=== PATIENT | female | born 1930 | race Caucasian/White ===

== ENCOUNTER 2016-09-13 10:47 | Observation (INO) | payer MEDICARE, OTHER ==
[~2016-09-13] VITALS: Ht 152.4 cm; Wt 60.0 kg
[~2016-09-13 10:47] MED LIST: AMIT75 PO; CALCTAB70 PO; DIOV160T60 PO; DUONI NEB; FURO20 PO; HYDR-3533 PO; LIPI20TA PO; LORA0.5T PO; METF850T PO; OMEP20TA PO; POTA595T2 PO; PRED20 PO; PROP10TA6 PO; VITA100017 PO; VITA100020 PO; ZITH250T PO
[2016-09-13 10:51] VITALS: BP 143/89; PULSE 87; RESP 17; TEMP 97.7; O2SAT 94
[2016-09-13] MEDS ORDERED: SODIUM CHLORIDE 0.9% FLUSH 5 ML FLUSH IVF PRN (11:30)
[2016-09-13 11:44] VITALS: BP_SYST 134; BP_SYST 140; BP_DIAS 92; BP_DIAS 93; RESP 18; O2SAT 96
[2016-09-13] MEDS ORDERED: PROP10TA6 PO (11:55)
[2016-09-13] MEDS ORDERED: CALC600T30 PO (11:55)
[2016-09-13] MEDS ORDERED: VITA10007 PO (11:55)
[2016-09-13] MEDS ORDERED: METF850T PO (11:55)
[2016-09-13] MEDS ORDERED: LOVA10TA PO (11:55)
[2016-09-13] MEDS ORDERED: IPRASOL NEB (11:55)
[2016-09-13] MEDS ORDERED: POTA595T PO (11:55)
[2016-09-13] MEDS ORDERED: ALBU6.7H INH (11:55)
[2016-09-13] MEDS ORDERED: AMIT75TA2 PO (11:55)
[2016-09-13] MEDS ORDERED: VITA10002 PO (11:55)
[2016-09-13] MEDS ORDERED: RESP: ALBUTEROL 2.5 MG/IPRATROPIUM 0.5 MG NEB (SCH) NEB ONE (12:15)
[2016-09-13 12:16] LABS: AUTOMATED NEUTROPHIL # 3.8 TH/MM3 (1.8-7.7); BASOPHIL # 0.1 TH/MM3 (0-0.2); BASOPHIL % 1.2 % (0.0-2.0); EOSINOPHIL # 0.2 TH/MM3 (0-0.4); HEMATOCRIT 35.6 % (35.0-46.0); HEMO FLAGS DIFF FINAL; LYMPH % 15.6 % (9.0-44.0); LYMPHOCYTE # 0.9 TH/MM3 (1.0-4.8); MEAN CELL VOLUME 88.5 FL (80.0-100.0); MEAN CORPUSCULAR HGB CONC 32.8 % (32.0-36.0); MONO % 11.2 % (0.0-8.0); PLATELET COUNT 157 TH/MM3 (150-450); RED BLOOD COUNT 4.02 MIL/MM3 (4.00-5.30); RED CELL DISTRIBUTION WIDTH 14.7 % (11.6-17.2); WHITE BLOOD COUNT 5.6 TH/MM3 (4.0-11.0)
[2016-09-13 12:27] LABS: INTERNATIONAL NORMALIZED RATIO 0.9 RATIO
[2016-09-13 12:28] LABS: APTT (PATIENT) 25.2 SEC (24.3-30.1)
--- NOTE | 2016-09-13 12:38 | RADRPT ---
EXAM DATE/TIME: 09/13/2016 12:07 [place] COMPARISON: CHEST SINGLE AP, February 17, 2016, 11:16. INDICATIONS : Chest pain, short of breath for several days, sent by doctor MEDICAL HISTORY : None. SURGICAL HISTORY : None. ENCOUNTER: Initial ACUITY: 1 week PAIN SCORE: 5/10 LOCATION: Bilateral chest FINDINGS: Minimal air space disease is seen in the right upper lobe. Left lung is clear. Heart and pulmonary vascularity are normal. Spinal stimulator is noted. CONCLUSION: Stable chest, negative for an acute process. Scooby Bermudez MD FACR on September 13, 2016 at 12:29 Board Certified Radiologist. This report was verified electronically.
[2016-09-13 12:40] LABS: ALKALINE PHOSPHATASE 73 U/L (45-117); ALT (GPT) 18 U/L (10-53); ANION GAP 2 MEQ/L (5-15); AST (GOT) 29 U/L (15-37); BICARBONATE 33.6 MEQ/L (21.0-32.0); BLOOD UREA NITROGEN 15 MG/DL (7-18); CHLORIDE 103 MEQ/L (98-107); CREATINE KINASE 136 U/L (26-192); GLOMERULAR FILTRATION RATE 52 ML/MIN (>89); MAGNESIUM 2.1 MG/DL (1.5-2.5); POTASSIUM 4.8 MEQ/L (3.5-5.1); SODIUM (NA) 139 MEQ/L (136-145); TOTAL BILIRUBIN ADULT 0.4 MG/DL (0.2-1.0)
[2016-09-13 12:54] LABS: CKMB 3.4 NG/ML (0.5-3.6)
[2016-09-13] MEDS ORDERED: hydrALAZINE HCL 20 MG/ML VIAL IV PUSH ONE (13:15)
--- NOTE | 2016-09-13 13:20 | PD ---
HPI Chief Complaint: Cardiac Complaint Time Seen by Provider: 11:28 Travel History International Travel<30 days: No Contact w/Intl Traveler<30days: No Traveled to known affect area: No History of Present Illness HPI Patient 86-year-old female presents from Cesar Velazquez's office for evaluation of abnormal EKG and shortness of breath. According to the patient she was seen in his office today and apparently had tachycardic and bradycardic runs to the highest of 100 and the lowest of 50. She also was apparently diaphoretic. Patient is also been complaining of some mild shortness of breath for the past few weeks which is just greater than her normal shortness of breath from COPD. Patient also has a history of mild CHF on her chart. 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 She is followed by Dr. Junie Bess. Patient is coming by her daughter who is concerned for possible cardiac cause. Patient denies any pain, severely denying any chest pain abdominal pain nausea vomiting diarrhea PFSH Past Medical History Arthritis: Yes Asthma: No Autoimmune Disease: No Blood Disorders: No Anxiety: No Depression: No Heart Rhythm Problems: No Cancer: Yes ( MYELODYSPLASIA) Cardiovascular Problems: Yes High Cholesterol: Yes Chemotherapy: No Chest Pain: No Congestive Heart Failure: No COPD: Yes Cerebrovascular Accident: No Coronary Artery Disease: No Diabetes: Yes Patient Takes Glucophage: Yes Diminished Hearing: Yes Endocrine: Yes GERD: No Glaucoma: No Genitourinary: No Hiatal Hernia: No Hypertension: Yes Immune Disorder: No Kidney Stones: No Musculoskeletal: No Neurologic: No Psychiatric: No Reproductive: No Respiratory: Yes (COPD) Migraines: No Myocardial Infarction: No Radiation Therapy: No Renal Failure: No Seizures: No Sickle Cell Disease: No Sleep Apnea: No Thyroid Disease: No Ulcer: No Menopausal: Yes Past Surgical History Abdominal Surgery: No AICD: No Appendectomy: Yes Arteriovenous Shunt: No Cardiac Surgery: No Ear Surgery: No Endocrine Surgery: No Eye Surgery: No Genitourinary Surgery: No Gynecologic Surgery: Yes (hysterectomy) Hysterectomy: Yes Insulin Pump: No Joint Replacement: No Oral Surgery: No Pacemaker: No Thoracic Surgery: No Tonsillectomy: Yes Tympanostomy Tube: Yes Other Surgery: Yes (BACK,HYST,APPEND,) Social History Alcohol Use: Yes (on occasion) Tobacco Use: No (quit 1993) Substance Use: No Allergies-Medications (Allergen,Severity, Reaction): Coded Allergies: Lovenox (Verified Allergy, Mild, Flushing,pruritus, 12/29/15) Reported Meds & Prescriptions Reported Meds & Active Scripts Active Reported Propranolol (Propranolol HCl) 10 Mg Tab 10 Mg PO DAILY Potassium Gluconate 595 Mg Tab 595 Mg PO DAILY Lovastatin 10 Mg Tab 10 Mg PO MOWEFR Take 1 tablet (10mg) on Friday,Friday and Friday Vitamin B-12 (Cyanocobalamin) 1,000 Mcg Tab 1,000 Mcg PO DAILY Metformin (Metformin HCl) 850 Mg Tab 850 Mg PO DAILY With a meal Calcium 600/Vitamin D (Calcium Carbonate-Vitamin D) 600-200 Mg-Unit Tab 2 Tab PO DAILY Vitamin C (Ascorbic Acid) 1,000 Mg Tab 1,000 Mg PO DAILY Amitriptyline (Amitriptyline HCl) 75 Mg Tab 75 Mg PO HS Proventil Hfa 6.7 GM Inh (Albuterol Sulfate) 90 Mcg/Act Aer 1-2 Puff INH Q4-6H PRN Duoneb (Ipratropium-Albuterol Neb) 0.5-2.5 Mg/3 Ml Neb 1 Ampule NEB BID Review of Systems Except as stated in HPI: all other systems reviewed are Neg Physical Exam Narrative GENERAL: Well-developed well-nourished in no apparent distress. SKIN: Warm and dry and pale. HEAD: Atraumatic. Normocephalic. EYES: Pupils equal and round. No scleral icterus. No injection or drainage. ENT: No nasal bleeding or discharge. Mucous membranes pink and moist. NECK: Trachea midline. No JVD. CARDIOVASCULAR: Regular rate and rhythm. No murmur appreciated. RESPIRATORY: No accessory muscle use. Clear to auscultation. Breath sounds equal bilaterally. GASTROINTESTINAL: Abdomen soft, non-tender, nondistended. Hepatic and splenic margins not palpable. MUSCULOSKELETAL: No obvious deformities. No clubbing. No cyanosis. No edema. NEUROLOGICAL: Awake and alert. No obvious cranial nerve deficits. Motor grossly within normal limits. Normal speech. PSYCHIATRIC: Appropriate mood and affect; insight and judgment normal. Data Data Last Documented VS Vital Signs Date Time Temp Pulse Resp B/P Pulse Ox O2 Delivery O2 Flow Rate FiO2 09/13/16 11:44 134/92 140/93 09/13/16 11:44 96 Room Air 09/13/16 11:44 18 09/13/16 11:38 83 09/13/16 10:51 97.7 Orders Electrocardiogram (09/13/16 ) Electrocardiogram (09/13/16 11:29) Ckmb (Isoenzyme) Profile (09/13/16 11:29) Complete Blood Count With Diff (09/13/16 11:29) Comprehensive Metabolic Panel (09/13/16 11:29) Magnesium (Mg) (09/13/16 11:29) Prothrombin Time / Inr (Pt) (09/13/16 11:29) Act Partial Throm Time (Ptt) (09/13/16 11:29) Troponin I (09/13/16 11:29) Chest, Single Ap (09/13/16 11:29) Ecg Monitoring (09/13/16 11:29) Bilateral Bp Monitoring (09/13/16 11:29) Iv Access Insert/Monitor (09/13/16 11:29) Oximetry (09/13/16 11:29) Oxygen Administration (09/13/16 11:29) Sodium Chloride 0.9% Flush (Ns Flush) (09/13/16 11:30) Albuterol-Ipratropium Neb (Duoneb Neb) (09/13/16 12:15) CKMB (09/13/16 11:55) CKMB% (09/13/16 11:55) Hydralazine Inj (Apresoline Inj) (09/13/16 13:15) Admit Order (Ed Use Only) (09/13/16 ) Labs Laboratory Tests Test 09/13/16 11:55 White Blood Count 5.6 TH/MM3 Red Blood Count 4.02 MIL/MM3 Hemoglobin 11.7 GM/DL Hematocrit 35.6 % Mean Corpuscular Volume 88.5 FL Mean Corpuscular Hemoglobin 29.0 PG Mean Corpuscular Hemoglobin 32.8 % Concent Red Cell Distribution Width 14.7 % Platelet Count 157 TH/MM3 Mean Platelet Volume 8.3 FL Neutrophils (%) (Auto) 69.0 % Lymphocytes (%) (Auto) 15.6 % Monocytes (%) (Auto) 11.2 % Eosinophils (%) (Auto) 3.0 % Basophils (%) (Auto) 1.2 % Neutrophils # (Auto) 3.8 TH/MM3 Lymphocytes # (Auto) 0.9 TH/MM3 Monocytes # (Auto) 0.6 TH/MM3 Eosinophils # (Auto) 0.2 TH/MM3 Basophils # (Auto) 0.1 TH/MM3 CBC Comment DIFF FINAL Differential Comment Prothrombin Time 10.0 SEC Prothromb Time International 0.9 RATIO Ratio Activated Partial 25.2 SEC Thromboplast Time Sodium Level 139 MEQ/L Potassium Level 4.8 MEQ/L Chloride Level 103 MEQ/L Carbon Dioxide Level 33.6 MEQ/L Anion Gap 2 MEQ/L Blood Urea Nitrogen 15 MG/DL Creatinine 1.00 MG/DL Estimat Glomerular Filtration 52 ML/MIN Rate Random Glucose 94 MG/DL Calcium Level 9.1 MG/DL Magnesium Level 2.1 MG/DL Total Bilirubin 0.4 MG/DL Aspartate Amino Transf 29 U/L (AST/SGOT) Alanine Aminotransferase 18 U/L (ALT/SGPT) Alkaline Phosphatase 73 U/L Total Creatine Kinase 136 U/L Creatine Kinase MB 3.4 NG/ML Troponin I LESS THAN 0.02 NG/ML Total Protein 7.0 GM/DL Albumin 3.6 GM/DL [facility] Medical Decision Making Medical Screen Exam Complete: Yes Emergency Medical Condition: Yes Interpretation(s) EKG shows sinus first degree heart block, normal axis and normal R-wave progression. MN interval is at 213. The normal R-wave progression, no concerning ST T changes. This abnormal EKG. Differential Diagnosis ACS, AMI, pneumonia, COPD exacerbation, tachycardia dysrhythmia, sick sinus syndrome, anemia Narrative Course 86-year-old female presents emergency department for complaints of shortness of breath and possible tachybradycardia syndrome. Sent by Cesar Velazquez. Patient initial workup including chest x-ray CBC CMP and troponin all reassuring except for sinus first degree heart block. Patient feeling better after DuoNeb still with some mild shortness of breath. Patient's daughters at the bedside. We discussed observation status and they're amenable. The patient was discussed with Dr. Pham who will admit. The cardiac telemetry shows no arrhythmia (other than first-degree heart block) while in the emergency department. Diagnosis Primary Impression: Shortness of breath Admitting Information Admitting Physician Requests: Observation Condition: Stable Sahil Kwong MD Sep 13, 2016 13:20
[2016-09-13] MEDS ORDERED: NALOXONE HCL 0.4 MG/ML AMP IV PRN (13:45)
[2016-09-13] MEDS ORDERED: ONDANSETRON HCL 4 MG/2 ML VIAL IVP PRN (13:45)
[2016-09-13] MEDS ORDERED: SODIUM CHLORIDE 0.9% FLUSH 5 ML FLUSH FLUSH PRN (13:45)
[2016-09-13] MEDS ORDERED: METOCLOPRAMIDE HCL 10 MG/2 ML VIAL IV PUSH PRN (13:45)
[2016-09-13] MEDS: RESP: ALBUTEROL 2.5 MG/IPRATROPIUM 0.5 MG NEB (SCH) NEB ×2 (15:22→21:24)
[2016-09-13 15:34] VITALS: BP 154/71; PULSE 91; RESP 17; O2SAT 96
[2016-09-13 16:00] VITALS: PULSE 63
[2016-09-13 16:27] VITALS: BP 143/67; PULSE 102; RESP 18; TEMP 98.8
--- NOTE | 2016-09-13 16:34 | HHI.HP ---
[facility] C[facility] MD (Paul) Admission Diagnosis SOB, possible tachy dysrythmia. Diagnoses: Chief Complaint: SOB (Ban Barbosa) Travel History International Travel<30 Days: No Contact w/Intl Traveler <30 Da: No Traveled to Known Affected Are: No (Ban Barbosa) History of Present Illness This is an 86-year-old female patient with past medical history which includes chronic anemia thrombocytopenia, chronic myelodysplastic syndrome, COPD, history of pneumonia, AV malformation, diabetes mellitus type 2, hyperlipidemia. Pt. presented to ED with tachycardia and SOB. Pt. went to PCP for regular check up and was noted with elevated BP, more SOB, and abnormal EKG. Per daughter, who is providing most details. Pt. was tachycardic and BP was elevated. Pt. c/o chronic SOB however she has noted increased BALDWIN, no CP, but occasional palpitations. No leg swelling. Questionable history of CHF in the past. Did see Dr. Anand 2 years ago, no prior hx of CAD. 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 Pt. states that she was told she may need oxygen. She was admitted last year with COPD exacerbation and she passed walked test and oxygen was not required. Her sats are 93% on RA. Pt. evaluated in the ED, laboratory essentially unremarkable except for elevated CO2. CXR with no acute findings. EKG with SR and 1st degree AVB. Pt. is resting comfortable, states she is somewhat active, still goes shopping for groceries and lives alone at a senior residence building. Pt. admitted for further evaluation and treatment. (Ban Barbosa) Review of Systems ROS Limitations: Poor Historian Respiratory: COMPLAINS OF: Wheezing, Shortness of breath Cardiovascular: COMPLAINS OF: Palpitations, Dyspnea on Exertion (Ban Barbosa) Past Family Social History Past Medical History chronic anemia thrombocytopenia, chronic myelodysplastic syndrome, COPD, history of pneumonia, AV malformation, diabetes mellitus type 2, hyperlipidemia , cataracts Past Surgical History Appendectomy, bilateral cataract surgery, hysterectomy, tonsillectomy, back surgery 3 Reported Medications Reported Meds & Active Scripts Active Reported Propranolol (Propranolol HCl) 10 Mg Tab 10 Mg PO DAILY Potassium Gluconate 595 Mg Tab 595 Mg PO DAILY Lovastatin 10 Mg Tab 10 Mg PO Take 1 tablet (10mg) on Friday,Friday and Friday Vitamin B-12 (Cyanocobalamin) 1,000 Mcg Tab 1,000 Mcg PO DAILY Metformin (Metformin HCl) 850 Mg Tab 850 Mg PO DAILY With a meal Calcium 600/Vitamin D (Calcium Carbonate-Vitamin D) 600-200 Mg-Unit Tab 2 Tab PO DAILY Vitamin C (Ascorbic Acid) 1,000 Mg Tab 1,000 Mg PO DAILY Amitriptyline (Amitriptyline HCl) 75 Mg Tab 75 Mg PO HS Proventil Hfa 6.7 GM Inh (Albuterol Sulfate) 90 Mcg/Act Aer 1-2 Puff INH Q4-6H PRN Duoneb (Ipratropium-Albuterol Neb) 0.5-2.5 Mg/3 Ml Neb 1 Ampule NEB BID (Ban Barbosa) Allergies: Coded Allergies: Lovenox (Verified Allergy, Mild, Flushing,pruritus, 12/29/15) Active Ordered Medications Inpatient Medications Albuterol/ Ipratropium (Duoneb Neb) 1 ampule QID NEB NEB Last administered on 09/13/16 15:22; Start 09/13/16 at 16:00 Amitriptyline HCl (Elavil) 75 mg HS PO ; Start 09/13/16 at 21:00 Aspirin (Ecotrin Ec) 81 mg DAILY PO ; Start 09/14/16 at 09:00 Calcium/Vitamin D (Oscal-D 250-125) 500 mg BID PO ; Start 09/14/16 at 09:00 Hydralazine HCl (Apresoline Inj) 10 mg ONCE ONCE IV PUSH Last administered on 09/13/16 13:15; Start 09/13/16 at 13:15; Stop 09/13/16 at 13:16; Status DC IV Flush (NS Flush) 2 ml BID FLUSH ; Start 09/13/16 at 21:00 Metoclopramide HCl (Reglan Inj) 5 mg Q6H PRN IV PUSH NAUSEA OR VOMITING; Start 09/13/16 at 13:45 Naloxone HCl (Narcan Inj) 0.4 mg UNSCH PRN IV SEE LABEL COMMENTS; Start at 13:45 Ondansetron HCl (Zofran Inj) 4 mg Q6H PRN IVP NAUSEA OR VOMITING; Start at 13:45 Pravastatin Sodium (Pravachol) 10 mg MoWeFr PO ; Start 09/16/16 at 09:00 Family History Patient reports her mother at 97 secondary to old age possible [place] Father in his 40s secondary to [place] Social History Patient lives at home alone, resides in a senior residence Occasional EtOH Quit smoking 21 years ago prior to that smoked one pack per day since age 15 Denies illicit drug use uses walker for ambulation has daughter who lives close by, very supportive (Ban Barbosa) Physical Exam Vital Signs Vital Signs Date Time Temp Pulse Resp B/P Pulse Ox O2 Delivery O2 Flow Rate FiO2 09/13/16 15:34 91 17 154/71 96 Room Air 09/13/16 11:44 134/92 140/93 09/13/16 11:44 96 Room Air 09/13/16 11:44 18 96 Room Air 09/13/16 11:38 83 18 95 09/13/16 10:51 97.7 87 17 143/89 94 Physical Exam GENERAL: This is a well-nourished, well-developed patient, in no apparent distress. SKIN: No rashes, ecchymoses or lesions. Cool and dry. HEAD: Atraumatic. Normocephalic. No temporal or scalp tenderness. EYES: Pupils equal round and reactive. Extraocular motions intact. No scleral icterus. No injection or drainage. ENT: Nose without bleeding, purulent drainage or septal hematoma. Throat without erythema, tonsillar hypertrophy or exudate. Uvula midline. Airway patent. NECK: Trachea midline. No JVD or lymphadenopathy. Supple, nontender, no meningeal signs. CARDIOVASCULAR: Regular rate and rhythm with soft murmurs. No gallops, or rubs. RESPIRATORY: Diminished, faint expiratory wheezing. GASTROINTESTINAL: Abdomen soft, non-tender, nondistended. No hepato-splenomegaly , or palpable masses. No guarding. MUSCULOSKELETAL: Extremities without clubbing, cyanosis, or edema. No joint tenderness, effusion, or edema noted. No calf tenderness. Negative Homans sign bilaterally. NEUROLOGICAL: Awake and alert. Cranial nerves II through XII intact. Motor and sensory grossly within normal limits. Five out of 5 muscle strength in all muscle groups. Normal speech. Laboratory Laboratory Tests Test 09/13/16 11:55 White Blood Count 5.6 Red Blood Count 4.02 Hemoglobin 11.7 Hematocrit 35.6 Mean Corpuscular Volume 88.5 Mean Corpuscular Hemoglobin 29.0 Mean Corpuscular Hemoglobin 32.8 Concent Red Cell Distribution Width 14.7 Platelet Count 157 Mean Platelet Volume 8.3 Neutrophils (%) (Auto) 69.0 Lymphocytes (%) (Auto) 15.6 Monocytes (%) (Auto) 11.2 Eosinophils (%) (Auto) 3.0 Basophils (%) (Auto) 1.2 Neutrophils # (Auto) 3.8 Lymphocytes # (Auto) 0.9 Monocytes # (Auto) 0.6 Eosinophils # (Auto) 0.2 Basophils # (Auto) 0.1 CBC Comment DIFF FINAL Differential Comment Prothrombin Time 10.0 Prothromb Time International 0.9 Ratio Activated Partial 25.2 Thromboplast Time Sodium Level 139 Potassium Level 4.8 Chloride Level 103 Carbon Dioxide Level 33.6 Anion Gap 2 Blood Urea Nitrogen 15 Creatinine 1.00 Estimat Glomerular Filtration 52 Rate Random Glucose 94 Calcium Level 9.1 Magnesium Level 2.1 Total Bilirubin 0.4 Aspartate Amino Transf 29 (AST/SGOT) Alanine Aminotransferase 18 (ALT/SGPT) Alkaline Phosphatase 73 Total Creatine Kinase 136 Creatine Kinase MB 3.4 Troponin I LESS THAN 0.02 Total Protein 7.0 Albumin 3.6 (Ban Barbosa) Result Diagram: 09/13/16 1155 09/13/16 1155 Imaging Last Impressions Chest X-Ray 09/13/16 1129 Signed Impressions: Service Date/Time: Tuesday, September 13, 2016 12:07 - CONCLUSION: Stable chest, negative for an acute process. Scooby Bermudez MD FACR (Ban Barbosa) Assessment and Plan Problem List: (1) Shortness of breath (2) COPD (chronic obstructive pulmonary disease) (3) HTN (hypertension) (4) DM (diabetes mellitus) (5) Myelodysplastic disease (6) Hyperlipemia Assessment and Plan Admit to Dr. Pham 86 year old female presented to ED with C/O SOB, tachycardia. Hx COPD, poss. CHF in the past. SOB, COPD with mild exacerbation, R/O ACS. -Oxygen PRN to keep sats >92 -will check D dimer, may need CTA to R/O PE -Duonebs QID -Serial trop -Cardiology consult -Check 2D echo Hx CML, CBC stable -monitor for now -F/U Dr. Bess as OP DM II -Accuchecks AC/HS with ISS HTN -Continue home meds Home medications reviewed, initiated as indicated SCDs for DVT prophylaxis Plan of care discussed with attending, RN, and pt and family. Further management of the patient will be dependent on the hospital course. This patient was seen by myself and Dr. Pham, this H/P is written on his behalf. (Ban Barbosa) Assessment and Plan Patient seen and examined on the day of admission [id number] time spent with patient Meds and labs reviewed. Chart was reviewed Discussed with RN Discussed with ROMA about plan of care Discussed with patien and family member at bedside (Kennedy Pham MD) Problem Qualifiers (1) COPD (chronic obstructive pulmonary disease): Qualified Code: J44.9 - Chronic obstructive pulmonary disease, unspecified COPD type (2) HTN (hypertension): Qualified Code: I10 - Essential hypertension (3) DM (diabetes mellitus): Qualified Code: E11.8 - Type 2 diabetes mellitus with complication, without long-term current use of insulin (4) Hyperlipemia: Qualified Code: E78.5 - Hyperlipidemia, unspecified hyperlipidemia type Ban Barbosa Sep 13, 2016 16:34 Kennedy Pham MD Sep 14, 2016 15:11
--- NOTE | 2016-09-13 16:58 | EKG ---
Date Performed: 09/13/2016 Time Performed: 11:10:28 PTAGE: 86 years EKG: Sinus rhythm WITH FIRST DEGREE AV BLOCK ABNORMAL ECG PREVIOUS TRACING : 12/29/2015 20.55 Compared to previous tracing, rate has slowed, otherwise la rgely unchanged. DOCTOR: Asa Sidhu Interpretating Date/Time 09/13/2016 16:54:53
[2016-09-13] MEDS ORDERED: DEXTROSE 50% IN WATER 50 ML VIAL(D50) IV PUSH PRN (18:45)
[2016-09-13] MEDS ORDERED: GLUCAGON 1 MG/ML VIAL OTHER PRN (18:45)
[2016-09-13 19:09] LABS: CREATINE KINASE 93 U/L (26-192)
[2016-09-13 20:33] VITALS: BP 132/64; PULSE 103; RESP 20; TEMP 98.4; O2SAT 95
[2016-09-13] MEDS: INSULIN ASPART SUPPLEMENTAL SCALE SQ SCH (21:00)
[2016-09-13] MEDS: SODIUM CHLORIDE 0.9% FLUSH 5 ML FLUSH FLUSH SCH (21:45)
[2016-09-13] MEDS: AMITRIPTYLINE HCL 75 MG TAB PO SCH (21:45)
[2016-09-14] VITALS (10 sets, daily range): BP systolic 132–151; BP diastolic 60–68; PULSE 80–99; RESP 18–20; TEMP 97.4–98.4; O2SAT 94–96
[2016-09-14 02:05] LABS: CREATINE KINASE 76 U/L (26-192)
[2016-09-14 05:05] LABS: AUTOMATED NEUTROPHIL # 4.4 TH/MM3 (1.8-7.7); BASOPHIL # 0.1 TH/MM3 (0-0.2); BASOPHIL % 1.2 % (0.0-2.0); EOSINOPHIL # 0.2 TH/MM3 (0-0.4); HEMATOCRIT 33.4 % (35.0-46.0); HEMO FLAGS DIFF FINAL; LYMPH % 16.1 % (9.0-44.0); LYMPHOCYTE # 1.1 TH/MM3 (1.0-4.8); MEAN CELL VOLUME 88.3 FL (80.0-100.0); MEAN CORPUSCULAR HEMOGLOBIN 28.5 PG (27.0-34.0); MEAN CORPUSCULAR HGB CONC 32.3 % (32.0-36.0); MONO % 12.7 % (0.0-8.0); PLATELET COUNT 146 TH/MM3 (150-450); RED BLOOD COUNT 3.78 MIL/MM3 (4.00-5.30); RED CELL DISTRIBUTION WIDTH 14.6 % (11.6-17.2); WHITE BLOOD COUNT 6.6 TH/MM3 (4.0-11.0)
[2016-09-14 05:27] LABS: BICARBONATE 31.9 MEQ/L (21.0-32.0); POTASSIUM 4.1 MEQ/L (3.5-5.1)
[2016-09-14] MEDS: INSULIN ASPART SUPPLEMENTAL SCALE SQ SCH ×4 (06:09→20:16)
--- NOTE | 2016-09-14 08:40 | HHI.PR ---
Subjective Remarks sob walking to bathroom tachy, HR 100s, SR on tele no cp no sputum remains on RA, sats 94% afebrile Objective Objective Results - Vital Signs Date Time Temp Pulse Resp B/P Pulse Ox O2 Delivery O2 Flow Rate FiO2 09/14/16 04:54 98.4 98 19 135/65 94 09/14/16 00:26 97 09/14/16 00:25 98.0 98 18 132/60 94 09/14/16 00:11 99 09/13/16 20:33 98.4 103 20 132/64 95 09/13/16 16:27 98.8 102 18 143/67 09/13/16 16:00 63 09/13/16 15:34 91 17 154/71 96 Room Air 09/13/16 11:44 134/92 140/93 09/13/16 11:44 96 Room Air 09/13/16 11:44 18 96 Room Air 09/13/16 11:38 83 18 95 09/13/16 10:51 97.7 87 17 143/89 94 Result Diagram: 09/14/16 0435 09/14/16 0435 Imaging Last Impressions Chest X-Ray 09/13/16 1129 Signed Impressions: Service Date/Time: Tuesday, September 13, 2016 12:07 - CONCLUSION: Stable chest, negative for an acute process. Scooby Bermudez MD FACR Other Results Laboratory Tests Test 09/13/16 09/13/16 09/14/16 09/14/16 11:55 17:58 00:42 04:35 White Blood Count 5.6 6.6 Red Blood Count 4.02 3.78 Hemoglobin 11.7 10.8 Hematocrit 35.6 33.4 Mean Corpuscular Volume 88.5 88.3 Mean Corpuscular Hemoglobin 29.0 28.5 Mean Corpuscular Hemoglobin 32.8 32.3 Concent Red Cell Distribution Width 14.7 14.6 Platelet Count 157 146 Mean Platelet Volume 8.3 8.1 Neutrophils (%) (Auto) 69.0 67.0 Lymphocytes (%) (Auto) 15.6 16.1 Monocytes (%) (Auto) 11.2 12.7 Eosinophils (%) (Auto) 3.0 3.0 Basophils (%) (Auto) 1.2 1.2 Neutrophils # (Auto) 3.8 4.4 Lymphocytes # (Auto) 0.9 1.1 Monocytes # (Auto) 0.6 0.8 Eosinophils # (Auto) 0.2 0.2 Basophils # (Auto) 0.1 0.1 CBC Comment DIFF FINAL DIFF FINAL Differential Comment Prothrombin Time 10.0 Prothromb Time International 0.9 Ratio Activated Partial 25.2 Thromboplast Time Sodium Level 139 141 Potassium Level 4.8 4.1 Chloride Level 103 104 Carbon Dioxide Level 33.6 31.9 Anion Gap 2 5 Blood Urea Nitrogen 15 17 Creatinine 1.00 0.94 Estimat Glomerular Filtration 52 56 Rate Random Glucose 94 102 Calcium Level 9.1 8.8 Magnesium Level 2.1 Total Bilirubin 0.4 Aspartate Amino Transf 29 (AST/SGOT) Alanine Aminotransferase 18 (ALT/SGPT) Alkaline Phosphatase 73 Total Creatine Kinase 136 93 76 Creatine Kinase MB 3.4 Troponin I LESS THAN 0.02 LESS THAN 0.02 LESS THAN 0.02 Total Protein 7.0 Albumin 3.6 D-Dimer Quantitative (PE/DVT) 0.93 ROS General: No: Fatigue, Weakness HEENT: No: Sore Throat, Dysphagia Cardiac: No: Chest Pain, Edema, Palpitations Pulmonary: SOB GI: No: Abdominal Pain, BM, Diarrhea, N/V /SENIOR FINANCIAL ANALYST: No: Dysuria, Urgency Neuro/MS: No: Lightheaded, Confusion Psych: No: Anxiety, Depression Skin: No: Itching, Rash Physical Exam Physical Exam GENERAL: This is a well-nourished, well-developed patient, in no apparent distress. SKIN: No rashes, ecchymoses or lesions. Cool and dry. HEAD: Atraumatic. Normocephalic. No temporal or scalp tenderness. EYES: Pupils equal round and reactive. Extraocular motions intact. No scleral icterus. No injection or drainage. ENT: Nose without bleeding, purulent drainage or septal hematoma. Throat without erythema, tonsillar hypertrophy or exudate. Uvula midline. Airway patent. NECK: Trachea midline. No JVD or lymphadenopathy. Supple, nontender, no meningeal signs. CARDIOVASCULAR: Regular rate and rhythm with soft murmurs. No gallops, or rubs. RESPIRATORY: Diminished GASTROINTESTINAL: Abdomen soft, non-tender, nondistended. No hepato-splenomegaly , or palpable masses. No guarding. MUSCULOSKELETAL: Extremities without clubbing, cyanosis, or edema. No joint tenderness, effusion, or edema noted. No calf tenderness. Negative Homans sign bilaterally. NEUROLOGICAL: Awake and alert. Cranial nerves II through XII intact. Motor and sensory grossly within normal limits. Five out of 5 muscle strength in all muscle groups. Normal speech. Urinary Catheter: No Vascular Central Line Catheter: No A/P Diagnosis: (1) Shortness of breath (2) COPD (chronic obstructive pulmonary disease) (3) HTN (hypertension) (4) DM (diabetes mellitus) (5) Myelodysplastic disease (6) Hyperlipemia Assessment and Plan 86 year old female presented to ED with C/O SOB, tachycardia. Hx COPD, poss. CHF in the past. SOB, COPD with mild exacerbation, R/O ACS. -Oxygen PRN to keep sats >92 -D dimer elevated, CTA to r/o PE ordered -Morgan QID -Serial trop x 3 negative -Cardiology consult, pending -Check 2D echo pending Hx CML, CBC stable -monitor for now -F/U Dr. Bess as OP DM II -Accuchecks AC/HS with ISS HTN -Continue home meds add Heparin for DVT prophylaxis/continue SCDs will f/u on CTA results D/W RN D/W Dr. Pham D/W pt. This patient was seen by myself and Dr. Pham, this note is written on his behalf. Problem Qualifiers (1) COPD (chronic obstructive pulmonary disease): Qualified Code: J44.9 - Chronic obstructive pulmonary disease, unspecified COPD type (2) HTN (hypertension): Qualified Code: I10 - Essential hypertension (3) DM (diabetes mellitus): Qualified Code: E11.8 - Type 2 diabetes mellitus with complication, without long-term current use of insulin (4) Hyperlipemia: Qualified Code: E78.5 - Hyperlipidemia, unspecified hyperlipidemia type Ban Barbosa Sep 14, 2016 08:40
[2016-09-14] MEDS: RESP: ALBUTEROL 2.5 MG/IPRATROPIUM 0.5 MG NEB (SCH) NEB ×4 (09:34→20:32)
[2016-09-14] MEDS: PROPRANOLOL HCL 10 MG TAB PO SCH (09:51)
[2016-09-14] MEDS: SODIUM CHLORIDE 0.9% FLUSH 5 ML FLUSH FLUSH SCH ×2 (09:51→21:00)
[2016-09-14] MEDS: ASPIRIN EC 81 MG TABEC PO SCH (09:51)
[2016-09-14] MEDS: CALCIUM/VITAMIN D 250 MG/125 U TAB PO SCH ×2 (09:51→21:00)
[2016-09-14] MEDS: HEPARIN SODIUM - SQ 10,000 UNITS/ML VIAL SQ SCH ×2 (10:00→21:00)
[2016-09-14] MEDS ORDERED: IOHEXOL 350 MG/ML 10 ML VIAL (for RAD DIAG) IV ONE (11:04)
--- NOTE | 2016-09-14 11:15 | RADRPT ---
EXAM DATE/TIME: 09/14/2016 10:32 [facility] COMPARISON: CT PULMONARY ANGIOGRAM, July 30, 2014, 12:49. INDICATIONS : Shortness of breath; Evaluate for embolism. IV CONTRAST: 60 cc Omnipaque 350 (iohexol) IV RADIATION DOSE: 23.04 CTDIvol (mGy) MEDICAL HISTORY : Hypertension. Carcinoma, not otherwise specified. SURGICAL HISTORY : None. ENCOUNTER: Initial ACUITY: 1 day PAIN SCALE: 3/10 LOCATION: Bilateral chest TECHNIQUE: Volumetric scanning of the chest was performed using a pulmonary embolism protocol MIP images were re constructed. Using automated exposure control and adjustment of the mA and/or kV according to patien t size, radiation dose was kept as low as reasonably achievable to obtain optimal diagnostic quality images. FINDINGS: There is no pulmonary embolus. 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 There is a 16 mm irregular mass posteromedially of the right lower lobe that was just a few millimeters previously. The 6 mm nodule more superiorly in the right lower lobe is stable. There is a 4 mm nodule in the right upper lobe artie t is also unchanged. The chronic infiltrates/scarring of the right lung apex and upper lobe are stabl e. 4 mm pleural-based nodule of the left lower lobe unchanged. No acute pneumonia. No pneumothorax. There are tiny bilateral pleural effusions. No lymphadenopathy. Heart size stable, within normal limits. There is a small pericardial effusi on that appears similar to prior studies. Coronary artery calcification again noted. There is a m oderate hiatal hernia. CONCLUSION: 1. No pulmonary embolus. 2. 16 mm irregular mass posteromedially of the right lower lobe changing and if concern for a small/e rebecca bronchogenic carcinoma. Percutaneous biopsy would be difficult. Outpatient PET/CT suggested. No lymphadenopathy or other evidence of metastatic disease. 3. Chronic fibroemphysematous changes and otherwise stable scattered nodules and parenchymal consolid ation. 4. Trace pericardial and bilateral pleural effusions. 5. Coronary artery calcification. 6. Moderate hiatal hernia. Raghu Rueda MD on September 14, 2016 at 11:07 Board Certified Radiologist. This report was verified electronically.
--- NOTE | 2016-09-14 14:21 | MB ---
cc: VIOLETTE OAKES M.D. DATE OF CONSULTATION: 09/14/2016 REASON FOR CONSULTATION COPD and exacerbation. HISTORY OF PRESENT ILLNESS Mrs. Prince is an 86-year-old female who comes to the emergency room complaining of increasing shortness of breath. The patient has been seen by Dr. Cesar Velazquez who is her primary physician. She was noted to have periodic tachycardia and bradycardia. The patient has no cough and expectoration, no fever, no chills, no hemoptysis. 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 Bess. PAST MEDICAL HISTORY 1. COPD. 2. Myelodysplastic disorder as mentioned above. 3. Degenerative joint disease. 4. Hyperlipidemia. 5. Hypertension. 6. Glucose intolerance. MEDICATIONS AT HOME 1. Propranolol. 2. Lovastatin. 3. Metformin. 4. Calcium. 5. Amitriptyline. 6. Proventil inhaler. 7. DuoNeb. ALLERGIES LOVENOX. FAMILY HISTORY Noncontributory. SOCIAL HISTORY Remote smoking history, none at present, stopped in 1993. Drinks alcohol socially. Does not use drugs. REVIEW OF SYSTEMS A 12-point review of systems as per HPI and past history otherwise negative. PHYSICAL EXAMINATION VITAL SIGNS: Temperature 97.7, pulse 80, respirations 18, blood pressure 130/90. HEENT: Unremarkable. Eyes without icterus. CHEST: Increased PA diameter noted. Hyperresonant to percussion. A Few scattered rhonchi at bases on auscultation. CARDIAC: PMI not appreciated. S1, S2 audible. No murmur, no rub. ABDOMEN: Lax, audible bowel sounds. EXTREMITIES: No clubbing, cyanosis or edema. LABORATORY DATA White count 5.6, hemoglobin 11.7, platelets 157,000, sodium 139, potassium 4.8, BUN 15, creatinine 1.0. IMPRESSION 1. COPD and exacerbation. 2. Diabetes mellitus. 3. Hypertension. 4. Myelodysplastic disorder. 5. CT scan, no PE, right lower lobe lung nodule. PLAN 1. The patient will be maintained on oxygen therapy as needed and bronchodilator therapy given. 2. Antibiotic therapy on empiric basis. 3. The patient does have a nodule in the right lower lung which will be followed as an out patient I do thank you for asking me to partake in MrsChristopher rahman. Violette Oakes MD WWW/JOAQUINA /1:23 PM /2:06 PM
--- NOTE | 2016-09-14 16:39 | MB ---
cc: KIMI BARBOSA HANSCY M.D. DATE OF CONSULTATION 09/14/16 REASON FOR CONSULTATION Shortness of breath on activity, chest pain. HISTORY OF PRESENT ILLNESS Mrs. Prince is an 86-year-old female with history of COPD, high blood pressure, hyperlipidemia, diabetes, myelodysplastic disorder. She has a history of thrombocytopenia but currently platelet is around 150, 146. For the past couple of weeks, she was having shortness of breath and chest discomfort on activity. She decided to come to the emergency room. CT scan was negative. COPD exacerbation also suspected, antibiotics initiated. I was consulted for evaluation and management. The chart was reviewed. The patient was evaluated. ALLERGIES LOVENOX SOCIAL HISTORY Negative for drinking. Stopped smoking over 20 years ago. FAMILY HISTORY Noncontributory to her current medical condition. MEDICATIONS Currently, 1. Albuterol inhaler 2. Elavil 75 mg at bedtime. 3. Aspirin 81 mg a day 4. Ceftin 250 mg q.12 h. 5. Heparin subcu. 6. Reglan. 7. Pravachol. 8. Propranolol 9. Metformin at home. REVIEW OF SYSTEMS Currently she refers some chest pain in the left side on and off but no fever. PHYSICAL EXAMINATION GENERAL: Alert, fully oriented. VITAL SIGNS: Blood pressure is 137/63, pulse 80, respiratory rate 18. LUNGS: Ventilated. CARDIOVASCULAR: S1-S2, no gallop. No murmur. ABDOMEN: Soft. No mass, no bruit. EXTREMITIES: No edema. CARDIOLOGY STUDIES Electrocardiogram - sinus rhythm. There is apparently some inferior Q-waves. Diffuse ST changes. LABORATORY DATA Hemoglobin is 10.8, platelet is 146, white blood cell 6.6, potassium 4.1, creatinine 0.94, troponin less than 0.02. INR was 0.9. ASSESSMENT AND RECOMMENDATIONS Mrs. Prince has shortness of breath. CT scan negative. Troponin currently negative. No acute ST and T-wave changes, but she referred chest pain and discomfort on minimal activity. She has history of high blood pressure, diabetes mellitus and hyperlipidemia. My recommendation at this point is a nuclear stress test to rule out possible ischemia. Based on the result, further decision will be taken. Case discussed with Ms. Barbosa, the PA who is managing the patient. I will follow her during hospitalization. MD MAREK Bradford /3:39 PM /4:33 PM
[2016-09-14] MEDS: AMITRIPTYLINE HCL 75 MG TAB PO SCH (21:00)
[2016-09-14] MEDS: CEFUROXIME AXETIL SUSP 250 MG/5 ML 50 ML BTL PO SCH (21:00)
[2016-09-15] VITALS (9 sets, daily range): BP systolic 107–158; BP diastolic 59–79; PULSE 90–105; RESP 18–22; TEMP 97.4–98.7; O2SAT 91–100
[2016-09-15] MEDS: INSULIN ASPART SUPPLEMENTAL SCALE SQ SCH ×4 (06:32→21:00)
[2016-09-15] MEDS: RESP: ALBUTEROL 2.5 MG/IPRATROPIUM 0.5 MG NEB (SCH) NEB ×4 (07:41→19:56)
--- NOTE | 2016-09-15 08:08 | HHI.PR ---
Subjective Remarks Slept fairly well, awakens easily No chest pain Shortness of breath Alert asking questions Appetite fair (Isaura Lopez) Objective Objective Results - Vital Signs Date Time Temp Pulse Resp B/P Pulse Ox O2 Delivery O2 Flow Rate FiO2 09/15/16 07:43 92 21 09/15/16 03:47 97.4 90 20 107/59 98 09/15/16 00:13 98.0 94 20 108/59 100 09/14/16 20:30 96 Nasal Cannula 3.00 09/14/16 19:26 97.4 97 20 151/68 95 09/14/16 15:55 94 18 147/68 95 09/14/16 14:00 86 09/14/16 09:38 94 Nasal Cannula 2.00 09/14/16 09:33 97.8 80 20 137/63 95 (Isaura Lopez) Result Diagram: 09/14/16 0435 09/14/16 0435 ROS General: Weakness (generalized), Other (10 point ROS reviewed. Generalized weakness and shortness of breath other systems unremarkable or negative) Cardiac: Edema (trace pedal) Pulmonary: Cough, SOB (more so with exertion) (Isaura Lopez) Physical Exam Physical Exam GENERAL: This is a thin, well-developed patient, in no apparent distress. SKIN: No rashes, ecchymoses or lesions. Cool and dry. HEAD: Atraumatic. Normocephalic. No temporal or scalp tenderness. EYES: Pupils 2 mm ,equal round and reactive. Extraocular motions intact. No scleral icterus. ENT: Nose without bleeding, purulent drainage or septal hematoma. Throat without erythema, or exudate. Uvula midline. Airway patent. NECK: Trachea midline. No JVD or lymphadenopathy. Supple, nontender, CARDIOVASCULAR: Regular rate and rhythm with soft murmur, grade 2/6 left sternal border. No gallops, or rubs. RESPIRATORY: Diminished, low air volumes, decreased breath sounds right greater than left GASTROINTESTINAL: Abdomen soft, non-tender, nondistended. Active bowel sounds all 4 quadrants MUSCULOSKELETAL: Trace edema. No joint tenderness. NEUROLOGICAL: Awake and alert. Cranial nerves II through XII intact. Motor and sensory grossly within normal limits. Normal speech. Urinary Catheter: No Vascular Central Line Catheter: No Qualified Code: I10 - Essential hypertension (3) DM (diabetes mellitus): Qualified Code: E11.8 - Type 2 diabetes mellitus with complication, without long-term current use of insulin (4) Hyperlipemia: Qualified Code: E78.5 - Hyperlipidemia, unspecified hyperlipidemia type Objective Remarks I'm doing okay I guess. Feels a little short of breath at times (Isaura Lopez) A/P Assessment and Plan (1) Shortness of breath (2) COPD (chronic obstructive pulmonary disease) (3) HTN (hypertension) (4) DM (diabetes mellitus) (5) Myelodysplastic disease (6) Hyperlipemia 7. Anemia, stable Assessment and Plan SOB, COPD with mild exacerbation, -Oxygen PRN to keep sats >92 -D dimer elevated, -Duonebs QID -Serial trop x 3 negative -Cardiology consult, recommend stress test, rule out any ischemia DM II -Accuchecks AC/HS with at bedtime snack, monitor HTN -Continue home meds, stable Monitor all vital signs, afebrile, stable heart rate and respiratory rate at rest Heparin for DVT prophylaxis/continue SCDs Monitor any changes in hemoglobin, anemia probably secondary to chronic disease Stress tests today /cardiac. Exam normal. Discussed with patient plans for discharge, this pm. Patient states she has no one to pickling grader today, but daughter is available for am discharge. According to patient, there are no other options for safe discharge today. Discussed F/U with her PCP within next 1-2 weeks,. D/W Dr. Pham, patient seen on his behalf D/W pt. Discharge Planning Initiated Discussed With: Other (Dr. Pham , pt, seen on his behalf,) (Isaura Lopez) Assessment and Plan Pt seen and examined as above face to face time spent with pt labs and rad data reviewed. ct neg for PE plan of care leonela williamson [facility] input leonela pt awaiting stress test (Kennedy Pham MD) Isaura Lopez Sep 15, 2016 08:08 Kennedy Pham MD Sep 15, 2016 09:00
[2016-09-15] MEDS: PROPRANOLOL HCL 10 MG TAB PO SCH (09:00)
[2016-09-15] MEDS: CEFUROXIME AXETIL SUSP 250 MG/5 ML 50 ML BTL PO SCH (09:00)
[2016-09-15] MEDS ORDERED: REGADENOSON INJ 0.4 MG/5 ML SYR ONE (09:43)
--- NOTE | 2016-09-15 11:10 | RADRPT ---
EXAM DATE/TIME: 09/15/2016 09:18 [facility] COMPARISON: No previous studies available for comparison. INDICATIONS : Mid chest pressure with shortness of breath for two weeks. Angina. DOSE: 25.5 mCi Tc99m Myoview at stress. 8.5 mCi Tc99m Myoview at rest. 0.4 mg Lexiscan STRESS SYMPTOMS: Stomach cramps. EJECTION FRACTION: > 70% MEDICAL HISTORY : Hypertension. Diabetes mellitus type 2. Chronic obstructive pulmonary disease. SURGICAL HISTORY : Total knee replacement, left. Hysterectomy. Appendectomy. ENCOUNTER: Initial ACUITY: 2 weeks PAIN SCALE: 4/10 LOCATION: Midsternal chest TECHNIQUE: The patient underwent pharmacologic stress with infusion of prescribed dose. Continuous ECG tracing was monitored during stress. Gated SPECT imaging was performed after stress and conventional SPECT i maging was performed at rest. The examination was performed on a SPECT/CT scanner, both attenuation and non-corrected datasets were reviewed. FINDINGS: DISTRIBUTION: The maximum perfused segment at stress is in the septal wall. PERFUSION STUDY: The pattern of perfusion at stress is within normal limits. GATED STUDY: There is intact wall motion and thickening without hypokinetic or dyskinetic segments. CONCLUSION: 1. No reversible perfusion defect to suggest stress-induced myocardial ischemia identified. RISK CATEGORY: Low (<1% Annual Mortality Rate) Charlie Bermudez MD on September 15, 2016 at 11:08 Board Certified Radiologist. This report was verified electronically.
[2016-09-15] MEDS: CALCIUM/VITAMIN D 250 MG/125 U TAB PO SCH ×2 (11:26→21:52)
[2016-09-15] MEDS: ASPIRIN EC 81 MG TABEC PO SCH (11:26)
[2016-09-15] MEDS: HEPARIN SODIUM - SQ 10,000 UNITS/ML VIAL SQ SCH ×2 (11:27→21:53)
[2016-09-15] MEDS: SODIUM CHLORIDE 0.9% FLUSH 5 ML FLUSH FLUSH SCH ×2 (11:27→21:53)
--- NOTE | 2016-09-15 13:24 | HHI.PR ---
Subjective Remarks ALERT LESS SOB Objective Vital Signs Date Time Temp Pulse Resp B/P Pulse Ox O2 Delivery O2 Flow Rate FiO2 09/15/16 11:12 98.0 102 22 125/62 94 09/15/16 08:08 98.0 91 22 135/76 09/15/16 07:43 92 21 09/15/16 03:47 97.4 90 20 107/59 98 09/15/16 00:13 98.0 94 20 108/59 100 09/14/16 20:30 96 Nasal Cannula 3.00 09/14/16 19:26 97.4 97 20 151/68 95 09/14/16 15:55 94 18 147/68 95 09/14/16 14:00 86 Result Diagram: 09/14/16 0435 09/14/16 0435 Objective Remarks GENERAL: SKIN: Warm and dry. HEAD: Atraumatic. Normocephalic. EYES: Pupils equal and round. No scleral icterus. No injection or drainage. ENT: No nasal bleeding or discharge. Mucous membranes pink and moist. NECK: Trachea midline. No JVD. CARDIOVASCULAR: Regular rate and rhythm. RESPIRATORY: No accessory muscle use. Clear to auscultation. Breath sounds equal bilaterally. GASTROINTESTINAL: Abdomen soft, non-tender, nondistended. Hepatic and splenic margins not palpable. MUSCULOSKELETAL: Extremities without clubbing, cyanosis, or edema. No obvious deformities. NEUROLOGICAL: Awake and alert. No obvious cranial nerve deficits. Motor grossly within normal limits. Five out of 5 muscle strength in the arms and legs. Normal speech. PSYCHIATRIC: Appropriate mood and affect; insight and judgment normal. Assessment and Plan Assessment and Plan RESPIRATORY FAILURE COPD EX PLAN O2 BRONCHODILATOR THERAPY INCREASE ACTIVITY Violette Oakes MD Sep 15, 2016 13:24
--- NOTE | 2016-09-15 14:13 | EKG ---
Date Performed: 09/14/2016 Time Performed: 00:28:22 PTAGE: 86 years EKG: Sinus rhythm Since previous tracing, no significant change noted NORMAL ECG PREVIOUS TRACING : 09/13/2016 20.31 DOCTOR: Ruben Morales Interpretating Date/Time 09/15/2016 15:36:28
--- NOTE | 2016-09-15 14:13 | EKG ---
Date Performed: 09/13/2016 Time Performed: 20:31:43 PTAGE: 86 years EKG: SINUS TACHYCARDIA Since previous tracing, OH interval is slightly shorter, otherwise no sig nificant change ABNORMAL RHYTHM ECG PREVIOUS TRACING : 09/13/2016 11.10 DOCTOR: Ruben Morales Interpretating Date/Time 09/15/2016 15:36:17
--- NOTE | 2016-09-15 15:55 | HHI.PR ---
Subjective Remarks Feeling ok Objective Vital Signs Date Time Temp Pulse Resp B/P Pulse Ox O2 Delivery O2 Flow Rate FiO2 09/15/16 11:12 98.0 102 22 125/62 94 09/15/16 08:08 98.0 91 22 135/76 09/15/16 07:43 92 21 09/15/16 03:47 97.4 90 20 107/59 98 09/15/16 00:13 98.0 94 20 108/59 100 09/14/16 20:30 96 Nasal Cannula 3.00 09/14/16 19:26 97.4 97 20 151/68 95 09/14/16 15:55 94 18 147/68 95 Result Diagram: 09/14/16 0435 09/14/16 0435 Imaging Alert, fully oriented Lungs: ventilated Heart: S1, S2 regular, no gallop Abdomen: soft, no mass Ext: no edema Last Impressions Myocardial Perfusion Scan Nuc Med 09/15/16 0000 Signed Impressions: Service Date/Time: Thursday, September 15, 2016 09:18 - CONCLUSION: 1. No reversible perfusion defect to suggest stress-induced myocardial ischemia identified. RISK CATEGORY: Low (<1%% Annual Mortality Rate) Charlie Bermudez MD CT Angiography 09/14/16 0000 Signed Impressions: Service Date/Time: Wednesday, September 14, 2016 10:32 - CONCLUSION: 1. No pulmonary embolus. 2. 16 mm irregular mass posteromedially of the right lower lobe changing and if concern for a small/early bronchogenic carcinoma. Percutaneous biopsy would be difficult. Outpatient PET/CT suggested. No lymphadenopathy or other evidence of metastatic disease. 3. Chronic fibroemphysematous changes and otherwise stable scattered nodules and parenchymal consolidation. 4. Trace pericardial and bilateral pleural effusions. 5. Coronary artery calcification. 6. Moderate hiatal hernia. Raghu Rueda MD Chest X-Ray 09/13/16 1129 Signed Impressions: Service Date/Time: Tuesday, September 13, 2016 12:07 - CONCLUSION: Stable chest, negative for an acute process. Scooby Bermudez MD FACR Current Medications Medications (Trade) Dose Ordered Sig/Lyle Route Start Time Stop Time Status Last Admin (NS Flush) 2 ml UNSCH PRN FLUSH 09/13/16 13:45 (NS Flush) 2 ml BID FLUSH 09/13/16 21:00 09/15/16 11:27 (Zofran Inj) 4 mg Q6H PRN IVP 09/13/16 13:45 (Reglan Inj) 5 mg Q6H PRN IV PUSH 09/13/16 13:45 (Narcan Inj) 0.4 mg UNSCH PRN IV 09/13/16 13:45 (Elavil) 75 mg HS PO 09/13/16 21:00 09/14/16 21:00 (Pravachol) 10 mg MoWeFr PO 09/16/16 09:00 (Oscal-D 250-125) 500 mg BID PO 09/14/16 09:00 09/15/16 11:26 (Ecotrin Ec) 81 mg DAILY PO 09/14/16 09:00 09/15/16 11:26 (D50w (Vial) Inj) 25 ml UNSCH PRN IV PUSH 09/13/16 18:45 (Glucagon Inj) 1 mg UNSCH PRN OTHER 09/13/16 18:45 (Inderal) 10 mg DAILY PO 09/14/16 09:00 09/14/16 09:51 (Heparin Inj) 5,000 units Q12HR SQ 09/14/16 10:00 09/15/16 11:27 (Ceftin 250 Mg/5 ml Liq) 250 mg Q12HR PO 09/14/16 21:00 09/14/16 21:00 Assessment and Plan Problem List: (1) HTN (hypertension) Status: Chronic Plan: No chest pain reported SOB improves Nuclear stress study negative for ischemia. EF 70% Ok to . Follow up as OP. (2) Shortness of breath Status: Acute Plan: Significantly improve Problem Qualifiers (1) HTN (hypertension): Qualified Code: I10 - Essential hypertension Lg Ramirez MD Sep 15, 2016 15:55
[2016-09-15] MEDS: AMITRIPTYLINE HCL 75 MG TAB PO SCH (21:52)
[2016-09-15] MEDS ORDERED: CEFUROXIME AXETIL 250 MG TAB PO SCH (23:00)
[2016-09-16 01:00] VITALS: BP 94/60; PULSE 97; RESP 18; TEMP 97.4; O2SAT 90
[2016-09-16 06:02] VITALS: BP 108/63; PULSE 94; RESP 18; TEMP 97; O2SAT 90
[2016-09-16] MEDS: INSULIN ASPART SUPPLEMENTAL SCALE SQ SCH (06:35)
[2016-09-16 07:55] VITALS: O2SAT 92
[2016-09-16] MEDS: RESP: ALBUTEROL 2.5 MG/IPRATROPIUM 0.5 MG NEB (SCH) NEB ×2 (07:55→12:00)
[2016-09-16 08:10] VITALS: PULSE 68
--- NOTE | 2016-09-16 08:56 | HHI.PR ---
Subjective Remarks Slept fairly well, awakens easily No chest pain No Shortness of breath Alert Appetite good Objective Objective Results - Vital Signs Date Time Temp Pulse Resp B/P Pulse Ox O2 Delivery O2 Flow Rate FiO2 09/16/16 07:55 92 21 09/16/16 06:02 97.0 94 18 108/63 90 09/16/16 01:00 97.4 97 18 94/60 90 09/15/16 23:17 100 09/15/16 21:33 97.7 105 18 132/79 91 09/15/16 19:56 95 09/15/16 16:05 98.7 101 20 158/74 09/15/16 11:12 98.0 102 22 125/62 94 Result Diagram: 09/14/16 0435 09/14/16 0435 ROS General: Weakness (generalized), Other (10 point ROS done positives noted some generalized weakness otherwise systems are negative) Physical Exam Physical Exam PHYSICAL EXAMINATION GENERAL: This is a well-developed, well-nourished female who appears to be in no acute distress. She is alert and awake, answers questions appropriately. HEAD: Normocephalic without any lesion or mass noted. Facial features appear symmetric. OROPHARYNGEAL: Oropharynx without erythema or edema. NECK: Supple. No nuchal rigidity or lymphadenopathy. Trachea midline without deviation. CARDIAC: Regular rhythm, regular rate, S1 and S2 are heard. Murmur none; no gallops or rubs. LUNGS: Clear to auscultation bilaterally. No wheeze, rhonchi or rale. No use of accessory muscles on inspiration or expiration. ABDOMEN: Soft, nontender, no organomegaly or masses. Bowel sounds are heard in all four quadrants. No rebound. No guarding. EXTREMITIES: Noedema. Pulses equal bilateral. No cyanosis. NEUROLOGICAL: Patient mood and affect appropriate. No focal deficit SKIN:Warm and moist Objective Remarks I'm feeling okay this morning A/P Assessment and Plan (1) Shortness of breath (2) COPD (chronic obstructive pulmonary disease) (3) HTN (hypertension) (4) DM (diabetes mellitus) (5) Myelodysplastic disease (6) Hyperlipemia 7. Anemia, stable Assessment and Plan SOB, COPD with mild exacerbation, -Oxygen PRN to keep sats >92 -D dimer elevated, -Duonebs QID -Serial trop x 3 negative -Cardiology consult, recommend stress test, stress test negative DM II -Accuchecks AC/HS with at bedtime snack, monitor, stable HTN -Continue home meds, stable Monitor all vital signs, afebrile, stable heart rate and respiratory rate at rest Heparin for DVT prophylaxis/continue SCDs Monitor any changes in hemoglobin, anemia probably secondary to chronic disease , no acute issues Stress tests today /cardiac. Exam normal. Discussed with patient plans for discharge, Discussed F/U with her PCP within next 1-2 weeks,. D/W Dr. Pham, patient seen on his behalf D/W pt. Discharge Planning Initiated Discussed With: Other (Dr. Pham , pt, seen on his behalf,) Isaura Lopez Sep 16, 2016 08:56
[2016-09-16] MEDS ORDERED: PRAVASTATIN SOD 10 MG TAB PO SCH (09:00)
[2016-09-16 09:18] VITALS: BP 131/72; PULSE 101; RESP 18; TEMP 97.9; O2SAT 93
[2016-09-16] MEDS: SODIUM CHLORIDE 0.9% FLUSH 5 ML FLUSH FLUSH SCH (09:55)
[2016-09-16] MEDS: HEPARIN SODIUM - SQ 10,000 UNITS/ML VIAL SQ SCH (09:56)
[2016-09-16] MEDS: ASPIRIN EC 81 MG TABEC PO SCH (09:56)
[2016-09-16] MEDS: CALCIUM/VITAMIN D 250 MG/125 U TAB PO SCH (09:56)
[2016-09-16] MEDS: PROPRANOLOL HCL 10 MG TAB PO SCH (09:56)
[2016-09-16] MEDS ORDERED: CEFT250T8 PO (11:52)
[2016-09-16 12:49] VITALS: BP 116/68; PULSE 88; RESP 18; TEMP 97.2
--- NOTE | 2016-09-16 13:43 | EC ---
Study Study Date:09/15/2016 STUDY CONCLUSIONS SUMMARY - Left ventricle: The cavity size was normal. Wall thickness was normal. Systolic function was normal. The estimated ejection fraction was in the range of 60% to 65%. Wall motion was normal; there were no regional wall motion abnormalities. Doppler parameters are consistent with abnormal left ventricular relaxation (grade 1 diastolic dysfunction). - Mitral valve: Mild to moderate regurgitation. - Atrial septum: No defect or patent foramen ovale was identified. - Pulmonary arteries: PA peak pressure: 52mm Hg (S). If LV function is below 40, please consider prescribing an ACEI or ARB or document rationale for non-use. PROCEDURE DATA STUDY STATUS: Elective. Procedure: Transthoracic echocardiography. Image quality was good. Scanning was performed from the parasternal, apical, and subcostal acoustic windows. Study completion: The patient tolerated the procedure well. Transthoracic echocardiography. M-mode, complete 2D, complete spectral Doppler, and color Doppler. Patient status: Inpatient. CARDIAC ANATOMY LEFT VENTRICLE: The cavity size was normal. Wall thickness was normal. Systolic function was normal. The estimated ejection fraction was in the range of 60% to 65%. Wall motion was normal; there were no regional wall motion abnormalities. Doppler parameters are consistent with abnormal left ventricular relaxation (grade 1 diastolic dysfunction). AORTIC VALVE: Trileaflet; mildly thickened, mildly calcified leaflets. Doppler: Transvalvular velocity was minimally increased. There was no stenosis. No regurgitation. Mean gradient: 21mm Hg (S). Peak gradient: 44mm Hg (S). AORTA: Aortic root: The aortic root was normal in size. MITRAL VALVE: Structurally normal valve. Doppler: Transvalvular velocity was within the normal range. There was no evidence for stenosis. Mild to moderate regurgitation. Peak gradient: 3mm Hg (D). LEFT ATRIUM: The atrium was normal in size. ATRIAL SEPTUM: No defect or patent foramen ovale was identified. RIGHT VENTRICLE: The cavity size was normal. Wall thickness was normal. Systolic pressure was within the normal range. PULMONIC VALVE: Doppler: Transvalvular velocity was within the normal range. There was no evidence for stenosis. No regurgitation. TRICUSPID VALVE: Structurally normal valve. Doppler: Transvalvular velocity was within the normal range. Trace to mild regurgitation. PULMONARY ARTERY: The main pulmonary artery was normal-sized. Systolic pressure was within the normal range. RIGHT ATRIUM: The atrium was normal in size. PERICARDIUM: There was no pericardial effusion. SYSTEMIC VEINS: Inferior vena cava: The vessel was normal in size. BASIC MEASUREMENTS ADULT Normal Left ventricle LV internal dimension, ED, chordal level, *34.4 mm 43-52 PLAX LV posterior wall thickness, ED 9.45 mm IVS/LVPW ratio, ED 1.09 <1.3 Ventricular septum Septal thickness, ED 10.3 mm Left atrium Anterior-posterior dimension 29 mm Right ventricle RV internal dimension, ED, PLAX 19.2 mm 19-38 DOPPLER MEASUREMENTS ADULT Normal Main pulmonary artery Pressure, S *52 mm Hg =30 Aortic valve Peak velocity, S 333 cm/s Mean velocity, S 208 cm/s VTI, S 45.2 cm Mean gradient, S 21 mm Hg Peak gradient, S 44 mm Hg Mitral valve Peak E-wave velocity 91 cm/s Peak A-wave velocity 132 cm/s Peak gradient, D 3 mm Hg Peak E/A ratio 0.7 Tricuspid valve Regurgitant peak velocity 324 cm/s Peak RV-RA gradient, S 42 mm Hg Maximal regurgitant velocity 324 cm/s Systemic veins Estimated CVP 10 mm Hg Right ventricle RV pressure, S *52 mm Hg <30 LEGEND: Mean values are shown as u=mean value. Asterisk (*) white values outside specified normal range. Prepared and signed by Lg Ramirez [id number]
--- NOTE | 2016-09-16 17:03 | HHI.DS ---
Discharge Summary Admission Date Sep 13, 2016 at 13:23 Discharge Date: Sep 16, 2016 Admitting Diagnosis SOB, possible tachy dysrythmia. (1) Shortness of breath Diagnosis: Principal (2) COPD (chronic obstructive pulmonary disease) (3) HTN (hypertension) Diagnosis: Principal (4) DM (diabetes mellitus) Diagnosis: Secondary (5) Myelodysplastic disease (6) Hyperlipemia Diagnosis: Secondary Procedures stress tests, cardiac Brief History This was an 86-year-old female patient with past medical history which includes chronic anemia thrombocytopenia, chronic myelodysplastic syndrome, COPD, history of pneumonia, AV malformation, diabetes mellitus type 2, hyperlipidemia. Pt. presented to ED with tachycardia and SOB. Pt. went to PCP for regular check up and was noted with elevated BP, more SOB, and abnormal EKG. Per daughter, who was providing most details. Pt. was tachycardic and BP was elevated. Pt. c/o chronic SOB however she had noted increased BALDWIN, no CP, but occasional palpitations. No leg swelling. Questionable history of CHF in the past. Did see Dr. Anand 2 years ago, no prior hx of CAD. 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 Pt. states that she was told she may need oxygen. She was admitted last year with COPD exacerbation and she passed walked test and oxygen was not required. Her sats are 93% on RA. CBC/BMP: 09/14/16 0435 09/14/16 0435 Significant Findings Laboratory Tests Test 09/13/16 09/14/16 09/14/16 17:58 00:42 04:35 D-Dimer Quantitative (PE/DVT) 0.93 MG/L FEU (0.00-0.50) Troponin I LESS THAN 0.02 LESS THAN 0.02 NG/ML NG/ML (0.02-0.05) (0.02-0.05) Red Blood Count 3.78 MIL/MM3 (4.00-5.30) Hemoglobin 10.8 GM/DL (11.6-15.3) Hematocrit 33.4 % (35.0-46.0) Platelet Count 146 TH/MM3 (150-450) Monocytes (%) (Auto) 12.7 % (0.0-8.0) Estimat Glomerular Filtration 56 ML/MIN (>89) Rate Imaging Last Impressions Myocardial Perfusion Scan Nuc Med 09/15/16 0000 Signed Impressions: Service Date/Time: Thursday, September 15, 2016 09:18 - CONCLUSION: 1. No reversible perfusion defect to suggest stress-induced myocardial ischemia identified. RISK CATEGORY: Low (<1%% Annual Mortality Rate) Charlie Bermudez MD CT Angiography 09/14/16 0000 Signed Impressions: Service Date/Time: Wednesday, September 14, 2016 10:32 - CONCLUSION: 1. No pulmonary embolus. 2. 16 mm irregular mass posteromedially of the right lower lobe changing and if concern for a small/early bronchogenic carcinoma. Percutaneous biopsy would be difficult. Outpatient PET/CT suggested. No lymphadenopathy or other evidence of metastatic disease. 3. Chronic fibroemphysematous changes and otherwise stable scattered nodules and parenchymal consolidation. 4. Trace pericardial and bilateral pleural effusions. 5. Coronary artery calcification. 6. Moderate hiatal hernia. Raghu Rueda MD Chest X-Ray 09/13/16 1129 Signed Impressions: Service Date/Time: Tuesday, September 13, 2016 12:07 - CONCLUSION: Stable chest, negative for an acute process. Scooby Bermudez MD FACR PE at Discharge Physical Exam PHYSICAL EXAMINATION GENERAL: This was a well-developed, well-nourished female who appeared to be in no acute distress. She was alert and awake, answers questions appropriately. HEAD: Normocephalic without any lesion or mass noted. Facial features appear symmetric. OROPHARYNGEAL: Oropharynx without erythema or edema. NECK: Supple. No nuchal rigidity or lymphadenopathy. Trachea midline without deviation. CARDIAC: Regular rhythm, regular rate, S1 and S2 are heard. Murmur none; no gallops or rubs. LUNGS: Clear to auscultation bilaterally. No wheeze, rhonchi or rale. No use of accessory muscles on inspiration or expiration. ABDOMEN: Soft, nontender, no organomegaly or masses. Bowel sounds are heard in all four quadrants. No rebound. No guarding. EXTREMITIES: Noedema. Pulses equal bilateral. No cyanosis. NEUROLOGICAL: Patient mood and affect appropriate. No focal deficit SKIN:Warm and moist Objective Remarks I'm feeling okay this morning Hospital Course Pt. evaluated in the ED, laboratory essentially unremarkable except for elevated CO2. CXR with no acute findings. EKG with SR and 1st degree AVB. Pt. is resting comfortable, states she is somewhat active, still goes shopping for groceries and lives alone at a senior residence building. Pt. admitted for further evaluation and treatment. Patient was treated with these diagnosis. and were her plan of care. (1) Shortness of breath (2) COPD (chronic obstructive pulmonary disease) (3) HTN (hypertension) (4) DM (diabetes mellitus) (5) Myelodysplastic disease (6) Hyperlipemia 7. Anemia, stable SOB, COPD with mild exacerbation noted on admission. -Oxygen was ordered PRN to keep sats >92, O2 at 2L per n/c was used throughout admission. -D dimer elevated, but no PE seen . -Duonebs used QID -Serial trop x 3 negative , Mi was ruled out -Cardiology consult, recommend stress test. stress test was negative, showing no ischemia. Will see prn. DM II was monitored -Accuchecks AC/HS with at bedtime snack, monitor, stable HTN -Continue home meds, stable Monitor all vital signs, afebrile, stable heart rate and respiratory rate at rest. No acute issues. Heparin for DVT prophylaxis/continue SCDs Monitor any changes in hemoglobin, anemia probably secondary to chronic disease , no acute issues Stress tests today /cardiac. Exam normal. Discussed with patient plans for discharge. Discussed F/U with her PCP within next 1-2 weeks,. Patient was unable to be picked up per family. Daughters were out of town. Discharge planned for this am. Pt Condition on Discharge: Good Discharge Disposition: Discharge Home Discharge Instructions DIET: Follow Instructions for: Diabetic Diet Activities you can perform: Weight Bearing as Biju Follow up Referrals: Cardiology - 3 Weeks Internal Medicine PCP Follow-up PCP Follow-up - 1 Week Pulmonology - 2 Weeks New Medications: Cefuroxime (Ceftin) 250 Mg Tab 250 MG PO Q12H bronchitis #10 TAB Continued Medications: Albuterol 6.7 GM Inh (Proventil Hfa 6.7 GM Inh) 90 Mcg/Act Aer 1-2 PUFF INH Q4-6H PRN SHORTNESS OF BREATH #1 Ref 0 INHALER Amitriptyline (Amitriptyline) 75 Mg Tab 75 MG PO HS Control Depression #30 Ref 0 TAB Ascorbic Acid (Vitamin C) 1,000 Mg Tab 1000 MG PO DAILY Nutritional Supplement Ref 0 TAB Calcium Carbonate-Vitamin D (Calcium 600/Vitamin D) 600-200 Mg-Unit Tab 2 TAB PO DAILY TAB Cyanocobalamin (Vitamin B-12) 1,000 Mcg Tab 1000 MCG PO DAILY Nutritional Supplement #1 Ref 0 BOTTLE Ipratropium-Albuterol Neb (Duoneb) 0.5-2.5 Mg/3 Ml Neb 1 AMPULE NEB BID Breathing Treatment #30 Ref 0 NEBULE Lovastatin (Lovastatin) 10 Mg Tab 10 MG PO MOWEFR Take 1 tablet (10mg) on Friday,Friday and Friday Cholesterol Management #30 Ref 0 TAB Metformin (Metformin) 850 Mg Tab 850 MG PO DAILY With a meal Blood Sugar Management Ref 0 TAB Potassium Gluconate (Potassium Gluconate) 595 Mg Tab 595 MG PO DAILY Propranolol (Propranolol) 10 Mg Tab 10 MG PO DAILY #60 Ref 0 TAB Isaura Lopez Sep 16, 2016 17:03 Amitriptyline (Amitriptyline) 75 Mg Tab 75 MG PO HS Control Depression #30 Ref 0 TAB Ascorbic Acid (Vitamin C) 1,000 Mg Tab 1000 MG PO DAILY Nutritional Supplement Ref 0 TAB Calcium Carbonate-Vitamin D (Calcium 600/Vitamin D) 600-200 Mg-Unit Tab 2 TAB PO DAILY TAB Cyanocobalamin (Vitamin B-12) 1,000 Mcg Tab 1000 MCG PO DAILY Nutritional Supplement #1 Ref 0 BOTTLE Ipratropium-Albuterol Neb (Duoneb) 0.5-2.5 Mg/3 Ml Neb 1 AMPULE NEB BID Breathing Treatment #30 Ref 0 NEBULE Lovastatin (Lovastatin) 10 Mg Tab 10 MG PO MOWEFR Take 1 tablet (10mg) on Friday,Friday and Friday Cholesterol Management #30 Ref 0 TAB Metformin (Metformin) 850 Mg Tab 850 MG PO DAILY With a meal Blood Sugar Management Ref 0 TAB Potassium Gluconate (Potassium Gluconate) 595 Mg Tab 595 MG PO DAILY Propranolol (Propranolol) 10 Mg Tab 10 MG PO DAILY #60 Ref 0 TAB Isaura Lopez Sep 16, 2016 17:03 PCP Follow-up PCP Follow-up - 1 Week Pulmonology - 2 Weeks New Medications: Cefuroxime (Ceftin) 250 Mg Tab 250 MG PO Q12H bronchitis #10 TAB Continued Medications: Albuterol 6.7 GM Inh (Proventil Hfa 6.7 GM Inh) 90 Mcg/Act Aer 1-2 PUFF INH Q4-6H PRN SHORTNESS OF BREATH #1 Ref 0 INHALER Amitriptyline (Amitriptyline) 75 Mg Tab 75 MG PO HS Control Depression #30 Ref 0 TAB Ascorbic Acid (Vitamin C) 1,000 Mg Tab 1000 MG PO DAILY Nutritional Supplement Ref 0 TAB Calcium Carbonate-Vitamin D (Calcium 600/Vitamin D) 600-200 Mg-Unit Tab 2 TAB PO DAILY TAB Cyanocobalamin (Vitamin B-12) 1,000 Mcg Tab 1000 MCG PO DAILY Nutritional Supplement #1 Ref 0 BOTTLE Ipratropium-Albuterol Neb (Duoneb) 0.5-2.5 Mg/3 Ml Neb 1 AMPULE NEB BID Breathing Treatment #30 Ref 0 NEBULE Lovastatin (Lovastatin) 10 Mg Tab 10 MG PO MOWEFR Take 1 tablet (10mg) on Friday,Friday and Friday Cholesterol Management #30 Ref 0 TAB Metformin (Metformin) 850 Mg Tab 850 MG PO DAILY With a meal Blood Sugar Management Ref 0 TAB Potassium Gluconate (Potassium Gluconate) 595 Mg Tab 595 MG PO DAILY Propranolol (Propranolol) 10 Mg Tab 10 MG PO DAILY #60 Ref 0 TAB Isaura Lopez Sep 16, 2016 17:03
== END 2016-09-16 13:39 | disposition home or self-care (01) ==
LOC: NEPE 10:47 → NEDA 13:23 → NEPGCP 16:13
PROVIDERS: ADMIT Specialist; ATTEND Specialist
DX: J44.1 Chronic obstructive pulmonary disease with (acute) exacerbation (principal); J96.90 Respiratory failure, unspecified, unspecified whether with hypoxia or hypercapnia; I10 Essential (primary) hypertension; D63.8 Anemia in other chronic diseases classified elsewhere; D46.9 Myelodysplastic syndrome, unspecified; E11.8 Type 2 diabetes mellitus with unspecified complications; E78.5 Hyperlipidemia, unspecified; R94.31 Abnormal electrocardiogram [ECG] [EKG]; I44.0 Atrioventricular block, first degree; E78.00 Pure hypercholesterolemia, unspecified; H91.90 Unspecified hearing loss, unspecified ear; Z87.01 Personal history of pneumonia (recurrent); Z87.891 Personal history of nicotine dependence; Z96.659 Presence of unspecified artificial knee joint; Z79.84 Long term (current) use of oral hypoglycemic drugs
CPT/HCPCS: 71010; 71275; 78452; 80048; 80053; 82550; 82552; 82948; 83735; 84484; 85025; 85379; 85610; 85730; 93005; 93017; 93306; 94640; 94664; 96374; 99285; A9502; G0378; J0360; J1644; J1815; J2785; Q9967

== ENCOUNTER 2017-06-18 20:30 | Emergency (ER) | payer MEDICARE, OTHER ==
[~2017-06-18] VITALS: Ht 160 cm; Wt 58.0 kg
[~2017-06-18 20:30] MED LIST changes: +ALBU6.7H INH; -AMIT75 PO; +AMIT75TA2 PO; +CALC600T30 PO; -CALCTAB70 PO; +CEFT250T8 PO; -DIOV160T60 PO; -DUONI NEB; -FURO20 PO; -HYDR-3533 PO; +IPRASOL NEB; -LIPI20TA PO; -LORA0.5T PO; +LOVA10TA PO; -OMEP20TA PO; +POTA595T PO; -POTA595T2 PO; -PRED20 PO; -VITA100017 PO; +VITA10002 PO; -VITA100020 PO; +VITA10007 PO; -ZITH250T PO
[2017-06-18 20:45] VITALS: BP 169/87; PULSE 93; RESP 18
--- NOTE | 2017-06-18 20:58 | PD ---
HPI Chief Complaint: General Weakness Time Seen by Provider: 20:51 Travel History International Travel<30 days: No Contact w/Intl Traveler<30days: No Traveled to known affect area: No History of Present Illness HPI 87-year-old female with PMH of myelodysplasia, HTN, COPD, CHF, DM presents to the ED for evaluation of 2 day history of "feeling not myself." She endorses shortness of breath and wheezing and states that she's been using oxygen at home throughout the course of the day. She endorses an episode of palpitations.She states she normally uses the oxygen for about 10 minutes a day. She gave herself a albuterol treatment around 4 PM with no improvement symptoms. She endorses intermittent edema in the ankles, no worse today. Patient denies headache, dizziness, fever, chills, cough, CP, abdominal pain, nausea, vomiting, dysuria, back pain. She states that she's been able to eat and drink normally. She is followed by Dr. Velazquez, PCP, Dr. Hammond, pulmonology and Dr. Bess, oncology. PFSH Past Medical History Arthritis: Yes Asthma: No Autoimmune Disease: No Blood Disorders: Yes (MYELODYSPLASIA) Anxiety: No Depression: No Heart Rhythm Problems: No Cancer: Yes Cardiovascular Problems: Yes High Cholesterol: No Chemotherapy: No Chest Pain: No Congestive Heart Failure: Yes COPD: Yes Cerebrovascular Accident: No Coronary Artery Disease: No Diabetes: Yes Diminished Hearing: Yes Endocrine: Yes GERD: No Glaucoma: No Genitourinary: No Hiatal Hernia: No Hypertension: Yes Immune Disorder: No Kidney Stones: No Musculoskeletal: Yes (ARTHRITIS) Neurologic: No Psychiatric: No Reproductive: No Respiratory: Yes Migraines: No Myocardial Infarction: No Radiation Therapy: No Renal Failure: No Seizures: No Sickle Cell Disease: No Sleep Apnea: No Thyroid Disease: No Ulcer: No Menopausal: Yes Past Surgical History Abdominal Surgery: No AICD: No Appendectomy: Yes Arteriovenous Shunt: No Cardiac Surgery: No Ear Surgery: No Endocrine Surgery: No Eye Surgery: No Genitourinary Surgery: No Gynecologic Surgery: Yes (hysterectomy) Hysterectomy: Yes Insulin Pump: No Joint Replacement: Yes (Hip and knee replacement) Oral Surgery: No Pacemaker: No Thoracic Surgery: No Tonsillectomy: Yes Tympanostomy Tube: Yes Other Surgery: Yes (BACK,HYST,APPEND,) Social History Alcohol Use: Yes (on occasion) Tobacco Use: No (quit 1993) Substance Use: No Allergies-Medications (Allergen,Severity, Reaction): Coded Allergies: enoxaparin (Unverified Allergy, Mild, Flushing,pruritus, 03/11/17) Reported Meds & Prescriptions Reported Meds & Active Scripts Active Azithromycin 250 Mg Tab 250 Mg PO DIRECTED Take 2 tabs (500 mg) on day 1 then 1 tab daily x 4 days. Prednisone 20 Mg Tab 40 Mg PO DAILY Take 40 mg (2 tablets) daily for 5 days Reported Propranolol (Propranolol HCl) 10 Mg Tab 10 Mg PO DAILY Potassium Gluconate 595 Mg Tab 595 Mg PO DAILY Vitamin B-12 (Cyanocobalamin) 1,000 Mcg Tab 1,000 Mcg PO DAILY Calcium 600/Vitamin D (Calcium Carbonate-Vitamin D) 600-200 Mg-Unit Tab 2 Tab PO DAILY Amitriptyline (Amitriptyline HCl) 75 Mg Tab 75 Mg PO HS Proventil Hfa 6.7 GM Inh (Albuterol Sulfate) 90 Mcg/Act Aer 1-2 Puff INH Q4-6H PRN Duoneb (Ipratropium-Albuterol Neb) 0.5-2.5 Mg/3 Ml Neb 1 Ampule NEB BID Review of Systems Except as stated in HPI: all other systems reviewed are Neg Physical Exam Narrative GENERAL: Well-nourished, well-developed white female in no acute distress. On 2 L by nasal cannula. SKIN: Focused skin assessment warm/dry. HEAD: Normocephalic. EYES: No scleral icterus. No injection or drainage. NECK: Supple, trachea midline. No JVD or lymphadenopathy. CARDIOVASCULAR: Regular rate and rhythm without murmurs, gallops, or rubs. RESPIRATORY: Breath sounds equal bilaterally. End expiratory wheezing bilaterally. No accessory muscle use. GASTROINTESTINAL: Abdomen soft, non-tender, nondistended. Active bowel sounds. MUSCULOSKELETAL: No cyanosis. Trace edema in the ankles bilaterally. BACK: Nontender without obvious deformity. No CVA tenderness. Data Data Last Documented VS Orders Orders Complete Blood Count With Diff (06/18/17 20:51) Comprehensive Metabolic Panel (06/18/17 20:51) B-Type Natriuretic Peptide (06/18/17 20:51) Act Partial Throm Time (Ptt) (06/18/17 20:51) Prothrombin Time / Inr (Pt) (06/18/17 20:51) Magnesium (Mg) (06/18/17 20:51) Ckmb (Isoenzyme) Profile (06/18/17 20:51) Troponin I (06/18/17 20:51) Urinalysis - C+S If Indicated (06/18/17 20:51) Iv Access Insert/Monitor (06/18/17 20:51) Electrocardiogram (06/18/17 20:51) Ecg Monitoring (06/18/17 20:51) Oximetry (06/18/17 20:51) Oxygen Administration (06/18/17 20:51) Chest, Single Ap (06/18/17 20:51) Sodium Chloride 0.9% Flush (Ns Flush) (06/18/17 21:00) Methylprednisolone So Succ Inj (Solumedr (06/18/17 21:00) Albuterol-Ipratropium Neb (Duoneb Neb) (06/18/17 21:00) Cath For Specimen (06/18/17 20:51) Albuterol-Ipratropium Neb (Duoneb Neb) (06/18/17 22:00) Orthostatic Vital Signs (06/18/17 23:02) Sodium Chlorid 0.9% 500 Ml Inj (Ns 500 M (06/18/17 23:15) Ed Discharge Order (06/18/17 23:15) Labs Laboratory Tests Test 06/18/17 21:00 06/18/17 22:05 White Blood Count 8.9 TH/MM3 Red Blood Count 4.01 MIL/MM3 Hemoglobin 11.8 GM/DL Hematocrit 36.4 % Mean Corpuscular Volume 90.6 FL Mean Corpuscular Hemoglobin 29.4 PG Mean Corpuscular Hemoglobin Concent 32.4 % Red Cell Distribution Width 14.4 % Platelet Count 129 TH/MM3 Mean Platelet Volume 8.1 FL Neutrophils (%) (Auto) 73.1 % Lymphocytes (%) (Auto) 11.5 % Monocytes (%) (Auto) 11.7 % Eosinophils (%) (Auto) 3.0 % Basophils (%) (Auto) 0.7 % Neutrophils # (Auto) 6.5 TH/MM3 Lymphocytes # (Auto) 1.0 TH/MM3 Monocytes # (Auto) 1.0 TH/MM3 Eosinophils # (Auto) 0.3 TH/MM3 Basophils # (Auto) 0.1 TH/MM3 CBC Comment DIFF FINAL Differential Comment Prothrombin Time 9.9 SEC Prothromb Time International Ratio 0.9 RATIO Activated Partial Thromboplast Time 25.4 SEC Blood Urea Nitrogen 24 MG/DL Creatinine 0.85 MG/DL Random Glucose 109 MG/DL Total Protein 6.9 GM/DL Albumin 3.4 GM/DL Calcium Level 9.0 MG/DL Magnesium Level 1.9 MG/DL Alkaline Phosphatase 77 U/L Aspartate Amino Transf (AST/SGOT) 22 U/L Alanine Aminotransferase (ALT/SGPT) 23 U/L Total Bilirubin 0.2 MG/DL Sodium Level 140 MEQ/L Potassium Level 4.1 MEQ/L Chloride Level 103 MEQ/L Carbon Dioxide Level 31.8 MEQ/L Anion Gap 5 MEQ/L Estimat Glomerular Filtration Rate 63 ML/MIN Total Creatine Kinase 96 U/L Troponin I LESS THAN 0.02 NG/ML B-Type Natriuretic Peptide 62 PG/ML Urine Color YELLOW Urine Turbidity HAZY Urine pH 6.0 Urine Specific [place] 1.023 Urine Protein TRACE mg/dL Urine Glucose (UA) NEG mg/dL Urine Ketones NEG mg/dL Urine Occult Blood NEG Urine Nitrite NEG Urine Bilirubin NEG Urine Urobilinogen LESS THAN 2.0 MG/DL Urine Leukocyte Esterase NEG Urine RBC 35 /hpf Urine WBC 3 /hpf Urine Squamous Epithelial Cells <1 /hpf Urine Mucus FEW /lpf Microscopic Urinalysis Comment CULT NOT INDICATED MDM Medical Decision Making Medical Screen Exam Complete: Yes Emergency Medical Condition: Yes Differential Diagnosis COPD exacerbation versus CHF exacerbation versus pneumonia versus UTI versus anemia versus orthostatic hypotension versus other Narrative Course 87-year-old female with PMH of myelodysplasia, HTN, COPD, CHF, DM presents to the ED for evaluation of 2 day history of "feeling not myself." She endorses shortness of breath and wheezing and states that she's been using oxygen at home throughout the course of the day. She endorses an episode of palpitations and an episode of dizziness when rising to standing today. She is followed by Dr. Velazquez, PCP, Dr. Hammond, pulmonology and Dr. Bess, oncology. Vitals reviewed. On physical exam the patient is nontoxic appearing. There is end expiratory wheezing in bilateral lung hurtado and trace edema in the bilateral ankles. Patient was administered IV Solu-Medrol and DuoNeb nebs 3. EKG rate 108, sinus rhythm. KS interval 181, QRS 82, QTc 382. Normal axis. No acute ST changes. Similar to previous EKG. Reviewed by Dr. Castro. CXR: lungs are clear per radiology read. Cardiac enzymes negative 1 CBC: 20 DC 8.9. Hemoglobin 1.8. Coags: INR 0.9. CMP: BUN 24, creatinine 0.85. BNP 62. UA: No culture indicated. Orthostatic vitals are positive. Patient was administered 500 mL of normal saline IV. This is CHF exacerbation. Patient's prescribed 40 mg prednisone daily 5 days, Z-Remy. 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 The patient indicated understanding of instructions and is agreeable to the care plan. She is stable and discharged home. Diagnosis Primary Impression: COPD exacerbation Additional Impression: Orthostatic hypotension Referrals: Violette Oakes MD Patient Instructions: COPD (Chronic Obstructive Pulmonary Disease) (ED), General Instructions, Nutrition Guidelines for People with COPD (ED) Additional Instructions: Rest, hydrate. Return to normal, gentle activities as tolerated. Take antibiotics and steroids as prescribed. Follow up with Dr. Oakes. Return to the ED for any urgent or emergent medical condition. Med/Other Pt SpecificInfo: Prescription(s) given Scripts Azithromycin (Azithromycin) 250 Mg Tab 250 MG PO DIRECTED for Infection, #6 TAB 0 Refills Take 2 tabs (500 mg) on day 1 then 1 tab daily x 4 days. Prov: Rebecca Castro MD 06/18/17 Prednisone (Prednisone) 20 Mg Tab 40 MG PO DAILY, #10 TAB 0 Refills Take 40 mg (2 tablets) daily for 5 days Prov: Rebecca Castro MD 06/18/17 Disposition: 01 DISCHARGE HOME Condition: Stable Alicia Diane Jun 18, 2017 20:58
[2017-06-18] MEDS ORDERED: SODIUM CHLORIDE 0.9% FLUSH 10 ML FLUSH IVF PRN (21:00)
[2017-06-18] MEDS ORDERED: methylPREDNISolone SOD SUCC 125 MG/2 ML VIAL IV PUSH ONE (21:00)
[2017-06-18] MEDS: RESP: ALBUTEROL 2.5 MG/IPRATROPIUM 0.5 MG NEB (SCH) INH ×2 (21:09→22:26)
[2017-06-18 21:29] LABS: AUTOMATED NEUTROPHIL # 6.5 TH/MM3 (1.8-7.7); BASOPHIL # 0.1 TH/MM3 (0-0.2); BASOPHIL % 0.7 % (0.0-2.0); EOSINOPHIL # 0.3 TH/MM3 (0-0.4); HEMATOCRIT 36.4 % (35.0-46.0); HEMO FLAGS DIFF FINAL; LYMPH % 11.5 % (9.0-44.0); MEAN CELL VOLUME 90.6 FL (80.0-100.0); MEAN CORPUSCULAR HEMOGLOBIN 29.4 PG (27.0-34.0); MEAN CORPUSCULAR HGB CONC 32.4 % (32.0-36.0); MONO % 11.7 % (0.0-8.0); NEUT % 73.1 % (16.0-70.0); PLATELET COUNT 129 TH/MM3 (150-450); RED BLOOD COUNT 4.01 MIL/MM3 (4.00-5.30); RED CELL DISTRIBUTION WIDTH 14.4 % (11.6-17.2); WHITE BLOOD COUNT 8.9 TH/MM3 (4.0-11.0)
--- NOTE | 2017-06-18 21:33 | RADRPT ---
EXAM DATE/TIME: 06/18/2017 21:06 [facility] COMPARISON: CHEST SINGLE AP, September 13, 2016, 12:07. INDICATIONS : Shortness of breath. MEDICAL HISTORY : Chronic obstructive pulmonary disease. Hypertension SURGICAL HISTORY : None. ENCOUNTER: Initial ACUITY: 1 day PAIN SCORE: 0/10 LOCATION: Bilateral chest FINDINGS: A single view of the chest demonstrates the lungs to be symmetrically aerated without evidence of mas s, infiltrate or effusion. The cardiomediastinal contours are unremarkable. Osseous structures are intact. Spinal stimulator stable position. CONCLUSION: The lungs are clear. Maulik Alonzo MD on June 18, 2017 at 21:31 Board Certified Radiologist. This report was verified electronically.
[2017-06-18 21:40] LABS: APTT (PATIENT) 25.4 SEC (24.3-30.1); INTERNATIONAL NORMALIZED RATIO 0.9 RATIO; PROTHROMBIN TIME - PATIENT 9.9 SEC (9.8-11.6)
[2017-06-18 21:43] LABS: ALT (GPT) 23 U/L (10-53)
[2017-06-18 21:51] LABS: ALKALINE PHOSPHATASE 77 U/L (45-117); ANION GAP 5 MEQ/L (5-15); AST (GOT) 22 U/L (15-37); BICARBONATE 31.8 MEQ/L (21.0-32.0); BLOOD UREA NITROGEN 24 MG/DL (7-18); CHLORIDE 103 MEQ/L (98-107); CREATINE KINASE 96 U/L (26-192); GLOMERULAR FILTRATION RATE 63 ML/MIN (>89); MAGNESIUM 1.9 MG/DL (1.5-2.5); POTASSIUM 4.1 MEQ/L (3.5-5.1); SODIUM (NA) 140 MEQ/L (136-145); TOTAL BILIRUBIN ADULT 0.2 MG/DL (0.2-1.0)
[2017-06-18 22:29] LABS: BLOOD, URINE NEG (NEG); COMMENT (UR) CULT NOT INDICATED; CULTURE IF INDICATED CULT NOT INDICATED; GLUCOSE,URINE NEG (NEG); KETONE, URINE NEG (NEG); MUCUS URINE FEW /lpf (OCC); NITRITE,URINE NEG (NEG); SQUAMOUS EPITHELIAL CELL URINE <1 /hpf (0-5); URINE COLOR YELLOW (YELLW/STRAW)
[2017-06-18 22:50] VITALS: BP_SYST 113; BP_SYST 161; BP_SYST 176; BP_DIAS 77; BP_DIAS 80; BP_DIAS 89; RESP 18; RESP 24
[2017-06-18] MEDS ORDERED: AZIT250T3 PO (23:15)
[2017-06-18] MEDS ORDERED: SODIUM CHLORID 0.9% 500 ML INJ 500 ML IV ONE (23:15)
[2017-06-18] MEDS ORDERED: PRED20 PO (23:15)
--- NOTE | 2017-06-19 10:31 | EKG ---
Date Performed: 06/18/2017 Time Performed: 21:17:47 PTAGE: 87 years EKG: SINUS TACHYCARDIA ABNORMAL RHYTHM ECG PREVIOUS TRACING : 09/14/2016 00.28 DOCTOR: Tomas Vergara Interpretating Date/Time 06/19/2017 10:29:36
== END 2017-06-19 00:09 | disposition home or self-care (01) ==
LOC: NEPC 20:30
DX: J44.1 Chronic obstructive pulmonary disease with (acute) exacerbation (principal); I95.1 Orthostatic hypotension; I11.0 Hypertensive heart disease with heart failure; I50.9 Heart failure, unspecified; Z87.891 Personal history of nicotine dependence
CPT/HCPCS: 71010; 80053; 81001; 82550; 83735; 83880; 84484; 85025; 85610; 85730; 93005; 94640; 94664; 96374; 99285; J2930

== ENCOUNTER 2017-09-03 19:45 | Inpatient (IN) | payer MEDICARE, OTHER ==
[~2017-09-03] VITALS: Ht 157.5 cm; Wt 55.0 kg
[~2017-09-03 19:45] MED LIST changes: +AZIT250T3 PO; -CEFT250T8 PO; -LOVA10TA PO; -METF850T PO; +PRED20 PO; -VITA10007 PO
[2017-09-03 19:48] VITALS: BP 172/89; PULSE 100; RESP 20; TEMP 98.6; O2SAT 99
[2017-09-03] MEDS ORDERED: SODIUM CHLORIDE 0.9% FLUSH 10 ML FLUSH IVF PRN (20:15)
--- NOTE | 2017-09-03 20:21 | PD ---
HPI Chief Complaint: Cardiac Complaint Time Seen by Provider: 19:57 Travel History International Travel<30 days: No Contact w/Intl Traveler<30days: No Traveled to known affect area: No History of Present Illness HPI 87 YO F with PMH of CHF, COPD, DM, O2 dependent presents to the ED via EMS for evaluation of ~2 hour history of central chest pain. Onset at rest. Constant, no alleviating or exacerbating factors reported. Patient denies palpitations, diaphoresis, nausea, vomiting. She endorses increased edema in the lower extremities over the last few days. She states that she takes a "water pill as needed." She denies fevers, chills, increased cough, sinus congestion, rhinorrhea, abdominal pain, nausea, vomiting, dysuria, changes in bowel habits, back pain. She is followed by Dr. Velazquez, PCP and Dr. Hadley, pulmonology. PFSH Past Medical History Arthritis: Yes Asthma: No Autoimmune Disease: No Blood Disorders: Yes (MYELODYSPLASIA) Anxiety: No Depression: No Heart Rhythm Problems: No Cancer: Yes Cardiovascular Problems: Yes High Cholesterol: No Chemotherapy: No Chest Pain: No Congestive Heart Failure: Yes COPD: Yes Cerebrovascular Accident: No Coronary Artery Disease: No Diabetes: Yes Patient Takes Glucophage: Yes (09-03-2017) Diminished Hearing: Yes Endocrine: Yes GERD: No Glaucoma: No Genitourinary: No Hiatal Hernia: No Hypertension: Yes Immune Disorder: No Kidney Stones: No Musculoskeletal: Yes (ARTHRITIS) Neurologic: No Psychiatric: No Reproductive: No Respiratory: Yes (COPD) Migraines: No Myocardial Infarction: No Radiation Therapy: No Renal Failure: No Seizures: No Sickle Cell Disease: No Sleep Apnea: No Thyroid Disease: No Ulcer: No Menopausal: Yes Past Surgical History Abdominal Surgery: No AICD: No Appendectomy: Yes Arteriovenous Shunt: No Cardiac Surgery: No Ear Surgery: No Endocrine Surgery: No Eye Surgery: No Genitourinary Surgery: No Hysterectomy: Yes Insulin Pump: No Joint Replacement: Yes (Hip and knee replacement) Oral Surgery: No Pacemaker: No Thoracic Surgery: No Tonsillectomy: Yes Tympanostomy Tube: Yes Other Surgery: Yes (BACK,HYST,APPEND,) Social History Alcohol Use: Yes (on occasion) Tobacco Use: No (quit 1993) Substance Use: No Allergies-Medications (Allergen,Severity, Reaction): Coded Allergies: enoxaparin (Unverified Allergy, Mild, Flushing,pruritus, 09/03/17) Reported Meds & Prescriptions Reported Meds & Active Scripts Active Prednisone 20 Mg Tab 40 Mg PO DAILY Take 40 mg (2 tablets) daily for 5 days Reported Lorazepam 0.5 Mg Tab 0.5 Mg PO BID PRN Vitamin C ER (Ascorbic Acid) 500 Mg Shannan 1,000 Mg PO DAILY Hydrocodone-Acetaminophen 5-325 mg Tab 1 Tab PO Q4H PRN Lipitor (Atorvastatin Calcium) 20 Mg Tab 20 Mg PO HS Valsartan 160 Mg Tab 160 Mg PO DAILY Metformin (Metformin HCl) 850 Mg Tab 850 Mg PO DAILY With a meal Omeprazole 20 Mg Tab 20 Mg PO DAILY Lovastatin 10 Mg Tab 10 Mg PO DAILY Propranolol (Propranolol HCl) 10 Mg Tab 10 Mg PO DAILY Potassium Gluconate 595 Mg Tab 595 Mg PO DAILY Vitamin B-12 (Cyanocobalamin) 1,000 Mcg Tab 1,000 Mcg PO DAILY Calcium 600/Vitamin D (Calcium Carbonate-Vitamin D) 600-200 Mg-Unit Tab 2 Tab PO DAILY Amitriptyline (Amitriptyline HCl) 75 Mg Tab 75 Mg PO HS Proventil Hfa 6.7 GM Inh (Albuterol Sulfate) 90 Mcg/Act Aer 1-2 Puff INH Q4-6H PRN Duoneb (Ipratropium-Albuterol Neb) 0.5-2.5 Mg/3 Ml Neb 1 Ampule NEB BID Review of Systems Except as stated in HPI: all other systems reviewed are Neg Physical Exam Narrative GENERAL: Well-nourished, well-developed pleasant white female on 3 L by nasal cannula in no acute distress. SKIN: Focused skin assessment warm/dry. HEAD: Normocephalic. EYES: No scleral icterus. No injection or drainage. NECK: Supple, trachea midline. No JVD or lymphadenopathy. CARDIOVASCULAR: Regular rate and rhythm without murmurs, gallops, or rubs. RESPIRATORY: Breath sounds clear, diminished bilaterally. No accessory muscle use. GASTROINTESTINAL: Abdomen soft, non-tender, nondistended. MUSCULOSKELETAL: No cyanosis. 1+ edema to the mid shins bilaterally, right greater than left. Homans sign negative bilaterally. BACK: Nontender without obvious deformity. No CVA tenderness. Data Data Last Documented VS Vital Signs Date Time Temp Pulse Resp B/P (MAP) Pulse Ox O2 Delivery O2 Flow Rate FiO2 09/03/17 22:50 96 Nasal Cannula 3.00 09/03/17 19:58 102 20 09/03/17 19:48 98.6 172/89 (116) Orders Orders Complete Blood Count With Diff (09/03/17 20:08) Comprehensive Metabolic Panel (09/03/17 20:08) B-Type Natriuretic Peptide (09/03/17 20:08) Act Partial Throm Time (Ptt) (09/03/17 20:08) Prothrombin Time / Inr (Pt) (09/03/17 20:08) Magnesium (Mg) (09/03/17 20:08) Ckmb (Isoenzyme) Profile (09/03/17 20:08) Troponin I (09/03/17 20:08) Urinalysis - C+S If Indicated (09/03/17 20:08) Iv Access Insert/Monitor (09/03/17 20:08) Electrocardiogram (09/03/17 20:08) Ecg Monitoring (09/03/17 20:08) Oximetry (09/03/17 20:08) Oxygen Administration (09/03/17 20:08) Chest, Single Ap (09/03/17 20:08) Sodium Chloride 0.9% Flush (Ns Flush) (09/03/17 20:15) Cath For Specimen (09/03/17 22:18) Albuterol Neb (Albuterol Neb) (09/03/17 22:45) Labs Laboratory Tests Test 09/03/17 20:21 09/03/17 22:30 White Blood Count 8.8 TH/MM3 Red Blood Count 4.16 MIL/MM3 Hemoglobin 12.2 GM/DL Hematocrit 37.1 % Mean Corpuscular Volume 89.3 FL Mean Corpuscular Hemoglobin 29.2 PG Mean Corpuscular Hemoglobin Concent 32.7 % Red Cell Distribution Width 14.6 % Platelet Count 127 TH/MM3 Mean Platelet Volume 8.6 FL Neutrophils (%) (Auto) 71.6 % Lymphocytes (%) (Auto) 12.9 % Monocytes (%) (Auto) 12.8 % Eosinophils (%) (Auto) 2.0 % Basophils (%) (Auto) 0.7 % Neutrophils # (Auto) 6.3 TH/MM3 Lymphocytes # (Auto) 1.1 TH/MM3 Monocytes # (Auto) 1.1 TH/MM3 Eosinophils # (Auto) 0.2 TH/MM3 Basophils # (Auto) 0.1 TH/MM3 CBC Comment DIFF FINAL Differential Comment Prothrombin Time 10.0 SEC Prothromb Time International Ratio 1.0 RATIO Activated Partial Thromboplast Time 25.2 SEC Blood Urea Nitrogen 16 MG/DL Creatinine 0.88 MG/DL Random Glucose 99 MG/DL Total Protein 6.7 GM/DL Albumin 3.4 GM/DL Calcium Level 8.9 MG/DL Magnesium Level 2.0 MG/DL Alkaline Phosphatase 84 U/L Aspartate Amino Transf (AST/SGOT) 18 U/L Alanine Aminotransferase (ALT/SGPT) 12 U/L Total Bilirubin 0.3 MG/DL Sodium Level 142 MEQ/L Potassium Level 4.0 MEQ/L Chloride Level 101 MEQ/L Carbon Dioxide Level 35.2 MEQ/L Anion Gap 6 MEQ/L Estimat Glomerular Filtration Rate 61 ML/MIN Total Creatine Kinase 78 U/L Troponin I LESS THAN 0.02 NG/ML Urine Color YELLOW Urine Turbidity CLEAR Urine pH 6.5 Urine Specific [place] 1.015 Urine Protein TRACE mg/dL Urine Glucose (UA) NEG mg/dL Urine Ketones 10 mg/dL Urine Occult Blood NEG Urine Nitrite NEG Urine Bilirubin NEG Urine Urobilinogen LESS THAN 2.0 MG/DL Urine Leukocyte Esterase NEG Urine RBC 8 /hpf Urine Hyaline Casts 1 /lpf Urine Mucus FEW /lpf Microscopic Urinalysis Comment CULT NOT INDICATED MDM Medical Decision Making Medical Screen Exam Complete: Yes Emergency Medical Condition: Yes Differential Diagnosis COPD exacerbation versus CHF exacerbation versus bronchitis versus pneumonia versus UTI versus metabolic derangement versus other Narrative Course 87-year-old female with PMH of DM, COPD, CHF, HTN, oxygen dependent presents to the ED via EMS for evaluation of left-sided chest pain. The patient received aspirin, albuterol nebulizer, DuoNeb, sublingual nitroglycerin and IV Solu- Medrol by EMS en route. Temperature 98.6. Pulse 100, BP 172/89 on presentation. O2 sats 97% on 3 L by nasal cannula. On exam this is a pleasant white female in no acute distress. Chest CTA B. Abdomen soft and nontender. She is not moving much air with the lung sounds are clear. She has minimal edema in the bilateral lower extremities. Duonebs 2 ordered. EKG rate 101, sinus tachycardia. TX interval 188, QRS 85, QTc 387. Normal axis. No acute ST changes. Reviewed by Dr. Delcid. CXR: No acute disease per radiology read. Troponin negative 1. BNP pending CBC no concerning abnormalities. INR: 1.0. CMP unremarkable. UA: No culture indicated. I discussed the results of the workup with the patient. She is agreeable to overnight observation. I spoke with Dr. Arriola who agrees to accept her to the medicine service. Please see medicine is her disposition. Alicia Diane Sep 03, 2017 20:21
[2017-09-03] MEDS ORDERED: LOVA10TA PO (20:31)
[2017-09-03] MEDS ORDERED: HYDR-3516 PO (20:31)
[2017-09-03] MEDS ORDERED: OMEP20TA93 PO (20:31)
[2017-09-03] MEDS ORDERED: METF850T PO (20:31)
[2017-09-03] MEDS ORDERED: LIPI20TA PO (20:31)
[2017-09-03] MEDS ORDERED: VALS1TAB65 PO (20:31)
[2017-09-03] MEDS ORDERED: VITA500T83 PO (20:31)
[2017-09-03] MEDS ORDERED: LORA0.5T PO (20:31)
[2017-09-03 20:43] LABS: AUTOMATED NEUTROPHIL # 6.3 TH/MM3 (1.8-7.7); BASOPHIL # 0.1 TH/MM3 (0-0.2); BASOPHIL % 0.7 % (0.0-2.0); EOSINOPHIL # 0.2 TH/MM3 (0-0.4); HEMATOCRIT 37.1 % (35.0-46.0); HEMOGLOBIN 12.2 GM/DL (11.6-15.3); LYMPH % 12.9 % (9.0-44.0); LYMPHOCYTE # 1.1 TH/MM3 (1.0-4.8); MEAN CELL VOLUME 89.3 FL (80.0-100.0); MEAN CORPUSCULAR HEMOGLOBIN 29.2 PG (27.0-34.0); MEAN CORPUSCULAR HGB CONC 32.7 % (32.0-36.0); MEAN PLATELET VOLUME 8.6 FL (7.0-11.0); MONO % 12.8 % (0.0-8.0); MONOCYTE # 1.1 TH/MM3 (0-0.9); NEUT % 71.6 % (16.0-70.0); PLATELET COUNT 127 TH/MM3 (150-450); RED BLOOD COUNT 4.16 MIL/MM3 (4.00-5.30); RED CELL DISTRIBUTION WIDTH 14.6 % (11.6-17.2); WHITE BLOOD COUNT 8.8 TH/MM3 (4.0-11.0)
--- NOTE | 2017-09-03 20:47 | RADRPT ---
EXAM DATE/TIME: 09/03/2017 20:33 [facility] COMPARISON: CHEST SINGLE AP, June 18, 2017, 21:06. INDICATIONS : Short of breath. MEDICAL HISTORY : Chronic obstructive pulmonary disease. SURGICAL HISTORY : None. ENCOUNTER: Initial ACUITY: 1 day PAIN SCORE: 0/10 LOCATION: Bilateral chest FINDINGS: A single view of the chest demonstrates the lungs to be symmetrically aerated without evidence of mas s, infiltrate or effusion. The cardiomediastinal contours are unremarkable. Osseous structures are intact. CONCLUSION: No acute disease. No significant change has occurred. Yves James MD on September 03, 2017 at 20:45 Board Certified Radiologist. This report was verified electronically.
[2017-09-03 21:00] LABS: ALBUMIN 3.4 GM/DL (3.4-5.0); AST (GOT) 18 U/L (15-37); BICARBONATE 35.2 MEQ/L (21.0-32.0); BLOOD UREA NITROGEN 16 MG/DL (7-18); CALCIUM 8.9 MG/DL (8.5-10.1); CHLORIDE 101 MEQ/L (98-107); CREATININE 0.88 MG/DL (0.50-1.00); GLOMERULAR FILTRATION RATE 61 ML/MIN (>89); GLUCOSE,RANDOM 99 MG/DL (74-106); SODIUM (NA) 142 MEQ/L (136-145)
[2017-09-03 21:01] LABS: ALT (GPT) 12 U/L (10-53)
[2017-09-03 21:05] LABS: ALKALINE PHOSPHATASE 84 U/L (45-117); TOTAL BILIRUBIN ADULT 0.3 MG/DL (0.2-1.0); TOTAL PROTEIN 6.7 GM/DL (6.4-8.2); TROPONIN I LESS THAN 0.02 NG/ML (0.02-0.05)
[2017-09-03 22:42] LABS: BILIRUBIN, URINE NEG (NEG); BLOOD, URINE NEG (NEG); GLUCOSE,URINE NEG (NEG); HYALINE CAST, URINE 1 /lpf (RARE); KETONE, URINE 10 mg/dL (NEG); MUCUS URINE FEW /lpf (OCC); NITRITE,URINE NEG (NEG); PH, URINE 6.5 (5.0-8.5); URINE COLOR YELLOW (YELLW/STRAW); URINE LEUKOCYTE ESTERASE NEG (NEG)
[2017-09-03] MEDS ORDERED: RESP: ALBUTEROL 2.5 MG/3 ML NEB (SCH) INH (22:45)
[2017-09-03 22:50] VITALS: O2SAT 96
[2017-09-03] MEDS ORDERED: IOHEXOL 350 MG/ML 10 ML VIAL (for RAD DIAG) IVCONTRAST ONE (23:09)
[2017-09-03 23:41] VITALS: BP 184/84; PULSE 98; RESP 20; O2SAT 97
[2017-09-04] VITALS (9 sets, daily range): BP systolic 123–173; BP diastolic 59–81; PULSE 94–106; RESP 16–20; TEMP 97.8–99; O2SAT 94–100
[2017-09-04] MEDS ORDERED: DEXTROSE 50% IN WATER 50 ML VIAL(D50) IV PUSH PRN (01:00)
[2017-09-04] MEDS ORDERED: RESP: ALBUTEROL 2.5 MG/IPRATROPIUM 0.5 MG NEB (PRN) NEB (01:00)
[2017-09-04] MEDS ORDERED: GLUCAGON 1 MG/ML VIAL OTHER PRN (01:00)
[2017-09-04] MEDS ORDERED: ACETAMINOPHEN 325 MG TAB PO PRN (01:00)
[2017-09-04] MEDS ORDERED: SODIUM CHLORIDE 0.9% FLUSH 10 ML FLUSH IV FLUSH PRN (01:00)
[2017-09-04] MEDS ORDERED: ONDANSETRON HCL 4 MG/2 ML VIAL IVP PRN (01:00)
--- NOTE | 2017-09-04 01:50 | HHI.HP ---
[facility] Cesar Velazquez MD (Paul) Admission Diagnosis COPD exacerbation, chest pain Diagnoses: Travel History International Travel<30 Days: No Contact w/Intl Traveler <30 Da: No Traveled to Known Affected Are: No History of Present Illness Female with past medical history significant for COPD on 5 L nasal cannula continuously at home, hypertension, hyperlipidemia and diabetes mellitus presents to the emergency department complaining of left-sided and substernal chest pain. The patient reported that the pain started this afternoon. She reports that it is sharp. She reports no changes in the pain with deep inspiration. She reports that her shortness of breath is at baseline. She denies any fever/chills. Denies nausea/vomiting/diarrhea. She also reports significant wheezing that prompted her to call EMS. Review of Systems Except as stated in HPI: all other systems reviewed are Neg Past Family Social History Past Medical History COPD on 5 L nasal cannula Diabetes mellitus Hyperlipidemia Hypertension Past Surgical History Right hip replacement Left knee replacement Allergies: Coded Allergies: enoxaparin (Unverified Allergy, Mild, Flushing,pruritus, 09/03/17) Physical Exam Vital Signs Vital Signs Date Time Temp Pulse Resp B/P (MAP) Pulse Ox O2 Delivery O2 Flow Rate FiO2 09/04/17 00:05 98.5 102 18 173/81 (111) 100 09/03/17 23:58 09/03/17 23:41 98 20 184/84 (117) 97 Nasal Cannula 3.00 09/03/17 22:50 96 Nasal Cannula 3.00 09/03/17 20:16 100 Nasal Cannula 3.00 09/03/17 19:58 102 20 97 Nasal Cannula 3.00 09/03/17 19:48 98.6 100 20 172/89 (116) 99 Physical Exam GENERAL: female lying in bed, sleeping SKIN: No rashes, ecchymoses or lesions. Cool and dry. HEAD: Atraumatic. Normocephalic. No temporal or scalp tenderness. EYES: Pupils equal round and reactive. Extraocular motions intact. No scleral icterus. No injection or drainage. ENT: Nose without bleeding, purulent drainage or septal hematoma. Throat without erythema, tonsillar hypertrophy or exudate. Uvula midline. Airway patent. NECK: Trachea midline. No JVD or lymphadenopathy. Supple, nontender, no meningeal signs. CARDIOVASCULAR: Regular rate and rhythm without murmurs, gallops, or rubs. RESPIRATORY: Significant wheezing bilaterally GASTROINTESTINAL: Abdomen soft, non-tender, nondistended. No hepato-splenomegaly , or palpable masses. No guarding. MUSCULOSKELETAL: Extremities without clubbing, cyanosis, or edema. No joint tenderness, effusion, or edema noted. No calf tenderness. NEUROLOGICAL: Awake and alert. Cranial nerves II through XII intact. Motor and sensory grossly within normal limits. Normal speech. Laboratory Laboratory Tests Test 09/03/17 20:21 09/03/17 22:15 09/03/17 22:30 White Blood Count 8.8 Red Blood Count 4.16 Hemoglobin 12.2 Hematocrit 37.1 Mean Corpuscular Volume 89.3 Mean Corpuscular Hemoglobin 29.2 Mean Corpuscular Hemoglobin Concent 32.7 Red Cell Distribution Width 14.6 Platelet Count 127 Mean Platelet Volume 8.6 Neutrophils (%) (Auto) 71.6 Lymphocytes (%) (Auto) 12.9 Monocytes (%) (Auto) 12.8 Eosinophils (%) (Auto) 2.0 Basophils (%) (Auto) 0.7 Neutrophils # (Auto) 6.3 Lymphocytes # (Auto) 1.1 Monocytes # (Auto) 1.1 Eosinophils # (Auto) 0.2 Basophils # (Auto) 0.1 CBC Comment DIFF FINAL Differential Comment Prothrombin Time 10.0 Prothromb Time International Ratio 1.0 Activated Partial Thromboplast Time 25.2 Blood Urea Nitrogen 16 Creatinine 0.88 Random Glucose 99 Total Protein 6.7 Albumin 3.4 Calcium Level 8.9 Magnesium Level 2.0 Alkaline Phosphatase 84 Aspartate Amino Transf (AST/SGOT) 18 Alanine Aminotransferase (ALT/SGPT) 12 Total Bilirubin 0.3 Sodium Level 142 Potassium Level 4.0 Chloride Level 101 Carbon Dioxide Level 35.2 Anion Gap 6 Estimat Glomerular Filtration Rate 61 Total Creatine Kinase 78 Troponin I LESS THAN 0.02 B-Type Natriuretic Peptide 85 Urine Color YELLOW Urine Turbidity CLEAR Urine pH 6.5 Urine Specific [place] 1.015 Urine Protein TRACE Urine Glucose (UA) NEG Urine Ketones 10 Urine Occult Blood NEG Urine Nitrite NEG Urine Bilirubin NEG Urine Urobilinogen LESS THAN 2.0 Urine Leukocyte Esterase NEG Urine RBC 8 Urine Hyaline Casts 1 Urine Mucus FEW Microscopic Urinalysis Comment CULT NOT INDICATED Result Diagram: 09/03/17202009/03/172020 Caprini VTE Risk Assessment Caprini VTE Risk Assessment: Mod/High Risk (score >= 2) Caprini Risk Assessment Model Point Value = 1 Point Value = 2 Point Value = 3 Point Value = 5 Age 41-60 Minor surgery BMI > 25 kg/m2 Swollen legs Varicose veins or History of unexplained or recurrent spontaneous Oral contraceptives or hormone replacement Sepsis (< 1 month) Serious lung disease, including pneumonia (< 1 month) Abnormal pulmonary function Acute myocardial infarction Congestive heart failure (< 1 month) History of inflammatory bowel disease Medical patient at bed rest Age 61-74 Arthroscopic surgery Major open surgery (> 45 min) Laparoscopic surgery (> 45 min) Malignancy Confined to bed (> 72 hours) Immobilizing plaster cast Central venous access Age >= 75 History of VTE Family history of VTE Factor V Leiden Prothrombin [id number] Lupus anticoagulant Anticardiolipin antibodies Elevated serum homocysteine Heparin-induced thrombocytopenia Other congenital or acquired thrombophilia Stroke (< 1 month) Elective arthroplasty Hip, pelvis, or leg fracture Acute spinal cord injury (< 1 month) Prophylaxis Regimen Total Risk Factor Score Risk Level Prophylaxis Regimen 0-1 Low Early ambulation 2 Moderate Order ONE of the following: *Sequential Compression Device (SCD) *Heparin 5000 units SQ BID 3-4 Higher Order ONE of the following medications: *Heparin 5000 units SQ TID *Enoxaparin/Lovenox 40 mg SQ daily (WT < 150 kg, CrCl > 30 mL/min) *Enoxaparin/Lovenox 30 mg SQ daily (WT < 150 kg, CrCl > 10-29 mL/min) *Enoxaparin/Lovenox 30 mg SQ BID (WT < 150 kg, CrCl > 30 mL/min) AND/OR *Sequential Compression Device (SCD) 5 or more Highest Order ONE of the following medications: *Heparin 5000 units SQ TID (Preferred with Epidurals) *Enoxaparin/Lovenox 40 mg SQ daily (WT < 150 kg, CrCl > 30 mL/min) *Enoxaparin/Lovenox 30 mg SQ daily (WT < 150 kg, CrCl > 10-29 mL/min) *Enoxaparin/Lovenox 30 mg SQ BID (WT < 150 kg, CrCl > 30 mL/min) AND *Sequential Compression Device (SCD) Assessment and Plan Assessment and Plan Assessment/plan: 1. COPD exacerbation Patient with wheezes and hypoxia Chest x-ray without acute process, personally reviewed Zuri's IV steroids 2. Chest pain Initial troponin negative EKG significant for sinus tachycardia without ST segment elevation/depressions, personally reviewed ACS rule out pending; serial troponins/EKGs 3. Diabetes mellitus Holding home metformin Sliding scale insulin Monitor blood glucose 4. Hypertension/hyperlipidemia Continue home medications FEN Heart healthy diet Electrolytes: Monitor and replete when necessary Heparin Karely Arriola MD Sep 04, 2017 01:50
[2017-09-04 04:19] LABS: TROPONIN I LESS THAN 0.02 NG/ML (0.02-0.05)
[2017-09-04] MEDS: INSULIN ASPART SUPPLEMENTAL SCALE SQ SCH ×4 (07:01→21:00)
[2017-09-04] MEDS: VALSARTAN 160 MG TAB PO SCH (08:32)
[2017-09-04] MEDS: PANTOPRAZOLE SOD 20 MG DELAYED RELEASE TAB PO SCH (08:32)
[2017-09-04] MEDS: methylPREDNISolone SOD SUCC 40 MG/1 ML VIAL IV PUSH SCH ×2 (08:33→21:27)
[2017-09-04] MEDS: SODIUM CHLORIDE 0.9% FLUSH 10 ML FLUSH IV FLUSH SCH ×2 (08:33→21:27)
--- NOTE | 2017-09-04 11:20 | HHI.PR ---
Subjective Remarks Follow up for COPD exacerbation. The patient reports feeling better today however still wheezing and short of breath. She denies any cough or sputum production. She states whenever she has COPD exacerbation or even pneumonia, she never has a cough. She denies any fevers/chills. She had some episodes of chest pain this morning, worse with deep inspiration and associated with shortness of breath. She denies any history of cardiac disease. Chest pain now resolved. She reports using 5L NC mostly during the day when she is exerting herself, but does not wear oxygen at night. She uses nebulizer three times a day. The patient has no other medical complaints at this time. Objective Vitals Vital Signs Date Time Temp Pulse Resp B/P (MAP) Pulse Ox O2 Delivery O2 Flow Rate FiO2 09/04/17 07:44 97.9 94 18 131/71 (91) 99 09/04/17 04:32 98.1 97 18 148/65 (92) 99 09/04/17 00:05 98.5 102 18 173/81 (111) 100 09/03/17 23:58 09/03/17 23:41 98 20 184/84 (117) 97 Nasal Cannula 3.00 09/03/17 22:50 96 Nasal Cannula 3.00 09/03/17 20:16 100 Nasal Cannula 3.00 09/03/17 19:58 102 20 97 Nasal Cannula 3.00 09/03/17 19:48 98.6 100 20 172/89 (116) 99 I/O 09/03/17 09/03/17 09/03/17 09/04/17 09/04/17 09/04/17 06:59 14:59 22:59 06:59 14:59 22:59 Intake Total 240 ml Balance 240 ml Intake Oral 240 ml Result Diagram: 09/03/17202009/03/172020 Imaging Last Impressions Chest X-Ray 09/03/172007 Signed Impressions: Service Date/Time: Sunday, September 03, 2017 20:33 - CONCLUSION: No acute disease. No significant change has occurred. Yves Jaems MD Objective Remarks GENERAL: Well-nourished, well-developed pleasant elderly female patient in [facility]. SKIN: Warm and dry. No rash. HEENT: Normocephalic. Atraumatic.Pupils equal and round. Mucous membranes pink and moist. NECK: Supple. Trachea midline. CARDIOVASCULAR: Regular rate and rhythm. S1, S2 noted. No murmur appreciated. RESPIRATORY: No accessory muscle use. Diffuse expiratory wheezing throughout all lung hurtado. Breath sounds equal bilaterally. GASTROINTESTINAL: Abdomen soft, non-tender, nondistended. Normoactive bowel sounds x4. MUSCULOSKELETAL: No obvious deformities. Extremities without clubbing, cyanosis , or edema. NEUROLOGICAL: Awake and alert. No obvious cranial nerve deficits. Motor grossly within normal limits. Normal speech. PSYCHIATRIC: Appropriate mood and affect; insight and judgment normal. Medications and IVs Current Medications Medications (Trade) Dose Ordered Sig/Lyle Route Start Time Stop Time Status Last Admin (Duoneb Neb) 1 ampule Q4HR NEB PRN NEB 09/04/17 01:00 (NS Flush) 2 ml UNSCH PRN IV FLUSH 09/04/17 01:00 (NS Flush) 2 ml BID IV FLUSH 09/04/17 09:00 09/04/17 08:33 (Tylenol) 650 mg Q4H PRN PO 09/04/17 01:00 (Zofran Inj) 4 mg Q6H PRN IVP 09/04/17 01:00 (D50w (Vial) Inj) 50 ml UNSCH PRN IV PUSH 09/04/17 01:00 (Glucagon Inj) 1 mg UNSCH PRN OTHER 09/04/17 01:00 (NovoLOG SUPPLEMENTAL SCALE) 1 ACHS SLIDING SCALE SQ 09/04/17 08:00 (Elavil) 75 mg HS PO 09/04/17 21:00 (Lipitor) 20 mg HS PO 09/04/17 21:00 (Diovan) 160 mg DAILY PO 09/04/17 09:00 09/04/17 08:32 (Protonix) 20 mg DAILY PO 09/04/17 09:00 09/04/17 08:32 (SoluMEDROL INJ) 40 mg Q12HR IV PUSH 09/04/17 09:00 09/04/17 08:33 A/P Assessment and Plan 87-year-old female with past medical history significant for COPD on 5 L NC during the day at home, HTN, HLD, DM, presents with wheezing, shortness of breath, and chest pains Acute COPD Exacerbation on Chronic Respiratory Failure: O2 dependent on 5L NC at home. +Wheezing on exam. CXR images reviewed, no acute findings. -no purulent sputum production or any infiltrate on CXR to suggest PNA, will hold off on antibiotics -continue steroids with IV Solumedrol 40mg bid -Continue duonebs q6h lyle and q4h prn -Start Symbicort bid -O2 as needed Atypical Chest Pain: suspect pleuritic secondary to COPD exacerbation. No hx of CAD. Hx of Nuclear Stress Test [id number], unremarkable. -ACS ruled out with negative serial cardiac enzymes, and EKG with no acute ischemic changes -Continue patient's BB, ARB, statin -Monitor on telemetry -Chest pain currently resolved -1400hrs: patient reporting recurrent chest pain, will check additional troponin/EKG, and check CT-PA to rule out PE Hypertension/Hyperlipidemia: chronic, stable -continue patient's propranolol, valsartan, statin -Monitor BP and adjust antihypertensives as needed Diabetes Mellitus: chronic -hold patient's metformin for now -Monitor accu-checks and cover with SSI DVT Prophylaxis: teds/SCDs Discharge Planning Discharge pending further clinical improvement, not yet ready for discharge. Cony Echeverria PA-C Sep 04, 2017 11:20
[2017-09-04 11:58] LABS: TROPONIN I LESS THAN 0.02 NG/ML (0.02-0.05)
[2017-09-04] MEDS ORDERED: RESP: ALBUTEROL 2.5 MG/IPRATROPIUM 0.5 MG NEB (SCH) NEB ONE (12:00)
--- NOTE | 2017-09-04 16:56 | RADRPT ---
EXAM DATE/TIME: 09/04/2017 16:33 [facility] COMPARISON: CT PULMONARY ANGIOGRAM, September 14, 2016, 10:32. INDICATIONS : COPD, exacerbation, chest pain. IV CONTRAST: 70 cc Omnipaque 350 (iohexol) IV RADIATION DOSE: 10.01 CTDIvol (mGy) MEDICAL HISTORY : Cardiovascular disease. Chronic obstructive pulmonary disease. Hypertension. SURGICAL HISTORY : Appendectomy. ENCOUNTER: Initial ACUITY: 1 day PAIN SCALE: 4/10 LOCATION: chest TECHNIQUE: Volumetric scanning of the chest was performed using a pulmonary embolism protocol MIP images were re constructed. Using automated exposure control and adjustment of the mA and/or kV according to patien t size, radiation dose was kept as low as reasonably achievable to obtain optimal diagnostic quality images. DICOM format image data is available electronically for review and comparison. Follow-up recommendations for detected pulmonary nodules are based at a minimum on nodule size and pa tient risk factors according to Fleischner Society Guidelines. FINDINGS: There is no evidence of pulmonary embolism. There is evidence of a small mass in the right lower lobe posterior medially measuring 1.5 x 1.8 x 1.1 cm. This is suspicious for bronchogenic carcinoma but w ould be very difficult to biopsy percutaneously. PET/CT scan may be helpful for further characterizat ion of this lesion if clinically indicated. There is a stable noncalcified nodule within the right lo wer lobe measuring 7 mm also. Chronic consolidation involving the right upper lobe is again noted and unchanged. Emphysematous changes are noted bilaterally. Tiny bilateral pleural effusions with adjace nt compressive atelectasis are noted. No significant mediastinal, hilar or axillary lymphadenopathy i s noted. A large hiatal hernia is noted. Tiny pericardial effusion is noted. Coronary artery calcific ations are noted. Degenerative changes are noted throughout the thoracic spine. CONCLUSION: 1. No evidence of pulmonary embolism. 2. Small mass in the right lower lobe posterior medially measuring 1.5 x 1.8 x 1.1 cm. This is suspic ious for bronchogenic carcinoma, but would be very difficult to biopsy percutaneously. PET/CT scan ma y be helpful for further characterization of this lesion if clinically indicated. 3. Stable chronic consolidation involving right upper lobe. 4. Stable 7 mm noncalcified nodule within the right lower lobe. 5. Stable tiny pericardial effusion and bilateral pleural effusions. 6. Stable emphysematous changes bilaterally. 7. Large hiatal hernia. 8. Coronary artery calcifications. Sahil Ahmadi MD on September 04, 2017 at 16:46 Board Certified Radiologist. This report was verified electronically.
[2017-09-04] MEDS: RESP: ALBUTEROL 2.5 MG/IPRATROPIUM 0.5 MG NEB (SCH) NEB ×2 (18:04→19:47)
[2017-09-04 18:48] LABS: BILIRUBIN, URINE NEG (NEG); BLOOD, URINE NEG (NEG); GLUCOSE,URINE NEG (NEG); KETONE, URINE 10 mg/dL (NEG); MUCUS URINE FEW /lpf (OCC); NITRITE,URINE NEG (NEG); URINE COLOR YELLOW (YELLW/STRAW); URINE LEUKOCYTE ESTERASE NEG (NEG)
[2017-09-04] MEDS: ATORVASTATIN 20 MG TAB PO SCH (21:27)
[2017-09-04] MEDS: AMITRIPTYLINE HCL 75 MG TAB PO SCH (21:42)
[2017-09-04] MEDS: BUDESONIDE-FORMOTEROL 160/4.5 MCG INHALER INH SCH (21:42)
[2017-09-05] VITALS (7 sets, daily range): BP systolic 92–141; BP diastolic 52–86; PULSE 95–116; RESP 16–18; TEMP 97.6–98.7; O2SAT 92–96
[2017-09-05] MEDS: RESP: ALBUTEROL 2.5 MG/IPRATROPIUM 0.5 MG NEB (SCH) NEB ×4 (02:39→20:53)
[2017-09-05 06:50] LABS: AUTOMATED NEUTROPHIL # 12.9 TH/MM3 (1.8-7.7); BASOPHIL % 0.2 % (0.0-2.0); HEMATOCRIT 37.4 % (35.0-46.0); HEMOGLOBIN 12.2 GM/DL (11.6-15.3); LYMPH % 2.6 % (9.0-44.0); LYMPHOCYTE # 0.4 TH/MM3 (1.0-4.8); MEAN CELL VOLUME 89.4 FL (80.0-100.0); MEAN CORPUSCULAR HEMOGLOBIN 29.3 PG (27.0-34.0); MEAN CORPUSCULAR HGB CONC 32.7 % (32.0-36.0); MEAN PLATELET VOLUME 8.7 FL (7.0-11.0); MONO % 3.1 % (0.0-8.0); MONOCYTE # 0.4 TH/MM3 (0-0.9); NEUT % 94.1 % (16.0-70.0); PLATELET COUNT 145 TH/MM3 (150-450); RED BLOOD COUNT 4.19 MIL/MM3 (4.00-5.30); RED CELL DISTRIBUTION WIDTH 14.1 % (11.6-17.2); WHITE BLOOD COUNT 13.7 TH/MM3 (4.0-11.0)
[2017-09-05 07:12] LABS: BICARBONATE 31.8 MEQ/L (21.0-32.0); CALCIUM 8.6 MG/DL (8.5-10.1); CREATININE 1.01 MG/DL (0.50-1.00)
[2017-09-05] MEDS: INSULIN ASPART SUPPLEMENTAL SCALE SQ SCH ×4 (08:00→21:00)
[2017-09-05] MEDS: methylPREDNISolone SOD SUCC 40 MG/1 ML VIAL IV PUSH SCH ×2 (09:12→22:09)
[2017-09-05] MEDS: VALSARTAN 160 MG TAB PO SCH (09:12)
[2017-09-05] MEDS: PANTOPRAZOLE SOD 20 MG DELAYED RELEASE TAB PO SCH (09:12)
[2017-09-05] MEDS: SODIUM CHLORIDE 0.9% FLUSH 10 ML FLUSH IV FLUSH SCH ×2 (09:13→22:09)
[2017-09-05] MEDS: BUDESONIDE-FORMOTEROL 160/4.5 MCG INHALER INH SCH ×2 (09:13→22:08)
--- NOTE | 2017-09-05 09:20 | EKG ---
Date Performed: 09/03/2017 Time Performed: 19:50:23 PTAGE: 87 years EKG: SINUS TACHYCARDIA ABNORMAL RHYTHM ECG Since PREVIOUS TRACING , no significant change noted PREVIOUS TRACING 06/18/2017 21.17 DOCTOR: Jesús Albright Interpretating Date/Time 09/05/2017 09:18:17
--- NOTE | 2017-09-05 09:20 | EKG ---
Date Performed: 09/04/2017 Time Performed: 02:28:01 PTAGE: 87 years EKG: Sinus rhythm NORMAL ECG Compared to PREVIOUS TRACING , the sinus rate has slowed slightly. PREVIOUS TRACIN09/03/2017 19.50 DOCTOR: Jesús Albright Interpretating Date/Time 09/05/2017 09:18:47
[2017-09-05] MEDS ORDERED: guaiFENesin E.R. 600 MG TAB PO ONE (11:00)
--- NOTE | 2017-09-05 11:00 | HHI.PR ---
Subjective Remarks Female with past medical history significant for COPD on 5 L nasal cannula continuously at home, hypertension, hyperlipidemia and diabetes mellitus presents to the emergency department complaining of left-sided and substernal chest pain. The patient reported that the pain started this afternoon. She reports that it is sharp. She reports no changes in the pain with deep inspiration. She reports that her shortness of breath is at baseline. She denies any fever/chills. Denies nausea/vomiting/diarrhea. She also reports significant wheezing that prompted her to call EMS. 2-8 Follow up for COPD exacerbation. The patient reports feeling better today however still wheezing and short of breath. She denies any cough or sputum production. She states whenever she has COPD exacerbation or even pneumonia, she never has a cough. She denies any fevers/chills. She had some episodes of chest pain this morning, worse with deep inspiration and associated with shortness of breath. She denies any history of cardiac disease. Chest pain now resolved. She reports using 5L NC mostly during the day when she is exerting herself, but does not wear oxygen at night. She uses nebulizer three times a day. The patient has no other medical complaints at this time. 2-9 still some shortness of breath still some wheezing history of COPD pneumonia seen as well as a bronchogenic area on the left lung Per CT of the chest and pneumonia We'll make a full admission Make sure she is on Mucinex and incentive spirometry and DuoNeb's and adjust her home medications Objective Vitals Vital Signs Date Time Temp Pulse Resp B/P (MAP) Pulse Ox O2 Delivery O2 Flow Rate FiO2 09/05/17 10:26 96 Nasal Cannula 3.00 09/05/17 08:53 98.0 95 16 141/86 (104) 96 09/05/17 03:19 97.6 97 17 92/52 (65) 96 09/04/17 22:58 98.2 102 16 130/61 (84) 99 09/04/17 20:17 18 09/04/17 19:53 106 17 123/60 (81) 94 09/04/17 19:48 94 Nasal Cannula 2.00 09/04/17 16:10 99.0 104 20 133/59 (83) 96 09/04/17 15:19 105 09/04/17 12:00 97.8 98 18 140/64 (89) 98 I/O 09/04/17 09/04/17 09/04/17 09/05/17 09/05/17 09/05/17 07:00 15:00 23:00 07:00 15:00 23:00 Intake Total 240 ml 400 ml Output Total 445 ml 250 ml Balance 240 ml -445 ml 150 ml Intake Oral 240 ml 400 ml Output Urine Total 445 ml 250 ml Result Diagram: 09/05/17 0546 09/05/17 0546 Other Results Laboratory Tests Test 09/03/17 20:21 09/03/17 22:30 09/04/17 02:26 09/04/17 10:34 White Blood Count 8.8 TH/MM3 Red Blood Count 4.16 MIL/MM3 Hemoglobin 12.2 GM/DL Hematocrit 37.1 % Mean Corpuscular Volume 89.3 FL Mean Corpuscular Hemoglobin 29.2 PG Mean Corpuscular Hemoglobin Concent 32.7 % Red Cell Distribution Width 14.6 % Platelet Count 127 TH/MM3 Mean Platelet Volume 8.6 FL Neutrophils (%) (Auto) 71.6 % Lymphocytes (%) (Auto) 12.9 % Monocytes (%) (Auto) 12.8 % Eosinophils (%) (Auto) 2.0 % Basophils (%) (Auto) 0.7 % Neutrophils # (Auto) 6.3 TH/MM3 Lymphocytes # (Auto) 1.1 TH/MM3 Monocytes # (Auto) 1.1 TH/MM3 Eosinophils # (Auto) 0.2 TH/MM3 Basophils # (Auto) 0.1 TH/MM3 CBC Comment DIFF FINAL Differential Comment Prothrombin Time 10.0 SEC Prothromb Time International Ratio 1.0 RATIO Activated Partial Thromboplast Time 25.2 SEC Blood Urea Nitrogen 16 MG/DL Creatinine 0.88 MG/DL Random Glucose 99 MG/DL Total Protein 6.7 GM/DL Albumin 3.4 GM/DL Calcium Level 8.9 MG/DL Magnesium Level 2.0 MG/DL Alkaline Phosphatase 84 U/L Aspartate Amino Transf (AST/SGOT) 18 U/L Alanine Aminotransferase (ALT/SGPT) 12 U/L Total Bilirubin 0.3 MG/DL Sodium Level 142 MEQ/L Potassium Level 4.0 MEQ/L Chloride Level 101 MEQ/L Carbon Dioxide Level 35.2 MEQ/L Anion Gap 6 MEQ/L Estimat Glomerular Filtration Rate 61 ML/MIN Total Creatine Kinase 78 U/L 90 U/L 72 U/L Troponin I LESS THAN 0.02 NG/ML LESS THAN 0.02 NG/ML LESS THAN 0.02 NG/ML B-Type Natriuretic Peptide 85 PG/ML Urine Color YELLOW Urine Turbidity CLEAR Urine pH 6.5 Urine Specific [place] 1.015 Urine Protein TRACE mg/dL Urine Glucose (UA) NEG mg/dL Urine Ketones 10 mg/dL Urine Occult Blood NEG Urine Nitrite NEG Urine Bilirubin NEG Urine Urobilinogen LESS THAN 2.0 MG/DL Urine Leukocyte Esterase NEG Urine RBC 8 /hpf Urine Hyaline Casts 1 /lpf Urine Mucus FEW /lpf Microscopic Urinalysis Comment CULT NOT INDICATED Test 09/04/17 14:15 09/04/17 18:00 09/05/17 05:46 Troponin I LESS THAN 0.02 NG/ML Urine Color YELLOW Urine Turbidity CLEAR Urine pH 6.0 Urine Specific [place] 1.031 Urine Protein TRACE mg/dL Urine Glucose (UA) NEG mg/dL Urine Ketones 10 mg/dL Urine Occult Blood NEG Urine Nitrite NEG Urine Bilirubin NEG Urine Urobilinogen LESS THAN 2.0 MG/DL Urine Leukocyte Esterase NEG Urine RBC 6 /hpf Urine WBC LESS THAN 1 /hpf Urine Mucus FEW /lpf Microscopic Urinalysis Comment CATH-CULT NOT IND White Blood Count 13.7 TH/MM3 Red Blood Count 4.19 MIL/MM3 Hemoglobin 12.2 GM/DL Hematocrit 37.4 % Mean Corpuscular Volume 89.4 FL Mean Corpuscular Hemoglobin 29.3 PG Mean Corpuscular Hemoglobin Concent 32.7 % Red Cell Distribution Width 14.1 % Platelet Count 145 TH/MM3 Mean Platelet Volume 8.7 FL Neutrophils (%) (Auto) 94.1 % Lymphocytes (%) (Auto) 2.6 % Monocytes (%) (Auto) 3.1 % Eosinophils (%) (Auto) 0.0 % Basophils (%) (Auto) 0.2 % Neutrophils # (Auto) 12.9 TH/MM3 Lymphocytes # (Auto) 0.4 TH/MM3 Monocytes # (Auto) 0.4 TH/MM3 Eosinophils # (Auto) 0.0 TH/MM3 Basophils # (Auto) 0.0 TH/MM3 CBC Comment DIFF FINAL Differential Comment Blood Urea Nitrogen 24 MG/DL Creatinine 1.01 MG/DL Random Glucose 146 MG/DL Calcium Level 8.6 MG/DL Sodium Level 140 MEQ/L Potassium Level 4.5 MEQ/L Chloride Level 102 MEQ/L Carbon Dioxide Level 31.8 MEQ/L Anion Gap 6 MEQ/L Estimat Glomerular Filtration Rate 52 ML/MIN Imaging Last Impressions CT Angiography 09/04/17 Signed Impressions: Service Date/Time: August 16:33 - CONCLUSION: 1. No evidence of pulmonary embolism. 2. Small mass in the right lower lobe posterior medially measuring 1.5 x 1.8 x 1.1 cm. This is suspicious for bronchogenic carcinoma, but would be very difficult to biopsy percutaneously. PET/CT scan may be helpful for further characterization of this lesion if clinically indicated. 3. Stable chronic consolidation involving right upper lobe. 4. Stable 7 mm noncalcified nodule within the right lower lobe. 5. Stable tiny pericardial effusion and bilateral pleural effusions. 6. Stable emphysematous changes bilaterally. 7. Large hiatal hernia. 8. Coronary artery calcifications. Sahil Ahmadi MD Chest X-Ray 09/03/172007 Signed Impressions: Service Date/Time: Sunday, September 03, 2017 20:33 - CONCLUSION: No acute disease. No significant change has occurred. Yves James MD Objective Remarks GENERAL: SKIN: Warm and dry. HEAD: Atraumatic. Normocephalic. EYES: Pupils equal and round. No scleral icterus. No injection or drainage. ENT: No nasal bleeding or discharge. Mucous membranes pink and moist. NECK: Trachea midline. No JVD. CARDIOVASCULAR: Regular rate and rhythm. RESPIRATORY: No accessory muscle use. Clear to auscultation. Breath sounds equal bilaterally. GASTROINTESTINAL: Abdomen soft, non-tender, nondistended. Hepatic and splenic margins not palpable. MUSCULOSKELETAL: Extremities without clubbing, cyanosis, or edema. No obvious deformities. NEUROLOGICAL: Awake and alert. No obvious cranial nerve deficits. Motor grossly within normal limits. Five out of 5 muscle strength in the arms and legs. Normal speech. PSYCHIATRIC: Appropriate mood and affect; insight and judgment normal. Procedures NONE Medications and IVs Current Medications Sodium Chloride (NS Flush) 2 ml UNSCH PRN IVF FLUSH AFTER USING IV ACCESS; Start 09/03/17 at 20:15; Stop 09/04/17 at 01:54; Status DC Albuterol Sulfate (Albuterol Neb) 2.5 mg Q15M INH ; Start 09/03/17 at 22:45; Stop 09/03/17 at 23:01; Status DC Albuterol/ Ipratropium (Duoneb Neb) 1 ampule Q4HR NEB PRN NEB SOB/WHEEZING Last administered on 09/04/17at 12:03; Start 09/04/17 at 01:00 Sodium Chloride (NS Flush) 2 ml UNSCH PRN IV FLUSH FLUSH AFTER USING IV ACCESS ; Start 09/04/17 at 01:00 Sodium Chloride (NS Flush) 2 ml BID IV FLUSH Last administered on 09/05/17 09: 13; Start 09/04/17 at 09:00 Acetaminophen (Tylenol) 650 mg Q4H PRN PO TEMP > 100.4 Last administered on 09/04at 19:43; Start 09/04/17 at 01:00 Ondansetron HCl (Zofran Inj) 4 mg Q6H PRN IVP NAUSEA OR VOMITING; Start at 01:00 Dextrose (D50w (Vial) Inj) 50 ml UNSCH PRN IV PUSH HYPOGLYCEMIA-SEE COMMENTS; Start 09/04/17 at 01:00 Glucagon (Glucagon Inj) 1 mg UNSCH PRN OTHER HYPOGLYCEMIA-SEE COMMENTS; Start 09/04/17 at 01:00 Insulin Aspart (NovoLOG SUPPLEMENTAL SCALE) 1 ACHS SLIDING SCALE SQ ; Start 09/04/17 at 08:00 Amitriptyline HCl (Elavil) 75 mg HS PO Last administered on 09/04/17at 21:42; Start 09/04/17 at 21:00 Atorvastatin Calcium (Lipitor) 20 mg HS PO Last administered on 09/04/17at 21:27 ; Start 09/04/17 at 21:00 Valsartan (Diovan) 160 mg DAILY PO Last administered on 09/05/17at 09:12; Start 09/04/17 at 09:00 Pantoprazole Sodium (Protonix) 20 mg DAILY PO Last administered on 09/05/17at 09: 12; Start 09/04/17 at 09:00 Methylprednisolone Sodium Succinate (SoluMEDROL INJ) 40 mg Q12HR IV PUSH Last administered on 09/05/17at 09:12; Start 09/04/17 at 09:00 Albuterol/ Ipratropium (Duoneb Neb) 1 ampule Q6HR NEB NEB Last administered on 09/05/17at 10:23; Start 09/04/17 at 16:00 Albuterol/ Ipratropium (Duoneb Neb) 1 ampule ONCE ONCE NEB Last administered on 09/04/17at 12:00; Start 09/04/17 at 12:00; Stop 09/04/17 at 12:54; Status DC Budesonide/ Formoterol Fumarate (Symbicort 160-4.5 Mcg Inh) 1 puff Q12HR INH Last administered on 09/05/17at 09:13; Start 09/04/17 at 21:00 Iohexol (Omnipaque 350 Inj) 70 ml STK-MED ONCE IVCONTRAST Last administered on 09/04/17at 16:43; Start 09/03/17 at 23:09; Stop 09/04/17 at 16:42; Status DC A/P Assessment and Plan 87-year-old female with past medical history significant for COPD on 5 L NC during the day at home, HTN, HLD, DM, presents with wheezing, shortness of breath, and chest pains Acute COPD Exacerbation on Chronic Respiratory Failure: O2 dependent on 5L NC at home. +Wheezing on exam. CXR images reviewed, no acute findings. -no purulent sputum production or any infiltrate on CXR to suggest PNA, on CAT scan pneumonia seen we'll start antibiotics -continue steroids with IV Solumedrol 40mg bid -Continue duonebs q6h bruna and q4h prn -Start Symbicort bid -O2 as needed Add Mucinex Incentive spirometry. Her [employer] doctor came in wanted a pulmonary consult due to lung mass and chronic pneumonia Atypical Chest Pain: suspect pleuritic secondary to COPD exacerbation. No hx of CAD. Hx of Nuclear Stress Test [id number], unremarkable. -ACS ruled out with negative serial cardiac enzymes, and EKG with no acute ischemic changes -Continue patient's BB, ARB, statin -Monitor on telemetry -Chest pain currently resolved Hypertension/Hyperlipidemia: chronic, stable -continue patient's propranolol, valsartan, statin -Monitor BP and adjust antihypertensives as needed Diabetes Mellitus: chronic -hold patient's metformin for now -Monitor accu-checks and cover with SSI DVT Prophylaxis: teds/SCDs Discharge Planning We'll start on antibiotics and make a full admission Scooby Nicole DO Sep 05, 2017 11:00
[2017-09-05] MEDS: cefTRIAXone INJ 1,000 MG in SODIUM CHLORIDE 0.9% INJ 100 ML IV SCH (12:31)
[2017-09-05] MEDS: AZITHROMYCIN 250 MG TAB PO SCH (12:32)
--- NOTE | 2017-09-05 14:53 | EKG ---
Date Performed: 09/04/2017 Time Performed: 14:20:59 PTAGE: 87 years EKG: SINUS TACHYCARDIA Since previous tracing, no significant change noted ABNORMAL RHYTHM ECG PREVIOUS TRACING : 09/04/2017 02.28 DOCTOR: Zaria Dowd Interpretating Date/Time 09/05/2017 14:51:44
--- NOTE | 2017-09-05 19:11 | PD.CONS ---
History of Present Illness Consult Requested By Primary Care Physician Cesar Velazquez MD (Paul) Diagnoses: History of Present Illness 87-year-old female came into the hospital and she was diagnosed with COPD exacerbation. She was found to have a right upper lung nodule/mass. Overall she is doing better with the breathing she is not back to baseline. No fevers or chills or hemoptysis. Review of systems negative except was mentioned in HPI. Past medical history, social history, allergies, medications all reviewed in details. Past Family Social History Allergies: Coded Allergies: enoxaparin (Unverified Allergy, Mild, Flushing,pruritus, 09/03/17) Physical Exam Vital Signs Vital Signs Date Time Temp Pulse Resp B/P (MAP) Pulse Ox O2 Delivery O2 Flow Rate FiO2 09/05/17 16:04 98.7 108 18 121/57 (78) 92 09/05/17 11:39 98.0 110 16 134/60 (84) 96 09/05/17 10:26 96 Nasal Cannula 3.00 09/05/17 08:53 98.0 95 16 141/86 (104) 96 09/05/17 03:19 97.6 97 17 92/52 (65) 96 09/04/17 22:58 98.2 102 16 130/61 (84) 99 09/04/17 20:17 18 09/04/17 19:53 106 17 123/60 (81) 94 09/04/17 19:48 94 Nasal Cannula 2.00 Physical Exam GENERAL: This is a well-nourished, well-developed patient, in no apparent distress. SKIN: No rashes, ecchymoses or lesions. Cool and dry. HEAD: Atraumatic. Normocephalic. No temporal or scalp tenderness. EYES: Pupils equal round and reactive. Extraocular motions intact. No scleral icterus. No injection or drainage. ENT: Nose without bleeding, purulent drainage or septal hematoma. Throat without erythema, tonsillar hypertrophy or exudate. Uvula midline. Airway patent. NECK: Trachea midline. No JVD or lymphadenopathy. Supple, nontender, no meningeal signs. CARDIOVASCULAR: Regular rate and rhythm without murmurs, gallops, or rubs. RESPIRATORY: Bilateral expiratory wheezing GASTROINTESTINAL: Abdomen soft, non-tender, nondistended. No hepato-splenomegaly , or palpable masses. No guarding. MUSCULOSKELETAL: Extremities without clubbing, cyanosis, or edema. No joint tenderness, effusion, or edema noted. No calf tenderness. Negative Homans sign bilaterally. NEUROLOGICAL: Awake and alert. Cranial nerves II through XII intact. Motor and sensory grossly within normal limits. Five out of 5 muscle strength in all muscle groups. Normal speech. Laboratory Laboratory Tests Test 09/05/17 05:46 White Blood Count 13.7 Red Blood Count 4.19 Hemoglobin 12.2 Hematocrit 37.4 Mean Corpuscular Volume 89.4 Mean Corpuscular Hemoglobin 29.3 Mean Corpuscular Hemoglobin Concent 32.7 Red Cell Distribution Width 14.1 Platelet Count 145 Mean Platelet Volume 8.7 Neutrophils (%) (Auto) 94.1 Lymphocytes (%) (Auto) 2.6 Monocytes (%) (Auto) 3.1 Eosinophils (%) (Auto) 0.0 Basophils (%) (Auto) 0.2 Neutrophils # (Auto) 12.9 Lymphocytes # (Auto) 0.4 Monocytes # (Auto) 0.4 Eosinophils # (Auto) 0.0 Basophils # (Auto) 0.0 CBC Comment DIFF FINAL Differential Comment Blood Urea Nitrogen 24 Creatinine 1.01 Random Glucose 146 Calcium Level 8.6 Sodium Level 140 Potassium Level 4.5 Chloride Level 102 Carbon Dioxide Level 31.8 Anion Gap 6 Estimat Glomerular Filtration Rate 52 Result Diagram: 09/05/17 0546 09/05/17 0546 Assessment and Plan Assessment and Plan COPD exacerbation Right upper lobe nodule/mass Possible pneumonia I had a discussion with the patient in details. At this point I would like her to be treated for a possible pneumonia and continue the course of the antibiotics. I would like to follow-up with her in about 2-3 weeks and will get a follow-up CT/PET. Depending on the results we will decide whether we need to proceed with consideration of stereotactic radiation therapy or not. Also being having a conservative approach will be also reasonable. However this would be decided and discussed in the office after we had the CT/ PET scan done. Scott Caldwell MD Sep 05, 2017 19:11
[2017-09-05] MEDS: guaiFENesin E.R. 600 MG TAB PO SCH (22:10)
[2017-09-05] MEDS: ATORVASTATIN 20 MG TAB PO SCH (22:10)
[2017-09-05] MEDS: AMITRIPTYLINE HCL 75 MG TAB PO SCH (22:10)
[2017-09-06] VITALS (12 sets, daily range): BP systolic 109–145; BP diastolic 58–77; PULSE 68–108; RESP 18–20; TEMP 97.9–99.1; O2SAT 96–99
[2017-09-06] MEDS: RESP: ALBUTEROL 2.5 MG/IPRATROPIUM 0.5 MG NEB (SCH) NEB ×3 (03:18→20:16)
[2017-09-06] MEDS: INSULIN ASPART SUPPLEMENTAL SCALE SQ SCH ×4 (08:00→21:00)
[2017-09-06 08:21] LABS: AUTOMATED NEUTROPHIL # 13.4 TH/MM3 (1.8-7.7); BASOPHIL % 0.1 % (0.0-2.0); HEMATOCRIT 34.5 % (35.0-46.0); HEMOGLOBIN 11.3 GM/DL (11.6-15.3); LYMPHOCYTE # 0.3 TH/MM3 (1.0-4.8); MEAN CELL VOLUME 88.8 FL (80.0-100.0); MEAN CORPUSCULAR HGB CONC 32.6 % (32.0-36.0); MEAN PLATELET VOLUME 8.5 FL (7.0-11.0); MONO % 2.9 % (0.0-8.0); MONOCYTE # 0.4 TH/MM3 (0-0.9); PLATELET COUNT 153 TH/MM3 (150-450); RED BLOOD COUNT 3.89 MIL/MM3 (4.00-5.30); RED CELL DISTRIBUTION WIDTH 14.1 % (11.6-17.2); WHITE BLOOD COUNT 14.1 TH/MM3 (4.0-11.0)
[2017-09-06 08:42] LABS: ALBUMIN 2.9 GM/DL (3.4-5.0); AST (GOT) 17 U/L (15-37); BICARBONATE 33.5 MEQ/L (21.0-32.0); BLOOD UREA NITROGEN 28 MG/DL (7-18); CALCIUM 8.8 MG/DL (8.5-10.1); CHLORIDE 101 MEQ/L (98-107); CREATININE 0.92 MG/DL (0.50-1.00); GLOMERULAR FILTRATION RATE 58 ML/MIN (>89); GLUCOSE,RANDOM 135 MG/DL (74-106); MAGNESIUM 2.1 MG/DL (1.5-2.5); SODIUM (NA) 140 MEQ/L (136-145)
[2017-09-06 08:53] LABS: ALKALINE PHOSPHATASE 63 U/L (45-117); ALT (GPT) 13 U/L (10-53); PHOSPHORUS 3.3 MG/DL (2.5-4.9); TOTAL BILIRUBIN ADULT 0.2 MG/DL (0.2-1.0); TOTAL PROTEIN 5.7 GM/DL (6.4-8.2)
[2017-09-06] MEDS: SODIUM CHLORIDE 0.9% FLUSH 10 ML FLUSH IV FLUSH SCH ×2 (09:00→23:14)
[2017-09-06] MEDS: BUDESONIDE-FORMOTEROL 160/4.5 MCG INHALER INH SCH ×2 (10:04→23:14)
[2017-09-06] MEDS: AZITHROMYCIN 250 MG TAB PO SCH (10:05)
[2017-09-06] MEDS: VALSARTAN 160 MG TAB PO SCH (10:05)
[2017-09-06] MEDS: methylPREDNISolone SOD SUCC 40 MG/1 ML VIAL IV PUSH SCH ×2 (10:05→23:15)
[2017-09-06] MEDS: guaiFENesin E.R. 600 MG TAB PO SCH ×2 (10:06→23:16)
[2017-09-06] MEDS: PANTOPRAZOLE SOD 20 MG DELAYED RELEASE TAB PO SCH (10:06)
[2017-09-06 11:35] LABS: HEMOGLOBIN A1C 5.8 % (4.3-6.0)
--- NOTE | 2017-09-06 12:36 | HHI.PR ---
Subjective Remarks Female with past medical history significant for COPD on 5 L nasal cannula continuously at home, hypertension, hyperlipidemia and diabetes mellitus presents to the emergency department complaining of left-sided and substernal chest pain. The patient reported that the pain started this afternoon. She reports that it is sharp. She reports no changes in the pain with deep inspiration. She reports that her shortness of breath is at baseline. She denies any fever/chills. Denies nausea/vomiting/diarrhea. She also reports significant wheezing that prompted her to call EMS. 2-8 Follow up for COPD exacerbation. The patient reports feeling better today however still wheezing and short of breath. She denies any cough or sputum production. She states whenever she has COPD exacerbation or even pneumonia, she never has a cough. She denies any fevers/chills. She had some episodes of chest pain this morning, worse with deep inspiration and associated with shortness of breath. She denies any history of cardiac disease. Chest pain now resolved. She reports using 5L NC mostly during the day when she is exerting herself, but does not wear oxygen at night. She uses nebulizer three times a day. The patient has no other medical complaints at this time. 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 Objective Vitals Vital Signs Date Time Temp Pulse Resp B/P (MAP) Pulse Ox O2 Delivery O2 Flow Rate FiO2 09/06/17 12:09 97.9 94 20 112/60 (77) 96 09/06/17 08:19 97.9 94 20 110/58 (75) 96 09/06/17 07:41 99 Nasal Cannula 3.00 09/06/17 05:02 98.1 93 18 123/60 (81) 98 09/06/17 04:31 96 09/06/17 01:42 98.0 97 18 129/60 (83) 97 09/06/17 00:00 103 09/05/17 20:56 Nasal Cannula 3.00 09/05/17 20:14 116 09/05/17 19:50 98.0 105 16 139/63 (88) 93 09/05/17 16:04 98.7 108 18 121/57 (78) 92 I/O 09/05/17 09/05/17 09/05/17 09/06/17 09/06/17 09/06/17 07:00 15:00 23:00 07:00 15:00 23:00 Intake Total 400 ml 100 ml 635 ml Output Total 250 ml Balance 150 ml 100 ml 635 ml Intake Oral 400 ml 635 ml IV Total 100 ml Output Urine Total 250 ml # Voids 2 # Bowel Movements 0 Result Diagram: 09/06/1710 09/06/17 0710 Other Results Laboratory Tests Test 09/03/17 20:21 09/03/17 22:30 09/04/17 02:26 09/04/17 10:34 White Blood Count 8.8 TH/MM3 Red Blood Count 4.16 MIL/MM3 Hemoglobin 12.2 GM/DL Hematocrit 37.1 % Mean Corpuscular Volume 89.3 FL Mean Corpuscular Hemoglobin 29.2 PG Mean Corpuscular Hemoglobin Concent 32.7 % Red Cell Distribution Width 14.6 % Platelet Count 127 TH/MM3 Mean Platelet Volume 8.6 FL Neutrophils (%) (Auto) 71.6 % Lymphocytes (%) (Auto) 12.9 % Monocytes (%) (Auto) 12.8 % Eosinophils (%) (Auto) 2.0 % Basophils (%) (Auto) 0.7 % Neutrophils # (Auto) 6.3 TH/MM3 Lymphocytes # (Auto) 1.1 TH/MM3 Monocytes # (Auto) 1.1 TH/MM3 Eosinophils # (Auto) 0.2 TH/MM3 Basophils # (Auto) 0.1 TH/MM3 CBC Comment DIFF FINAL Differential Comment Prothrombin Time 10.0 SEC Prothromb Time International Ratio 1.0 RATIO Activated Partial Thromboplast Time 25.2 SEC Blood Urea Nitrogen 16 MG/DL Creatinine 0.88 MG/DL Random Glucose 99 MG/DL Total Protein 6.7 GM/DL Albumin 3.4 GM/DL Calcium Level 8.9 MG/DL Magnesium Level 2.0 MG/DL Alkaline Phosphatase 84 U/L Aspartate Amino Transf (AST/SGOT) 18 U/L Alanine Aminotransferase (ALT/SGPT) 12 U/L Total Bilirubin 0.3 MG/DL Sodium Level 142 MEQ/L Potassium Level 4.0 MEQ/L Chloride Level 101 MEQ/L Carbon Dioxide Level 35.2 MEQ/L Anion Gap 6 MEQ/L Estimat Glomerular Filtration Rate 61 ML/MIN Total Creatine Kinase 78 U/L 90 U/L 72 U/L Troponin I LESS THAN 0.02 NG/ML LESS THAN 0.02 NG/ML LESS THAN 0.02 NG/ML B-Type Natriuretic Peptide 85 PG/ML Urine Color YELLOW Urine Turbidity CLEAR Urine pH 6.5 Urine Specific [place] 1.015 Urine Protein TRACE mg/dL Urine Glucose (UA) NEG mg/dL Urine Ketones 10 mg/dL Urine Occult Blood NEG Urine Nitrite NEG Urine Bilirubin NEG Urine Urobilinogen LESS THAN 2.0 MG/DL Urine Leukocyte Esterase NEG Urine RBC 8 /hpf Urine Hyaline Casts 1 /lpf Urine Mucus FEW /lpf Microscopic Urinalysis Comment CULT NOT INDICATED Test 09/04/17 14:15 09/04/17 18:00 09/05/17 05:46 09/06/17 07:10 Troponin I LESS THAN 0.02 NG/ML Urine Color YELLOW Urine Turbidity CLEAR Urine pH 6.0 Urine Specific [place] 1.031 Urine Protein TRACE mg/dL Urine Glucose (UA) NEG mg/dL Urine Ketones 10 mg/dL Urine Occult Blood NEG Urine Nitrite NEG Urine Bilirubin NEG Urine Urobilinogen LESS THAN 2.0 MG/DL Urine Leukocyte Esterase NEG Urine RBC 6 /hpf Urine WBC LESS THAN 1 /hpf Urine Mucus FEW /lpf Microscopic Urinalysis Comment CATH-CULT NOT IND White Blood Count 13.7 TH/MM3 14.1 TH/MM3 Red Blood Count 4.19 MIL/MM3 3.89 MIL/MM3 Hemoglobin 12.2 GM/DL 11.3 GM/DL Hematocrit 37.4 % 34.5 % Mean Corpuscular Volume 89.4 FL 88.8 FL Mean Corpuscular Hemoglobin 29.3 PG 29.0 PG Mean Corpuscular Hemoglobin Concent 32.7 % 32.6 % Red Cell Distribution Width 14.1 % 14.1 % Platelet Count 145 TH/MM3 153 TH/MM3 Mean Platelet Volume 8.7 FL 8.5 FL Neutrophils (%) (Auto) 94.1 % 95.0 % Lymphocytes (%) (Auto) 2.6 % 2.0 % Monocytes (%) (Auto) 3.1 % 2.9 % Eosinophils (%) (Auto) 0.0 % 0.0 % Basophils (%) (Auto) 0.2 % 0.1 % Neutrophils # (Auto) 12.9 TH/MM3 13.4 TH/MM3 Lymphocytes # (Auto) 0.4 TH/MM3 0.3 TH/MM3 Monocytes # (Auto) 0.4 TH/MM3 0.4 TH/MM3 Eosinophils # (Auto) 0.0 TH/MM3 0.0 TH/MM3 Basophils # (Auto) 0.0 TH/MM3 0.0 TH/MM3 CBC Comment DIFF FINAL DIFF FINAL Differential Comment Blood Urea Nitrogen 24 MG/DL 28 MG/DL Creatinine 1.01 MG/DL 0.92 MG/DL Random Glucose 146 MG/DL 135 MG/DL Calcium Level 8.6 MG/DL 8.8 MG/DL Sodium Level 140 MEQ/L 140 MEQ/L Potassium Level 4.5 MEQ/L 4.2 MEQ/L Chloride Level 102 MEQ/L 101 MEQ/L Carbon Dioxide Level 31.8 MEQ/L 33.5 MEQ/L Anion Gap 6 MEQ/L 6 MEQ/L Estimat Glomerular Filtration Rate 52 ML/MIN 58 ML/MIN Total Protein 5.7 GM/DL Albumin 2.9 GM/DL Phosphorus Level 3.3 MG/DL Magnesium Level 2.1 MG/DL Alkaline Phosphatase 63 U/L Aspartate Amino Transf (AST/SGOT) 17 U/L Alanine Aminotransferase (ALT/SGPT) 13 U/L Total Bilirubin 0.2 MG/DL Hemoglobin A1c 5.8 % Free Thyroxine 0.80 NG/DL Thyroid Stimulating Hormone 3rd Gen 0.220 uIU/ML Imaging Last Impressions CT Angiography 09/04/17 0000 Signed Impressions: Service Date/Time: August 16:33 - CONCLUSION: 1. No evidence of pulmonary embolism. 2. Small mass in the right lower lobe posterior medially measuring 1.5 x 1.8 x 1.1 cm. This is suspicious for bronchogenic carcinoma, but would be very difficult to biopsy percutaneously. PET/CT scan may be helpful for further characterization of this lesion if clinically indicated. 3. Stable chronic consolidation involving right upper lobe. 4. Stable 7 mm noncalcified nodule within the right lower lobe. 5. Stable tiny pericardial effusion and bilateral pleural effusions. 6. Stable emphysematous changes bilaterally. 7. Large hiatal hernia. 8. Coronary artery calcifications. Sahil Ahmadi MD Chest X-Ray 09/03/172007 Signed Impressions: Service Date/Time: Sunday, September 03, 2017 20:33 - CONCLUSION: No acute disease. No significant change has occurred. Yves James MD Objective Remarks GENERAL: Awake alert and oriented 3 talkative and cooperative SKIN: Warm and dry. HEAD: Atraumatic. Normocephalic. EYES: Pupils equal and round. No scleral icterus. No injection or drainage. Extraocular muscles intact ENT: No nasal bleeding or discharge. Mucous membranes pink and moist. Tongue is midline NECK: Trachea midline. No JVD. Supple CARDIOVASCULAR: Regular rate and rhythm. S1 and S2 no S3 or S4 RESPIRATORY: No accessory muscle use. Rhonchi and wheezes bilaterally with coarse breath sounds Breath sounds equal bilaterally. GASTROINTESTINAL: Abdomen soft, non-tender, nondistended. Hepatic and splenic margins not palpable. MUSCULOSKELETAL: Extremities without clubbing, cyanosis, or edema. No obvious deformities. NEUROLOGICAL: Awake and alert. No obvious cranial nerve deficits. Motor grossly within normal limits. 4 out of 5 muscle strength in the arms and legs. Normal speech. PSYCHIATRIC: Appropriate mood and affect; insight and judgment normal. Procedures NONE Medications and IVs Current Medications Sodium Chloride (NS Flush) 2 ml UNSCH PRN IVF FLUSH AFTER USING IV ACCESS; Start 09/03/17 at 20:15; Stop 09/04/17 at 01:54; Status DC Albuterol Sulfate (Albuterol Neb) 2.5 mg Q15M INH ; Start 09/03/17 at 22:45; Stop 09/03/17 at 23:01; Status DC Albuterol/ Ipratropium (Duoneb Neb) 1 ampule Q4HR NEB PRN NEB SOB/WHEEZING Last administered on 09/04/17at 12:03; Start 09/04/17 at 01:00 Sodium Chloride (NS Flush) 2 ml UNSCH PRN IV FLUSH FLUSH AFTER USING IV ACCESS ; Start 09/04/17 at 01:00 Sodium Chloride (NS Flush) 2 ml BID IV FLUSH Last administered on 09/06/17at 09: 00; Start 09/04/17 at 09:00 Acetaminophen (Tylenol) 650 mg Q4H PRN PO TEMP > 100.4 Last administered on 09/04at 19:43; Start 09/04/17 at 01:00 Ondansetron HCl (Zofran Inj) 4 mg Q6H PRN IVP NAUSEA OR VOMITING; Start at 01:00 Dextrose (D50w (Vial) Inj) 50 ml UNSCH PRN IV PUSH HYPOGLYCEMIA-SEE COMMENTS; Start 09/04/17 at 01:00 Glucagon (Glucagon Inj) 1 mg UNSCH PRN OTHER HYPOGLYCEMIA-SEE COMMENTS; Start 09/04/17 at 01:00 Insulin Aspart (NovoLOG SUPPLEMENTAL SCALE) 1 ACHS SLIDING SCALE SQ ; Start 09/04/17 at 08:00 Amitriptyline HCl (Elavil) 75 mg HS PO Last administered on 09/05/17at 22:10; Start 09/04/17 at 21:00 Atorvastatin Calcium (Lipitor) 20 mg HS PO Last administered on 09/05/17at 22:10 ; Start 09/04/17 at 21:00 Valsartan (Diovan) 160 mg DAILY PO Last administered on 09/06/17at 10:05; Start 09/04/17 at 09:00 Pantoprazole Sodium (Protonix) 20 mg DAILY PO Last administered on 09/06/17at 10 :06; Start 09/04/17 at 09:00 Methylprednisolone Sodium Succinate (SoluMEDROL INJ) 40 mg Q12HR IV PUSH Last administered on 09/06/17at 10:05; Start 09/04/17 at 09:00 Albuterol/ Ipratropium (Duoneb Neb) 1 ampule Q6HR NEB NEB Last administered on 09/06/17at 07:39; Start 09/04/17 at 16:00 Albuterol/ Ipratropium (Duoneb Neb) 1 ampule ONCE ONCE NEB Last administered on 09/04/17at 12:00; Start 09/04/17 at 12:00; Stop 09/04/17 at 12:54; Status DC Budesonide/ Formoterol Fumarate (Symbicort 160-4.5 Mcg Inh) 1 puff Q12HR INH Last administered on 09/06/17at 10:04; Start 09/04/17 at 21:00 Iohexol (Omnipaque 350 Inj) 70 ml STK-MED ONCE IVCONTRAST Last administered on 09/04/17at 16:43; Start 09/03/17 at 23:09; Stop 09/04/17 at 16:42; Status DC Guaifenesin (Mucinex Er) 600 mg BID PO Last administered on 09/06/17at 10:06; Start 09/05/17 at 21:00 Guaifenesin (Mucinex Er) 600 mg ONCE ONCE PO Last administered on 09/05/17at 12: 31; Start 09/05/17 at 11:00; Stop 09/05/17 at 11:12; Status DC Ceftriaxone Sodium 1000 mg/ Sodium Chloride 100 ml @ 200 mls/hr Q24H IV Last administered on 09/05/17at 12:31; Start 09/05/17 at 12:00 Azithromycin (Zithromax) 500 mg Q24H PO Last administered on 09/06/17at 10:05; Start 09/05/17 at 11:00 Urinary Catheter: No A/P Assessment and Plan 87-year-old female with past medical history significant for COPD on 5 L NC during the day at home, HTN, HLD, DM, presents with wheezing, shortness of breath, and chest pains Acute COPD Exacerbation on Chronic Respiratory Failure: O2 dependent on 5L NC at home. +Wheezing on exam. CXR images reviewed, no acute findings. -no purulent sputum production or any infiltrate on CXR to suggest PNA, on CAT scan pneumonia seen we'll start antibiotics -continue steroids with IV Solumedrol 40mg bid -Continue duonebs q6h bruna and q4h prn -Start Symbicort bid -O2 as needed Add Mucinex Incentive spirometry. 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 No hx of CAD. Hx of Nuclear Stress Test [id number], unremarkable. -ACS ruled out with negative serial cardiac enzymes, and EKG with no acute ischemic changes -Continue patient's BB, ARB, statin -Monitor on telemetry -Chest pain currently resolved Hypertension/Hyperlipidemia: chronic, stable -continue patient's propranolol, valsartan, statin -Monitor BP and adjust antihypertensives as needed Diabetes Mellitus: chronic -hold patient's metformin for now -Monitor accu-checks and cover with SSI DVT Prophylaxis: teds/SCDs INCREASE ACTIVITY PT AND OT Discharge Planning We'll start on antibiotics and make a full admission Increase activity Physical therapy and occupational therapy to eval and treat May need SNF versus inpatient rehabilitation at discharge Scooby Nicole DO Sep 06, 2017 12:36
[2017-09-06] MEDS: cefTRIAXone INJ 1,000 MG in SODIUM CHLORIDE 0.9% INJ 100 ML IV SCH (16:34)
[2017-09-06] MEDS: AMITRIPTYLINE HCL 75 MG TAB PO SCH (23:16)
[2017-09-06] MEDS: ATORVASTATIN 20 MG TAB PO SCH (23:16)
[2017-09-07] VITALS (8 sets, daily range): BP systolic 112–137; BP diastolic 56–63; PULSE 70–102; RESP 18–20; TEMP 97.9–98.8; O2SAT 93–100
[2017-09-07] MEDS: RESP: ALBUTEROL 2.5 MG/IPRATROPIUM 0.5 MG NEB (SCH) NEB ×4 (06:07→19:41)
[2017-09-07] MEDS: INSULIN ASPART SUPPLEMENTAL SCALE SQ SCH ×4 (08:00→21:00)
[2017-09-07] MEDS: SODIUM CHLORIDE 0.9% FLUSH 10 ML FLUSH IV FLUSH SCH ×2 (09:00→23:27)
[2017-09-07] MEDS: BUDESONIDE-FORMOTEROL 160/4.5 MCG INHALER INH SCH ×2 (10:18→23:27)
[2017-09-07] MEDS: guaiFENesin E.R. 600 MG TAB PO SCH ×2 (10:19→23:28)
[2017-09-07] MEDS: AZITHROMYCIN 250 MG TAB PO SCH (10:19)
[2017-09-07] MEDS: VALSARTAN 160 MG TAB PO SCH (10:19)
[2017-09-07] MEDS: PANTOPRAZOLE SOD 20 MG DELAYED RELEASE TAB PO SCH (10:19)
[2017-09-07] MEDS: methylPREDNISolone SOD SUCC 40 MG/1 ML VIAL IV PUSH SCH ×2 (10:20→23:28)
--- NOTE | 2017-09-07 10:30 | HHI.PR ---
Subjective Remarks Female with past medical history significant for COPD on 5 L nasal cannula continuously at home, hypertension, hyperlipidemia and diabetes mellitus presents to the emergency department complaining of left-sided and substernal chest pain. The patient reported that the pain started this afternoon. She reports that it is sharp. She reports no changes in the pain with deep inspiration. She reports that her shortness of breath is at baseline. She denies any fever/chills. Denies nausea/vomiting/diarrhea. She also reports significant wheezing that prompted her to call EMS. 2-8 Follow up for COPD exacerbation. The patient reports feeling better today however still wheezing and short of breath. She denies any cough or sputum production. She states whenever she has COPD exacerbation or even pneumonia, she never has a cough. She denies any fevers/chills. She had some episodes of chest pain this morning, worse with deep inspiration and associated with shortness of breath. She denies any history of cardiac disease. Chest pain now resolved. She reports using 5L NC mostly during the day when she is exerting herself, but does not wear oxygen at night. She uses nebulizer three times a day. The patient has no other medical complaints at this time. 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 Occupational therapy has signed off Physical therapy HAS recommended home health PT Continue current care with current antibiotics and incentive spirometry and DuoNeb some Mucinex DC IN NEXT 24 TO 48 HOURS IF FEELS UP TO GOING HOME- LIVES ALONE Objective Vitals Vital Signs Date Time Temp Pulse Resp B/P (MAP) Pulse Ox O2 Delivery O2 Flow Rate FiO2 09/07/17 08:17 98.8 100 20 115/56 (75) 96 09/07/17 04:47 98.1 92 18 118/59 (78) 95 09/06/17 23:07 98.4 100 18 109/58 (75) 96 09/06/17 20:16 98 Nasal Cannula 3.00 09/06/17 19:55 99.1 108 18 145/77 (99) 96 09/06/17 15:48 97.9 68 18 112/60 (77) 98 09/06/17 12:09 97.9 94 20 112/60 (77) 96 I/O 09/06/17 09/06/17 09/06/17 09/07/17 09/07/17 09/07/17 07:00 15:00 23:00 07:00 15:00 23:00 # Voids 2 2 # Bowel Movements 0 Result Diagram: 09/06/17 0710 09/06/17 0710 Other Results Laboratory Tests Test 09/04/17 10:34 09/04/17 14:15 09/04/17 18:00 09/05/17 05:46 Total Creatine Kinase 72 U/L Troponin I LESS THAN 0.02 NG/ML LESS THAN 0.02 NG/ML Urine Color YELLOW Urine Turbidity CLEAR Urine pH 6.0 Urine Specific [place] 1.031 Urine Protein TRACE mg/dL Urine Glucose (UA) NEG mg/dL Urine Ketones 10 mg/dL Urine Occult Blood NEG Urine Nitrite NEG Urine Bilirubin NEG Urine Urobilinogen LESS THAN 2.0 MG/DL Urine Leukocyte Esterase NEG Urine RBC 6 /hpf Urine WBC LESS THAN 1 /hpf Urine Mucus FEW /lpf Microscopic Urinalysis Comment CATH-CULT NOT IND White Blood Count 13.7 TH/MM3 Red Blood Count 4.19 MIL/MM3 Hemoglobin 12.2 GM/DL Hematocrit 37.4 % Mean Corpuscular Volume 89.4 FL Mean Corpuscular Hemoglobin 29.3 PG Mean Corpuscular Hemoglobin Concent 32.7 % Red Cell Distribution Width 14.1 % Platelet Count 145 TH/MM3 Mean Platelet Volume 8.7 FL Neutrophils (%) (Auto) 94.1 % Lymphocytes (%) (Auto) 2.6 % Monocytes (%) (Auto) 3.1 % Eosinophils (%) (Auto) 0.0 % Basophils (%) (Auto) 0.2 % Neutrophils # (Auto) 12.9 TH/MM3 Lymphocytes # (Auto) 0.4 TH/MM3 Monocytes # (Auto) 0.4 TH/MM3 Eosinophils # (Auto) 0.0 TH/MM3 Basophils # (Auto) 0.0 TH/MM3 CBC Comment DIFF FINAL Differential Comment Blood Urea Nitrogen 24 MG/DL Creatinine 1.01 MG/DL Random Glucose 146 MG/DL Calcium Level 8.6 MG/DL Sodium Level 140 MEQ/L Potassium Level 4.5 MEQ/L Chloride Level 102 MEQ/L Carbon Dioxide Level 31.8 MEQ/L Anion Gap 6 MEQ/L Estimat Glomerular Filtration Rate 52 ML/MIN Test 09/06/17 07:10 White Blood Count 14.1 TH/MM3 Red Blood Count 3.89 MIL/MM3 Hemoglobin 11.3 GM/DL Hematocrit 34.5 % Mean Corpuscular Volume 88.8 FL Mean Corpuscular Hemoglobin 29.0 PG Mean Corpuscular Hemoglobin Concent 32.6 % Red Cell Distribution Width 14.1 % Platelet Count 153 TH/MM3 Mean Platelet Volume 8.5 FL Neutrophils (%) (Auto) 95.0 % Lymphocytes (%) (Auto) 2.0 % Monocytes (%) (Auto) 2.9 % Eosinophils (%) (Auto) 0.0 % Basophils (%) (Auto) 0.1 % Neutrophils # (Auto) 13.4 TH/MM3 Lymphocytes # (Auto) 0.3 TH/MM3 Monocytes # (Auto) 0.4 TH/MM3 Eosinophils # (Auto) 0.0 TH/MM3 Basophils # (Auto) 0.0 TH/MM3 CBC Comment DIFF FINAL Differential Comment Blood Urea Nitrogen 28 MG/DL Creatinine 0.92 MG/DL Random Glucose 135 MG/DL Total Protein 5.7 GM/DL Albumin 2.9 GM/DL Calcium Level 8.8 MG/DL Phosphorus Level 3.3 MG/DL Magnesium Level 2.1 MG/DL Alkaline Phosphatase 63 U/L Aspartate Amino Transf (AST/SGOT) 17 U/L Alanine Aminotransferase (ALT/SGPT) 13 U/L Total Bilirubin 0.2 MG/DL Sodium Level 140 MEQ/L Potassium Level 4.2 MEQ/L Chloride Level 101 MEQ/L Carbon Dioxide Level 33.5 MEQ/L Anion Gap 6 MEQ/L Estimat Glomerular Filtration Rate 58 ML/MIN Hemoglobin A1c 5.8 % Free Thyroxine 0.80 NG/DL Thyroid Stimulating Hormone 3rd Gen 0.220 uIU/ML Imaging Last Impressions CT Angiography 09/04/17 0000 Signed Impressions: Service Date/Time: August 16:33 - CONCLUSION: 1. No evidence of pulmonary embolism. 2. Small mass in the right lower lobe posterior medially measuring 1.5 x 1.8 x 1.1 cm. This is suspicious for bronchogenic carcinoma, but would be very difficult to biopsy percutaneously. PET/CT scan may be helpful for further characterization of this lesion if clinically indicated. 3. Stable chronic consolidation involving right upper lobe. 4. Stable 7 mm noncalcified nodule within the right lower lobe. 5. Stable tiny pericardial effusion and bilateral pleural effusions. 6. Stable emphysematous changes bilaterally. 7. Large hiatal hernia. 8. Coronary artery calcifications. Sahil Ahmadi MD Chest X-Ray 09/03/172007 Signed Impressions: Service Date/Time: Sunday, September 03, 2017 20:33 - CONCLUSION: No acute disease. No significant change has occurred. Yves James MD Objective Remarks GENERAL: Awake alert and oriented 3 talkative and cooperative SKIN: Warm and dry. HEAD: Atraumatic. Normocephalic. EYES: Pupils equal and round. No scleral icterus. No injection or drainage. Extraocular muscles intact ENT: No nasal bleeding or discharge. Mucous membranes pink and moist. Tongue is midline NECK: Trachea midline. No JVD. Supple CARDIOVASCULAR: Regular rate and rhythm. S1 and S2 no S3 or S4 RESPIRATORY: No accessory muscle use. Rhonchi and wheezes bilaterally with coarse breath sounds Breath sounds equal bilaterally. GASTROINTESTINAL: Abdomen soft, non-tender, nondistended. Hepatic and splenic margins not palpable. MUSCULOSKELETAL: Extremities without clubbing, cyanosis, or edema. No obvious deformities. NEUROLOGICAL: Awake and alert. No obvious cranial nerve deficits. Motor grossly within normal limits. 4 out of 5 muscle strength in the arms and legs. Normal speech. PSYCHIATRIC: Appropriate mood and affect; insight and judgment normal. Procedures NONE Medications and IVs Current Medications Sodium Chloride (NS Flush) 2 ml UNSCH PRN IVF FLUSH AFTER USING IV ACCESS; Start 09/03/17 at 20:15; Stop 09/04/17 at 01:54; Status DC Albuterol Sulfate (Albuterol Neb) 2.5 mg Q15M INH ; Start 09/03/17 at 22:45; Stop 09/03/17 at 23:01; Status DC Albuterol/ Ipratropium (Duoneb Neb) 1 ampule Q4HR NEB PRN NEB SOB/WHEEZING Last administered on 09/04/17at 12:03; Start 09/04/17 at 01:00 Sodium Chloride (NS Flush) 2 ml UNSCH PRN IV FLUSH FLUSH AFTER USING IV ACCESS ; Start 09/04/17 at 01:00 Sodium Chloride (NS Flush) 2 ml BID IV FLUSH Last administered on 09/06/17at 23: 14; Start 09/04/17 at 09:00 Acetaminophen (Tylenol) 650 mg Q4H PRN PO TEMP > 100.4 Last administered on 09/04at 19:43; Start 09/04/17 at 01:00 Ondansetron HCl (Zofran Inj) 4 mg Q6H PRN IVP NAUSEA OR VOMITING; Start at 01:00 Dextrose (D50w (Vial) Inj) 50 ml UNSCH PRN IV PUSH HYPOGLYCEMIA-SEE COMMENTS; Start 09/04/17 at 01:00 Glucagon (Glucagon Inj) 1 mg UNSCH PRN OTHER HYPOGLYCEMIA-SEE COMMENTS; Start 09/04/17 at 01:00 Insulin Aspart (NovoLOG SUPPLEMENTAL SCALE) 1 ACHS SLIDING SCALE SQ ; Start 09/04/17 at 08:00 Amitriptyline HCl (Elavil) 75 mg HS PO Last administered on 09/06/17at 23:16; Start 09/04/17 at 21:00 Atorvastatin Calcium (Lipitor) 20 mg HS PO Last administered on 09/06/17at 23:16 ; Start 09/04/17 at 21:00 Valsartan (Diovan) 160 mg DAILY PO Last administered on 09/06/17at 10:05; Start 09/04/17 at 09:00 Pantoprazole Sodium (Protonix) 20 mg DAILY PO Last administered on 09/06/17at 10 :06; Start 09/04/17 at 09:00 Methylprednisolone Sodium Succinate (SoluMEDROL INJ) 40 mg Q12HR IV PUSH Last administered on 09/06/17at 23:15; Start 09/04/17 at 09:00 Albuterol/ Ipratropium (Duoneb Neb) 1 ampule Q6HR NEB NEB Last administered on 09/07/17at 10:14; Start 09/04/17 at 16:00 Albuterol/ Ipratropium (Duoneb Neb) 1 ampule ONCE ONCE NEB Last administered on 09/04/17at 12:00; Start 09/04/17 at 12:00; Stop 09/04/17 at 12:54; Status DC Budesonide/ Formoterol Fumarate (Symbicort 160-4.5 Mcg Inh) 1 puff Q12HR INH Last administered on 09/06/17at 23:14; Start 09/04/17 at 21:00 Iohexol (Omnipaque 350 Inj) 70 ml STK-MED ONCE IVCONTRAST Last administered on 09/04/17at 16:43; Start 09/03/17 at 23:09; Stop 09/04/17 at 16:42; Status DC Guaifenesin (Mucinex Er) 600 mg BID PO Last administered on 09/06/17at 23:16; Start 09/05/17 at 21:00 Guaifenesin (Mucinex Er) 600 mg ONCE ONCE PO Last administered on 09/05/17at 12: 31; Start 09/05/17 at 11:00; Stop 09/05/17 at 11:12; Status DC Ceftriaxone Sodium 1000 mg/ Sodium Chloride 100 ml @ 200 mls/hr Q24H IV Last administered on 09/06/17at 16:34; Start 09/05/17 at 12:00 Azithromycin (Zithromax) 500 mg Q24H PO Last administered on 09/06/17at 10:05; Start 09/05/17 at 11:00 A/P Assessment and Plan 87-year-old female with past medical history significant for COPD on 5 L NC during the day at home, HTN, HLD, DM, presents with wheezing, shortness of breath, and chest pains Acute COPD Exacerbation on Chronic Respiratory Failure: O2 dependent on 5L NC at home. +Wheezing on exam. CXR images reviewed, no acute findings. -no purulent sputum production or any infiltrate on CXR to suggest PNA, on CAT scan pneumonia seen we'll start antibiotics -continue steroids with IV Solumedrol 40mg bid -Continue duonebs q6h bruna and q4h prn -Start Symbicort bid -O2 as needed Add Mucinex Incentive spirometry. 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 No hx of CAD. Hx of Nuclear Stress Test , unremarkable. -ACS ruled out with negative serial cardiac enzymes, and EKG with no acute ischemic changes -Continue patient's BB, ARB, statin -Monitor on telemetry -Chest pain currently resolved Would send home on nitroglycerin tablets Hypertension/Hyperlipidemia: chronic, stable -continue patient's propranolol, valsartan, statin -Monitor BP and adjust antihypertensives as needed Diabetes Mellitus: chronic -hold patient's metformin for now -Monitor accu-checks and cover with SSI Blood sugars elevated due to the steroids DVT Prophylaxis: teds/SCDs INCREASE ACTIVITY PT AND OT Discharge Planning Pending improvement discharge to home with home health care Scooby Nicole DO Sep 07, 2017 10:30
--- NOTE | 2017-09-07 10:31 | HHI.FF ---
Face to Face Verification Diagnosis: (1) COPD (chronic obstructive pulmonary disease) (2) COPD bronchitis (3) Shortness of breath (4) HTN (hypertension) (5) DM (diabetes mellitus) (6) Hyperlipemia (7) Impaired activities of daily living (8) Impaired gait (9) Cough Physical Therapy Order: Evaluate and Treat, Improve ambulation, Strength and gait training Home Health Nursing Order: Medical education Signs/symptoms of disease process Oxygen administration education Nursing assessment with vital signs Home Health Aide Order: To Assist In: Bathing and personal care, chimney builder and meal prep I have seen patient Vanessa Prince on 09/07/17. My clinical findings support the need for the requested home health care services because: Ltd mobility - disease progression Patient has SOB Deconditioned w/ increased weakness I certify that my clinical findings support that this patient is homebound because: Hx COPD- exertion dyspnea/weakness Unsteady gait/balance Scooby Nicole DO Sep 07, 2017 10:31
[2017-09-07] MEDS: cefTRIAXone INJ 1,000 MG in SODIUM CHLORIDE 0.9% INJ 100 ML IV SCH (15:59)
[2017-09-07] MEDS: AMITRIPTYLINE HCL 75 MG TAB PO SCH (23:29)
[2017-09-07] MEDS: ATORVASTATIN 20 MG TAB PO SCH (23:29)
[2017-09-08] VITALS (11 sets, daily range): BP systolic 107–140; BP diastolic 53–74; PULSE 87–109; RESP 17–20; TEMP 98.3–99.1; O2SAT 94–100
[2017-09-08] MEDS: RESP: ALBUTEROL 2.5 MG/IPRATROPIUM 0.5 MG NEB (SCH) NEB ×2 (04:00→11:04)
[2017-09-08] MEDS: INSULIN ASPART SUPPLEMENTAL SCALE SQ SCH ×4 (08:00→21:00)
[2017-09-08 08:30] LABS: AUTOMATED NEUTROPHIL # 10.3 TH/MM3 (1.8-7.7); BASOPHIL % 0.1 % (0.0-2.0); HEMOGLOBIN 11.8 GM/DL (11.6-15.3); LYMPH % 2.4 % (9.0-44.0); LYMPHOCYTE # 0.3 TH/MM3 (1.0-4.8); MEAN CELL VOLUME 89.6 FL (80.0-100.0); MEAN CORPUSCULAR HEMOGLOBIN 29.4 PG (27.0-34.0); MEAN CORPUSCULAR HGB CONC 32.8 % (32.0-36.0); MEAN PLATELET VOLUME 8.8 FL (7.0-11.0); MONO % 4.8 % (0.0-8.0); MONOCYTE # 0.5 TH/MM3 (0-0.9); NEUT % 92.7 % (16.0-70.0); PLATELET COUNT 186 TH/MM3 (150-450); RED BLOOD COUNT 4.01 MIL/MM3 (4.00-5.30); RED CELL DISTRIBUTION WIDTH 14.3 % (11.6-17.2); WHITE BLOOD COUNT 11.1 TH/MM3 (4.0-11.0)
[2017-09-08 08:49] LABS: ALBUMIN 2.9 GM/DL (3.4-5.0); AST (GOT) 19 U/L (15-37); BICARBONATE 35.5 MEQ/L (21.0-32.0); BLOOD UREA NITROGEN 30 MG/DL (7-18); CALCIUM 8.7 MG/DL (8.5-10.1); CHLORIDE 99 MEQ/L (98-107); CREATININE 0.87 MG/DL (0.50-1.00); GLOMERULAR FILTRATION RATE 61 ML/MIN (>89); GLUCOSE,RANDOM 121 MG/DL (74-106); MAGNESIUM 2.2 MG/DL (1.5-2.5); SODIUM (NA) 139 MEQ/L (136-145)
[2017-09-08 08:53] LABS: ALKALINE PHOSPHATASE 63 U/L (45-117); ALT (GPT) 22 U/L (10-53); PHOSPHORUS 3.7 MG/DL (2.5-4.9); TOTAL BILIRUBIN ADULT 0.2 MG/DL (0.2-1.0); TOTAL PROTEIN 5.9 GM/DL (6.4-8.2)
[2017-09-08] MEDS: BUDESONIDE-FORMOTEROL 160/4.5 MCG INHALER INH SCH ×2 (09:26→22:09)
[2017-09-08] MEDS: SODIUM CHLORIDE 0.9% FLUSH 10 ML FLUSH IV FLUSH SCH ×2 (09:27→22:14)
[2017-09-08] MEDS: PANTOPRAZOLE SOD 20 MG DELAYED RELEASE TAB PO SCH (09:27)
[2017-09-08] MEDS: VALSARTAN 160 MG TAB PO SCH (09:27)
[2017-09-08] MEDS: guaiFENesin E.R. 600 MG TAB PO SCH ×2 (09:27→22:11)
[2017-09-08] MEDS: methylPREDNISolone SOD SUCC 40 MG/1 ML VIAL IV PUSH SCH ×2 (09:27→22:13)
--- NOTE | 2017-09-08 10:37 | HHI.PR ---
Subjective Remarks She feels like shortness of breath is improving. Continues with left-sided sharp chest pain. Denies any nausea or vomiting. Objective Vital Signs Date Time Temp Pulse Resp B/P (MAP) Pulse Ox O2 Delivery O2 Flow Rate FiO2 09/08/17 08:00 98.3 89 19 107/53 (71) 99 09/08/17 04:18 98.3 91 18 118/74 (89) 98 09/08/17 00:16 98.4 96 18 140/70 (93) 100 09/07/17 20:09 98.0 102 18 137/63 (87) 95 09/07/17 19:43 93 Nasal Cannula 3.00 09/07/17 16:22 98.2 80 20 126/60 (82) 95 09/07/17 12:03 97.9 70 20 112/60 (77) 100 09/07/17 11:29 96 Nasal Cannula 3.00 I/O 09/07/17 09/07/17 09/07/17 09/08/17 09/08/17 09/08/17 07:00 15:00 23:00 07:00 15:00 23:00 Intake Total 600 ml Balance 600 ml Intake Oral 600 ml # Voids 2 4 Result Diagram: 09/08/17 0550 09/08/17 0550 Objective Remarks GENERAL: Patient sitting up in bed. Appears comfortable. SKIN: Warm and dry. HEAD: Normocephalic. EYES: No scleral icterus. No injection or drainage. NECK: Supple, trachea midline. No JVD. CARDIOVASCULAR: Regular rate and rhythm without murmurs, gallops, or rubs. RESPIRATORY: Breath sounds equal bilaterally. No accessory muscle use. GASTROINTESTINAL: Abdomen soft, non-tender, nondistended. MUSCULOSKELETAL: No cyanosis, or edema. BACK: Nontender without obvious deformity. No CVA tenderness. A/P Assessment and Plan 87-year-old female with past medical history significant for COPD on 5 L NC during the day at home, HTN, HLD, DM, presents with wheezing, shortness of breath, and chest pains //Acute COPD Exacerbation on Chronic Respiratory Failure: O2 dependent on 5L NC at home. +Wheezing on exam. CXR images reviewed, no acute findings. -no purulent sputum production or any infiltrate on CXR to suggest PNA, on CAT scan pneumonia seen we'll start antibiotics -continue steroids with IV Solumedrol 40mg bid -Continue duonebs q6h bruna and q4h prn -Start Symbicort bid -O2 as needed Add Mucinex Incentive spirometry. 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 //Atypical Chest Pain: suspect pleuritic secondary to COPD exacerbation. No hx of CAD. Hx of Nuclear Stress Test , unremarkable. -ACS ruled out with negative serial cardiac enzymes, and EKG with no acute ischemic changes -Continue patient's BB, ARB, statin -Monitor on telemetry -Chest pain currently resolved = Negative nuclear stress every 2016. EKG with no change from baseline. Continue beta karen, ARB, statin. //Hypertension/Hyperlipidemia: chronic, stable -continue patient's propranolol, valsartan, statin -Monitor BP and adjust antihypertensives as needed = Blood pressure acceptable. //Diabetes Mellitus: chronic -hold patient's metformin for now -Monitor accu-checks and cover with SSI Blood sugars elevated due to the steroids //DVT Prophylaxis: teds/SCDs Discharge Planning Likely discharge home with home health tomorrow Al Nava MD Sep 08, 2017 10:37
[2017-09-08] MEDS: AZITHROMYCIN 250 MG TAB PO SCH (11:28)
[2017-09-08] MEDS: cefTRIAXone INJ 1,000 MG in SODIUM CHLORIDE 0.9% INJ 100 ML IV SCH (11:28)
[2017-09-08] MEDS: AMITRIPTYLINE HCL 75 MG TAB PO SCH (22:10)
[2017-09-08] MEDS: ATORVASTATIN 20 MG TAB PO SCH (22:11)
[2017-09-09] VITALS: PULSE 89
[2017-09-09 03:47] VITALS: BP 93/52; PULSE 90; RESP 24; TEMP 98.4; O2SAT 96
[2017-09-09 07:54] VITALS: BP 117/57; PULSE 91; RESP 20; TEMP 98.5; O2SAT 95
[2017-09-09] MEDS: INSULIN ASPART SUPPLEMENTAL SCALE SQ SCH (08:00)
[2017-09-09] MEDS ORDERED: AZIT250T3 PO (08:51)
[2017-09-09] MEDS ORDERED: PRED10 PO (08:51)
[2017-09-09] MEDS ORDERED: IPRASOL NEB (08:51)
[2017-09-09] MEDS ORDERED: Budeson-Formot 160-4.5 Mcg Inh INH (08:51)
[2017-09-09 09:15] VITALS: PULSE 88
[2017-09-09] MEDS: guaiFENesin E.R. 600 MG TAB PO SCH (09:21)
[2017-09-09] MEDS: methylPREDNISolone SOD SUCC 40 MG/1 ML VIAL IV PUSH SCH (09:21)
[2017-09-09] MEDS: SODIUM CHLORIDE 0.9% FLUSH 10 ML FLUSH IV FLUSH SCH (09:21)
[2017-09-09] MEDS: PANTOPRAZOLE SOD 20 MG DELAYED RELEASE TAB PO SCH (09:21)
[2017-09-09] MEDS: VALSARTAN 160 MG TAB PO SCH (09:21)
[2017-09-09] MEDS: BUDESONIDE-FORMOTEROL 160/4.5 MCG INHALER INH SCH (09:21)
--- NOTE | 2017-09-09 09:44 | HHI.PR ---
Subjective Remarks She says she is feeling well. Would like to go home. Denies any chest pain. Reports shortness of breath is back to baseline. Objective Vital Signs Date Time Temp Pulse Resp B/P (MAP) Pulse Ox O2 Delivery O2 Flow Rate FiO2 09/09/17 07:54 98.5 91 20 117/57 (77) 95 09/09/17 03:47 98.4 90 24 93/52 (66) 96 09/09/17 00:00 89 09/08/17 23:32 98.7 94 17 135/57 (83) 95 09/08/17 20:53 99.1 100 20 129/61 (83) 94 09/08/17 20:08 103 09/08/17 16:00 98.5 104 18 124/61 (82) 96 09/08/17 15:19 109 09/08/17 12:00 98.4 93 18 139/63 (88) 95 09/08/17 11:07 98 Nasal Cannula 3.00 I/O 09/08/17 09/08/17 09/08/17 09/09/17 09/09/17 09/09/17 06:59 14:59 22:59 06:59 14:59 22:59 Intake Total 600 ml Balance 600 ml Intake Oral 600 ml # Voids 3 # Bowel Movements 1 Result Diagram: 09/08/17 0550 09/08/17 0550 Objective Remarks GENERAL: Patient sitting up in bed. Appears comfortable. no change from yesterday apart from patient is smiling. SKIN: Warm and dry. HEAD: Normocephalic. EYES: No scleral icterus. No injection or drainage. NECK: Supple, trachea midline. No JVD. CARDIOVASCULAR: Regular rate and rhythm without murmurs, gallops, or rubs. RESPIRATORY: Breath sounds equal bilaterally. No accessory muscle use. GASTROINTESTINAL: Abdomen soft, non-tender, nondistended. MUSCULOSKELETAL: No cyanosis, or edema. BACK: Nontender without obvious deformity. No CVA tenderness. A/P Assessment and Plan 87-year-old female with past medical history significant for COPD on 5 L NC during the day at home, HTN, HLD, DM, presents with wheezing, shortness of breath, and chest pains //Acute COPD Exacerbation on Chronic Respiratory Failure: O2 dependent on 5L NC at home. +Wheezing on exam. CXR images reviewed, no acute findings. -no purulent sputum production or any infiltrate on CXR to suggest PNA, on CAT scan pneumonia seen we'll start antibiotics -continue steroids with IV Solumedrol 40mg bid -Continue duonebs q6h bruna and q4h prn -Start Symbicort bid -O2 as needed Add Mucinex Incentive spirometry. 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 = Discharge home with steroid taper, azithromycin to complete treatment course. Add Symbicort twice daily. //Atypical Chest Pain: suspect pleuritic secondary to COPD exacerbation. No hx of CAD. Hx of Nuclear Stress Test , unremarkable. -ACS ruled out with negative serial cardiac enzymes, and EKG with no acute ischemic changes -Continue patient's BB, ARB, statin -Monitor on telemetry -Chest pain currently resolved = Negative nuclear stress every 2016. EKG with no change from baseline. Continue beta karen, ARB, statin. //Hypertension/Hyperlipidemia: chronic, stable -continue patient's propranolol, valsartan, statin -Monitor BP and adjust antihypertensives as needed = Blood pressure acceptable. //Diabetes Mellitus: chronic -hold patient's metformin for now -Monitor accu-checks and cover with SSI Blood sugars elevated due to the steroids = Blood sugar is much improved. Nondiabetic range. //DVT Prophylaxis: teds/SCDs Discharge Planning discharge home with home health. Al Nava MD Sep 09, 2017 09:44
[2017-09-09] MEDS ORDERED: OXYGENDME NAS.CANULA (09:45)
--- NOTE | 2017-09-09 09:50 | HHI.DS ---
Discharge Summary Admission Date Sep 07, 2017 at 08:27 Discharge Date: Sep 09, 2017 Admitting Diagnosis COPD exacerbation, chest pain (1) Lung mass ICD Code: R91.8 - Other nonspecific abnormal finding of lung field (2) COPD (chronic obstructive pulmonary disease) ICD Code: J44.9 - COPD (chronic obstructive pulmonary disease) Status: Chronic Procedures NONE Brief History - From Admission Female with past medical history significant for COPD on 5 L nasal cannula continuously at home, hypertension, hyperlipidemia and diabetes mellitus presents to the emergency department complaining of left-sided and substernal chest pain. The patient reported that the pain started this afternoon. She reports that it is sharp. She reports no changes in the pain with deep inspiration. She reports that her shortness of breath is at baseline. She denies any fever/chills. Denies nausea/vomiting/diarrhea. She also reports significant wheezing that prompted her to call EMS. CBC/BMP: 09/08/17 0550 09/08/17 0550 Significant Findings Laboratory Tests Test 09/08/17 05:50 White Blood Count 11.1 TH/MM3 (4.0-11.0) Neutrophils (%) (Auto) 92.7 % (16.0-70.0) Lymphocytes (%) (Auto) 2.4 % (9.0-44.0) Neutrophils # (Auto) 10.3 TH/MM3 (1.8-7.7) Lymphocytes # (Auto) 0.3 TH/MM3 (1.0-4.8) Blood Urea Nitrogen 30 MG/DL (7-18) Random Glucose 121 MG/DL (74-106) Total Protein 5.9 GM/DL (6.4-8.2) Albumin 2.9 GM/DL (3.4-5.0) Carbon Dioxide Level 35.5 MEQ/L (21.0-32.0) Estimat Glomerular Filtration Rate 61 ML/MIN (>89) Imaging Last Impressions CT Angiography 09/04/17 0000 Signed Impressions: Service Date/Time: August 16:33 - CONCLUSION: 1. No evidence of pulmonary embolism. 2. Small mass in the right lower lobe posterior medially measuring 1.5 x 1.8 x 1.1 cm. This is suspicious for bronchogenic carcinoma, but would be very difficult to biopsy percutaneously. PET/CT scan may be helpful for further characterization of this lesion if clinically indicated. 3. Stable chronic consolidation involving right upper lobe. 4. Stable 7 mm noncalcified nodule within the right lower lobe. 5. Stable tiny pericardial effusion and bilateral pleural effusions. 6. Stable emphysematous changes bilaterally. 7. Large hiatal hernia. 8. Coronary artery calcifications. Sahil Ahmadi MD Chest X-Ray 09/03/172007 Signed Impressions: Service Date/Time: Sunday, September 03, 2017 20:33 - CONCLUSION: No acute disease. No significant change has occurred. Yves James MD PE at Discharge GENERAL: Awake alert and oriented 3 talkative and cooperative SKIN: Warm and dry. HEAD: Atraumatic. Normocephalic. EYES: Pupils equal and round. No scleral icterus. No injection or drainage. Extraocular muscles intact ENT: No nasal bleeding or discharge. Mucous membranes pink and moist. Tongue is midline NECK: Trachea midline. No JVD. Supple CARDIOVASCULAR: Regular rate and rhythm. S1 and S2 no S3 or S4 RESPIRATORY: No accessory muscle use. Rhonchi and wheezes bilaterally with coarse breath sounds Breath sounds equal bilaterally. GASTROINTESTINAL: Abdomen soft, non-tender, nondistended. Hepatic and splenic margins not palpable. MUSCULOSKELETAL: Extremities without clubbing, cyanosis, or edema. No obvious deformities. NEUROLOGICAL: Awake and alert. No obvious cranial nerve deficits. Motor grossly within normal limits. 4 out of 5 muscle strength in the arms and legs. Normal speech. PSYCHIATRIC: Appropriate mood and affect; insight and judgment normal. Hospital Course Chest x-ray on admission with no acute changes from baseline. CT angiography without evidence of pulmonary embolism, however showed small mass in right lower lobe as above, which is suspicious for bronchogenic carcinoma. Pulmonology was consulted, recommends follow-up as outpatient. Patient was treated with duo nebs, Symbicort, IV steroids with improvement in shortness of breath. Steroids were tapered down, and she will be sent home on prednisone taper, azithromycin to complete treatment course, as well as Symbicort. Follow- up with pulmonology as outpatient. Patient did complain of pleuritic type chest pain which resolved with treatment during admission. She does have history of negative nuclear stress in August 2016. Pleuritic chest pain resolved. EKG without change from baseline. Negative troponin 3. For problem based summary from most recent progress note, please see below. 87-year-old female with past medical history significant for COPD on 5 L NC during the day at home, HTN, HLD, DM, presents with wheezing, shortness of breath, and chest pains //Acute COPD Exacerbation on Chronic Respiratory Failure: O2 dependent on 5L NC at home. +Wheezing on exam. CXR images reviewed, no acute findings. -no purulent sputum production or any infiltrate on CXR to suggest PNA, on CAT scan pneumonia seen we'll start antibiotics -continue steroids with IV Solumedrol 40mg bid -Continue duonebs q6h bruna and q4h prn -Start Symbicort bid -O2 as needed Add Mucinex Incentive spirometry. 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 = Discharge home with steroid taper, azithromycin to complete treatment course. Add Symbicort twice daily. //Atypical Chest Pain: suspect pleuritic secondary to COPD exacerbation. No hx of CAD. Hx of Nuclear Stress Test [id number], unremarkable. -ACS ruled out with negative serial cardiac enzymes, and EKG with no acute ischemic changes -Continue patient's BB, ARB, statin -Monitor on telemetry -Chest pain currently resolved = Negative nuclear stress every 2016. EKG with no change from baseline. Continue beta karen, ARB, statin. //Hypertension/Hyperlipidemia: chronic, stable -continue patient's propranolol, valsartan, statin -Monitor BP and adjust antihypertensives as needed = Blood pressure acceptable. //Diabetes Mellitus: chronic -hold patient's metformin for now -Monitor accu-checks and cover with SSI Blood sugars elevated due to the steroids = Blood sugar is much improved. Nondiabetic range. //DVT Prophylaxis: teds/SCDs Discharge Planning discharge home with home health. Pt Condition on Discharge: Good Discharge Disposition: Disch w/ Home Health Serv Discharge Time: > 30 minutes Discharge Instructions DIET: Follow Instructions for: Heart Healthy Diet Activities you can perform: Regular-No Restrictions Follow up Referrals: PCP Follow-up - 1 Week with Cesar Velazquez Jr., MD ([facility]) Pulmonology - 1 Week with Scott Caldwell MD New Medications: Oxygen (O2) (Oxygen (O2)) Device LITER MUMTAZ.CANULA CONTINUOUS for Prevent Hypoxemia, #3 Oxygen Concentrator Portable Gaseous 2 L/min via Nasal Canula Continuous For 99 months Prednisone (Prednisone) 10 Mg Tab 10 MG PO DAILY for COPD for 10 Days, #21 TAB 0 Refills Take 40mg daily for 3 days; 20mg daily for 3 days; 10mg daily for 3 days, then stop. Azithromycin (Azithromycin) 250 Mg Tab 250 MG PO Q24H for Infection, #3 TAB [Budeson-Formot 160-4.5 Mcg Inh] () 60 PUFF AERO 1 PUFF INH Q12HR for 30 Days Changed Medications: Ipratropium-Albuterol Neb (Duoneb) 0.5-2.5 Mg/3 Ml Neb 1 AMPULE NEB TID for Breathing Treatment for 30 Days, #30 NEBULE 0 Refills ( Changed from: BID) Continued Medications: Albuterol 6.7 GM Inh (Proventil Hfa 6.7 GM Inh) 90 Mcg/Act Aer 1-2 PUFF INH Q4-6H PRN for SHORTNESS OF BREATH, #1 INHALER 0 Refills Amitriptyline (Amitriptyline) 75 Mg Tab 75 MG PO HS for Control Depression, #30 TAB 0 Refills Ascorbic Acid ER (Vitamin C ER) 500 Mg Shannan 1000 MG PO DAILY for Nutritional Supplement, TAB 0 Refills Atorvastatin (Lipitor) 20 Mg Tab 20 MG PO HS for Cholesterol Management, #30 TAB 0 Refills Calcium Carbonate-Vitamin D (Calcium 600/Vitamin D) 600-200 Mg-Unit Tab 2 TAB PO DAILY, TAB Cyanocobalamin (Vitamin B-12) 1,000 Mcg Tab 1000 MCG PO DAILY for Nutritional Supplement, #1 BOTTLE 0 Refills Hydrocodone-Acetaminophen (Hydrocodone-Acetaminophen) 5-325 mg Tab 1 TAB PO Q4H PRN for PAIN, TAB 0 Refills Lorazepam (Lorazepam) 0.5 Mg Tab 0.5 MG PO BID PRN for ANXIETY, TAB 0 Refills Metformin (Metformin) 850 Mg Tab 850 MG PO DAILY for Blood Sugar Management, TAB 0 Refills With a meal Omeprazole (Omeprazole) 20 Mg Tab 20 MG PO DAILY, #30 TAB 0 Refills Potassium Gluconate (Potassium Gluconate) 595 Mg Tab 595 MG PO DAILY Propranolol (Propranolol) 10 Mg Tab 10 MG PO DAILY, #60 TAB 0 Refills Valsartan (Valsartan) 160 Mg Tab 160 MG PO DAILY, #30 TAB 0 Refills Al Nava MD Sep 09, 2017 09:50
[2017-09-09] MEDS: AZITHROMYCIN 250 MG TAB PO SCH (11:43)
[2017-09-09] MEDS ORDERED: predniSONE 20 MG TAB PO ONE (12:00)
== END 2017-09-09 13:26 | disposition home health service (06) | DRG 190 ==
LOC: NEPE 19:45 → NEDA 23:08 → NEDH 09-04 03:50 → NEPGCP 09-04 13:32 → OBSVTOIN 09-07 08:27
PROVIDERS: ADMIT Internal Medicine; ATTEND Internal Medicine
DX: J44.1 Chronic obstructive pulmonary disease with (acute) exacerbation (principal); J18.9 Pneumonia, unspecified organism; J96.11 Chronic respiratory failure with hypoxia; I11.0 Hypertensive heart disease with heart failure; I50.9 Heart failure, unspecified; E11.65 Type 2 diabetes mellitus with hyperglycemia; Z99.81 Dependence on supplemental oxygen; Z96.641 Presence of right artificial hip joint; Z96.652 Presence of left artificial knee joint; J44.0 Chronic obstructive pulmonary disease with (acute) lower respiratory infection; H91.90 Unspecified hearing loss, unspecified ear; E78.5 Hyperlipidemia, unspecified; T38.0X5A Adverse effect of glucocorticoids and synthetic analogues, initial encounter; M19.90 Unspecified osteoarthritis, unspecified site; R25.1 Tremor, unspecified; R91.1 Solitary pulmonary nodule; Z79.84 Long term (current) use of oral hypoglycemic drugs
CPT/HCPCS: 71045; 71275; 80048; 80053; 81001; 82550; 82948; 83036; 83735; 83880; 84100; 84439; 84443; 84484; 85025; 85610; 85730; 93005; 94150; 94640; 94664; 96365; 96375; 96376; G0378; G8987-GO; G8987-GP; G8988-GO; G8988-GP; G8989-GO; J0696; J1815; J2920; J7512; P9612; Q9967

== ENCOUNTER 2017-11-03 10:39 | Inpatient (IN) | payer MEDICARE, OTHER ==
[2017-11-03] VITALS (9 sets, daily range): BP systolic 109–196; BP diastolic 53–98; PULSE 78–105; RESP 16–20; TEMP 97.9–99.1; O2SAT 87–100
[~2017-11-03] VITALS: Ht 167.6 cm; Wt 64.1 kg
[~2017-11-03 10:39] MED LIST changes: +Budeson-Formot 160-4.5 Mcg Inh INH; +HYDR-3516 PO; +LIPI20TA PO; +LORA0.5T PO; +METF850T PO; +OMEP20TA93 PO; +OXYGENDME NAS.CANULA; +PRED10 PO; -PRED20 PO; +VALS1TAB65 PO; +VITA500T83 PO
--- NOTE | 2017-11-03 10:59 | PD ---
HPI Chief Complaint: Syncope/Near-Syncope Time Seen by Provider: 10:52 Travel History International Travel<30 days: No Contact w/Intl Traveler<30days: No Traveled to known affect area: No History of Present Illness HPI 87-year-old female was brought in by EMS for altered mental status. EMS was called this morning by somebody in the house requesting for help. Patient states that she was sitting on the toilet and then passed out completely. Patient does not remember anything until she was awake in the ambulance. EMS reported patient was sitting on the toilet pale, cool, diaphoretic and hypotensive. Blood pressure was in the 50s and 60s. Patient was given normal saline solution [address] to the ED. Upon arrival systolic blood pressure in the low 100s. BGL was 165. Patient was given Zofran 4 mg IV [address] the way to the ED also. Patient is awake alert and oriented upon arrival. Patient denies any headache. Patient denies any chest pain or shortness of breath. Patient states that she has mild abdominal cramping earlier. Patient denies any focal weakness or numbness of the extremity. Patient has history of myelodysplasia, hypertension, diabetes, CHF, arthritis, COPD. Patient status post hysterectomy, appendectomy and back surgery and knee surgery in the past. PFSH Past Medical History Arthritis: Yes Asthma: No Autoimmune Disease: No Blood Disorders: Yes (MYELODYSPLASIA) Anxiety: No Depression: No Heart Rhythm Problems: No Cancer: Yes Cardiovascular Problems: Yes High Cholesterol: No Chemotherapy: No Chest Pain: Yes Congestive Heart Failure: Yes COPD: Yes Cerebrovascular Accident: No Coronary Artery Disease: No Diabetes: Yes Patient Takes Glucophage: No Diminished Hearing: Yes Endocrine: Yes GERD: No Glaucoma: No Genitourinary: No Hiatal Hernia: No Hypertension: Yes Immune Disorder: No Kidney Stones: No Musculoskeletal: Yes (ARTHRITIS) Neurologic: No Psychiatric: No Reproductive: No Respiratory: Yes (COPD) Migraines: No Myocardial Infarction: No Radiation Therapy: No Renal Failure: No Seizures: No Sickle Cell Disease: No Sleep Apnea: No Thyroid Disease: No Ulcer: No Menopausal: Yes Past Surgical History Abdominal Surgery: No AICD: No Appendectomy: Yes Arteriovenous Shunt: No Cardiac Surgery: No Ear Surgery: No Endocrine Surgery: No Eye Surgery: No Genitourinary Surgery: No Hysterectomy: Yes Insulin Pump: No Joint Replacement: Yes (Hip and knee replacement) Oral Surgery: No Pacemaker: No Thoracic Surgery: No Tonsillectomy: Yes Tympanostomy Tube: Yes Other Surgery: Yes (BACK,HYST,APPEND,) Social History Alcohol Use: Yes (on occasion) Tobacco Use: No (quit 1993) Substance Use: No Allergies-Medications (Allergen,Severity, Reaction): Coded Allergies: enoxaparin (Unverified Allergy, Mild, Flushing,pruritus, 11/03/17) Reported Meds & Prescriptions Reported Meds & Active Scripts Active Oxygen (O2) Device Liter MUMTAZ.CANULA CONTINUOUS Oxygen Concentrator Portable Gaseous 2 L/min via Nasal Canula Continuous For 99 months [Budeson-Formot 160-4.5 Mcg Inh] 60 PUFF Aero 1 Puff INH Q12HR 30 Days Duoneb (Ipratropium-Albuterol Neb) 0.5-2.5 Mg/3 Ml Neb 1 Ampule NEB TID 30 Days Reported Lipitor (Atorvastatin Calcium) 20 Mg Tab 20 Mg PO MONWEDFRI Advair Diskus Inh (Fluticasone-Salmeterol Inh) 100-50 Mcg/Blist Aer Unknown Dose INH BID Rinse mouth after use. Pantoprazole (Pantoprazole Sodium) 40 Mg Tab 40 Mg PO DAILY Lorazepam 0.5 Mg Tab 0.5 Mg PO BID PRN Vitamin C ER (Ascorbic Acid) 500 Mg Shannan 1,000 Mg PO DAILY Valsartan 160 Mg Tab 160 Mg PO DAILY Propranolol (Propranolol HCl) 10 Mg Tab 10 Mg PO DAILY Potassium Gluconate 595 Mg Tab 595 Mg PO DAILY Vitamin B-12 (Cyanocobalamin) 1,000 Mcg Tab 1,000 Mcg PO DAILY Calcium 600/Vitamin D (Calcium Carbonate-Vitamin D) 600-200 Mg-Unit Tab 2 Tab PO DAILY Amitriptyline (Amitriptyline HCl) 75 Mg Tab 75 Mg PO HS Proventil Hfa 6.7 GM Inh (Albuterol Sulfate) 90 Mcg/Act Aer 1-2 Puff INH Q4-6H PRN Review of Systems General / Constitutional: No: Fever Eyes: No: Visual changes HENT: No: Headaches Cardiovascular: No: Chest Pain or Discomfort Respiratory: No: Shortness of Breath Gastrointestinal: No: Abdominal Pain Genitourinary: No: Dysuria Musculoskeletal: No: Pain Skin: No Rash Neurologic: Positive: Syncope, No: Weakness Psychiatric: No: Depression Endocrine: No: Polydipsia Hematologic/Lymphatic: No: Easy Bruising Physical Exam Narrative GENERAL: Well-nourished, well-developed patient. SKIN: Focused skin assessment warm/dry. HEAD: Normocephalic. EYES: No scleral icterus. No injection or drainage. NECK: Supple, trachea midline. No JVD or lymphadenopathy. CARDIOVASCULAR: Regular rate and rhythm without murmurs, gallops, or rubs. RESPIRATORY: Breath sounds equal bilaterally. No accessory muscle use. GASTROINTESTINAL: Abdomen soft, non-tender, nondistended. MUSCULOSKELETAL: No cyanosis, or edema. BACK: Nontender without obvious deformity. No CVA tenderness. Neurologic exam: Patient is awake alert oriented 3. Patient moves all extremity well. No obvious focal neurologic deficit. Data Data Last Documented VS Vital Signs Date Time Temp Pulse Resp B/P (MAP) Pulse Ox O2 Delivery O2 Flow Rate FiO2 11/03/17 14:00 87 16 186/82 (116) 100 Nasal Cannula 2.00 11/03/17 10:43 97.9 Orders Orders Electrocardiogram (11/03/17 11:09) Complete Blood Count With Diff (11/03/17 11:09) Comprehensive Metabolic Panel (11/03/17 11:09) Creatine Kinase (Cpk) (11/03/17 11:09) Troponin I (11/03/17 11:09) Prothrombin Time / Inr (Pt) (11/03/17 11:09) Act Partial Throm Time (Ptt) (11/03/17 11:09) Thyroid Stimulating Hormone (11/03/17 11:09) Chest, Single Ap (11/03/17 11:09) Ct Brain W/O Iv Contrast(Rout) (11/03/17 11:09) Ct Abd/Pel W/O Iv Contrast (11/03/17 11:09) Iv Access Insert/Monitor (11/03/17 11:09) Ecg Monitoring (11/03/17 11:09) Oximetry (11/03/17 11:09) Sodium Chlor 0.9% 1000 Ml Inj (Ns 1000 M (11/03/17 11:15) Type And Screen (11/03/17 13:09) Sodium Chloride 0.9... W/Pantoprazole In (11/03/17 13:09) Pantoprazole Inj (Protonix Inj) (11/03/17 13:30) Piperacil-Tazo 3.375 Gm Premix (Zosyn 3. (11/03/17 13:30) Consult Gastroenterology (11/03/17 ) Admit Order (Ed Use Only) (11/03/17 14:17) Labs Laboratory Tests Test 11/03/17 11:16 White Blood Count 4.5 TH/MM3 Red Blood Count 3.95 MIL/MM3 Hemoglobin 11.4 GM/DL Hematocrit 35.6 % Mean Corpuscular Volume 90.0 FL Mean Corpuscular Hemoglobin 28.9 PG Mean Corpuscular Hemoglobin Concent 32.1 % Red Cell Distribution Width 15.7 % Platelet Count 130 TH/MM3 Mean Platelet Volume 8.7 FL Neutrophils (%) (Auto) 76.6 % Lymphocytes (%) (Auto) 11.5 % Monocytes (%) (Auto) 9.2 % Eosinophils (%) (Auto) 1.6 % Basophils (%) (Auto) 1.1 % Neutrophils # (Auto) 3.5 TH/MM3 Lymphocytes # (Auto) 0.5 TH/MM3 Monocytes # (Auto) 0.4 TH/MM3 Eosinophils # (Auto) 0.1 TH/MM3 Basophils # (Auto) 0.0 TH/MM3 CBC Comment DIFF FINAL Differential Comment Prothrombin Time 10.7 SEC Prothromb Time International Ratio 1.1 RATIO Activated Partial Thromboplast Time 21.9 SEC Blood Urea Nitrogen 16 MG/DL Creatinine 1.07 MG/DL Random Glucose 132 MG/DL Total Protein 5.7 GM/DL Albumin 2.7 GM/DL Calcium Level 8.0 MG/DL Alkaline Phosphatase 107 U/L Aspartate Amino Transf (AST/SGOT) 36 U/L Alanine Aminotransferase (ALT/SGPT) 16 U/L Total Bilirubin 0.4 MG/DL Sodium Level 142 MEQ/L Potassium Level 4.9 MEQ/L Chloride Level 107 MEQ/L Carbon Dioxide Level 28.5 MEQ/L Anion Gap 7 MEQ/L Estimat Glomerular Filtration Rate 48 ML/MIN Total Creatine Kinase 94 U/L Troponin I LESS THAN 0.02 NG/ML Thyroid Stimulating Hormone 3rd Gen 5.230 uIU/ML MDM Medical Decision Making Medical Screen Exam Complete: Yes Emergency Medical Condition: Yes Interpretation(s) Last Impressions Chest X-Ray 11/03/17 1109 Signed Impressions: Service Date/Time: Friday, November 03, 2017 11:50 - CONCLUSION: Negative for acute process. Scooby Bermudez MD FACR 12:[address] scan of brain negative acute pathology. CBC within normal limits. Platelets 130. Creatinine 1.07. GFR 48. Cardiac enzymes are normal. TSH 5.23. Differential Diagnosis Differential diagnosis including vasovagal reaction, TIA, CVA, FL, abdominal aortic aneurysm, dehydration, electrolyte imbalance, GI bleed, sepsis. Narrative Course 87-year-old female with syncope. EMS was called. Patient was found to be hypotensive. Patient was given IV fluid on the way to the ED. blood pressure in the low 100s. Normal saline solution 1 25 cc an hour. Protonix 80 mg IV. Protonic drip started. Type and screen. Zosyn 3.375 g IV given. Diagnosis Primary Impression: GI bleed Qualified Codes: K92.2 - Gastrointestinal hemorrhage, unspecified Additional Impression: Syncope Qualified Codes: R55 - Syncope and collapse Admitting Information Admitting Physician Requests: Admit Adán Moses MD Nov 03, 2017 10:59
[2017-11-03] MEDS ORDERED: SODIUM CHLOR 0.9% 1000 ML INJ 1,000 ML IV SCH (11:15)
[2017-11-03 11:34] LABS: AUTOMATED NEUTROPHIL # 3.5 TH/MM3 (1.8-7.7); BASOPHIL % 1.1 % (0.0-2.0); EOSINOPHIL # 0.1 TH/MM3 (0-0.4); EOSINOPHIL % 1.6 % (0.0-4.0); HEMATOCRIT 35.6 % (35.0-46.0); HEMOGLOBIN 11.4 GM/DL (11.6-15.3); LYMPH % 11.5 % (9.0-44.0); LYMPHOCYTE # 0.5 TH/MM3 (1.0-4.8); MEAN CORPUSCULAR HEMOGLOBIN 28.9 PG (27.0-34.0); MEAN CORPUSCULAR HGB CONC 32.1 % (32.0-36.0); MEAN PLATELET VOLUME 8.7 FL (7.0-11.0); MONO % 9.2 % (0.0-8.0); MONOCYTE # 0.4 TH/MM3 (0-0.9); NEUT % 76.6 % (16.0-70.0); PLATELET COUNT 130 TH/MM3 (150-450); RED BLOOD COUNT 3.95 MIL/MM3 (4.00-5.30); RED CELL DISTRIBUTION WIDTH 15.7 % (11.6-17.2); WHITE BLOOD COUNT 4.5 TH/MM3 (4.0-11.0)
[2017-11-03 11:43] LABS: INTERNATIONAL NORMALIZED RATIO 1.1 RATIO; PROTHROMBIN TIME - PATIENT 10.7 SEC (9.8-11.6)
[2017-11-03 12:05] LABS: ALBUMIN 2.7 GM/DL (3.4-5.0); ALKALINE PHOSPHATASE 107 U/L (45-117); ALT (GPT) 16 U/L (10-53); AST (GOT) 36 U/L (15-37); BICARBONATE 28.5 MEQ/L (21.0-32.0); BLOOD UREA NITROGEN 16 MG/DL (7-18); CHLORIDE 107 MEQ/L (98-107); CREATININE 1.07 MG/DL (0.50-1.00); GLOMERULAR FILTRATION RATE 48 ML/MIN (>89); GLUCOSE,RANDOM 132 MG/DL (74-106); SODIUM (NA) 142 MEQ/L (136-145); TOTAL BILIRUBIN ADULT 0.4 MG/DL (0.2-1.0); TOTAL PROTEIN 5.7 GM/DL (6.4-8.2); TROPONIN I LESS THAN 0.02 NG/ML (0.02-0.05)
--- NOTE | 2017-11-03 12:05 | RADRPT ---
EXAM DATE/TIME: 11/03/2017 11:50 [facility] COMPARISON: CHEST SINGLE AP, September 03, 2017, 20:33. INDICATIONS : Syncope. Short of breath. MEDICAL HISTORY : Cardiovascular disease. Chronic obstructive pulmonary disease. Hypertension. SURGICAL HISTORY : Appendectomy. ENCOUNTER: Initial ACUITY: 1 day PAIN SCORE: 0/10 LOCATION: Bilateral chest FINDINGS: A single view of the chest demonstrates the lungs to be symmetrically aerated without evidence of mas s, infiltrate or effusion. Spinal similar evident. The cardiomediastinal contours are unremarkable. Degenerative changes both shoulders. CONCLUSION: Negative for acute process. Scooby Bermudez MD FACR on November 03, 2017 at 12:02 Board Certified Radiologist. This report was verified electronically.
--- NOTE | 2017-11-03 12:13 | RADRPT ---
EXAM DATE/TIME: 11/03/2017 12:00 [facility] COMPARISON: CT BRAIN W/O CONTRAST, June 06, 2013, 18:48. INDICATIONS : Altered mental status. RADIATION DOSE: 33.97 CTDIvol (mGy) MEDICAL HISTORY : Hypertension. Chronic obstructive pulmonary disease. diabetes SURGICAL HISTORY : Hysterectomy. ENCOUNTER: Initial ACUITY: 1 day PAIN SCALE: 0/10 LOCATION: Bilateral head TECHNIQUE: Multiple contiguous axial images were obtained of the head. Using automated exposure control and adj ustment of the mA and/or kV according to patient size, radiation dose was kept as low as reasonably a chievable to obtain optimal diagnostic quality images. DICOM format image data is available electro nically for review and comparison. FINDINGS: CEREBRUM: The ventricles are normal for age. No evidence of midline shift, mass lesion, hemorrhage or acute in farction. No extra-axial fluid collections are seen. POSTERIOR FOSSA: The cerebellum and brainstem are intact. The 4th ventricle is midline. The cerebellopontine angle i s unremarkable. EXTRACRANIAL: The visualized portion of the orbits is intact. SKULL: The calvaria is intact. No evidence of skull fracture. CONCLUSION: 1. No evidence of acute intracranial pathology. No masses are identified. Sudhakar Cerda MD on November 03, 2017 at 12:10 Board Certified Radiologist. This report was verified electronically.
--- NOTE | 2017-11-03 12:38 | RADRPT ---
EXAM DATE/TIME: 11/03/2017 12:05 [facility] COMPARISON: CT PULMONARY ANGIOGRAM, February 17, 2016, 13:46. CT PULMONARY ANGIOGRAM, September 14, 2016, 10:32. CT PULMONARY ANGIOGRAM, September 04, 2017, 16:33. INDICATIONS : Diffuse abdomen pain today. ORAL CONTRAST: No oral contrast ingested. RADIATION DOSE: 5.51 CTDIvol (mGy) MEDICAL HISTORY : Hypertension. Chronic obstructive pulmonary disease. diabetes SURGICAL HISTORY : Hysterectomy. ENCOUNTER: Initial ACUITY: 1 day PAIN SCALE: 2/10 LOCATION: Bilateral abdomen TECHNIQUE: Volumetric scanning of the abdomen and pelvis was performed. Using automated exposure control and ad justment of the mA and/or kV according to patient size, radiation dose was kept as low as reasonably achievable to obtain optimal diagnostic quality images. DICOM format image data is available electro nically for review and comparison. FINDINGS: LOWER LUNGS: There is a 1.1 cm lung nodule seen at the posterior medial right lower lobe. This is nonspecific. It was present on a prior study from 09/14/2016. LIVER: Homogeneous density without lesion. There is no dilation of the biliary tree. No calcified gallston es. SPLEEN: Normal size without lesion. PANCREAS: Within normal limits. KIDNEYS: Normal in size and shape. There is no mass, stone, or hydronephrosis. ADRENAL GLANDS: Within normal limits. VASCULAR: There is no aortic aneurysm. Arterial calcifications are present. BOWEL/MESENTERY: There is a moderate hiatal hernia. There is a moderate amount stool seen throughout the colon. Coloni c diverticula are seen particularly in the left-sided colon. There is some minimal induration in the fat surrounding the distal descending colon and proximal sigmoid colon which could be from mild diver ticulitis. ABDOMINAL WALL: Within normal limits. RETROPERITONEUM: There is no lymphadenopathy. BLADDER: No wall thickening or mass. REPRODUCTIVE: The patient is status post hysterectomy. INGUINAL: There is no lymphadenopathy or hernia. MUSCULOSKELETAL: There is degenerative in lower thoracic and lumbar spine. There is postoperative change in lumbar spi ne. Spinal stimulators are seen. There is a left hip prosthesis. CONCLUSION: 1. Colonic diverticula with minimal induration in the region of the junction between the descending c olon and sigmoid colon. Mild diverticulitis could be considered. There is a moderate amount of stool seen throughout the colon. 2. Persistent 1.1 cm pulmonary nodule in the posterior medial right lower lobe. 3. Degenerative and postoperative change in the spine. 4. Moderate hiatal hernia. Raghu Sommers MD on November 03, 2017 at 12:28 Board Certified Radiologist. This report was verified electronically.
[2017-11-03] MEDS ORDERED: PANT40TA3 PO (13:18)
[2017-11-03] MEDS ORDERED: ADVA100A INH (13:19)
[2017-11-03] MEDS ORDERED: LIPI20TA PO (13:20)
[2017-11-03] MEDS ORDERED: PIPERACIL-TAZO 3.375 GM PREMIX 50 ML IV ONE (13:30)
[2017-11-03] MEDS ORDERED: PANTOPRAZOLE SODIUM 40 MG VIAL IV PUSH ONE (13:30)
[2017-11-03] MEDS: PANTOPRAZOLE INJ 80 MG in SODIUM CHLORIDE 0.9% INJ 100 ML IV SCH ×2 (14:07→23:38)
--- NOTE | 2017-11-03 14:27 | PD.CONS ---
HPI History of Present Illness This is a 87 year old female who presented to the ER for AMS after being found on her toilet. SHe was hypotensive, diaphoretic per report. She has no recollection of events; said her aide was at the house and pt went to use toilet and then woke up in an ambulance. GI consulted for GIB. Per RN she has had several episodes of BM with blood mixed in. She is c/o "terrible stomach cramps" and admits abd pain that is mild and intermittent but cannot further qualify. Denies seeing red blood in stool, blakc tarry stools, change in bowel habits, significant diarrhea, n/v, hx prior GIB. Not on blood thinners. Had colonoscopy few years ago and can recall no details and says she will refuse another colonoscopy. Never had EGD. (Adrianna Odlel) PFSH Past Medical History COPD DM Past Surgical History hysterectomy appendectomy (Adrianna Odell) Coded Allergies: enoxaparin (Unverified Allergy, Mild, Flushing,pruritus, 11/03/17) Family History DM Social History occasional etoh no tobacco products denies illicit drug use (Adrianna Odell) Review of Systems Constitutional: DENIES: Weight loss Endocrine: DENIES: Polydipsia Eyes: DENIES: Blurred vision Ears, nose, mouth, throat: DENIES: Hearing loss Respiratory: DENIES: Cough Cardiovascular: DENIES: Chest pain Gastrointestinal: COMPLAINS OF: Abdominal pain, DENIES: Black stools, Bloody stools, Constipation, Diarrhea, Nausea, Vomiting Genitourinary: DENIES: Hematuria Musculoskeletal: DENIES: Joint Swelling Integumentary: DENIES: Abnormal pigmentation Hematologic/lymphatic: DENIES: Bruising Immunologic/allergic: DENIES: Eczema Neurologic: DENIES: Abnormal gait Psychiatric: COMPLAINS OF: Confusion (Adrianna Odell) GI Exam Vitals I&O Vital Signs Date Time Temp Pulse Resp B/P (MAP) Pulse Ox O2 Delivery O2 Flow Rate FiO2 11/03/17 14:00 87 16 186/82 (116) 100 Nasal Cannula 2.00 11/03/17 13:00 83 16 130/76 (94) 95 Nasal Cannula 2.00 11/03/17 12:00 81 18 118/56 (76) 98 Nasal Cannula 2.00 11/03/17 10:43 97.9 82 16 109/53 (71) 87 Imaging Last Impressions Head CT 11/03/17 1109 Signed Impressions: Service Date/Time: Friday, November 03, 2017 12:00 - CONCLUSION: 1. No evidence of acute intracranial pathology. No masses are identified. Sudhakar Cerda MD Chest X-Ray 11/03/17 110 Signed Impressions: Service Date/Time: Friday, November 03, 2017 11:50 - CONCLUSION: Negative for acute process. Scooby Bermudez MD FACR Abdomen/Pelvis CT 11/03/17 1109 Signed Impressions: Service Date/Time: Friday, November 03, 2017 12:05 - CONCLUSION: 1. Colonic diverticula with minimal induration in the region of the junction between the descending colon and sigmoid colon. Mild diverticulitis could be considered. There is a moderate amount of stool seen throughout the colon. 2. Persistent 1.1 cm pulmonary nodule in the posterior medial right lower lobe. 3. Degenerative and postoperative change in the spine. 4. Moderate hiatal hernia. Raghu Sommers MD Laboratory Test 11/03/17 11:16 White Blood Count 4.5 TH/MM3 Red Blood Count 3.95 MIL/MM3 Hemoglobin 11.4 GM/DL Hematocrit 35.6 % Mean Corpuscular Volume 90.0 FL Mean Corpuscular Hemoglobin 28.9 PG Mean Corpuscular Hemoglobin Concent 32.1 % Red Cell Distribution Width 15.7 % Platelet Count 130 TH/MM3 Mean Platelet Volume 8.7 FL Neutrophils (%) (Auto) 76.6 % Lymphocytes (%) (Auto) 11.5 % Monocytes (%) (Auto) 9.2 % Eosinophils (%) (Auto) 1.6 % Basophils (%) (Auto) 1.1 % Neutrophils # (Auto) 3.5 TH/MM3 Lymphocytes # (Auto) 0.5 TH/MM3 Monocytes # (Auto) 0.4 TH/MM3 Eosinophils # (Auto) 0.1 TH/MM3 Basophils # (Auto) 0.0 TH/MM3 CBC Comment DIFF FINAL Differential Comment Prothrombin Time 10.7 SEC Prothromb Time International Ratio 1.1 RATIO Activated Partial Thromboplast Time 21.9 SEC Blood Urea Nitrogen 16 MG/DL Creatinine 1.07 MG/DL Random Glucose 132 MG/DL Total Protein 5.7 GM/DL Albumin 2.7 GM/DL Calcium Level 8.0 MG/DL Alkaline Phosphatase 107 U/L Aspartate Amino Transf (AST/SGOT) 36 U/L Alanine Aminotransferase (ALT/SGPT) 16 U/L Total Bilirubin 0.4 MG/DL Sodium Level 142 MEQ/L Potassium Level 4.9 MEQ/L Chloride Level 107 MEQ/L Carbon Dioxide Level 28.5 MEQ/L Anion Gap 7 MEQ/L Estimat Glomerular Filtration Rate 48 ML/MIN Total Creatine Kinase 94 U/L Troponin I LESS THAN 0.02 NG/ML Thyroid Stimulating Hormone 3rd Gen 5.230 uIU/ML Physical Examination HEENT: PERRL; normocephalic; bruising face; no jaundice. CHEST: diminished CARDIAC: RRR ABDOMEN: Soft, nondistended, nontender; no hepatosplenomegaly; bowel sounds are present in all four quadrants. EXTREMITIES: No clubbing, cyanosis, or edema. SKIN: Normal; no rash; no jaundice. 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 CT showing poss mild diverticulitis, stool throughout colon. GI consulted for GIB but patient recalls nothing. per RN she had several episodes bloody stool. no prior hx GIB. had colonoscopy "few years ago" and is refusing one now. She will refuse to drink prep. if diverticulitis is cause, colonoscopy not indicated at this time. WBC WNL. - anemia - mild, normocytic, 2/2 above PLAN - hold on procedures - pt will refuse to drink prep - monitor HH - transfuse if needed - supportive care pt seen by myself and Dr Main and this note is on his behalf (Adrianna Odell) Plan Patient was seen and examined, her daughter and son-in-law was at bedside, agree with above-noted, patient is adamant about not having any procedure done, she want to be treated symptomatically, we will monitor H&H, will give her packed RBC as needed, (Catracho Main MD) Adrianna Odell Nov 03, 2017 14:27 Catracho Main MD Nov 03, 2017 19:01
--- NOTE | 2017-11-03 14:44 | HHI.HP ---
[facility] Admission Diagnosis GI bleed. Syncope. Diagnoses: (1) GI bleed (2) Syncope Chief Complaint: Passed out Has episode of bloody stools Travel History International Travel<30 Days: No Contact w/Intl Traveler <30 Da: No Traveled to Known Affected Are: No History of Present Illness 87-year-old female with history of diabetes type 2, COPD was brought to the emergency department for evaluation of altered mental status change and syncope. Apparently, patient has gone to the toilet however passed out. She states she has no recollection of the events. She was brought to the emergency department she was hypotensive, diaphoretic. Although patient denies any episode of GI bleed however in the ED she was noted to have several BM with blood mixed in them. H&H was initially stable. Patient denies any current chest pain however reports some slight shortness of breath. She had colonoscopy about a year ago, however states now she would want to due to the prep Review of Systems Except as stated in HPI: all other systems reviewed are Neg Past Family Social History Past Medical History COPD DM Hyperlipidemia Hypertension Past Surgical History hysterectomy appendectomy Right hip replacement Left knee replacement Reported Medications Lipitor (Atorvastatin Calcium) 20 Mg Tab 20 Mg PO MONWEDFRI Advair Diskus Inh (Fluticasone-Salmeterol Inh) 100-50 Mcg/Blist Aer Unknown Dose INH BID Rinse mouth after use. Pantoprazole (Pantoprazole Sodium) 40 Mg Tab 40 Mg PO DAILY Lorazepam 0.5 Mg Tab 0.5 Mg PO BID PRN Vitamin C ER (Ascorbic Acid) 500 Mg Shannan 1,000 Mg PO DAILY Valsartan 160 Mg Tab 160 Mg PO DAILY Propranolol (Propranolol HCl) 10 Mg Tab 10 Mg PO DAILY Potassium Gluconate 595 Mg Tab 595 Mg PO DAILY Vitamin B-12 (Cyanocobalamin) 1,000 Mcg Tab 1,000 Mcg PO DAILY Calcium 600/Vitamin D (Calcium Carbonate-Vitamin D) 600-200 Mg-Unit Tab 2 Tab PO DAILY Amitriptyline (Amitriptyline HCl) 75 Mg Tab 75 Mg PO HS Proventil Hfa 6.7 GM Inh (Albuterol Sulfate) 90 Mcg/Act Aer 1-2 Puff INH Q4-6H PRN Allergies: Coded Allergies: enoxaparin (Unverified Allergy, Mild, Flushing,pruritus, 11/03/17) Family History Family history positive for DM Social History occasional etoh no tobacco products denies illicit drug use Physical Exam Vital Signs Vital Signs Date Time Temp Pulse Resp B/P (MAP) Pulse Ox O2 Delivery O2 Flow Rate FiO2 11/03/17 14:00 87 16 186/82 (116) 100 Nasal Cannula 2.00 11/03/17 13:00 83 16 130/76 (94) 95 Nasal Cannula 2.00 11/03/17 12:00 81 18 118/56 (76) 98 Nasal Cannula 2.00 11/03/17 10:43 97.9 82 16 109/53 (71) 87 Physical Exam GENERAL: This is a well-nourished, well-developed patient, in no apparent distress. SKIN: No rashes, ecchymoses or lesions. Cool and dry. HEAD: Atraumatic. Normocephalic. No temporal or scalp tenderness. EYES: Pupils equal round and reactive. Extraocular motions intact. No scleral icterus. No injection or drainage. ENT: Nose without bleeding, purulent drainage or septal hematoma. Throat without erythema, tonsillar hypertrophy or exudate. Uvula midline. Airway patent. NECK: Trachea midline. No JVD or lymphadenopathy. Supple, nontender, no meningeal signs. CARDIOVASCULAR: Regular rate and rhythm without murmurs, gallops, or rubs. RESPIRATORY: Clear to auscultation. Breath sounds equal bilaterally. No wheezes , rales, or rhonchi. GASTROINTESTINAL: Abdomen soft, non-tender, nondistended. No hepato-splenomegaly , or palpable masses. No guarding. MUSCULOSKELETAL: Extremities without clubbing, cyanosis, or edema. No joint tenderness, effusion, or edema noted. No calf tenderness. Negative Homans sign bilaterally. NEUROLOGICAL: Awake and alert. Cranial nerves II through XII intact. Motor and sensory grossly within normal limits. Five out of 5 muscle strength in all muscle groups. Normal speech. Laboratory Laboratory Tests Test 11/03/17 11:16 White Blood Count 4.5 Red Blood Count 3.95 Hemoglobin 11.4 Hematocrit 35.6 Mean Corpuscular Volume 90.0 Mean Corpuscular Hemoglobin 28.9 Mean Corpuscular Hemoglobin Concent 32.1 Red Cell Distribution Width 15.7 Platelet Count 130 Mean Platelet Volume 8.7 Neutrophils (%) (Auto) 76.6 Lymphocytes (%) (Auto) 11.5 Monocytes (%) (Auto) 9.2 Eosinophils (%) (Auto) 1.6 Basophils (%) (Auto) 1.1 Neutrophils # (Auto) 3.5 Lymphocytes # (Auto) 0.5 Monocytes # (Auto) 0.4 Eosinophils # (Auto) 0.1 Basophils # (Auto) 0.0 CBC Comment DIFF FINAL Differential Comment Prothrombin Time 10.7 Prothromb Time International Ratio 1.1 Activated Partial Thromboplast Time 21.9 Blood Urea Nitrogen 16 Creatinine 1.07 Random Glucose 132 Total Protein 5.7 Albumin 2.7 Calcium Level 8.0 Alkaline Phosphatase 107 Aspartate Amino Transf (AST/SGOT) 36 Alanine Aminotransferase (ALT/SGPT) 16 Total Bilirubin 0.4 Sodium Level 142 Potassium Level 4.9 Chloride Level 107 Carbon Dioxide Level 28.5 Anion Gap 7 Estimat Glomerular Filtration Rate 48 Total Creatine Kinase 94 Troponin I LESS THAN 0.02 Thyroid Stimulating Hormone 3rd Gen 5.230 Result Diagram: 11/03/17 1116 11/03/17 1116 Imaging Last Impressions Head CT 11/03/17 1109 Signed Impressions: Service Date/Time: Friday, November 03, 2017 12:00 - CONCLUSION: 1. No evidence of acute intracranial pathology. No masses are identified. Sudhakar Cerda MD Chest X-Ray 11/03/17 1109 Signed Impressions: Service Date/Time: Friday, November 03, 2017 11:50 - CONCLUSION: Negative for acute process. Scooby Bermudez MD FACR Abdomen/Pelvis CT 11/03/17 1109 Signed Impressions: Service Date/Time: Friday, November 03, 2017 12:05 - CONCLUSION: 1. Colonic diverticula with minimal induration in the region of the junction between the descending colon and sigmoid colon. Mild diverticulitis could be considered. There is a moderate amount of stool seen throughout the colon. 2. Persistent 1.1 cm pulmonary nodule in the posterior medial right lower lobe. 3. Degenerative and postoperative change in the spine. 4. Moderate hiatal hernia. Raghu Sommers MD Septic Shock Reassessment Septic shock perfusion: reassessment completed Caprini VTE Risk Assessment Caprini VTE Risk Assessment: Mod/High Risk (score >= 2) VTE Pharm Contraindication: Active bleeding Caprini Risk Assessment Model Point Value = 1 Point Value = 2 Point Value = 3 Point Value = 5 Age 41-60 Minor surgery BMI > 25 kg/m2 Swollen legs Varicose veins or History of unexplained or recurrent spontaneous Oral contraceptives or hormone replacement Sepsis (< 1 month) Serious lung disease, including pneumonia (< 1 month) Abnormal pulmonary function Acute myocardial infarction Congestive heart failure (< 1 month) History of inflammatory bowel disease Medical patient at bed rest Age 61-74 Arthroscopic surgery Major open surgery (> 45 min) Laparoscopic surgery (> 45 min) Malignancy Confined to bed (> 72 hours) Immobilizing plaster cast Central venous access Age >= 75 History of VTE Family history of VTE Factor V Leiden Prothrombin [id number] Lupus anticoagulant Anticardiolipin antibodies Elevated serum homocysteine Heparin-induced thrombocytopenia Other congenital or acquired thrombophilia Stroke (< 1 month) Elective arthroplasty Hip, pelvis, or leg fracture Acute spinal cord injury (< 1 month) Prophylaxis Regimen Total Risk Factor Score Risk Level Prophylaxis Regimen 0-1 Low Early ambulation 2 Moderate Order ONE of the following: *Sequential Compression Device (SCD) *Heparin 5000 units SQ BID 3-4 Higher Order ONE of the following medications: *Heparin 5000 units SQ TID *Enoxaparin/Lovenox 40 mg SQ daily (WT < 150 kg, CrCl > 30 mL/min) *Enoxaparin/Lovenox 30 mg SQ daily (WT < 150 kg, CrCl > 10-29 mL/min) *Enoxaparin/Lovenox 30 mg SQ BID (WT < 150 kg, CrCl > 30 mL/min) AND/OR *Sequential Compression Device (SCD) 5 or more Highest Order ONE of the following medications: *Heparin 5000 units SQ TID (Preferred with Epidurals) *Enoxaparin/Lovenox 40 mg SQ daily (WT < 150 kg, CrCl > 30 mL/min) *Enoxaparin/Lovenox 30 mg SQ daily (WT < 150 kg, CrCl > 10-29 mL/min) *Enoxaparin/Lovenox 30 mg SQ BID (WT < 150 kg, CrCl > 30 mL/min) AND *Sequential Compression Device (SCD) Assessment and Plan Problem List: (1) GI bleed ICD Code: K92.2 - Gastrointestinal hemorrhage, unspecified Status: Acute Assessment and Plan 87-year-old female with GI bleed Gastroenterology has been consulted plan for possible colonoscopy +/- EGD Serial H&H and transfuse accordingly Currently on PPI drip Syncope Likely secondary to GI bleed Head CT noted and reviewed by me without any intracranial abnormality However will check 2D echo History of diabetes type 2 Hold oral hypoglycemic agents Sliding scale insulin History of COPD No exacerbation Resume outpatient medications Hyperlipidemia Resume statin DVT prophylaxis: Chemical antiplatelet is contraindicated secondary to GI bleed- bilateral SCDs GI prophylaxis: PPI Code Status Full code Discussed Condition With Patient, ED physician Physician Certification 2 Midnight Certification Type: Admission for Inpatient Services Order for Inpatient Services The services are ordered in accordance with Medicare regulations or non- Medicare payer requirements, as applicable. In the case of services not specified as inpatient-only, they are appropriately provided as inpatient services in accordance with the 2-midnight benchmark. Estimated LOS (days): 2 days is the estimated time the patient will need to remain in the hospital, assuming treatment plan goals are met and no additional complications. Post-Hospital Plan: Not yet determined Problem Qualifiers (1) GI bleed: Qualified Codes: K92.2 - Gastrointestinal hemorrhage, unspecified (2) Syncope: Qualified Codes: R55 - Syncope and collapse Aditya Shelton MD Nov 03, 2017 14:44
[2017-11-03] MEDS ORDERED: SODIUM CHLORIDE 0.9% FLUSH 10 ML FLUSH IV FLUSH PRN (15:00)
[2017-11-03] MEDS ORDERED: GLUCAGON 1 MG/ML VIAL OTHER PRN (15:00)
[2017-11-03] MEDS ORDERED: DEXTROSE 50% IN WATER 50 ML VIAL(D50) IV PUSH PRN (15:00)
[2017-11-03] MEDS ORDERED: ACETAMINOPHEN 325 MG TAB PO PRN (15:00)
--- NOTE | 2017-11-03 15:00 | EKG ---
Date Performed: 11/03/2017 Time Performed: 10:46:04 PTAGE: 87 years EKG: Sinus rhythm NORMAL ECG Compared to prior electrocardiogram, rate has decreased PREVIOUS TRACING : 09/04/2017 14.20 DOCTOR: Wiil Anand Interpretating Date/Time 11/03/2017 15:00:00
[2017-11-03] MEDS: SODIUM CHLOR 0.9% 1000 ML INJ 1,000 ML IV SCH (15:06)
[2017-11-03] MEDS: INSULIN ASPART SUPPLEMENTAL SCALE SQ SCH ×2 (16:50→20:48)
[2017-11-03] MEDS: AMITRIPTYLINE HCL 75 MG TAB PO SCH (20:46)
[2017-11-03] MEDS: SODIUM CHLORIDE 0.9% FLUSH 10 ML FLUSH IV FLUSH SCH (20:47)
[2017-11-03] MEDS: ONDANSETRON HCL 4 MG/2 ML VIAL IV PUSH PRN (20:47)
[2017-11-03] MEDS: ATORVASTATIN 20 MG TAB PO SCH (20:47)
[2017-11-03 23:41] LABS: HEMATOCRIT 39.9 % (35.0-46.0); HEMOGLOBIN 12.7 GM/DL (11.6-15.3)
[2017-11-04] VITALS (7 sets, daily range): BP systolic 112–138; BP diastolic 54–60; PULSE 85–115; RESP 16–20; TEMP 96.9–98.9; O2SAT 94–100
[2017-11-04 02:39] LABS: HEMATOCRIT 36.5 % (35.0-46.0); HEMOGLOBIN 11.5 GM/DL (11.6-15.3)
[2017-11-04] MEDS: SODIUM CHLOR 0.9% 1000 ML INJ 1,000 ML IV SCH ×2 (06:33→17:03)
[2017-11-04] MEDS: INSULIN ASPART SUPPLEMENTAL SCALE SQ SCH ×4 (07:40→20:20)
[2017-11-04] MEDS: PROPRANOLOL HCL 10 MG TAB PO SCH (08:59)
[2017-11-04] MEDS: PANTOPRAZOLE INJ 80 MG in SODIUM CHLORIDE 0.9% INJ 100 ML IV SCH ×2 (09:00→20:14)
[2017-11-04] MEDS: SODIUM CHLORIDE 0.9% FLUSH 10 ML FLUSH IV FLUSH SCH ×2 (09:00→20:12)
--- NOTE | 2017-11-04 10:03 | HHI.GIFU ---
Subjective Remarks Pt resting in bed. Denies bleeding but per RN she did have a bloody BM overnight. She is still refusing colonoscopy. (Adrianna Odell) Objective Vitals I&O Vital Signs Date Time Temp Pulse Resp B/P (MAP) Pulse Ox O2 Delivery O2 Flow Rate FiO2 11/04/17 08:00 98.6 115 16 138/60 (86) 96 11/04/17 04:55 98.2 103 16 116/58 (77) 100 11/04/17 00:52 98.9 101 17 118/58 (78) 98 11/03/17 21:41 98.5 98 17 151/67 (95) 100 11/03/17 21:16 98 Nasal Cannula 2.00 11/03/17 19:19 99.1 105 18 140/81 (100) 100 Nasal Cannula 2.00 11/03/17 19:19 18 100 Nasal Cannula 2.00 11/03/17 18:00 96 20 154/72 (99) 99 Nasal Cannula 2.00 11/03/17 16:00 78 20 170/64 (99) 94 Room Air 11/03/17 14:00 87 16 186/82 (116) 100 Nasal Cannula 2.00 11/03/17 13:00 83 16 130/76 (94) 95 Nasal Cannula 2.00 11/03/17 12:00 81 18 118/56 (76) 98 Nasal Cannula 2.00 11/03/17 10:43 97.9 82 16 109/53 (71) 87 I/O 11/03/17 11/03/17 11/03/17 11/04/17 11/04/17 11/04/17 07:00 15:00 23:00 07:00 15:00 23:00 Intake Total 1050 ml 109 ml Balance 1050 ml 109 ml Intake IV Total 1050 ml 109 ml # Voids 3 3 # Bowel Movements 3 2 1 Laboratory Laboratory Tests Test 11/03/17 11:16 11/03/17 23:03 11/04/17 02:23 White Blood Count 4.5 Red Blood Count 3.95 Hemoglobin 11.4 12.7 11.5 Hematocrit 35.6 39.9 36.5 Mean Corpuscular Volume 90.0 Mean Corpuscular Hemoglobin 28.9 Mean Corpuscular Hemoglobin Concent 32.1 Red Cell Distribution Width 15.7 Platelet Count 130 Mean Platelet Volume 8.7 Neutrophils (%) (Auto) 76.6 Lymphocytes (%) (Auto) 11.5 Monocytes (%) (Auto) 9.2 Eosinophils (%) (Auto) 1.6 Basophils (%) (Auto) 1.1 Neutrophils # (Auto) 3.5 Lymphocytes # (Auto) 0.5 Monocytes # (Auto) 0.4 Eosinophils # (Auto) 0.1 Basophils # (Auto) 0.0 CBC Comment DIFF FINAL Differential Comment Prothrombin Time 10.7 Prothromb Time International Ratio 1.1 Activated Partial Thromboplast Time 21.9 Blood Urea Nitrogen 16 Creatinine 1.07 Random Glucose 132 Total Protein 5.7 Albumin 2.7 Calcium Level 8.0 Alkaline Phosphatase 107 Aspartate Amino Transf (AST/SGOT) 36 Alanine Aminotransferase (ALT/SGPT) 16 Total Bilirubin 0.4 Sodium Level 142 Potassium Level 4.9 Chloride Level 107 Carbon Dioxide Level 28.5 Anion Gap 7 Estimat Glomerular Filtration Rate 48 Total Creatine Kinase 94 Troponin I LESS THAN 0.02 Thyroid Stimulating Hormone 3rd Gen 5.230 Imaging Last Impressions Head CT 11/03/171108 Signed Impressions: Service Date/Time: Friday, November 03, 2017 12:00 - CONCLUSION: 1. No evidence of acute intracranial pathology. No masses are identified. Sudhakar Cerda MD Chest X-Ray 11/03/171108 Signed Impressions: Service Date/Time: Friday, November 03, 2017 11:50 - CONCLUSION: Negative for acute process. Scooby Bermudez MD FACR Abdomen/Pelvis CT 11/03/171108 Signed Impressions: Service Date/Time: Friday, November 03, 2017 12:05 - CONCLUSION: 1. Colonic diverticula with minimal induration in the region of the junction between the descending colon and sigmoid colon. Mild diverticulitis could be considered. There is a moderate amount of stool seen throughout the colon. 2. Persistent 1.1 cm pulmonary nodule in the posterior medial right lower lobe. 3. Degenerative and postoperative change in the spine. 4. Moderate hiatal hernia. Raghu Sommers MD Physical Exam HEENT: PERRL; normocephalic; atraumatic; no jaundice. CHEST: CTA CARDIAC: RRR ABDOMEN: Soft, nondistended, nontender; no hepatosplenomegaly; bowel sounds are present in all four quadrants. EXTREMITIES: No clubbing, cyanosis, or edema. SKIN: Normal; no rash; no jaundice. CONTACT AND SERVICE CLERKS SUPERVISOR: No focal deficits; alert and oriented times three. (Adrianna Odell) Assessment and Plan Plan ASSESSMENT - abd pain, hematochezia - LGIB. CT showing poss mild diverticulitis, stool throughout colon. GI consulted for GIB but patient recalls nothing. per RN she had several episodes bloody stool. no prior hx GIB. had colonoscopy "few years ago" and is refusing one now. She will refuse to drink prep. if diverticulitis is cause, colonoscopy not indicated at this time. WBC WNL. - anemia - mild, normocytic, 2/2 above 11/04 HH relatively stable, per RN she had a bloody BM over night. refusing colonoscopy,wants to eat. PLAN - pt will refuse to drink prep for a colonoscopy - consider outpt colonoscopy with prepopik if pt would be willing - full liquid diet, may advance as tolerated - monitor HH - transfuse if needed - supportive care - GI will sign off. please reconsult if needed pt seen by myself and Dr Main and this note is on his behalf (Adrianna Odell) Plan Patient was seen and examined, agree with above-noted, patient change her mind I would like to have an upper endoscopy only without the colonoscopy, we will plan on doing upper endoscopy tomorrow, consent was signed (Catracho Main MD) Adrianna Odell Nov 04, 2017 10:03 Catracho Main MD Nov 04, 2017 19:45
[2017-11-04 11:14] LABS: HEMATOCRIT 35.3 % (35.0-46.0); HEMOGLOBIN 11.2 GM/DL (11.6-15.3)
--- NOTE | 2017-11-04 16:45 | HHI.PR ---
Subjective Remarks Follow up GI bleeding/syncope 11/04/17-patient seen and examined; she has refused colonoscopy. H/H stable and no more GI bleed. patient had previous syncopal episodes Objective Vitals Vital Signs Date Time Temp Pulse Resp B/P (MAP) Pulse Ox O2 Delivery O2 Flow Rate FiO2 11/04/17 15:48 98.8 93 20 128/59 (82) 96 11/04/17 11:27 98.3 85 18 112/54 (73) 99 11/04/17 08:00 98.6 115 16 138/60 (86) 96 11/04/17 04:55 98.2 103 16 116/58 (77) 100 11/04/17 00:52 98.9 101 17 118/58 (78) 98 11/03/17 21:41 98.5 98 17 151/67 (95) 100 11/03/17 21:16 98 Nasal Cannula 2.00 11/03/17 19:19 99.1 105 18 140/81 (100) 100 Nasal Cannula 2.00 11/03/17 19:19 18 100 Nasal Cannula 2.00 11/03/17 18:00 96 20 154/72 (99) 99 Nasal Cannula 2.00 I/O 11/03/17 11/03/17 11/03/17 11/04/17 11/04/17 11/04/17 07:00 15:00 23:00 07:00 15:00 23:00 Intake Total 1050 ml 109 ml Balance 1050 ml 109 ml Intake IV Total 1050 ml 109 ml # Voids 3 3 # Bowel Movements 3 2 1 Result Diagram: 11/04/17 1055 11/03/17 1116 Imaging Last Impressions Head CT 11/03/17 110 Signed Impressions: Service Date/Time: Friday, November 03, 2017 12:00 - CONCLUSION: 1. No evidence of acute intracranial pathology. No masses are identified. Sudhakar Cerda MD Chest X-Ray 11/03/171108 Signed Impressions: Service Date/Time: Friday, November 03, 2017 11:50 - CONCLUSION: Negative for acute process. Scooby Bermudez MD FACR Abdomen/Pelvis CT 11/03/17 110 Signed Impressions: Service Date/Time: Friday, November 03, 2017 12:05 - CONCLUSION: 1. Colonic diverticula with minimal induration in the region of the junction between the descending colon and sigmoid colon. Mild diverticulitis could be considered. There is a moderate amount of stool seen throughout the colon. 2. Persistent 1.1 cm pulmonary nodule in the posterior medial right lower lobe. 3. Degenerative and postoperative change in the spine. 4. Moderate hiatal hernia. Raghu Sommers MD Objective Remarks GENERAL: NAD SKIN: Warm and dry. HEAD: Normocephalic. EYES: No scleral icterus. No injection or drainage. NECK: Supple, trachea midline. No JVD or lymphadenopathy. CARDIOVASCULAR: Regular rate and rhythm without murmurs, gallops, or rubs. RESPIRATORY: Breath sounds equal bilaterally. No accessory muscle use. GASTROINTESTINAL: Abdomen soft, non-tender, nondistended. MUSCULOSKELETAL: No cyanosis, or edema. BACK: Nontender without obvious deformity. No CVA tenderness. A/P Problem List: (1) GI bleed ICD Code: K92.2 - Gastrointestinal hemorrhage, unspecified Status: Acute (2) Syncope ICD Code: R55 - Syncope and collapse Status: Acute Assessment and Plan 87-year-old female with GI bleed Gastroenterology has been consulted however patient refused colonoscopy Serial H&H stable d/c PPI drip and start PO PPI CT abdomen/pelvis noted Syncope Likely secondary to GI bleed Head CT noted without any intracranial abnormality However will check 2D echo History of diabetes type 2 Hold oral hypoglycemic agents Sliding scale insulin History of COPD No exacerbation Continue outpatient medications Hyperlipidemia Continue statin History of Myelodysplasia Consult hematology DVT prophylaxis: Chemical antiplatelet is contraindicated secondary to GI bleed- bilateral SCDs GI prophylaxis: PPI Problem Qualifiers (1) GI bleed: Qualified Codes: K92.2 - Gastrointestinal hemorrhage, unspecified (2) Syncope: Qualified Codes: R55 - Syncope and collapse Aditya Shelton MD Nov 04, 2017 16:45
--- NOTE | 2017-11-04 20:07 | MB ---
cc: Junie Bess MD,Aditya VO DATE: 11/04/2017 REFERRING PHYSICIAN: Aditya Shelton MD CHIEF COMPLAINT: Dr. Shelton requested consultation from Ms. 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 HISTORY OF PRESENT ILLNESS: Ms. Prince is a well-known 87-year-old woman with a long history of anemia secondary to iron deficiency and ITP causing thrombocytopenia. Last visit to oncology clinic was 08/27/2017. She had only mild decrease in her platelet count, a normal hemoglobin and replete iron stores. Ms. Prince reports a different story leading up to admission. Caregiver, EVAC and ER physician document that she had a syncopal episode while sitting on her toilet. This was witnessed by her caregiver, who bathes her. She tells the story of her falling out of bed and her daughter calling her, and subsequently, calling EVAC that brought her into the hospital. She denies any fevers, chills or night sweats. She has no abdominal pain despite CT scan findings showing diverticula with minimal induration. There is mild diverticulitis that could be considered. There is a persistent 1.1 cm pulmonary nodule, posterior medial right lower lobe. There are degenerative changes of the spine and moderate hiatal hernia. She has a long history of recurrent iron deficiency. She has deferred a GI evaluation as she did not want to take the prep. She was refusing the colonoscopy here. On admission, her hemoglobin is 11.4, platelet count 130. Remained relatively stable. She, however, is confirmed to have bright red blood or melenic stools consistent with acute GI bleed as possible etiology of her syncope. She was hypotensive by report. Her blood pressure is better now. She remains mildly tachycardic. She has no overt complaint, and the rest of her review of systems is negative. PAST MEDICAL HISTORY: History of AVM, hiatal hernia, chronic anemia/iron deficiency, COPD, diabetes type 2, hypercholesterolemia, hypertension, non-Hodgkin's lymphoma/B cell neoplasm, thrombocytopenia, questionable ITP. PAST SURGICAL HISTORY: Appendectomy, cataract surgery, hysterectomy for uterine fibroids, tonsillectomy, colonoscopy. ALLERGIES: NO KNOWN DRUG ALLERGIES. FAMILY HISTORY: Both parents are . No significant family history of cancer. SOCIAL HISTORY: She is , lives alone. She quit smoking 22 years ago. She has over a [id number] smoking history. She drinks socially. She denies any illicit drug use. CURRENT MEDICATIONS: Include Inderal, Elavil, Lipitor, Zofran p.r.n., sodium chloride, DuoNebs p.r.n., pantoprazole. PHYSICAL EXAMINATION: VITAL SIGNS: Temperature 98.4, heart rate 106, respiratory rate 20, blood pressure 121/57, saturation 95%. GENERAL: Ms. Prince is a well-developed, well-nourished, elderly woman with generalized pallor. She has a fair complexion. HEENT: Her pupils are round, reactive to light and accommodation. Conjunctivae are pink. Oropharynx is clear. NECK: Supple. LUNGS: Clear and diminished throughout. CARDIOVASCULAR: Reveals a normal rate. Mild tachycardia. ABDOMEN: Benign, nontender. EXTREMITIES: Lower extremity with no edema. There is abrasion on her left knee. There is a skin tear on the right elbow. There is marked senile purpura. LABORATORY DATA: Hemoglobin 11.4, platelet count 130. Chemistry: BUN is 16, creatinine 1.07, glucose 132, albumin 2.7. TSH 5.2. ASSESSMENT AND PLAN: Ms. 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 She is suspected to have a low-grade idiopathic thrombocytopenic purpura that responds to steroid that she takes for her chronic obstructive pulmonary disease. At her last visit, her platelet count was above 100,000. She requires no specific therapy for the small clone of B-cell lymphoma in the bone marrow or the thrombocytopenia. We discussed the anemia and the upper endoscopy and colonoscopy. She is refusing adamantly the colonoscopy as she does not want the prep. She was agreeable to the upper endoscopy evaluation. The case was discussed with Dr. Main of gastroenterology. He agreed to evaluate the upper as the patient refuses the colonoscopy, which would be helpful in ruling out underlying malignancy in her colon. In the meantime, her H and H is followed. We will transfuse for symptoms or hemoglobin less than 8. No specific therapy is required for the thrombocytopenia. Her questions were answered to her satisfaction. DuoNebs are in place for respiratory treatment as needed. MD JANN Gilmore/OLAMIDE , 07:35 PM , 08:05 PM
[2017-11-04] MEDS: AMITRIPTYLINE HCL 75 MG TAB PO SCH (20:14)
[2017-11-04] MEDS: ATORVASTATIN 20 MG TAB PO SCH (20:20)
[2017-11-04] MEDS ORDERED: MAGNESIUM CITRATE SOLN 300 ML BTL PO ONE ×3 (21:00→22:30)
[2017-11-04 23:06] LABS: HEMATOCRIT 34.5 % (35.0-46.0)
[2017-11-05] VITALS: BP 125/58; PULSE 98; RESP 19; TEMP 97.1; O2SAT 95
[2017-11-05] MEDS: SODIUM CHLOR 0.9% 1000 ML INJ 1,000 ML IV SCH ×2 (02:45→17:52)
[2017-11-05 04:00] VITALS: BP 120/59; PULSE 101; RESP 19; TEMP 97.1; O2SAT 97
[2017-11-05] MEDS ORDERED: MAGNESIUM CITRATE SOLN 300 ML BTL PO ONE (05:00)
[2017-11-05] MEDS: PANTOPRAZOLE INJ 80 MG in SODIUM CHLORIDE 0.9% INJ 100 ML IV SCH ×2 (05:09→17:51)
[2017-11-05] MEDS: ONDANSETRON HCL 4 MG/2 ML VIAL IV PUSH PRN (05:16)
[2017-11-05 08:00] VITALS: BP 108/52; PULSE 112; RESP 16; TEMP 97.4; O2SAT 95
[2017-11-05] MEDS: INSULIN ASPART SUPPLEMENTAL SCALE SQ SCH ×4 (08:00→21:00)
[2017-11-05] MEDS: SODIUM CHLORIDE 0.9% FLUSH 10 ML FLUSH IV FLUSH SCH ×2 (09:00→20:23)
[2017-11-05] MEDS: PROPRANOLOL HCL 10 MG TAB PO SCH (09:00)
[2017-11-05] MEDS ORDERED: DO NOT ADM ANY ANTICOAGULANT DRUGS PRN (10:55)
[2017-11-05] MEDS ORDERED: *RESP: ALBUTEROL 2.5 MG/3 ML NEB (PRN) PERIprocedural Use ONLY NEB ONE (11:00)
[2017-11-05 12:00] VITALS: BP 121/58; PULSE 101; RESP 19; TEMP 96.2; O2SAT 92
[2017-11-05] MEDS ORDERED: PROPOFOL 200 MG/20 ML AMP IV ONE (12:00)
[2017-11-05] MEDS ORDERED: SUCCINYLCHOLINE CHLORIDE 200 MG/10 ML VIAL IV ONE (12:00)
[2017-11-05] MEDS ORDERED: LIDOCAINE HCL 1% PF 5 ML SYRINGE OTHER ONE (12:00)
[2017-11-05] MEDS ORDERED: ePHEDrine/NS 25 MG/5 ML SYRINGE IV ONE (12:00)
[2017-11-05] MEDS ORDERED: PHENYLEPH/NS 1000 MCG/10 ML SYR IV ONE (12:00)
--- NOTE | 2017-11-05 13:31 | PD.PROCEDR ---
GI Procedure PROCEDURE PERFORMED Upper endoscopy with biopsy colonoscopy with biopsy INDICATION FOR PROCEDURE Anemia, rectal bleeding PROCEDURE: The procedure, risks and benefits were discussed with Ms. Prince and informed consent was obtained. Anesthesia sedated her with Diprivan. She was placed in the left lateral decubitus position. EGD: The Pentax videoscope was introduced through the oropharynx and advanced to the second portion of the duodenum under direct visualization. Retroflexion was performed in the stomach. Biopsy from the body of the stomach Colonoscopy: The Pentax videoscope was introduced through the rectum and advanced to cecum. Retroflexion was performed in the rectum. Colonic prep was good, biopsy from the descending colon ESTIMATED BLOOD LOSS: None SPECIMENS REMOVED: Body of the stomach Descending colon from ischemia COMPLICATIONS: None IMPRESSION: Moderate size hiatal hernia was gastritis and maybe some erythema inside the hernia sac, no sign of active bleeding, biopsy was done otherwise normal Colonoscopy showed severe ischemic changes with deep ulcerations in the sigmoid colon and descending colon no active bleeding but most likely this is the reason for the rectal bleed, patient also has scattered diverticular disease PLAN: Clear liquid Follow-up biopsy Avoid constipation or straining I discussed the case with the family and with oncology team Dr. Bess May consider CTA if that the patient and family desire to proceed with that to rule out vascular abnormality that may require attention, Dr. Bess we'll discuss that with the patient Catracho Main MD Nov 05, 2017 13:31
--- NOTE | 2017-11-05 13:36 | HHI.GIFU ---
Subjective Remarks Patient was laying in bed comfortably, she took her prep today partially, no sign of active bleeding, hemoglobin is stable Objective Vitals I&O Vital Signs Date Time Temp Pulse Resp B/P (MAP) Pulse Ox O2 Delivery O2 Flow Rate FiO2 11/05/17 12:00 96.2 101 19 121/58 (79) 92 11/05/17 11:05 101 19 99/52 (68) 95 Nasal Cannula 5 11/05/17 10:51 98.2 105 19 100/49 (66) 93 Nasal Cannula 5 11/05/17 08:00 97.4 112 16 108/52 (70) 95 11/05/17 04:00 97.1 101 19 120/59 (79) 97 11/05/17 00:00 97.1 98 19 125/58 (80) 95 11/04/17 20:00 96.9 112 19 120/57 (78) 94 11/04/17 18:00 98.4 106 20 121/57 (78) 95 11/04/17 15:48 98.8 93 20 128/59 (82) 96 I/O 11/04/17 11/04/17 11/04/17 11/05/17 11/05/17 11/05/17 07:00 15:00 23:00 07:00 15:00 23:00 Intake Total 1100 ml 1100 ml 800 ml Balance 1100 ml 1100 ml 800 ml Intake Oral 0 ml IV Total 1100 ml 1100 ml Other 800 ml # Voids 2 # Bowel Movements 1 2 Laboratory Laboratory Tests Test 11/04/17 22:57 Hemoglobin 11.0 Hematocrit 34.5 Physical Exam HEENT: PERRL; normocephalic; atraumatic; no jaundice. CHEST: CTA CARDIAC: RRR ABDOMEN: Soft, nondistended, nontender; no hepatosplenomegaly; bowel sounds are present in all four quadrants. EXTREMITIES: No clubbing, cyanosis, or edema. SKIN: Normal; no rash; no jaundice. SINGLE RESOURCE BOSS: No focal deficits; alert and oriented times three. Assessment and Plan Plan Patient was seen and examined, no abdominal pain no active bleeding had an upper endoscopy and a colonoscopy today COMPLICATIONS: None IMPRESSION: Moderate size hiatal hernia was gastritis and maybe some erythema inside the hernia sac, no sign of active bleeding, biopsy was done otherwise normal Colonoscopy showed severe ischemic changes with deep ulcerations in the sigmoid colon and descending colon no active bleeding but most likely this is the reason for the rectal bleed, patient also has scattered diverticular disease PLAN: Clear liquid Follow-up biopsy Avoid constipation or straining I discussed the case with the family and with oncology team Dr. Bess I talked to radiology today and Dr. Mauro reviewed the CT that the patient had and he thinks that she has significant vascular disease in her abdomen that may compromise the flow , May consider CTA if that the patient and family desire to proceed with that to rule out vascular abnormality that may require attention, Dr. Bess we'll discuss that with the patient Catracho Main MD Nov 05, 2017 13:36
--- NOTE | 2017-11-05 13:47 | HHI.PR ---
Subjective Remarks Follow up GI bleeding/syncope 11/04/17-patient seen and examined; she has refused colonoscopy. H/H stable and no more GI bleed. patient had previous syncopal episodes 11/05/17-patient seen and examined, s/p panendoscopy ; still complains of some abdominal sores Objective Vitals Vital Signs Date Time Temp Pulse Resp B/P (MAP) Pulse Ox O2 Delivery O2 Flow Rate FiO2 11/05/17 12:00 96.2 101 19 121/58 (79) 92 11/05/17 11:05 101 19 99/52 (68) 95 Nasal Cannula 5 11/05/17 10:51 98.2 105 19 100/49 (66) 93 Nasal Cannula 5 11/05/17 08:00 97.4 112 16 108/52 (70) 95 11/05/17 04:00 97.1 101 19 120/59 (79) 97 11/05/17 00:00 97.1 98 19 125/58 (80) 95 11/04/17 20:00 96.9 112 19 120/57 (78) 94 11/04/17 18:00 98.4 106 20 121/57 (78) 95 11/04/17 15:48 98.8 93 20 128/59 (82) 96 I/O 11/04/17 11/04/17 11/04/17 11/05/17 11/05/17 11/05/17 07:00 15:00 23:00 07:00 15:00 23:00 Intake Total 1100 ml 1100 ml 800 ml Balance 1100 ml 1100 ml 800 ml Intake Oral 0 ml IV Total 1100 ml 1100 ml Other 800 ml # Voids 2 # Bowel Movements 1 2 Result Diagram: 11/04/17 2257 11/03/17 1116 Imaging Last Impressions Head CT 11/03/171108 Signed Impressions: Service Date/Time: Friday, November 03, 2017 12:00 - CONCLUSION: 1. No evidence of acute intracranial pathology. No masses are identified. Sudhakar Cerda MD Chest X-Ray 11/03/171108 Signed Impressions: Service Date/Time: Friday, November 03, 2017 11:50 - CONCLUSION: Negative for acute process. Scooby Bermudez MD FACR Abdomen/Pelvis CT 11/03/171108 Signed Impressions: Service Date/Time: Friday, November 03, 2017 12:05 - CONCLUSION: 1. Colonic diverticula with minimal induration in the region of the junction between the descending colon and sigmoid colon. Mild diverticulitis could be considered. There is a moderate amount of stool seen throughout the colon. 2. Persistent 1.1 cm pulmonary nodule in the posterior medial right lower lobe. 3. Degenerative and postoperative change in the spine. 4. Moderate hiatal hernia. Raghu Sommers MD Objective Remarks GENERAL: NAD SKIN: Warm and dry. HEAD: Normocephalic. EYES: No scleral icterus. No injection or drainage. NECK: Supple, trachea midline. No JVD or lymphadenopathy. CARDIOVASCULAR: Regular rate and rhythm without murmurs, gallops, or rubs. RESPIRATORY: Breath sounds equal bilaterally. No accessory muscle use. GASTROINTESTINAL: Abdomen soft, non-tender, nondistended. MUSCULOSKELETAL: No cyanosis, or edema. BACK: Nontender without obvious deformity. No CVA tenderness. A/P Problem List: (1) GI bleed ICD Code: K92.2 - Gastrointestinal hemorrhage, unspecified Status: Acute (2) Syncope ICD Code: R55 - Syncope and collapse Status: Acute Assessment and Plan 87-year-old female with GI bleed Gastroenterology has been consulted s/p Panendoscopy 11/05/17 pending biopsy report Serial H&H stable d/c PPI drip and continue PO PPI CT abdomen/pelvis noted Syncope Likely secondary to GI bleed Head CT noted without any intracranial abnormality 2D echo pending History of diabetes type 2 Hold oral hypoglycemic agents Sliding scale insulin History of COPD No exacerbation Continue outpatient medications Hyperlipidemia Continue statin History of Myelodysplasia appreciate input from hematology DVT prophylaxis: Chemical antiplatelet is contraindicated secondary to GI bleed- bilateral SCDs GI prophylaxis: PPI Problem Qualifiers (1) GI bleed: Qualified Codes: K92.2 - Gastrointestinal hemorrhage, unspecified (2) Syncope: Qualified Codes: R55 - Syncope and collapse Aditya Shelton MD Nov 05, 2017 13:47
--- NOTE | 2017-11-05 13:55 | PD.ONC.PN ---
Subjective Subjective Remarks Afebrile overnight. Patient just back from colonoscopy. per nurse, preliminary findings are showing ischemic bowel. final report has not been released. patient complaining of dry mouth as she is still NPO for possible surgical consult. Objective Data Date Time Temp Pulse Resp B/P (MAP) Pulse Ox O2 Delivery O2 Flow Rate FiO2 11/05/17 12:00 96.2 101 19 121/58 (79) 92 11/05/17 11:05 101 19 99/52 (68) 95 Nasal Cannula 5 11/05/17 10:51 98.2 105 19 100/49 (66) 93 Nasal Cannula 5 11/05/17 08:00 97.4 112 16 108/52 (70) 95 11/05/17 04:00 97.1 101 19 120/59 (79) 97 11/05/17 00:00 97.1 98 19 125/58 (80) 95 11/04/17 20:00 96.9 112 19 120/57 (78) 94 11/04/17 18:00 98.4 106 20 121/57 (78) 95 11/04/17 15:48 98.8 93 20 128/59 (82) 96 11/05/17 11/05/17 11/05/17 07:00 15:00 23:00 Intake Total 1100 ml 800 ml Balance 1100 ml 800 ml Result Diagram: 11/04/17 2257 11/03/17 1116 Laboratory Results Laboratory Tests Test 11/04/17 22:57 Hemoglobin 11.0 GM/DL Hematocrit 34.5 % Administered Medications Medications (Trade) Dose Ordered Sig/Lyle Route PRN Reason Start Time Stop Time Status Last Admin Dose Admin Pantoprazole Sodium 80 mg/ Sodium Chloride 100 ml @ 10 mls/hr Q10H IV 11/03/17 13:09 11/05/17 05:09 Ondansetron HCl (Zofran Inj) 4 mg Q6H PRN IV PUSH NAUSEA 11/03/17 15:00 11/05/17 05:16 Sodium Chloride 1,000 ml @ 84 mls/hr [id number] IV 11/03/17 15:00 11/05/17 02:45 Amitriptyline HCl (Elavil) 75 mg HS PO 11/03/17 21:00 11/04/17 20:14 Atorvastatin Calcium (Lipitor) 20 mg HS PO 11/03/17 21:00 11/04/17 20:20 Propranolol HCl (Inderal) 10 mg DAILY PO 11/04/17 09:00 11/04/17 08:59 Objective Remarks GENERAL: elderly female, lying supine in bed resting. son at bedside. On O2 via NC SKIN: Warm and dry. HEAD: Normocephalic. EYES: No injection or drainage. NECK: Supple, trachea midline. CARDIOVASCULAR: Regular rate and rhythm RESPIRATORY: anterior hurtado clear. GASTROINTESTINAL: Abdomen soft, non-tender, nondistended. EXTREMITIES: No cyanosis NEUROLOGICAL: awake and alert. normal speech. 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 --suspected to have a low-grade idiopathic thrombocytopenic purpura that responds to steroid that she takes for her chronic obstructive pulmonary disease. -- requires no specific therapy for the small clone of B-cell lymphoma in the bone marrow or the thrombocytopenia. Plan 1. monitor H/H 2. continue supportive care Attending Statement The exam, history, and the medical decision-making described in the above note were completed with the assistance of the mid-level provider. I reviewed and agree with the findings presented. I attest that I had a [id number] encounter with the patient on the same day, and personally performed and documented my assessment and findings in the medical record. Pallor, no abdominal pain, drinking fluid well. Frequent blood draw, pt may benefit from pic line. Discussed w/ Dr. Copeland EGD/colon results. Discussed w/ pt and family, agree to work up. Proceed w/ CTA abdomen to define etiology of ischemia- reviewed with radiology concern for kidneys Discuss w/ CRS- recommend check C-diff Transfuse as needed for symptoms or hgb <8.0. Gregoria Dunne Nov 05, 2017 13:55 Junie Bess MD Nov 05, 2017 18:20
[2017-11-05] MEDS: ACETAMINOPHEN/HYDROcodone 325 MG/5 MG TAB PO PRN (14:32)
[2017-11-05 16:00] VITALS: BP 115/57; PULSE 104; RESP 17; TEMP 96.2; O2SAT 96
[2017-11-05 17:32] LABS: AUTOMATED NEUTROPHIL # 15.4 TH/MM3 (1.8-7.7); BASOPHIL % 0.1 % (0.0-2.0); HEMATOCRIT 33.5 % (35.0-46.0); HEMOGLOBIN 10.5 GM/DL (11.6-15.3); LYMPH % 2.2 % (9.0-44.0); LYMPHOCYTE # 0.4 TH/MM3 (1.0-4.8); MEAN CELL VOLUME 93.4 FL (80.0-100.0); MEAN CORPUSCULAR HEMOGLOBIN 29.1 PG (27.0-34.0); MEAN CORPUSCULAR HGB CONC 31.2 % (32.0-36.0); MEAN PLATELET VOLUME 8.3 FL (7.0-11.0); MONO % 8.5 % (0.0-8.0); MONOCYTE # 1.5 TH/MM3 (0-0.9); NEUT % 89.2 % (16.0-70.0); PLATELET COUNT 152 TH/MM3 (150-450); RED BLOOD COUNT 3.59 MIL/MM3 (4.00-5.30); RED CELL DISTRIBUTION WIDTH 15.7 % (11.6-17.2); WHITE BLOOD COUNT 17.3 TH/MM3 (4.0-11.0)
[2017-11-05] MEDS ORDERED: SODIUM CHLOR 0.9% 250 ML INJ 250 ML IV ONE (18:30)
[2017-11-05 19:36] LABS: OVALOCYTES 1+ (NORMAL)
[2017-11-05 20:00] VITALS: BP 126/58; PULSE 99; RESP 18; TEMP 97.6; O2SAT 98
[2017-11-05] MEDS: ATORVASTATIN 20 MG TAB PO SCH (20:23)
[2017-11-05] MEDS: AMITRIPTYLINE HCL 75 MG TAB PO SCH (20:23)
[2017-11-05] MEDS ORDERED: IOHEXOL 350 MG/ML 10 ML VIAL (for RAD DIAG) IVCONTRAST ONE (23:03)
--- NOTE | 2017-11-05 23:44 | RADRPT ---
EXAM DATE/TIME: 11/05/2017 21:36 [facility] COMPARISON: CT ABDOMEN & PELVIS W/O CONTRAST, November 03, 2017, 12:05. INDICATIONS : Descending colon ischemia. IV CONTRAST: 100 cc Omnipaque 350 (iohexol) IV ORAL CONTRAST: No oral contrast ingested. RADIATION DOSE: 7.75 CTDIvol (mGy) MEDICAL HISTORY : Cardiovascular disease. Aneurysm, abdominal. Hypertension.COPD. Diabetes. SURGICAL HISTORY : Appendectomy. Hysterectomy. ENCOUNTER: Initial ACUITY: 1 day PAIN SCALE: 0/10 LOCATION: abdomen TECHNIQUE: Volumetric scanning was performed using a multi-row detector CT scanner. The data was post processed with a variety of visualization algorithms including full volume maximum intensity projection, multi -planar sliding thin slab reformation, curved planar reformation, and surface rendering techniques. Using automated exposure control and adjustment of the mA and/or kV according to patient size, radiat ion dose was kept as low as reasonably achievable to obtain optimal diagnostic quality images. DICOM format image data is available electronically for review and comparison. FINDINGS: ABDOMINAL AORTA: Atherosclerotic intimal calcifications. No aneurysm. Mild atherosclerotic changes of the celiac trunk and superior mesenteric artery without significant stenosis. Mild atherosclerotic changes of the chinmay al arteries but no significant stenosis. Inferior mesenteric artery appears patent. BIFURCATION: Normal. RIGHT PELVIS: The right common iliac, internal iliac and external iliac vessels are patent without luminal irregula rity. LEFT PELVIS: The left common iliac, internal iliac and external iliac vessels are patent and without luminal irreg ularity. Diverticulosis of the sigmoid colon. Colitis of the descending colon. Moderate-sized hiatal hernia. S mall bilateral pleural effusions. Scattered retroperitoneal adenopathy. CONCLUSION: 1. Atherosclerotic changes but mesenteric arteries appear patent. 2. There is colitis of the descending colon. Aditya Vazquez MD on November 05, 2017 at 23:38 Board Certified Radiologist. This report was verified electronically.
[2017-11-06] VITALS (8 sets, daily range): BP systolic 110–151; BP diastolic 59–65; PULSE 88–115; RESP 18–22; TEMP 97.1–98.5; O2SAT 94–100
[2017-11-06] MEDS: PANTOPRAZOLE INJ 80 MG in SODIUM CHLORIDE 0.9% INJ 100 ML IV SCH ×3 (02:06→23:24)
[2017-11-06] MEDS: SODIUM CHLOR 0.9% 1000 ML INJ 1,000 ML IV SCH ×2 (02:07→14:02)
[2017-11-06 07:33] LABS: AUTOMATED NEUTROPHIL # 14.1 TH/MM3 (1.8-7.7); BASOPHIL % 0.3 % (0.0-2.0); EOSINOPHIL # 0.1 TH/MM3 (0-0.4); EOSINOPHIL % 0.4 % (0.0-4.0); HEMATOCRIT 33.4 % (35.0-46.0); HEMOGLOBIN 10.6 GM/DL (11.6-15.3); LYMPH % 3.6 % (9.0-44.0); LYMPHOCYTE # 0.6 TH/MM3 (1.0-4.8); MEAN CELL VOLUME 91.1 FL (80.0-100.0); MEAN CORPUSCULAR HEMOGLOBIN 28.9 PG (27.0-34.0); MEAN CORPUSCULAR HGB CONC 31.8 % (32.0-36.0); MEAN PLATELET VOLUME 8.3 FL (7.0-11.0); MONO % 9.2 % (0.0-8.0); MONOCYTE # 1.5 TH/MM3 (0-0.9); NEUT % 86.5 % (16.0-70.0); PLATELET COUNT 192 TH/MM3 (150-450); RED BLOOD COUNT 3.66 MIL/MM3 (4.00-5.30); RED CELL DISTRIBUTION WIDTH 15.2 % (11.6-17.2); WHITE BLOOD COUNT 16.2 TH/MM3 (4.0-11.0)
[2017-11-06 07:36] LABS: BICARBONATE 29.9 MEQ/L (21.0-32.0); CALCIUM 8.2 MG/DL (8.5-10.1); CREATININE 0.71 MG/DL (0.50-1.00)
[2017-11-06] MEDS: INSULIN ASPART SUPPLEMENTAL SCALE SQ SCH ×4 (08:00→21:00)
--- NOTE | 2017-11-06 08:45 | HHI.PR ---
Subjective Remarks Pt known to me since 1991. 87 yo with 40+ y pack history (quit 20 years ago) now with significant peripheral vascular disease and ischemic bowel on colonoscopy. She has times of lucid discussion and complete understanding and others when confused. She knows this is a "bowel attack" like a heart attack and if no repair of blood flow to bowels, she will continue to have increasing bowel ischemia. She is not interested in surgery (and saw Dr. Watson this am who advocated conservative management with advancement of diet). She is willing to consider CTA and stent if appropriate. Her family is looking at alternatives to her apartment. I can be called at [phone] to help with discussions if needed. Objective Vital Signs Date Time Temp Pulse Resp B/P (MAP) Pulse Ox O2 Delivery O2 Flow Rate FiO2 11/06/17 08:00 97.2 101 18 135/59 (84) 97 11/06/17 04:00 98.0 98 18 125/59 (81) 94 11/06/17 00:00 98.1 115 22 128/61 (83) 94 11/05/17 20:00 97.6 99 18 126/58 (80) 98 11/05/17 16:00 96.2 104 17 115/57 (76) 96 11/05/17 12:00 96.2 101 19 121/58 (79) 92 11/05/17 11:05 101 19 99/52 (68) 95 Nasal Cannula 5 11/05/17 10:51 98.2 105 19 100/49 (66) 93 Nasal Cannula 5 I/O 11/05/17 11/05/17 11/05/17 11/06/17 11/06/17 11/06/17 07:00 15:00 23:00 07:00 15:00 23:00 Intake Total 1100 ml 800 ml 2000 ml 240 ml Output Total 100 ml Balance 1100 ml 800 ml 1900 ml 240 ml Intake Oral 0 ml 900 ml 240 ml IV Total 1100 ml 1100 ml Other 800 ml Output Urine Total 100 ml # Voids 2 1 2 # Bowel Movements 2 0 1 Result Diagram: 11/06/17 0636 11/06/1736 Kasandra Escobedo MD Nov 06, 2017 08:45
[2017-11-06 08:55] LABS: BANDS 19 % (0-6); LYMPHOCYTES 3 % (9-44); METAMYELOCYTES 1 % (0-1); MONOCYTES 1 % (0-8); NEUTROPHIL # MANUAL DIFF 15.6 TH/MM3 (1.8-7.7); POLYS (SEG NEUTROPHILS) 76 % (16-70)
[2017-11-06] MEDS: SODIUM CHLORIDE 0.9% FLUSH 10 ML FLUSH IV FLUSH SCH ×2 (09:00→23:23)
[2017-11-06] MEDS: PROPRANOLOL HCL 10 MG TAB PO SCH (10:13)
--- NOTE | 2017-11-06 11:17 | PD.ONC.PN ---
Subjective Subjective Remarks Afebrile overnight. Patient resting comfortably in bed. she denies pain at present. Objective Data Date Time Temp Pulse Resp B/P (MAP) Pulse Ox O2 Delivery O2 Flow Rate FiO2 11/06/17 08:00 97.2 101 18 135/59 (84) 97 11/06/17 04:00 98.0 98 18 125/59 (81) 94 11/06/17 00:00 98.1 115 22 128/61 (83) 94 11/05/17 20:00 97.6 99 18 126/58 (80) 98 11/05/17 16:00 96.2 104 17 115/57 (76) 96 11/05/17 12:00 96.2 101 19 121/58 (79) 92 11/06/17 11/06/17 11/06/17 07:00 15:00 23:00 Intake Total 240 ml Balance 240 ml Result Diagram: 11/06/17 0636 11/06/17 0636 Laboratory Results Laboratory Tests Test 11/05/17 16:05 11/06/17 06:36 White Blood Count 17.3 TH/MM3 16.2 TH/MM3 Red Blood Count 3.59 MIL/MM3 3.66 MIL/MM3 Hemoglobin 10.5 GM/DL 10.6 GM/DL Hematocrit 33.5 % 33.4 % Mean Corpuscular Volume 93.4 FL 91.1 FL Mean Corpuscular Hemoglobin 29.1 PG 28.9 PG Mean Corpuscular Hemoglobin Concent 31.2 % 31.8 % Red Cell Distribution Width 15.7 % 15.2 % Platelet Count 152 TH/MM3 192 TH/MM3 Mean Platelet Volume 8.3 FL 8.3 FL Neutrophils (%) (Auto) 89.2 % 86.5 % Lymphocytes (%) (Auto) 2.2 % 3.6 % Monocytes (%) (Auto) 8.5 % 9.2 % Eosinophils (%) (Auto) 0.0 % 0.4 % Basophils (%) (Auto) 0.1 % 0.3 % Neutrophils # (Auto) 15.4 TH/MM3 14.1 TH/MM3 Lymphocytes # (Auto) 0.4 TH/MM3 0.6 TH/MM3 Monocytes # (Auto) 1.5 TH/MM3 1.5 TH/MM3 Eosinophils # (Auto) 0.0 TH/MM3 0.1 TH/MM3 Basophils # (Auto) 0.0 TH/MM3 0.0 TH/MM3 CBC Comment AUTO DIFF AUTO DIFF Differential Comment AUTO DIFF CONFIRMED FINAL DIFF MANUAL Platelet Estimate NORMAL NORMAL Platelet Morphology Comment NORMAL NORMAL Ovalocytes 1+ Differential Total Cells Counted 100 Neutrophils % (Manual) 76 % Band Neutrophils % 19 % Lymphocytes % 3 % Monocytes % 1 % Neutrophils # (Manual) 15.6 TH/MM3 Metamyelocytes 1 % Red Cell Morphology Comment Blood Urea Nitrogen 13 MG/DL Creatinine 0.71 MG/DL Random Glucose 105 MG/DL Calcium Level 8.2 MG/DL Sodium Level 141 MEQ/L Potassium Level 3.8 MEQ/L Chloride Level 108 MEQ/L Carbon Dioxide Level 29.9 MEQ/L Anion Gap 3 MEQ/L Estimat Glomerular Filtration Rate 78 ML/MIN Administered Medications Medications (Trade) Dose Ordered Sig/Lyle Route PRN Reason Start Time Stop Time Status Last Admin Dose Admin Pantoprazole Sodium 80 mg/ Sodium Chloride 100 ml @ 10 mls/hr Q10H IV 11/03/17 13:09 11/06/17 02:06 Sodium Chloride (NS Flush) 2 ml BID IV FLUSH 11/03/17 21:00 11/05/17 20:23 Ondansetron HCl (Zofran Inj) 4 mg Q6H PRN IV PUSH NAUSEA 11/03/17 15:00 11/05/17 05:16 Sodium Chloride 1,000 ml @ 70 mls/hr [id number] IV 11/03/17 15:00 11/06/17 02:07 Amitriptyline HCl (Elavil) 75 mg HS PO 11/03/17 21:00 11/05/17 20:23 Atorvastatin Calcium (Lipitor) 20 mg HS PO 11/03/17 21:00 11/05/17 20:23 Propranolol HCl (Inderal) 10 mg DAILY PO 11/04/17 09:00 11/06/17 10:13 Acetaminophen/ Hydrocodone Bitart ([place] 5-325 Mg) 1 tab Q4H PRN PO pain 2-10 11/05/17 14:30 11/05/17 14:32 Objective Remarks GENERAL: elderly female, sitting up in bed, watching TV in nad SKIN: Warm and dry. HEAD: Normocephalic. EYES: No injection or drainage. NECK: Supple, trachea midline. CARDIOVASCULAR: Regular rate and rhythm RESPIRATORY: diminished at bases, anterior hurtado clear. on O2 via NC GASTROINTESTINAL: Abdomen soft, non-tender, nondistended. EXTREMITIES: No cyanosis NEUROLOGICAL: awake and alert. normal speech. moving all extremities. Assessment/Plan Problem List: (1) Chronic anemia ICD Codes: D64.9 - Anemia, unspecified Plan: --CTA showed atherosclerotic changes but mesenteric arteries appear patent. 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 --suspected to have a low-grade idiopathic thrombocytopenic purpura that responds to steroid that she takes for her chronic obstructive pulmonary disease. -- requires no specific therapy for the small clone of B-cell lymphoma in the bone marrow or the thrombocytopenia. Plan 1. await Colorectal surgery 2. monitor CBC 3. continue supportive care Attending Statement The exam, history, and the medical decision-making described in the above note were completed with the assistance of the mid-level provider. I reviewed and agree with the findings presented. I attest that I had a [id number] encounter with the patient on the same day, and personally performed and documented my assessment and findings in the medical record. CT angiogram of abdomen noted. Dr. Watson consulted, met with pt. No transfusion needed so far. Continue support. No pain. Gregoria Dunne Nov 06, 2017 11:17 Junie Bess MD Nov 06, 2017 19:05
--- NOTE | 2017-11-06 12:09 | HHI.PR ---
Subjective Remarks Follow up GI bleeding/syncope 11/04/17-patient seen and examined; she has refused colonoscopy. H/H stable and no more GI bleed. patient had previous syncopal episodes 11/05/17-patient seen and examined, s/p panendoscopy ; still complains of some abdominal sores 11/06/17-patient seen and examined, states she is not feeling well. no nausea or emesis Objective Vitals Vital Signs Date Time Temp Pulse Resp B/P (MAP) Pulse Ox O2 Delivery O2 Flow Rate FiO2 11/06/17 08:00 97.2 101 18 135/59 (84) 97 11/06/17 04:00 98.0 98 18 125/59 (81) 94 11/06/17 00:00 98.1 115 22 128/61 (83) 94 11/05/17 20:00 97.6 99 18 126/58 (80) 98 11/05/17 16:00 96.2 104 17 115/57 (76) 96 I/O 11/05/17 11/05/17 11/05/17 11/06/17 11/06/17 11/06/17 07:00 15:00 23:00 07:00 15:00 23:00 Intake Total 1100 ml 800 ml 2000 ml 240 ml Output Total 100 ml Balance 1100 ml 800 ml 1900 ml 240 ml Intake Oral 0 ml 900 ml 240 ml IV Total 1100 ml 1100 ml Other 800 ml Output Urine Total 100 ml # Voids 2 1 2 # Bowel Movements 2 0 1 Result Diagram: 11/06/17 0636 11/06/17 0636 Imaging Last Impressions Abdomen/Pelvis CT 11/05/17 0000 Signed Impressions: Service Date/Time: Sunday, November 05, 2017 21:36 - CONCLUSION: 1. Atherosclerotic changes but mesenteric arteries appear patent. 2. There is colitis of the descending colon. Aditya Vazquez MD Head CT 11/03/17 1109 Signed Impressions: Service Date/Time: Friday, November 03, 2017 12:00 - CONCLUSION: 1. No evidence of acute intracranial pathology. No masses are identified. Sudhakar Cerda MD Chest X-Ray 11/03/17 110 Signed Impressions: Service Date/Time: Friday, November 03, 2017 11:50 - CONCLUSION: Negative for acute process. Scooby Bermudez MD FACR Objective Remarks GENERAL: NAD SKIN: Warm and dry. HEAD: Normocephalic. EYES: No scleral icterus. No injection or drainage. NECK: Supple, trachea midline. No JVD or lymphadenopathy. CARDIOVASCULAR: Regular rate and rhythm without murmurs, gallops, or rubs. RESPIRATORY: Breath sounds equal bilaterally. No accessory muscle use. GASTROINTESTINAL: Abdomen soft, non-tender, nondistended. MUSCULOSKELETAL: No cyanosis, or edema. BACK: Nontender without obvious deformity. No CVA tenderness. A/P Problem List: (1) GI bleed ICD Code: K92.2 - Gastrointestinal hemorrhage, unspecified Status: Acute (2) Syncope ICD Code: R55 - Syncope and collapse Status: Acute (3) Ischemia, bowel ICD Code: K55.9 - Vascular disorder of intestine, unspecified Assessment and Plan 87-year-old female with GI bleed Gastroenterology has been consulted s/p Panendoscopy 11/05/17 pending biopsy report Colonoscopy on 11/05/17 showed severe ischemic changes with deep ulcerations in the sigmoid colon and descending colon no active bleeding but most likely this is the reason for the rectal bleed, patient also has scattered diverticular disease Serial H&H stable d/c PPI drip and continue PO PPI CT abdomen/pelvis noted Ischemia, Bowel Consider CTA vs MRI abdomen Per CRS, continue with medical management Syncope Likely secondary to GI bleed Head CT noted without any intracranial abnormality 2D echo pending History of diabetes type 2 Hold oral hypoglycemic agents Sliding scale insulin History of COPD No exacerbation Continue outpatient medications Hyperlipidemia Continue statin History of Myelodysplasia appreciate input from hematology DVT prophylaxis: Chemical antiplatelet is contraindicated secondary to GI bleed- bilateral SCDs GI prophylaxis: PPI Problem Qualifiers (1) GI bleed: Qualified Codes: K92.2 - Gastrointestinal hemorrhage, unspecified (2) Syncope: Qualified Codes: R55 - Syncope and collapse Aditya Shelton MD Nov 06, 2017 12:09
--- NOTE | 2017-11-06 18:49 | ECHRPT ---
Indication: CONCLUSIONS Normal left ventricular size. Mild concentric left ventricular hypertrophy. The left ventricular systolic function is hyperdynamic with an estimated ejection fraction in the ra nge of 65- 70%. The interatrial septum not well visualized. The aortic root and proximal ascending aorta are not well visualized. Trace MR Diffuse calcification of the aortic valve. There is mild tricuspid valve regurgitation. There is estimated mild pulmonary hypertension present (range 43 mmHg). The pulmonary valve is not well visualized. The inferior vena cava was not well visualized. There is no pericardial effusion. BP: 138 / 60 HR: 115 Rhythm: MEASUREMENTS (Male / Female) Normal Values Technical Quality:Technically difficult study 2D ECHO LV Diastolic Diameter PLAX 3.2 cm 4.2 - 5.9 / 3.9 - 5.3 cm LV Systolic Diameter PLAX 2.3 cm IVS Diastolic Thickness 1.6 cm 0.6 - 1.0 / 0.6 - 0.9 cm LVPW Diastolic Thickness 0.9 cm 0.6 - 1.0 / 0.6 - 0.9 cm LV Relative Wall Thickness 0.8 M-MODE Aortic Root Diameter MM 2.9 cm LA Systolic Diameter MM 3.4 cm LA Ao Ratio MM 1.2 AV Cusp Separation MM 1.3 cm DOPPLER AV Peak Velocity 186.0 cm/s AV Peak Gradient 13.8 mmHg AV Mean Gradient 9.0 mmHg AV Velocity Time Integral 40.9 cm Mitral E Point Velocity 103.0 cm/s Mitral A Point Velocity 122.0 cm/s Mitral E to A Ratio 0.8 LV E' Lateral Velocity 7.8 cm/s Mitral E to LV E' Lateral Ratio 13.2 TR Peak Velocity 288.0 cm/s TR Peak Gradient 33.2 mmHg Right Atrial Pressure 10.0 mmHg Pulmonary Artery Systolic Pressu 43.2 mmHg Right Ventricular Systolic Press 43.2 mmHg FINDINGS LEFT VENTRICLE Normal left ventricular size. Mild concentric left ventricular hypertrophy. The left ventricular systolic function is hyperdynamic with an estimated ejection fraction in the ra nge of 65- 70%. RIGHT VENTRICLE Normal right ventricular size and systolic function. LEFT ATRIUM The left atrial size is normal. RIGHT ATRIUM The right atrial size is normal. ATRIAL SEPTUM The interatrial septum not well visualized. AORTA The aortic root and proximal ascending aorta are not well visualized. MITRAL VALVE Structurally normal mitral valve. Trace MR AORTIC VALVE Trileaflet aortic valve. Diffuse calcification of the aortic valve. TRICUSPID VALVE Structurally normal tricuspid valve. There is mild tricuspid valve regurgitation. There is estimated mild pulmonary hypertension present (range 43 mmHg). PULMONARY VALVE The pulmonary valve is not well visualized. VESSELS The inferior vena cava was not well visualized. PERICARDIUM There is no pericardial effusion. Alvaro Lozano MD, FACC (Electronically Signed) Final Date:06 November 2017 18:47
--- NOTE | 2017-11-06 20:48 | MB ---
cc: Benny Watson MD,Junie Sadler MD DATE: 11/06/2017 REASON FOR CONSULTATION: Rectal bleeding, possible ischemic colitis. HISTORY OF PRESENT ILLNESS: Ms. Prince is a very pleasant older 87-year-old female with multiple medical problems, brought to the Emergency Room several days ago for change in mental status and possible syncope. She went to the bathroom and was noted to have a syncopal episode. She was brought to the emergency room, was hypotensive. Resuscitated with IV fluids and then noted to have some blood in the stool with what was felt to be a GI bleed. Her H and H has been relatively stable. She denied any significant shortness of breath or chest pain. She reportedly had a colonoscopy about a year ago and initially refused any colon evaluation upon admission to the hospital this time. After continued bleeding the patient did undergo a colonoscopy by Dr. Main yesterday showing some friable tissue in the left colon sigmoid area, which he felt was consistent with ischemic colitis. There was no active bleeding during the colonoscopy procedure. The patient has had very little bleeding since. She has remained hemodynamically stable over the course of yesterday and today. Her hemoglobin has come down from about 11.5 to 10.6. Please see the admitting history and physical for past medical and surgical history. PERTINENT PHYSICAL EXAMINATION: GENERAL: A very pleasant older frail appearing female in no acute distress. HEENT: Remarkable for pale, dry membranes. Nonicteric sclerae. NECK: A little stiff without adenopathy. CHEST: Diminished in the bases, clear anteriorly. HEART: Had a regular rhythm, slight tachycardia. ABDOMEN: Soft and doughy, not really distended. Normal bowel sounds. No rebound or guarding or any masses. RECTAL: Anal inspection revealed blood on the anoderm. Digital exam revealed fair minimal tone with no stool in the vault and no mucosal irregularities or obstruction. Some blood on the finger. IMPRESSION: An 87-year-old female with episode of with episode of hypotension and possible syncope followed by gastrointestinal bleeding and probably ischemic colitis. She did have a CTA which shows some ____ changes to the abdominal vasculature, but no sign of any significant obstruction. She has a pretty benign examination on today's examination and her hemoglobin really has not fallen. Would continue conservative treatment for the present and advance her diet slowly. If she has no pain or tenderness and the bleeding is minimal, would probably put her back on a regular diet and see if she has any other cause for the syncope and hypotension. Any further significant bleeding or evidence of progressive ischemia ,would be happy to followup for additional workup. Benny Watson MD AHR/rt , 08:08 PM , 08:47 PM
[2017-11-06] MEDS: AMITRIPTYLINE HCL 75 MG TAB PO SCH (23:23)
[2017-11-06] MEDS: ATORVASTATIN 20 MG TAB PO SCH (23:23)
[2017-11-07] VITALS (8 sets, daily range): BP systolic 108–168; BP diastolic 55–98; PULSE 81–105; RESP 16–24; TEMP 97.8–98.6; O2SAT 94–98
[2017-11-07] MEDS: ACETAMINOPHEN/HYDROcodone 325 MG/5 MG TAB PO PRN (00:23)
[2017-11-07] MEDS: SODIUM CHLOR 0.9% 1000 ML INJ 1,000 ML IV SCH (05:17)
[2017-11-07] MEDS: PANTOPRAZOLE INJ 80 MG in SODIUM CHLORIDE 0.9% INJ 100 ML IV SCH (07:09)
[2017-11-07] MEDS: INSULIN ASPART SUPPLEMENTAL SCALE SQ SCH ×4 (08:00→21:00)
[2017-11-07] MEDS: SODIUM CHLORIDE 0.9% FLUSH 10 ML FLUSH IV FLUSH SCH ×2 (08:41→21:44)
[2017-11-07] MEDS: PROPRANOLOL HCL 10 MG TAB PO SCH (08:41)
--- NOTE | 2017-11-07 10:41 | HHI.GIFU ---
Subjective Remarks Pt resting in bed. Lethargic today. Denies bleeding, otherwise noncontributory. (Adrianna Odell) Objective Vitals I&O Vital Signs Date Time Temp Pulse Resp B/P (MAP) Pulse Ox O2 Delivery O2 Flow Rate FiO2 11/07/17 08:00 98.4 92 18 108/55 (72) 95 11/07/17 04:15 98.1 96 16 112/60 (77) 97 11/07/17 01:49 19 11/06/17 23:58 98.4 104 20 133/64 (87) 98 11/06/17 23:52 96 Nasal Cannula 3.00 11/06/17 20:00 98.5 98 19 151/65 (93) 98 11/06/17 16:11 97.6 88 18 137/63 (87) 100 11/06/17 12:15 97.1 90 18 110/59 (76) 99 I/O 11/06/17 11/06/17 11/06/17 11/07/17 11/07/17 11/07/17 07:00 15:00 23:00 07:00 15:00 23:00 Intake Total 240 ml 1100 ml 480 ml 1340 ml Balance 240 ml 1100 ml 480 ml 1340 ml Intake Oral 240 ml 480 ml 240 ml IV Total 1100 ml 1100 ml # Voids 2 2 1 # Bowel Movements 1 2 Laboratory Laboratory Tests Test 11/03/17 11:16 11/05/17 16:05 11/06/17 06:36 Prothrombin Time 10.7 SEC Prothromb Time International Ratio 1.1 RATIO Activated Partial Thromboplast Time 21.9 SEC Blood Urea Nitrogen 16 MG/DL 13 MG/DL Creatinine 1.07 MG/DL 0.71 MG/DL Random Glucose 132 MG/DL 105 MG/DL Total Protein 5.7 GM/DL Albumin 2.7 GM/DL Calcium Level 8.0 MG/DL 8.2 MG/DL Alkaline Phosphatase 107 U/L Aspartate Amino Transf (AST/SGOT) 36 U/L Alanine Aminotransferase (ALT/SGPT) 16 U/L Total Bilirubin 0.4 MG/DL Sodium Level 142 MEQ/L 141 MEQ/L Potassium Level 4.9 MEQ/L 3.8 MEQ/L Chloride Level 107 MEQ/L 108 MEQ/L Carbon Dioxide Level 28.5 MEQ/L 29.9 MEQ/L Total Creatine Kinase 94 U/L Troponin I LESS THAN 0.02 NG/ML Thyroid Stimulating Hormone 3rd Gen 5.230 uIU/ML Ovalocytes 1+ White Blood Count 16.2 TH/MM3 Red Blood Count 3.66 MIL/MM3 Hemoglobin 10.6 GM/DL Hematocrit 33.4 % Mean Corpuscular Volume 91.1 FL Mean Corpuscular Hemoglobin 28.9 PG Mean Corpuscular Hemoglobin Concent 31.8 % Red Cell Distribution Width 15.2 % Platelet Count 192 TH/MM3 Mean Platelet Volume 8.3 FL Neutrophils (%) (Auto) 86.5 % Lymphocytes (%) (Auto) 3.6 % Monocytes (%) (Auto) 9.2 % Eosinophils (%) (Auto) 0.4 % Basophils (%) (Auto) 0.3 % Neutrophils # (Auto) 14.1 TH/MM3 Lymphocytes # (Auto) 0.6 TH/MM3 Monocytes # (Auto) 1.5 TH/MM3 Eosinophils # (Auto) 0.1 TH/MM3 Basophils # (Auto) 0.0 TH/MM3 CBC Comment AUTO DIFF Differential Total Cells Counted 100 Neutrophils % (Manual) 76 % Band Neutrophils % 19 % Lymphocytes % 3 % Monocytes % 1 % Neutrophils # (Manual) 15.6 TH/MM3 Metamyelocytes 1 % Differential Comment FINAL DIFF MANUAL Platelet Estimate NORMAL Platelet Morphology Comment NORMAL Red Cell Morphology Comment Anion Gap 3 MEQ/L Estimat Glomerular Filtration Rate 78 ML/MIN Imaging Last Impressions Abdomen/Pelvis CT 11/05/17 0000 Signed Impressions: Service Date/Time: Sunday, November 05, 2017 21:36 - CONCLUSION: 1. Atherosclerotic changes but mesenteric arteries appear patent. 2. There is colitis of the descending colon. Aditya Vazquez MD Head CT 11/03/17 110 Signed Impressions: Service Date/Time: Friday, November 03, 2017 12:00 - CONCLUSION: 1. No evidence of acute intracranial pathology. No masses are identified. Sudhakar Cerda MD Chest X-Ray 11/03/171108 Signed Impressions: Service Date/Time: Friday, November 03, 2017 11:50 - CONCLUSION: Negative for acute process. Scooby Bermudez MD FACR Physical Exam HEENT: PERRL; normocephalic; atraumatic; no jaundice. CHEST: tachypneic,respirations shallow CARDIAC: RRR ABDOMEN: Soft, nondistended, nontender; no hepatosplenomegaly; bowel sounds are present in all four quadrants. EXTREMITIES: No clubbing, cyanosis, or edema. SKIN: Normal; no rash; no jaundice. SUPERVISOR SANDBLASTER: lethargic (Adrianna Odell) Assessment and Plan Plan ASSESSMENT - abd pain, hematochezia - LGIB. CT showing poss mild diverticulitis, stool throughout colon. GI consulted for GIB but patient recalls nothing. per RN she had several episodes bloody stool. no prior hx GIB. had colonoscopy "few years ago" and is refusing one now. She will refuse to drink prep. if diverticulitis is cause, colonoscopy not indicated at this time. WBC WNL. - anemia - mild, normocytic, 2/2 above 11/04 HH relatively stable, per RN she had a bloody BM over night. refusing colonoscopy,wants to eat. 11/05/17 IMPRESSION: Moderate size hiatal hernia was gastritis and maybe some erythema inside the hernia sac, no sign of active bleeding, biopsy was done otherwise normal Colonoscopy showed severe ischemic changes with deep ulcerations in the sigmoid colon and descending colon no active bleeding but most likely this is the reason for the rectal bleed, patient also has scattered diverticular disease 11/07/17 resting in bed, lethargic today. denies bleeding. BX ischemic colitis. CTA noted, showed colitis. CRS consulted, recommending conservative measures PLAN - heart healthy diet - monitor HH - transfuse if needed - supportive care pt seen by myself and Dr Main and this note is on his behalf (Adrianna Odell) Plan Patient was seen and examined agree with above note, patient is a little bit confused today but still able to answer questions patient a little bit short of breath also, Dr. Bess was in the room and she requested respiratory therapy to check her Sat and possible treatment, patient not actively bleeding, being followed by colorectal surgery, we will sign off at this time (Catracho Main MD) Adrianna Odell Nov 07, 2017 10:41 Catracho Main MD Nov 07, 2017 18:21
--- NOTE | 2017-11-07 11:32 | PD.ONC.PN ---
Subjective Subjective Remarks Afebrile overnight. Patient resting in bed in nad. No complaints. denies abdominal pain. states she noticed a little bit of blood in her stool with BM yesterday. has not had a bowel movement today. Objective Data Date Time Temp Pulse Resp B/P (MAP) Pulse Ox O2 Delivery O2 Flow Rate FiO2 11/07/17 08:00 98.4 92 18 108/55 (72) 95 11/07/17 04:15 98.1 96 16 112/60 (77) 97 11/07/17 01:49 19 11/06/17 23:58 98.4 104 20 133/64 (87) 98 11/06/17 23:52 96 Nasal Cannula 3.00 11/06/17 20:00 98.5 98 19 151/65 (93) 98 11/06/17 16:11 97.6 88 18 137/63 (87) 100 11/06/17 12:15 97.1 90 18 110/59 (76) 99 11/07/17 11/07/17 11/07/17 07:00 15:00 23:00 Intake Total 1340 ml Balance 1340 ml Result Diagram: 11/06/1736 11/06/17 0636 Administered Medications Medications (Trade) Dose Ordered Sig/Lyle Route PRN Reason Start Time Stop Time Status Last Admin Dose Admin Sodium Chloride (NS Flush) 2 ml BID IV FLUSH 11/03/17 21:00 11/06/17 23:23 Ondansetron HCl (Zofran Inj) 4 mg Q6H PRN IV PUSH NAUSEA 11/03/17 15:00 11/05/17 05:16 Amitriptyline HCl (Elavil) 75 mg HS PO 11/03/17 21:00 11/06/17 23:23 Atorvastatin Calcium (Lipitor) 20 mg HS PO 11/03/17 21:00 11/06/17 23:23 Propranolol HCl (Inderal) 10 mg DAILY PO 11/04/17 09:00 11/07/17 08:41 Acetaminophen/ Hydrocodone Bitart ([place] 5-325 Mg) 1 tab Q4H PRN PO pain 2-10 11/05/17 14:30 11/07/17 00:23 Objective Remarks GENERAL: elderly female, lying in bed watching TV in nad. SKIN: Warm and dry. HEAD: Normocephalic. EYES: No injection or drainage. NECK: Supple, trachea midline. CARDIOVASCULAR: Regular rate and rhythm RESPIRATORY:anterior hurtado clear. GASTROINTESTINAL: Abdomen soft, non-tender, nondistended. EXTREMITIES: No cyanosis NEUROLOGICAL: awake, alert. normal speech. moving extremities. Assessment/Plan Problem List: (1) Chronic anemia ICD Codes: D64.9 - Anemia, unspecified Plan: 11/07: monitor H/H, CBC pending today. --CTA showed atherosclerotic changes but mesenteric arteries appear patent. 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 --suspected to have a low-grade idiopathic thrombocytopenic purpura that responds to steroid that she takes for her chronic obstructive pulmonary disease. -- requires no specific therapy for the small clone of B-cell lymphoma in the bone marrow or the thrombocytopenia. Plan 1. continue conservative measures per Dr. Watson recommendations 2. check CBC today Attending Statement The exam, history, and the medical decision-making described in the above note were completed with the assistance of the mid-level provider. I reviewed and agree with the findings presented. I attest that I had a [id number] encounter with the patient on the same day, and personally performed and documented my assessment and findings in the medical record. PT confused with move from 1320 to 1425. Thought she was dying. Oriented to the new floor. Discussed her case w/Dr. Copeland and Dr. Watson. Continue conservative management, no surgery, transfusion ok, monitor for dark stools, cannot give ASA or anticoagulant in light of bleeding. Discussed w/ daughter Lian Galvan, coming back from [place], plan to place her in rehab possibly in [place] or SNF pending on progress. Monitor delirium, suspect sun downing, recognize me, able to orient, verbally responsive but seeming depressed and down. Case management to consult for rehab referral. Offer respiratory tx in light of her severe COPD. Gregoria Dunne Nov 07, 2017 11:32 Junie Bess MD Nov 07, 2017 18:24
[2017-11-07 12:13] LABS: AUTOMATED NEUTROPHIL # 9.6 TH/MM3 (1.8-7.7); BASOPHIL # 0.1 TH/MM3 (0-0.2); BASOPHIL % 0.4 % (0.0-2.0); EOSINOPHIL # 0.3 TH/MM3 (0-0.4); EOSINOPHIL % 2.4 % (0.0-4.0); HEMATOCRIT 33.9 % (35.0-46.0); HEMOGLOBIN 10.7 GM/DL (11.6-15.3); LYMPH % 4.5 % (9.0-44.0); LYMPHOCYTE # 0.5 TH/MM3 (1.0-4.8); MEAN CELL VOLUME 90.7 FL (80.0-100.0); MEAN CORPUSCULAR HEMOGLOBIN 28.6 PG (27.0-34.0); MEAN CORPUSCULAR HGB CONC 31.6 % (32.0-36.0); MEAN PLATELET VOLUME 7.7 FL (7.0-11.0); MONO % 11.1 % (0.0-8.0); MONOCYTE # 1.3 TH/MM3 (0-0.9); NEUT % 81.6 % (16.0-70.0); PLATELET COUNT 249 TH/MM3 (150-450); RED BLOOD COUNT 3.74 MIL/MM3 (4.00-5.30); RED CELL DISTRIBUTION WIDTH 14.9 % (11.6-17.2); WHITE BLOOD COUNT 11.8 TH/MM3 (4.0-11.0)
--- NOTE | 2017-11-07 13:09 | HHI.PR ---
Subjective Remarks Follow up GI bleeding/syncope 11/04/17-patient seen and examined; she has refused colonoscopy. H/H stable and no more GI bleed. patient had previous syncopal episodes 11/05/17-patient seen and examined, s/p panendoscopy ; still complains of some abdominal sores 11/06/17-patient seen and examined, states she is not feeling well. no nausea or emesis 11/07/17-patient seen and examined; somehow lethargic today, states she has no energy ; denies any chest pain or shortness of breath. some abdominal pain Objective Vitals Vital Signs Date Time Temp Pulse Resp B/P (MAP) Pulse Ox O2 Delivery O2 Flow Rate FiO2 11/07/17 12:30 98.5 81 16 130/60 (83) 95 11/07/17 08:00 98.4 92 18 108/55 (72) 95 11/07/17 04:15 98.1 96 16 112/60 (77) 97 11/07/17 01:49 19 11/06/17 23:58 98.4 104 20 133/64 (87) 98 11/06/17 23:52 96 Nasal Cannula 3.00 11/06/17 20:00 98.5 98 19 151/65 (93) 98 11/06/17 16:11 97.6 88 18 137/63 (87) 100 I/O 11/06/17 11/06/17 11/06/17 11/07/17 11/07/17 11/07/17 07:00 15:00 23:00 07:00 15:00 23:00 Intake Total 240 ml 1100 ml 480 ml 1340 ml Balance 240 ml 1100 ml 480 ml 1340 ml Intake Oral 240 ml 480 ml 240 ml IV Total 1100 ml 1100 ml # Voids 2 2 1 # Bowel Movements 1 2 Result Diagram: 11/07/17 1200 11/06/17 0636 Objective Remarks GENERAL: NAD SKIN: Warm and dry. HEAD: Normocephalic. EYES: No scleral icterus. No injection or drainage. NECK: Supple, trachea midline. No JVD or lymphadenopathy. CARDIOVASCULAR: Regular rate and rhythm without murmurs, gallops, or rubs. RESPIRATORY: Breath sounds equal bilaterally. No accessory muscle use. GASTROINTESTINAL: Abdomen soft, non-tender, nondistended. MUSCULOSKELETAL: No cyanosis, or edema. BACK: Nontender without obvious deformity. No CVA tenderness. A/P Problem List: (1) GI bleed ICD Code: K92.2 - Gastrointestinal hemorrhage, unspecified Status: Acute (2) Syncope ICD Code: R55 - Syncope and collapse Status: Acute (3) Ischemia, bowel ICD Code: K55.9 - Vascular disorder of intestine, unspecified Assessment and Plan 87-year-old female with GI bleed Gastroenterology has been consulted s/p Panendoscopy 11/05/17 pending biopsy report Colonoscopy on 11/05/17 showed severe ischemic changes with deep ulcerations in the sigmoid colon and descending colon no active bleeding but most likely this is the reason for the rectal bleed, patient also has scattered diverticular disease Serial H&H stable d/c PPI drip and continue PO PPI CT abdomen/pelvis noted Ischemia, Bowel Per CRS, continue with medical management ADAT Syncope Likely secondary to GI bleed Head CT noted without any intracranial abnormality 2D echo wnl History of diabetes type 2 Hold oral hypoglycemic agents Sliding scale insulin History of COPD No exacerbation Continue outpatient medications Hyperlipidemia Continue statin History of Myelodysplasia appreciate input from hematology DVT prophylaxis: Chemical antiplatelet is contraindicated secondary to GI bleed- bilateral SCDs GI prophylaxis: PPI Problem Qualifiers (1) GI bleed: Qualified Codes: K92.2 - Gastrointestinal hemorrhage, unspecified (2) Syncope: Qualified Codes: R55 - Syncope and collapse Aditya Shelton MD Nov 07, 2017 13:09
[2017-11-07] MEDS: PANTOPRAZOLE SOD 40 MG DELAYED RELEASE TAB PO SCH (15:05)
[2017-11-07] MEDS: RESP: ALBUTEROL 2.5 MG/IPRATROPIUM 0.5 MG NEB (PRN) NEB (18:22)
[2017-11-07] MEDS: RESP: ALBUTEROL 0.63 MG/3 ML NEB (SCH) NEB (20:00)
--- NOTE | 2017-11-07 21:22 | HHI.PR ---
Subjective Remarks C/R Surg afebrile, VSS UO adeq betty PO not very expressive Objective - Vital Signs Date Time Temp Pulse Resp B/P (MAP) Pulse Ox O2 Delivery O2 Flow Rate FiO2 11/07/17 20:07 96 Nasal Cannula 4.00 11/07/17 18:25 97.8 105 24 168/98 (121) Result Diagram: 11/07/17 1200 11/06/17 0636 Objective Remarks PE alert Abd - soft, full, non-tender, min tympany no BRB A/P Assessment and Plan Imp: stable, no progression of sympts Min bleeding will see prn Benny Watson MD Nov 07, 2017 21:22
[2017-11-07] MEDS: LORazepam 0.5 MG TAB PO PRN (21:42)
[2017-11-07] MEDS: AMITRIPTYLINE HCL 75 MG TAB PO SCH (21:43)
[2017-11-07] MEDS: ATORVASTATIN 20 MG TAB PO SCH (21:43)
[2017-11-08 05:38] VITALS: BP 149/90; PULSE 107; RESP 22; O2SAT 92
[2017-11-08] MEDS: INSULIN ASPART SUPPLEMENTAL SCALE SQ SCH ×4 (08:00→21:00)
[2017-11-08 08:12] VITALS: BP 121/71; PULSE 106; RESP 22; TEMP 98.4; O2SAT 100
[2017-11-08] MEDS: SODIUM CHLORIDE 0.9% FLUSH 10 ML FLUSH IV FLUSH SCH ×2 (09:00→21:40)
[2017-11-08 09:20] VITALS: O2SAT 95
[2017-11-08] MEDS: RESP: ALBUTEROL 0.63 MG/3 ML NEB (SCH) NEB ×2 (09:20→14:20)
[2017-11-08] MEDS: PROPRANOLOL HCL 10 MG TAB PO SCH (09:34)
[2017-11-08] MEDS: PANTOPRAZOLE SOD 40 MG DELAYED RELEASE TAB PO SCH (09:35)
[2017-11-08 10:55] LABS: AUTOMATED NEUTROPHIL # 8.9 TH/MM3 (1.8-7.7); BASOPHIL % 0.3 % (0.0-2.0); EOSINOPHIL # 0.1 TH/MM3 (0-0.4); EOSINOPHIL % 0.7 % (0.0-4.0); HEMATOCRIT 33.3 % (35.0-46.0); HEMOGLOBIN 10.5 GM/DL (11.6-15.3); LYMPH % 3.2 % (9.0-44.0); LYMPHOCYTE # 0.3 TH/MM3 (1.0-4.8); MEAN CELL VOLUME 90.3 FL (80.0-100.0); MEAN CORPUSCULAR HEMOGLOBIN 28.5 PG (27.0-34.0); MEAN CORPUSCULAR HGB CONC 31.6 % (32.0-36.0); MONO % 9.9 % (0.0-8.0); NEUT % 85.9 % (16.0-70.0); PLATELET COUNT 274 TH/MM3 (150-450); RED BLOOD COUNT 3.68 MIL/MM3 (4.00-5.30); RED CELL DISTRIBUTION WIDTH 14.5 % (11.6-17.2); WHITE BLOOD COUNT 10.3 TH/MM3 (4.0-11.0)
[2017-11-08 11:05] LABS: BICARBONATE 30.4 MEQ/L (21.0-32.0); CALCIUM 8.2 MG/DL (8.5-10.1); CREATININE 0.77 MG/DL (0.50-1.00)
[2017-11-08 12:11] VITALS: BP 122/68; PULSE 101; RESP 22; TEMP 98.1; O2SAT 100
[2017-11-08] MEDS: ACETAMINOPHEN/HYDROcodone 325 MG/5 MG TAB PO PRN (13:50)
--- NOTE | 2017-11-08 13:56 | PD.ONC.PN ---
Subjective Subjective Remarks Afebrile Patient confused Reports she is not sure how she is feeling Objective Data Date Time Temp Pulse Resp B/P (MAP) Pulse Ox O2 Delivery O2 Flow Rate FiO2 11/08/17 09:20 95 Nasal Cannula 5.00 11/08/17 05:38 107 22 149/90 (109) 92 11/07/17 20:07 96 Nasal Cannula 4.00 11/07/17 20:00 98.2 104 20 157/69 (98) 94 11/07/17 18:25 97.8 105 24 168/98 (121) 96 11/07/17 16:12 98.6 99 135/64 (87) 11/08/17 11/08/17 11/08/17 07:00 15:00 23:00 Intake Total 90 ml Balance 90 ml Result Diagram: 11/08/17 0948 11/08/17 1033 Laboratory Results Laboratory Tests Test 11/08/17 09:48 11/08/17 10:33 White Blood Count 10.3 TH/MM3 Red Blood Count 3.68 MIL/MM3 Hemoglobin 10.5 GM/DL Hematocrit 33.3 % Mean Corpuscular Volume 90.3 FL Mean Corpuscular Hemoglobin 28.5 PG Mean Corpuscular Hemoglobin Concent 31.6 % Red Cell Distribution Width 14.5 % Platelet Count 274 TH/MM3 Mean Platelet Volume 8.0 FL Neutrophils (%) (Auto) 85.9 % Lymphocytes (%) (Auto) 3.2 % Monocytes (%) (Auto) 9.9 % Eosinophils (%) (Auto) 0.7 % Basophils (%) (Auto) 0.3 % Neutrophils # (Auto) 8.9 TH/MM3 Lymphocytes # (Auto) 0.3 TH/MM3 Monocytes # (Auto) 1.0 TH/MM3 Eosinophils # (Auto) 0.1 TH/MM3 Basophils # (Auto) 0.0 TH/MM3 CBC Comment DIFF FINAL Differential Comment Blood Urea Nitrogen 14 MG/DL Creatinine 0.77 MG/DL Random Glucose 106 MG/DL Calcium Level 8.2 MG/DL Sodium Level 142 MEQ/L Potassium Level 4.0 MEQ/L Chloride Level 105 MEQ/L Carbon Dioxide Level 30.4 MEQ/L Anion Gap 7 MEQ/L Estimat Glomerular Filtration Rate 71 ML/MIN Administered Medications Medications (Trade) Dose Ordered Sig/Lyle Route PRN Reason Start Time Stop Time Status Last Admin Dose Admin Sodium Chloride (NS Flush) 2 ml BID IV FLUSH 11/03/17 21:00 11/08/17 09:00 Ondansetron HCl (Zofran Inj) 4 mg Q6H PRN IV PUSH NAUSEA 11/03/17 15:00 11/05/17 05:16 Amitriptyline HCl (Elavil) 75 mg HS PO 11/03/17 21:00 11/07/17 21:43 Atorvastatin Calcium (Lipitor) 20 mg HS PO 11/03/17 21:00 11/07/17 21:43 Propranolol HCl (Inderal) 10 mg DAILY PO 11/04/17 09:00 11/08/17 09:34 Albuterol/ Ipratropium (Duoneb Neb) 1 ampule Q2HR NEB PRN NEB SOB/WHEEZING 11/03/17 15:00 11/07/17 18:22 Acetaminophen/ Hydrocodone Bitart ([place] 5-325 Mg) 1 tab Q4H PRN PO pain 2-10 11/05/17 14:30 11/07/17 00:23 Lorazepam (Ativan) 0.5 mg Q8H PRN PO aggitation 11/07/17 07:15 11/07/17 21:42 Pantoprazole Sodium (Protonix) 40 mg DAILY PO 11/07/17 09:30 11/08/17 09:35 Albuterol Sulfate (Albuterol Neb) 0.63 mg Q6HR WHILE AWAKE NEB NEB 11/07/17 20:00 11/08/17 19:59 11/08/17 09:20 Objective Remarks GENERAL: Elderly female resting in bed in no obvious distress SKIN: Warm and dry. HEAD: Normocephalic. EYES: No injection or drainage. NECK: Supple, trachea midline. CARDIOVASCULAR: Regular rate and rhythm RESPIRATORY: Clear anteriorly. GASTROINTESTINAL: Abdomen soft, non-tender, nondistended. EXTREMITIES: No cyanosis. No edema NEUROLOGICAL: Awake and alert. Moving all extremities. Assessment/Plan Problem List: (1) Chronic anemia ICD Codes: D64.9 - Anemia, unspecified Status: Chronic Plan: 11/08: No obvious bleeding --CTA showed atherosclerotic changes but mesenteric arteries appear patent. 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 --suspected to have a low-grade idiopathic thrombocytopenic purpura that responds to steroid that she takes for her chronic obstructive pulmonary disease. -- requires no specific therapy for the small clone of B-cell lymphoma in the bone marrow or the thrombocytopenia. Plan 1. Monitor for bleeding; monitor CBC 2. Supportive care Ernestina Dill Nov 08, 2017 13:56 Syed Marte MD Nov 09, 2017 23:43
--- NOTE | 2017-11-08 15:06 | HHI.DS ---
Discharge Summary Admission Date Nov 03, 2017 at 14:19 Discharge Date: Nov 08, 2017 Admitting Diagnosis GI bleed. Syncope. (1) GI bleed ICD Code: K92.2 - Gastrointestinal hemorrhage, unspecified Status: Acute (2) Syncope ICD Code: R55 - Syncope and collapse Status: Acute (3) Ischemia, bowel ICD Code: K55.9 - Vascular disorder of intestine, unspecified Procedures None Brief History - From Admission HPI from the admitting physician. 87-year-old female with history of diabetes type 2, COPD was brought to the emergency department for evaluation of altered mental status change and syncope. Apparently, patient has gone to the toilet however passed out. She states she has no recollection of the events. She was brought to the emergency department she was hypotensive, diaphoretic. Although patient denies any episode of GI bleed however in the ED she was noted to have several BM with blood mixed in them. H&H was initially stable. Patient denies any current chest pain however reports some slight shortness of breath. She had colonoscopy about a year ago, however states now she would want to due to the prep. CBC/BMP: 11/08/17 0948 11/08/17 1033 Significant Findings Laboratory Tests Test 11/05/17 16:05 11/06/17 06:36 11/07/17 12:00 11/08/17 09:48 White Blood Count 17.3 TH/MM3 (4.0-11.0) 16.2 TH/MM3 (4.0-11.0) 11.8 TH/MM3 (4.0-11.0) Red Blood Count 3.59 MIL/MM3 (4.00-5.30) 3.66 MIL/MM3 (4.00-5.30) 3.74 MIL/MM3 (4.00-5.30) 3.68 MIL/MM3 (4.00-5.30) Hemoglobin 10.5 GM/DL (11.6-15.3) 10.6 GM/DL (11.6-15.3) 10.7 GM/DL (11.6-15.3) 10.5 GM/DL (11.6-15.3) Hematocrit 33.5 % (35.0-46.0) 33.4 % (35.0-46.0) 33.9 % (35.0-46.0) 33.3 % (35.0-46.0) Mean Corpuscular Hemoglobin Concent 31.2 % (32.0-36.0) 31.8 % (32.0-36.0) 31.6 % (32.0-36.0) 31.6 % (32.0-36.0) Neutrophils (%) (Auto) 89.2 % (16.0-70.0) 86.5 % (16.0-70.0) 81.6 % (16.0-70.0) 85.9 % (16.0-70.0) Lymphocytes (%) (Auto) 2.2 % (9.0-44.0) 3.6 % (9.0-44.0) 4.5 % (9.0-44.0) 3.2 % (9.0-44.0) Monocytes (%) (Auto) 8.5 % (0.0-8.0) 9.2 % (0.0-8.0) 11.1 % (0.0-8.0) 9.9 % (0.0-8.0) Neutrophils # (Auto) 15.4 TH/MM3 (1.8-7.7) 14.1 TH/MM3 (1.8-7.7) 9.6 TH/MM3 (1.8-7.7) 8.9 TH/MM3 (1.8-7.7) Lymphocytes # (Auto) 0.4 TH/MM3 (1.0-4.8) 0.6 TH/MM3 (1.0-4.8) 0.5 TH/MM3 (1.0-4.8) 0.3 TH/MM3 (1.0-4.8) Monocytes # (Auto) 1.5 TH/MM3 (0-0.9) 1.5 TH/MM3 (0-0.9) 1.3 TH/MM3 (0-0.9) 1.0 TH/MM3 (0-0.9) Ovalocytes 1+ (NORMAL) Neutrophils % (Manual) 76 % (16-70) Band Neutrophils % 19 % (0-6) Lymphocytes % 3 % (9-44) Neutrophils # (Manual) 15.6 TH/MM3 (1.8-7.7) Calcium Level 8.2 MG/DL (8.5-10.1) Chloride Level 108 MEQ/L (98-107) Anion Gap 3 MEQ/L (5-15) Estimat Glomerular Filtration Rate 78 ML/MIN (>89) Test 11/08/17 10:33 Calcium Level 8.2 MG/DL (8.5-10.1) Estimat Glomerular Filtration Rate 71 ML/MIN (>89) Imaging Last Impressions Abdomen/Pelvis CT 11/05/17 0000 Signed Impressions: Service Date/Time: Sunday, November 05, 2017 21:36 - CONCLUSION: 1. Atherosclerotic changes but mesenteric arteries appear patent. 2. There is colitis of the descending colon. Aditya Vazquez MD Head CT 11/03/17 1109 Signed Impressions: Service Date/Time: Friday, November 03, 2017 12:00 - CONCLUSION: 1. No evidence of acute intracranial pathology. No masses are identified. Sudhakar Cerda MD Chest X-Ray 11/03/17 1109 Signed Impressions: Service Date/Time: Friday, November 03, 2017 11:50 - CONCLUSION: Negative for acute process. Scooby Bermudez MD FACR PE at Discharge GENERAL: NAD CARDIOVASCULAR: Regular rate and rhythm without murmurs, gallops, or rubs. RESPIRATORY: Breath sounds equal bilaterally. No accessory muscle use. GASTROINTESTINAL: Abdomen soft, non-tender, nondistended. MUSCULOSKELETAL: No cyanosis, or edema. Pt update on day of discharge Patient reports she is feeling fatigued. Still requiring oxygen. Some intermittent confusion. Able to follow commands. Hospital Course 87-year-old female admitted and treated for the following: GI bleed Gastroenterology has been consulted s/p Panendoscopy 11/05/17 pending biopsy report Colonoscopy on 11/05/17 showed severe ischemic changes with deep ulcerations in the sigmoid colon and descending colon no active bleeding but most likely this is the reason for the rectal bleed, patient also has scattered diverticular disease Serial H&H stable Patient to continue on PO PPI CT abdomen/pelvis noted Ischemia, Bowel Per CRS, continue with medical management ADAT Syncope Likely secondary to GI bleed Head CT noted without any intracranial abnormality 2D echo wnl History of COPD No exacerbation Continue outpatient medications. Supplemental oxygen Debility: Secondary to comorbid conditions above. Patient to continue physical therapy in acute rehab. Hyperlipidemia Continue statin History of Myelodysplasia appreciate input from hematology. No new treatment indicated at this time. Social: Family is looking into [facility]. Pt Condition on Discharge: Stable Discharge Disposition: Rehab Inpatient Discharge Time: > 30 minutes Discharge Instructions DIET: Follow Instructions for: Heart Healthy Diet Activities you can perform: Regular-No Restrictions Follow up Referrals: Colorectal Surgery Gastroenterology Continued Medications: Albuterol 6.7 GM Inh (Proventil Hfa 6.7 GM Inh) 90 Mcg/Act Aer 1-2 PUFF INH Q4-6H PRN for SHORTNESS OF BREATH, #1 INHALER 0 Refills Amitriptyline (Amitriptyline) 75 Mg Tab 75 MG PO HS for Control Depression, #30 TAB 0 Refills Ascorbic Acid ER (Vitamin C ER) 500 Mg Shannan 1000 MG PO DAILY for Nutritional Supplement, TAB 0 Refills Atorvastatin (Lipitor) 20 Mg Tab 20 MG PO MONWEDFRI for Cholesterol Management, #30 TAB 0 Refills Calcium Carbonate-Vitamin D (Calcium 600/Vitamin D) 600-200 Mg-Unit Tab 2 TAB PO DAILY, TAB Cyanocobalamin (Vitamin B-12) 1,000 Mcg Tab 1000 MCG PO DAILY for Nutritional Supplement, #1 BOTTLE 0 Refills Fluticasone-Salmeterol Inh (Advair Diskus Inh) 100-50 Mcg/Blist Aer Unknown Dose INH BID for Asthma Management, #1 INHALER 0 Refills Rinse mouth after use. Ipratropium-Albuterol Neb (Duoneb) 0.5-2.5 Mg/3 Ml Neb 1 AMPULE NEB TID for Breathing Treatment for 30 Days, #30 NEBULE 0 Refills Lorazepam (Lorazepam) 0.5 Mg Tab 0.5 MG PO BID PRN for ANXIETY, TAB 0 Refills Pantoprazole (Pantoprazole) 40 Mg Tab 40 MG PO DAILY for Reflux, #30 TAB 0 Refills Potassium Gluconate (Potassium Gluconate) 595 Mg Tab 595 MG PO DAILY Propranolol (Propranolol) 10 Mg Tab 10 MG PO DAILY, #60 TAB 0 Refills [Budeson-Formot 160-4.5 Mcg Inh] () 60 PUFF AERO 1 PUFF INH Q12HR for 30 Days Discontinued Medications: Valsartan (Valsartan) 160 Mg Tab 160 MG PO DAILY, #30 TAB 0 Refills Brandi Pineda MD Nov 08, 2017 15:06
[2017-11-08 16:12] VITALS: BP 120/70; PULSE 100; RESP 22; TEMP 98.3; O2SAT 100
[2017-11-08 20:00] VITALS: BP 172/89; PULSE 97; RESP 21; TEMP 97.3; O2SAT 94
[2017-11-08] MEDS: ATORVASTATIN 20 MG TAB PO SCH (21:40)
[2017-11-08] MEDS: AMITRIPTYLINE HCL 75 MG TAB PO SCH (21:40)
[2017-11-08] MEDS: LORazepam 0.5 MG TAB PO PRN ×2 (21:45→21:46)
[2017-11-08] MEDS: D5-1/4 NS + KCL 20 MEQ INJ 1,000 ML IV SCH (22:00)
[2017-11-09] VITALS (10 sets, daily range): BP systolic 128–171; BP diastolic 67–111; PULSE 78–101; RESP 19–25; TEMP 97–99.3; O2SAT 90–100
[2017-11-09] MEDS: D5-1/4 NS + KCL 20 MEQ INJ 1,000 ML IV SCH (05:55)
[2017-11-09] MEDS: INSULIN ASPART SUPPLEMENTAL SCALE SQ SCH ×4 (08:00→21:00)
[2017-11-09] MEDS: SODIUM CHLORIDE 0.9% FLUSH 10 ML FLUSH IV FLUSH SCH ×2 (08:53→21:24)
[2017-11-09] MEDS: PANTOPRAZOLE SOD 40 MG DELAYED RELEASE TAB PO SCH (08:53)
[2017-11-09] MEDS: PROPRANOLOL HCL 10 MG TAB PO SCH (08:53)
[2017-11-09] MEDS ORDERED: amLODIPine BESYLATE 5 MG TAB PO ONE (11:30)
[2017-11-09 11:38] LABS: AUTOMATED NEUTROPHIL # 5.5 TH/MM3 (1.8-7.7); BASOPHIL % 0.6 % (0.0-2.0); EOSINOPHIL # 0.2 TH/MM3 (0-0.4); EOSINOPHIL % 2.1 % (0.0-4.0); HEMATOCRIT 35.1 % (35.0-46.0); HEMOGLOBIN 11.3 GM/DL (11.6-15.3); LYMPH % 6.2 % (9.0-44.0); LYMPHOCYTE # 0.5 TH/MM3 (1.0-4.8); MEAN CELL VOLUME 89.6 FL (80.0-100.0); MEAN CORPUSCULAR HEMOGLOBIN 28.9 PG (27.0-34.0); MEAN CORPUSCULAR HGB CONC 32.2 % (32.0-36.0); MEAN PLATELET VOLUME 7.3 FL (7.0-11.0); MONO % 16.9 % (0.0-8.0); MONOCYTE # 1.2 TH/MM3 (0-0.9); NEUT % 74.2 % (16.0-70.0); PLATELET COUNT 321 TH/MM3 (150-450); RED BLOOD COUNT 3.92 MIL/MM3 (4.00-5.30); RED CELL DISTRIBUTION WIDTH 14.7 % (11.6-17.2); WHITE BLOOD COUNT 7.4 TH/MM3 (4.0-11.0)
--- NOTE | 2017-11-09 11:41 | HHI.PR ---
Subjective Remarks Patient is worse today from a respiratory standpoint. She is wheezing and very tight. Not moving much air. Objective Vitals Vital Signs Date Time Temp Pulse Resp B/P (MAP) Pulse Ox O2 Delivery O2 Flow Rate FiO2 11/09/17 08:00 98.6 101 20 161/111 (128) 90 11/09/17 04:00 97.0 99 19 148/80 (102) 97 11/09/17 00:00 100 Nasal Cannula 4.00 11/09/17 00:00 97.5 93 20 135/85 (102) 100 11/08/17 20:00 100 Nasal Cannula 4.00 11/08/17 20:00 97.3 97 21 172/89 (116) 94 11/08/17 16:12 98.3 100 22 120/70 (87) 100 11/08/17 15:00 100 Nasal Cannula 4.00 11/08/17 12:11 98.1 101 22 122/68 (86) 100 I/O 11/08/17 11/08/17 11/08/17 11/09/17 11/09/17 11/09/17 07:00 15:00 23:00 07:00 15:00 23:00 Intake Total 90 ml 380 ml 0 ml Output Total 0 ml Balance 90 ml 380 ml 0 ml Intake Oral 90 ml 380 ml 0 ml Output Urine Total 0 ml # Voids 1 4 # Bowel Movements 2 0 Result Diagram: 11/09/17 1120 11/08/17 1033 Objective Remarks GENERAL: In respiratory distress. Audible wheezing. CARDIOVASCULAR: Rate around 105. Regular rhythm without murmurs, gallops, or rubs. RESPIRATORY: Very tight, markedly diminished breath sounds. Using accessory muscles. GASTROINTESTINAL: Abdomen soft, non-tender, nondistended. MUSCULOSKELETAL: No cyanosis, or edema. Procedures None A/P Problem List: (1) GI bleed ICD Code: K92.2 - Gastrointestinal hemorrhage, unspecified Status: Acute (2) Syncope ICD Code: R55 - Syncope and collapse Status: Acute (3) Ischemia, bowel ICD Code: K55.9 - Vascular disorder of intestine, unspecified Assessment and Plan 87-year-old female admitted with GI bleeding, ischemic bowel. Patient was due for discharge to [facility] but her respiratory status worsened: Acute respiratory failure on 11/09/16. Likely COPD exacerbation: - Stat Solumedrol, breathing treatment, ABG. Chest X-ray - May need bipap. GI bleed Gastroenterology has been consulted s/p Panendoscopy 11/05/17 pending biopsy report Colonoscopy on 11/05/17 showed severe ischemic changes with deep ulcerations in the sigmoid colon and descending colon no active bleeding but most likely this is the reason for the rectal bleed, patient also has scattered diverticular disease Serial H&H stable Patient to continue on PO PPI CT abdomen/pelvis noted HTN: Uncontrolled: Restart valsartan. continue propranolol - vasotec PRN Ischemia, Bowel Per CRS, continue with medical management ADAT Syncope Likely secondary to GI bleed Head CT noted without any intracranial abnormality 2D echo wnl Debility: Secondary to comorbid conditions above. Patient to continue physical therapy in acute rehab. Hyperlipidemia Continue statin History of Myelodysplasia appreciate input from hematology. No new treatment indicated at this time. Problem Qualifiers (1) GI bleed: Qualified Codes: K92.2 - Gastrointestinal hemorrhage, unspecified (2) Syncope: Qualified Codes: R55 - Syncope and collapse Brandi Pineda MD Nov 09, 2017 11:41
[2017-11-09] MEDS: RESP: ALBUTEROL 2.5 MG/IPRATROPIUM 0.5 MG NEB (PRN) NEB (11:57)
[2017-11-09 12:08] LABS: % SATURATION IRON PROFILE 16.3 % (20-50); IRON (FE) 43 MCG/DL (50-170); TOTAL IRON BINDING CAPACITY 263 MCG/DL (250-450)
[2017-11-09] MEDS ORDERED: VALSARTAN 160 MG TAB PO SCH (12:15)
[2017-11-09] MEDS ORDERED: ENALAPRILAT 1.25 MG/ML VIAL IV PUSH PRN (12:15)
[2017-11-09] MEDS: methylPREDNISolone SOD SUCC 40 MG/1 ML VIAL IV PUSH SCH ×2 (12:28→16:19)
[2017-11-09 12:34] LABS: FERRITIN 145 NG/ML (8-252)
--- NOTE | 2017-11-09 12:35 | RADRPT ---
EXAM DATE/TIME: 11/09/2017 12:17 [facility] COMPARISON: CT ABDOMEN & PELVIS W/O CONTRAST, November 03, 2017, 12:05. CHEST SINGLE AP, November 03, 2017, 11:50. INDICATIONS : Shortness of breath. MEDICAL HISTORY : Cardiovascular disease. Chronic obstructive pulmonary disease. Hypertension. SURGICAL HISTORY : Appendectomy. ENCOUNTER: Subsequent ACUITY: 3 days PAIN SCORE: 0/10 LOCATION: Bilateral chest FINDINGS: Increasing congestive failure with bibasilar parietal changes. Spinal similar evident. Appearance h iatal hernia. No pneumothorax. Probable small bilateral pleural effusions. CONCLUSION: Increasing congestive failure. Scooby Bermudez MD FACR on November 09, 2017 at 12:33 Board Certified Radiologist. This report was verified electronically.
[2017-11-09] MEDS ORDERED: FUROSEMIDE 40 MG/4 ML VIAL IV PUSH ONE (13:00)
[2017-11-09] MEDS ORDERED: CHLORHEXIDINE GLUCONATE 2 % 1 PACK (2 CLOTHS)(extra cloths) TOPICAL PRN (15:15)
[2017-11-09] MEDS: RESP: ALBUTEROL 2.5 MG/IPRATROPIUM 0.5 MG NEB (SCH) NEB ×2 (15:48→20:18)
[2017-11-09] MEDS ORDERED: LABETALOL HCL 100 MG/20 ML VIAL IV PUSH PRN (16:15)
[2017-11-09] MEDS: ONDANSETRON HCL 4 MG/2 ML VIAL IV PUSH PRN (16:19)
--- NOTE | 2017-11-09 17:58 | PD.CONS ---
HPI Service Critical Care Medicine Consult Requested By Reason for Consult Hypoxia Primary Care Physician Unknown History of Present Illness History of Present Illness This is a 87-year-old female that came to the emergency department for evaluation of altered mental status change and syncope on 11/03/17. Apparently, patient has gone to the toilet however passed out. In the emergency department she was hypotensive, diaphoretic. Although patient denies any episode of GI bleed however in the ED she was noted to have several BM with blood mixed in them. H&H was initially stable. She was admitted to the hospitalist service. The patient underwent a colonoscopy which revealed severe ischemic changes with deep ulcerations in the sigmoid colon and descending colon but no active bleeding at the time. 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 The patient's past medical history also includes diabetes mellitus type 2, hypercholesterolemia and hypertension. Today while on the medical floor the patient was noted to have respiratory decompensation, and required BiPAP, the patient was significantly hypertensive with a systolic blood pressure in the 190s. The patient was transferred [facility] to ICU in critical care medicine was consulted. ROS - General Review of Systems Except as stated in HPI: all other systems reviewed are Neg PFSH Past Family Social History Past Medical History COPD DM Hyperlipidemia Hypertension Past Surgical History hysterectomy appendectomy Right hip replacement Left knee replacement Reported Medications Lipitor (Atorvastatin Calcium) 20 Mg Tab 20 Mg PO MONWEDFRI Advair Diskus Inh (Fluticasone-Salmeterol Inh) 100-50 Mcg/Blist Aer Unknown Dose INH BID Rinse mouth after use. Pantoprazole (Pantoprazole Sodium) 40 Mg Tab 40 Mg PO DAILY Lorazepam 0.5 Mg Tab 0.5 Mg PO BID PRN Vitamin C ER (Ascorbic Acid) 500 Mg Shannan 1,000 Mg PO DAILY Valsartan 160 Mg Tab 160 Mg PO DAILY Propranolol (Propranolol HCl) 10 Mg Tab 10 Mg PO DAILY Potassium Gluconate 595 Mg Tab 595 Mg PO DAILY Vitamin B-12 (Cyanocobalamin) 1,000 Mcg Tab 1,000 Mcg PO DAILY Calcium 600/Vitamin D (Calcium Carbonate-Vitamin D) 600-200 Mg-Unit Tab 2 Tab PO DAILY Amitriptyline (Amitriptyline HCl) 75 Mg Tab 75 Mg PO HS Proventil Hfa 6.7 GM Inh (Albuterol Sulfate) 90 Mcg/Act Aer 1-2 Puff INH Q4-6H PRN Allergies: Coded Allergies: enoxaparin (Unverified Allergy, Mild, Flushing,pruritus, 11/03/17) Family History Family history positive for DM Social History occasional etoh no tobacco products denies illicit drug use Physical Exam Vital Signs Vital Signs Date Time Temp Pulse Resp B/P (MAP) Pulse Ox O2 Delivery O2 Flow Rate FiO2 11/09/17 17:07 92 35 11/09/17 15:00 100 Bi-Pap 35 11/09/17 13:00 96 35 11/09/17 12:00 97.8 78 20 171/70 (103) 92 11/09/17 11:57 93 Nasal Cannula 3.50 11/09/17 08:00 98.6 101 20 161/111 (128) 90 11/09/17 04:00 97.0 99 19 148/80 (102) 97 11/09/17 00:00 100 Nasal Cannula 4.00 11/09/17 00:00 97.5 93 20 135/85 (102) 100 11/08/17 20:00 100 Nasal Cannula 4.00 11/08/17 20:00 97.3 97 21 172/89 (116) 94 Laboratory Laboratory Tests Test 11/09/17 11:20 11/09/17 12:26 11/09/17 16:25 White Blood Count 7.4 Red Blood Count 3.92 Hemoglobin 11.3 Hematocrit 35.1 Mean Corpuscular Volume 89.6 Mean Corpuscular Hemoglobin 28.9 Mean Corpuscular Hemoglobin Concent 32.2 Red Cell Distribution Width 14.7 Platelet Count 321 Mean Platelet Volume 7.3 Neutrophils (%) (Auto) 74.2 Lymphocytes (%) (Auto) 6.2 Monocytes (%) (Auto) 16.9 Eosinophils (%) (Auto) 2.1 Basophils (%) (Auto) 0.6 Neutrophils # (Auto) 5.5 Lymphocytes # (Auto) 0.5 Monocytes # (Auto) 1.2 Eosinophils # (Auto) 0.2 Basophils # (Auto) 0.0 CBC Comment DIFF FINAL Differential Comment Iron Level 43 Total Iron Binding Capacity 263 Percent Iron Saturation 16.3 Ferritin 145 Vitamin B12 Level GREATER THAN 2000 Folate 20.0 Blood Gas Puncture Site RT RADIAL RT RADIAL Blood Gas Patient Temperature 98.6 98.6 Blood Gas HCO3 32 33 Blood Gas Base Excess 5.7 8.5 Blood Gas Oxygen Saturation 93 94 Arterial Blood pH 7.29 7.40 Arterial Blood Partial Pressure CO2 69 56 Arterial Blood Partial Pressure O2 73 76 Arterial Blood Oxygen Content 14.2 16.1 Arterial Blood Carboxyhemoglobin 1.1 0.8 Arterial Blood Methemoglobin 1.0 1.3 Blood Gas Hemoglobin 10.8 12.1 Oxygen Delivery Device NASAL CANNULA BIPAP Blood Gas Liter Flow 3.5 Blood Gas Inspired Oxygen 34 35 Blood Gas Ventilator Setting IPAP+15/EPAP+5 Result Diagram: 11/09/17 1120 11/08/17 1033 Imaging Last Impressions Chest X-Ray 11/09/17 0000 Signed Impressions: Service Date/Time: Thursday, November 09, 2017 12:17 - CONCLUSION: Increasing congestive failure. Scooby Bermudez MD FACR Abdomen/Pelvis CT 11/05/17 0000 Signed Impressions: Service Date/Time: Sunday, November 05, 2017 21:36 - CONCLUSION: 1. Atherosclerotic changes but mesenteric arteries appear patent. 2. There is colitis of the descending colon. Aditya Vazquez MD Head CT 11/03/17 1109 Signed Impressions: Service Date/Time: Friday, November 03, 2017 12:00 - CONCLUSION: 1. No evidence of acute intracranial pathology. No masses are identified. Sudhakar Cerda MD Septic Shock Reassessment Septic shock perfusion: reassessment completed Assessment and Plan Problem List: (1) HTN (hypertension) ICD Code: I10 - HTN (hypertension) Status: Chronic (2) DM (diabetes mellitus) ICD Code: E11.9 - DM (diabetes mellitus) Status: Chronic (3) Hyperlipemia ICD Code: E78.5 - Hyperlipemia Status: Chronic (4) COPD bronchitis ICD Code: J44.9 - COPD bronchitis Status: Acute (5) GI bleed ICD Code: K92.2 - Gastrointestinal hemorrhage, unspecified Status: Acute (6) Chronic anemia ICD Code: D64.9 - Anemia, unspecified Status: Chronic (7) Ischemia, bowel ICD Code: K55.9 - Vascular disorder of intestine, unspecified Status: Acute (8) Shortness of breath ICD Code: R06.02 - Shortness of breath Status: Acute (9) Myelodysplastic disease ICD Code: C94.6 - Myelodysplastic disease Status: Chronic Assessment and Plan Assessment This is an 87 year old female in acute hypoxic respiratory distress with noted pulmonary edema on chest x-ray. Admit to ICU. Acute hypoxic respiratory insufficiency COPD Hypertension Diabetes mellitus History of non-Hodgkin's B-cell lymphoma Hypercholesterolemia GI bleed Plan Plan by systems: Neurologic: Patient intermittently confused, GCS 14 Avoid sedative type medications Will consider melatonin 5 mg nightly as needed for insomnia Neuro checks per ICU protocol Respiratory: Duo nebs every 6 hours scheduled and every 2 hours PRN for wheezing Patient to be maintained on BiPAP 15/5 FIO2 .35% 11/09 chest [id number]-ius-rhigvmgdd edema-patient received 20 mg IV Lasix 1 dose Repeat chest x-ray in a.m. Continue the prednisolone 40 mg every 6hrs Cardiovascular: Maintain mean arterial pressure greater than 65 Labetalol 20 mg every 4 hours as needed for systolic greater than 160 Renal: Ortiz patient receiving diuretics -- Strict I/Os FEN/GI: Clear liquid diet Bowel regimen Zofran for nausea Colonoscopy- severe ischemic changes with deep ulcerations in the sigmoid colon and descending colon No active bleeding GI following-Dr. Main Heme/ID: Hematology oncology following Monitor CBC Endocrine: Sliding scale insulin Glucose monitoring per ICU protocol -- SSI Prophylaxis: GI Prophylaxis Protonic DVT Prophylaxis -- SCDs No pharmacological DVT prophylaxis at this time Lines: Peripheral IVs 2 Dispo: my billing statement This patient remains critically ill with one or more organ systems which are or may become a threat to life. I have spent in excess of 60 minutes discontinuously in the care and management of this patient. This time is exclusive of procedures, and includes, but is not limited to, evaluation of the patient, review of the medical record, discussions with family, consultants, nursing staff, or respiratory therapy, and documentation in the medical record. 11/09: Extensive discussion at bedside with Dr. Jael Escobedo, patient's daughter and patient regarding CODE STATUS, now changed to DNR. Will to be brought in by daughter Jennifer in a.m. palliative care consulted for clarification. Code Status DNR Discussed Condition With Family, daughter Alondra , Dr. Escobedo and [employer] at bedside Radha. Problem Qualifiers (1) DM (diabetes mellitus): (2) GI bleed: Qualified Codes: K92.2 - Gastrointestinal hemorrhage, unspecified Amrita Bowers MD Nov 09, 2017 17:58
[2017-11-09] MEDS: ATORVASTATIN 20 MG TAB PO SCH (21:25)
[2017-11-09] MEDS: AMITRIPTYLINE HCL 75 MG TAB PO SCH (21:25)
[2017-11-10] VITALS (17 sets, daily range): BP systolic 85–146; BP diastolic 43–68; PULSE 92–114; RESP 14–36; TEMP 98.6–99.4; O2SAT 93–99
[2017-11-10] MEDS ORDERED: SODIUM CHLORID 0.9% 500 ML INJ 500 ML IV ONE (01:45)
[2017-11-10] MEDS ORDERED: TERBUTALINE INJ 1 MG/ML AMP SQ PRN (02:15)
[2017-11-10] MEDS: methylPREDNISolone SOD SUCC 40 MG/1 ML VIAL IV PUSH SCH ×5 (02:26→23:49)
[2017-11-10 02:48] LABS: HEMATOCRIT 35.6 % (35.0-46.0); HEMOGLOBIN 11.7 GM/DL (11.6-15.3); MEAN CELL VOLUME 88.3 FL (80.0-100.0); MEAN CORPUSCULAR HEMOGLOBIN 28.9 PG (27.0-34.0); MEAN CORPUSCULAR HGB CONC 32.8 % (32.0-36.0); MEAN PLATELET VOLUME 7.8 FL (7.0-11.0); PLATELET COUNT 337 TH/MM3 (150-450); RED BLOOD COUNT 4.03 MIL/MM3 (4.00-5.30); RED CELL DISTRIBUTION WIDTH 14.6 % (11.6-17.2); WHITE BLOOD COUNT 6.7 TH/MM3 (4.0-11.0)
[2017-11-10 02:52] LABS: CALCIUM 8.4 MG/DL (8.5-10.1); CREATININE 0.68 MG/DL (0.50-1.00)
[2017-11-10] MEDS ORDERED: PHENYLEPHRINE INJ 40 MG in DEXTROSE 5% IN WATE 500 ML INJ 496 ML IV PRN ×2 (03:00)
[2017-11-10] MEDS: CHLORHEXIDINE GLUCONATE 2 % 1 PACK (2 CLOTHS)(taper/protocol) TOPICAL SCH (04:00)
--- NOTE | 2017-11-10 05:03 | RADRPT ---
EXAM DATE/TIME: 11/10/2017 04:02 [facility] COMPARISON: CHEST SINGLE AP, November 09, 2017, 12:17. INDICATIONS : Shortness of breath, possible pulmonary disease. MEDICAL HISTORY : Cardiovascular disease. Chronic obstructive pulmonary disease. Hypertension. SURGICAL HISTORY : Appendectomy. ENCOUNTER: Subsequent ACUITY: 4 - 6 days PAIN SCORE: Non-responsive. LOCATION: Bilateral chest FINDINGS: Mild bibasilar consolidation and tiny pleural effusions, unchanged. No pneumothorax. Heart size stabl e, normal. CONCLUSION: No significant change mild bibasilar consolidation and small effusions. Raghu Rueda MD on November 10, 2017 at 5:01 Board Certified Radiologist. This report was verified electronically.
[2017-11-10] MEDS: INSULIN ASPART SUPPLEMENTAL SCALE SQ SCH ×4 (08:00→21:00)
[2017-11-10] MEDS: PANTOPRAZOLE SOD 40 MG DELAYED RELEASE TAB PO SCH (08:08)
[2017-11-10] MEDS: MIRTAZAPINE 15 MG TAB PO SCH (08:08)
[2017-11-10] MEDS: SODIUM CHLORIDE 0.9% FLUSH 10 ML FLUSH IV FLUSH SCH ×2 (08:08→20:52)
[2017-11-10] MEDS: RESP: ALBUTEROL 2.5 MG/IPRATROPIUM 0.5 MG NEB (SCH) NEB ×3 (08:28→20:01)
--- NOTE | 2017-11-10 10:35 | EKG ---
Date Performed: 11/09/2017 Time Performed: 15:52:42 PTAGE: 87 years EKG: Sinus rhythm Normal ECG NO PREVIOUS TRACING DOCTOR: Sudhakar Brunson Interpretating Date/Time 11/10/2017 10:31:57
--- NOTE | 2017-11-10 11:49 | PD.ONC.PN ---
Subjective Subjective Remarks Afebrile overnight. Patient resting in bed in nad. remains dyspneic with exertion. denies abdominal pain. Objective Data Date Time Temp Pulse Resp B/P (MAP) Pulse Ox O2 Delivery O2 Flow Rate FiO2 11/10/17 11:21 94 35 11/10/17 08:28 99 Nasal Cannula 3.00 11/10/17 06:00 92 11/10/17 04:05 99 35 11/10/17 04:00 103 146/68 (94) 97 11/10/17 04:00 103 11/10/17 02:00 99 11/10/17 00:31 97 35 11/10/17 00:00 100 11/10/17 00:00 100 23 85/43 (57) 98 11/09/17 20:17 97 35 11/09/17 20:00 99.3 101 25 128/73 (91) 97 11/09/17 19:00 97 Bi-Pap 35 11/09/17 17:30 97.8 83 20 152/67 (95) 100 11/09/17 17:07 92 35 11/09/17 15:00 100 Bi-Pap 35 11/09/17 13:00 96 35 11/09/17 12:00 97.8 78 20 171/70 (103) 92 11/09/17 11:57 93 Nasal Cannula 3.50 11/10/17 11/10/17 11/10/17 07:00 15:00 23:00 Output Total 725 ml Balance -725 ml Result Diagram: 11/10/17 0231 11/10/17 0231 Laboratory Results Laboratory Tests Test 11/09/17 12:26 11/09/17 16:25 11/10/17 02:31 11/10/17 06:15 Blood Gas Puncture Site RT RADIAL RT RADIAL Blood Gas Patient Temperature 98.6 98.6 Blood Gas HCO3 32 mmol/L 33 mmol/L Blood Gas Base Excess 5.7 mmol/L 8.5 mmol/L Blood Gas Oxygen Saturation 93 % 94 % Arterial Blood pH 7.29 7.40 Arterial Blood Partial Pressure CO2 69 mmHg 56 mmHg Arterial Blood Partial Pressure O2 73 mmHg 76 mmHg Arterial Blood Oxygen Content 14.2 Vol % 16.1 Vol % Arterial Blood Carboxyhemoglobin 1.1 % 0.8 % Arterial Blood Methemoglobin 1.0 % 1.3 % Blood Gas Hemoglobin 10.8 G/DL 12.1 G/DL Oxygen Delivery Device NASAL CANNULA BIPAP Blood Gas Liter Flow 3.5 L/M Blood Gas Inspired Oxygen 34 % 35 % Blood Gas Ventilator Setting IPAP+15/EPAP+5 White Blood Count 6.7 TH/MM3 Red Blood Count 4.03 MIL/MM3 Hemoglobin 11.7 GM/DL Hematocrit 35.6 % Mean Corpuscular Volume 88.3 FL Mean Corpuscular Hemoglobin 28.9 PG Mean Corpuscular Hemoglobin Concent 32.8 % Red Cell Distribution Width 14.6 % Platelet Count 337 TH/MM3 Mean Platelet Volume 7.8 FL Blood Urea Nitrogen 13 MG/DL Creatinine 0.68 MG/DL Random Glucose 156 MG/DL Calcium Level 8.4 MG/DL Sodium Level 141 MEQ/L Potassium Level 3.8 MEQ/L Chloride Level 98 MEQ/L Carbon Dioxide Level 35.0 MEQ/L Anion Gap 8 MEQ/L Estimat Glomerular Filtration Rate 82 ML/MIN Imaging Studies Last 24 hours Impressions Chest X-Ray 11/10/17 0600 Signed Impressions: Service Date/Time: Friday, November 10, 2017 04:02 - CONCLUSION: No significant change mild bibasilar consolidation and small effusions. Raghu Rueda MD Administered Medications Medications (Trade) Dose Ordered Sig/Lyle Route PRN Reason Start Time Stop Time Status Last Admin Dose Admin Sodium Chloride (NS Flush) 2 ml BID IV FLUSH 11/03/17 21:00 11/10/17 08:08 Ondansetron HCl (Zofran Inj) 4 mg Q6H PRN IV PUSH NAUSEA 11/03/17 15:00 11/09/17 16:19 Glucagon (Glucagon Inj) 1 mg UNSCH PRN OTHER HYPOGLYCEMIA-SEE COMMENTS 11/03/17 15:00 11/08/17 17:34 Amitriptyline HCl (Elavil) 75 mg HS PO 11/03/17 21:00 11/09/17 21:25 Atorvastatin Calcium (Lipitor) 20 mg HS PO 11/03/17 21:00 11/09/17 21:25 Propranolol HCl (Inderal) 10 mg DAILY PO 11/04/17 09:00 Future Hold 11/09/17 08:53 Albuterol/ Ipratropium (Duoneb Neb) 1 ampule Q2HR NEB PRN NEB SOB/WHEEZING 11/03/17 15:00 11/09/17 11:57 Pantoprazole Sodium (Protonix) 40 mg DAILY PO 11/07/17 09:30 11/10/17 08:08 Mirtazapine (Remeron) 15 mg DAILY PO 11/10/17 09:00 11/10/17 08:08 Albuterol/ Ipratropium (Duoneb Neb) 1 ampule Q6HR WHILE AWAKE NEB NEB 11/09/17 14:00 11/10/17 08:28 Methylprednisolone Sodium Succinate (SoluMEDROL INJ) 40 mg Q6HR IV PUSH 11/09/17 12:00 11/10/17 06:09 Valsartan (Diovan) 160 mg DAILY PO 11/09/17 12:15 Future Hold 11/09/17 12:56 Enalaprilat (Vasotec Inj) 1.25 mg Q6H PRN IV PUSH SBP> OR = 180, DBP> OR = 100 11/09/17 12:15 11/09/17 14:31 Labetalol HCl (Trandate Inj) 10 mg Q6H PRN IV PUSH SBP>160, DBP>90 11/09/17 16:15 11/09/17 16:19 Objective Remarks GENERAL: Elderly female, sitting up in bed, on 3L O2 via NC SKIN: Warm and dry. HEAD: Normocephalic. EYES: No injection or drainage. NECK: Supple, trachea midline. CARDIOVASCULAR: Regular rate and rhythm RESPIRATORY: scattered rhonchi. On O2 via NC GASTROINTESTINAL: Abdomen soft, non-tender, nondistended. EXTREMITIES: No cyanosis NEUROLOGICAL: awake and alert. normal speech. moving all extremities. Assessment/Plan Problem List: (1) Chronic anemia ICD Codes: D64.9 - Anemia, unspecified Status: Chronic Plan: 11/10: H/H stable. WBC falling, will obtain differential. --CTA showed atherosclerotic changes but mesenteric arteries appear patent. --Colonoscopy showed "severe ischemic changes with deep ulcerations in the sigmoid colon and descending colon no active bleeding but most likely this is the reason for the rectal bleed, patient also has scattered diverticular disease " (2) COPD (chronic obstructive pulmonary disease) ICD Codes: J44.9 - COPD (chronic obstructive pulmonary disease) Status: Chronic Plan: --on steroids/duonebs --management per primary team. 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 --suspected to have a low-grade idiopathic thrombocytopenic purpura that responds to steroid that she takes for her chronic obstructive pulmonary disease. -- requires no specific therapy for the small clone of B-cell lymphoma in the bone marrow or the thrombocytopenia. Plan 1. check differential on CBC this AM 2. monitor H/H 3. continue steroids/duonebs per primary team. Attending Statement The exam, history, and the medical decision-making described in the above note were completed with the assistance of the mid-level provider. I reviewed and agree with the findings presented. I attest that I had a [id number] encounter with the patient on the same day, and personally performed and documented my assessment and findings in the medical record. Events over the weekend noted. Intermittently confused, family at bedside, pt looks tired but in good spirits. Discussed with Dr. Bowers, pt DNR, possibly transfer to hospice. No transfusion needed, noted NL hgb. We will follow peripherally. Emotional support provided. Gregoria Dunne Nov 10, 2017 11:49 Junie Bess MD Nov 10, 2017 23:44
--- NOTE | 2017-11-10 12:09 | HHI.CCPN ---
Subjective Remarks/Hospital Course This is a 87-year-old female that came to the emergency department for evaluation of altered mental status change and syncope on 11/03/17. Apparently, patient has gone to the toilet however passed out. In the emergency department she was hypotensive, diaphoretic. Although patient denies any episode of GI bleed however in the ED she was noted to have several BM with blood mixed in them. H&H was initially stable. She was admitted to the hospitalist service. The patient underwent a colonoscopy which revealed severe ischemic changes with deep ulcerations in the sigmoid colon and descending colon but no active bleeding at the time. 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 The patient's past medical history also includes diabetes mellitus type 2, hypercholesterolemia and hypertension. Today while on the medical floor the patient was noted to have respiratory decompensation, and required BiPAP, the patient was significantly hypertensive with a systolic blood pressure in the 190s. The patient was transferred [facility] to ICU in critical care medicine was consulted. Subjective: 11/10: The patient rested well throughout the night, predominantly on BiPAP. Decision after thorough discussion with patient and family with Dr. Escobedo present patient's CODE STATUS was changed to DNR. This a.m. patient tolerating fluids still no appetite tolerating applesauce. palliative now consulted interviewing patient and family presently. Patient may be a candidate for hospice. The patient diuresed approximately 3 L of fluid off in the last 24 hours. The patient's tolerating nasal cannula at 3 L/min intermittently every 2 -3 hours, alternating with BiPAP. Objective Vital Signs Date Time Temp Pulse Resp B/P (MAP) Pulse Ox O2 Delivery O2 Flow Rate FiO2 11/10/17 11:21 94 35 11/10/17 08:28 Nasal Cannula 3.00 11/10/17 06:00 92 11/10/17 04:00 146/68 (94) 11/10/17 00:00 23 11/09/17 20:00 99.3 Intake and Output 11/10/17 11/10/17 11/11/17 08:00 16:00 00:00 Output Total 725 ml Balance -725 ml Result Diagram: 11/10/17 0231 11/10/17 0231 Other Results Laboratory Tests Test 11/09/17 12:26 11/09/17 16:25 Blood Gas Puncture Site RT RADIAL RT RADIAL Blood Gas Patient Temperature 98.6 98.6 Blood Gas HCO3 32 mmol/L (22-26) 33 mmol/L (22-26) Blood Gas Base Excess 5.7 mmol/L (-2-2) 8.5 mmol/L (-2-2) Blood Gas Oxygen Saturation 93 % (90-100) 94 % (90-100) Arterial Blood pH 7.29 (7.380-7.420) 7.40 (7.380-7.420) Arterial Blood Partial Pressure CO2 69 mmHg (38-42) 56 mmHg (38-42) Arterial Blood Partial Pressure O2 73 mmHg (61-120) 76 mmHg (61-120) Arterial Blood Oxygen Content 14.2 Vol % (12.0-20.0) 16.1 Vol % (12.0-20.0) Arterial Blood Carboxyhemoglobin 1.1 % (0-4) 0.8 % (0-4) Arterial Blood Methemoglobin 1.0 % (0-2) 1.3 % (0-2) Blood Gas Hemoglobin 10.8 G/DL (12.0-16.0) 12.1 G/DL (12.0-16.0) Oxygen Delivery Device NASAL CANNULA BIPAP Blood Gas Liter Flow 3.5 L/M Blood Gas Inspired Oxygen 34 % 35 % Blood Gas Ventilator Setting IPAP+15/EPAP+5 Imaging Last Impressions Chest X-Ray 11/10/17 0600 Signed Impressions: Service Date/Time: Friday, November 10, 2017 04:02 - CONCLUSION: No significant change mild bibasilar consolidation and small effusions. Raghu Rueda MD Abdomen/Pelvis CT 11/05/17 0000 Signed Impressions: Service Date/Time: Sunday, November 05, 2017 21:36 - CONCLUSION: 1. Atherosclerotic changes but mesenteric arteries appear patent. 2. There is colitis of the descending colon. Aditya Vazquez MD Head CT 11/03/17 1109 Signed Impressions: Service Date/Time: Friday, November 03, 2017 12:00 - CONCLUSION: 1. No evidence of acute intracranial pathology. No masses are identified. Sudhakar Cerda MD Last Impressions Chest X-Ray 11/09/17 0000 Signed Impressions: Service Date/Time: Thursday, November 09, 2017 12:17 - CONCLUSION: Increasing congestive failure. Scooby Bermudez MD FACR Abdomen/Pelvis CT 11/05/17 0000 Signed Impressions: Service Date/Time: Sunday, November 05, 2017 21:36 - CONCLUSION: 1. Atherosclerotic changes but mesenteric arteries appear patent. 2. There is colitis of the descending colon. Aditya Vazquez MD Head CT 11/03/17 1109 Signed Impressions: Service Date/Time: Friday, November 03, 2017 12:00 - CONCLUSION: 1. No evidence of acute intracranial pathology. No masses are identified. Sudhakar Cerda MD Procedures None A/P Problem List: (1) HTN (hypertension) ICD Code: I10 - HTN (hypertension) Status: Chronic (2) DM (diabetes mellitus) ICD Code: E11.9 - DM (diabetes mellitus) Status: Chronic (3) Hyperlipemia ICD Code: E78.5 - Hyperlipemia Status: Chronic (4) COPD bronchitis ICD Code: J44.9 - COPD bronchitis Status: Acute (5) GI bleed ICD Code: K92.2 - Gastrointestinal hemorrhage, unspecified Status: Acute (6) Chronic anemia ICD Code: D64.9 - Anemia, unspecified Status: Chronic (7) Ischemia, bowel ICD Code: K55.9 - Vascular disorder of intestine, unspecified Status: Acute (8) Shortness of breath ICD Code: R06.02 - Shortness of breath Status: Acute (9) Myelodysplastic disease ICD Code: C94.6 - Myelodysplastic disease Status: Chronic Assessment and Plan Assessment This is an 87 year old female in acute hypoxic respiratory distress with noted pulmonary edema on chest x-ray. Admit to ICU. Acute hypoxic respiratory insufficiency COPD Hypertension Diabetes mellitus History of non-Hodgkin's B-cell lymphoma Hypercholesterolemia GI bleed Plan Plan by systems: Neurologic: Patient intermittently confused, GCS 14 Avoid sedative type medications Will consider melatonin 5 mg nightly as needed for insomnia Neuro checks per ICU protocol Respiratory: Duo nebs every 6 hours scheduled and every 2 hours PRN for wheezing Patient to be maintained on BiPAP 15/5 FIO2 .35%, intermittent nasal cannula as tolerated 11/10 chest [id number] consolidation Continue the prednisolone 40 mg every 6hrs Pulmonology consulted Cardiovascular: Maintain mean arterial pressure greater than 65 Labetalol 20 mg every 4 hours as needed for systolic greater than 160 Renal: Ortiz patient receiving diuretics -- Strict I/Os FEN/GI: Ensure with meals Bowel regimen Zofran for nausea Colonoscopy- severe ischemic changes with deep ulcerations in the sigmoid colon and descending colon No active bleeding GI following-Dr. Main Heme/ID: Hematology oncology following Monitor CBC Endocrine: Sliding scale insulin Glucose monitoring per ICU protocol -- SSI Prophylaxis: GI Prophylaxis Protonic DVT Prophylaxis -- SCDs No pharmacological DVT prophylaxis at this time Lines: Peripheral IVs 2 Dispo: Level 2 follow-up Discussed with daughter patient and palliative care steam pipe fitter, Ms. Tawana Paul at bedside. Family possible consideration for [facility]osp[facility] Amrita Bowers Problem Qualifiers (1) DM (diabetes mellitus): (2) GI bleed: Qualified Codes: K92.2 - Gastrointestinal hemorrhage, unspecified Amrita Bowers MD Nov 10, 2017 12:09
[2017-11-10 13:24] LABS: HEMATOCRIT 33.4 % (35.0-46.0); HEMOGLOBIN 11.6 GM/DL (11.6-15.3); MEAN CELL VOLUME 87.6 FL (80.0-100.0); MEAN CORPUSCULAR HEMOGLOBIN 30.3 PG (27.0-34.0); MEAN CORPUSCULAR HGB CONC 34.6 % (32.0-36.0); PLATELET COUNT 345 TH/MM3 (150-450); RED BLOOD COUNT 3.81 MIL/MM3 (4.00-5.30); RED CELL DISTRIBUTION WIDTH 14.6 % (11.6-17.2); WHITE BLOOD COUNT 9.4 TH/MM3 (4.0-11.0)
[2017-11-10 14:00] LABS: BANDS 4 % (0-6); LYMPHOCYTES 2 % (9-44); MONOCYTES 2 % (0-8); POLYS (SEG NEUTROPHILS) 92 % (16-70); TOXIC GRANULATION 1+ (NORMAL); TOXIC VACUOLATION PRESENT (NONE SEEN)
[2017-11-10 14:01] LABS: OVALOCYTES 1+ (NORMAL)
[2017-11-10] MEDS: RESP: ALBUTEROL 2.5 MG/IPRATROPIUM 0.5 MG NEB (PRN) NEB (15:51)
[2017-11-10] MEDS ORDERED: ALPRAZolam 0.25 MG TAB PO ONE (16:15)
[2017-11-10] MEDS ORDERED: MORPHINE SULFATE 2 MG/ML SYRINGE IM PRN (18:30)
[2017-11-10] MEDS ORDERED: MORPHINE SULFATE 2 MG/ML SYRINGE IV PRN (18:30)
[2017-11-10] MEDS ORDERED: METOPROLOL TARTRATE 5 MG/5 ML VIAL IV PUSH PRN (18:30)
--- NOTE | 2017-11-10 19:35 | PD.CONS ---
Consult Service Palliative Care . Consult Requested By Dr. Bowers . Primary Care Physician Cesar Velazquez MD (Paul) . Reason for Consultation a. To assist with evaluation and management of symptoms including: dyspnea, anxiety, pain. b. To assist medical decision maker(s) with: better understanding of current medical conditions; weighing benefits/burdens of medical treatment options; making medical treatment decisions. . HPI History of Present Illness Ms. Prince is an 87 year old female with past medical history of COPD, chronic iron deficiency anemia, ITP, arthritis, hyperlipidemia, recent diagnosis of hypertension, PVD and diabetes (recently taken off Metformin). Patient presented to [facility] emergency depart on 11/03/17 via EMS for altered mental status. She was found sitting on the toilet by her caregiver and then passed out. Upon EMS arrival she was found pale, cool, diaphoretic and hypotensive. Blood pressure was in the 50s/60s systolic. She had reported some mild abdominal cramping and several bowel movements with some blood notable. Otherwise was asymptomatic. Upon arrival to the emergency department the patient's systolic blood pressure was in the low 100s post IV fluid bolus. Blood sugar 165. Additional testing revealed: * Vital signs: Temp 97.9, pulse 87, respiration 116, oxygen saturation 100% on 2 L nasal cannula * WBC 4.5, hemoglobin 11.4, hematocrit 35.6, platelet count 130, neutrophils 76.6% * PT 10.7, INR 1.1, PTT 21.9 * BUN 16, creatinine 1.07, glucose 132, sodium 142, potassium 4.9, chloride 107 , GFR 48 * Total protein 5.7, albumin 2.7 * Alkaline phosphatase 107, AST 36, ALT 16, total bilirubin 0.4 * Total creatine kinase 94, troponin less than 0.02 * Chest x-ray - negative for acute process. * CT head - negative * CT scan abdomen/ pelvis - colonic diverticuli with minimal induration in the region of the junction between the descending colon and sigmoid colon, mild diverticulitis possible, moderate amount of stool in the colon, persistent 1.1 cm pulmonary nodule in the posterior right lower lobe, degenerative and postoperative change in the spine, moderate hiatal hernia. * Echocardiogram: EF 65-70% Gastroenterology was consulted for possible GI bleed, patient initially refused colonoscopy as she did not want to drink the prep. Dr. Bess, coil connector was consulted for known history of chronic iron deficiency anemia and ITP. On patient underwent upper endoscopy with biopsy, colonoscopy with biopsy by Dr. Main. Impression revealed moderate sized hiatal hernia with gastritis, erythema inside the hernia sac, no active bleeding, biopsy. Colonoscopy showed severe ischemic changes with deep ulcerations in the sigmoid colon and descending colon, no active bleeding, scattered diverticular disease. Colorectal surgery, Dr. Watson was consulted they elected conservative treatment for ischemic colitis. On 11/09/17 patient was noted to have respiratory decompensation, requiring BiPAP , she became hypertensive with systolic blood pressure in the 190s. [facility]at was called and she was transferred to ICU. She has continued to require BiPAP. Family elected NO CODE STATUS. Patient was diuresed approximately 3 L of fluid in 24 hours, tolerating nasal cannula alternating with BiPAP. Patient seen in ICU on BiPAP. She is difficult to understand due to mask. She nods yes to shortness of breath and anxiety. Nods no to pain, family indicates she has been complaining of chest pain. She is unable to further quantify or qualify symptoms due to respiratory status and BiPAP mask. Palliative care was consulted to assist with further clarification of treatment goals. . Function/Cognitive Trajectory Patient was living for the past 18 years at [facility]. She had assistance of the [place] on aging twice weekly to assist with bathing and light house chores. She was recently getting Meals on Wheels delivered. Her family placed her pills in her pillbox and she was able to take them independently. In the past few weeks she has had some recent decline with increased weakness, recent syncopal episode as above. She has required intermittent transfusions for her chronic iron deficiency anemia. Family reports that she was diagnosed 2 months ago with a possible lung cancer, elected no additional workup or treatment. . Review of Systems Constitutional: COMPLAINS OF: Fatigue, Change in appetite (Decreased) Respiratory: COMPLAINS OF: Shortness of breath Cardiovascular: COMPLAINS OF: Chest pain, Syncope, Dyspnea on Exertion Gastrointestinal: COMPLAINS OF: Abdominal pain, Bloody stools, Nausea Musculoskeletal: COMPLAINS OF: Back pain Neurologic: COMPLAINS OF: Poor Balance (Recent syncopal episode) Psychiatric: COMPLAINS OF: Anxiety, Depression Other ROS: ROS per patient, and family reports. Past Family Social History Coded Allergies: enoxaparin (Unverified Allergy, Mild, Flushing,pruritus, 11/03/17) Past Medical History COPD DM, type II recently taken off of metformin Hyperlipidemia Hypertension recently diagnosed Hiatal hernia Chronic iron deficiency anemia Thrombocytopenia, possible ITP Non-Hodgkin's lymphoma/B-cell neoplasm History of AVM Arthritis . Past Surgical History Hysterectomy for uterine fibroids Appendectomy Right hip pin then later replacement Left knee replacement Cataract surgery Colonoscopy . Reported Medications Reported Meds & Active Scripts Active Oxygen (O2) Device Liter MUMTAZ.CANULA CONTINUOUS Oxygen Concentrator Portable Gaseous 2 L/min via Nasal Canula Continuous For 99 months [Budeson-Formot 160-4.5 Mcg Inh] 60 PUFF Aero 1 Puff INH Q12HR 30 Days Duoneb (Ipratropium-Albuterol Neb) 0.5-2.5 Mg/3 Ml Neb 1 Ampule NEB TID 30 Days Reported Lipitor (Atorvastatin Calcium) 20 Mg Tab 20 Mg PO MONWEDFRI Advair Diskus Inh (Fluticasone-Salmeterol Inh) 100-50 Mcg/Blist Aer Unknown Dose INH BID Rinse mouth after use. Pantoprazole (Pantoprazole Sodium) 40 Mg Tab 40 Mg PO DAILY Lorazepam 0.5 Mg Tab 0.5 Mg PO BID PRN Vitamin C ER (Ascorbic Acid) 500 Mg Shannan 1,000 Mg PO DAILY Valsartan 160 Mg Tab 160 Mg PO DAILY Propranolol (Propranolol HCl) 10 Mg Tab 10 Mg PO DAILY Potassium Gluconate 595 Mg Tab 595 Mg PO DAILY Vitamin B-12 (Cyanocobalamin) 1,000 Mcg Tab 1,000 Mcg PO DAILY Calcium 600/Vitamin D (Calcium Carbonate-Vitamin D) 600-200 Mg-Unit Tab 2 Tab PO DAILY Amitriptyline (Amitriptyline HCl) 75 Mg Tab 75 Mg PO HS Proventil Hfa 6.7 GM Inh (Albuterol Sulfate) 90 Mcg/Act Aer 1-2 Puff INH Q4-6H PRN . Current Medications Medications (Trade) Dose Ordered Sig/Lyle Route Start Time Stop Time Status Last Admin (NS Flush) 2 ml UNSCH PRN IV FLUSH 11/03/17 15:00 (NS Flush) 2 ml BID IV FLUSH 11/03/17 21:00 11/10/17 08:08 (Tylenol) 650 mg Q4H PRN PO 11/03/17 15:00 (Zofran Inj) 4 mg Q6H PRN IV PUSH 11/03/17 15:00 11/09/17 16:19 (D50w (Vial) Inj) 50 ml UNSCH PRN IV PUSH 11/03/17 15:00 (Glucagon Inj) 1 mg UNSCH PRN OTHER 11/03/17 15:00 11/08/17 17:34 (NovoLOG SUPPLEMENTAL SCALE) 1 ACHS SLIDING SCALE SQ 11/03/17 17:00 11/10/17 16:35 (Elavil) 75 mg HS PO 11/03/17 21:00 11/09/17 21:25 (Lipitor) 20 mg HS PO 11/03/17 21:00 11/09/17 21:25 (Inderal) 10 mg DAILY PO 11/04/17 09:00 Future Hold 11/09/17 08:53 (Duoneb Neb) 1 ampule Q2HR NEB PRN NEB 11/03/17 15:00 11/10/17 15:51 (Protonix) 40 mg DAILY PO 11/07/17 09:30 11/10/17 08:08 (Remeron) 15 mg DAILY PO 11/10/17 09:00 11/10/17 08:08 (Duoneb Neb) 1 ampule Q6HR WHILE AWAKE NEB NEB 11/09/17 14:00 11/10/17 14:05 (SoluMEDROL INJ) 40 mg Q6HR IV PUSH 11/09/17 12:00 11/10/17 16:32 (Diovan) 160 mg DAILY PO 11/09/17 12:15 Future Hold 11/09/17 12:56 (Vasotec Inj) 1.25 mg Q6H PRN IV PUSH 11/09/17 12:15 11/09/17 14:31 Miscellaneous Information Patient in critical care unit? Ass... [id number] .XX 11/09/17 15:15 (Chlorhexidine 2% Cloth) 3 pack DAILY@04 TOPICAL 11/10/17 04:00 11/14/17 04:01 (Chlorhexidine 2% Cloth) 3 pack UNSCH PRN TOPICAL 11/09/17 15:15 11/14/17 15:00 (Trandate Inj) 10 mg Q6H PRN IV PUSH 11/09/17 16:15 11/09/17 16:19 Phenylephrine HCl 40 mg/Dextrose 500 ml @ 30 mls/hr TITRATE PRN IV 11/10/17 03:00 (Brethine Inj) 1 mg UNSCH PRN SQ 11/10/17 02:15 (Pepcid Inj) 20 mg Q12H IV PUSH 11/10/17 21:00 (Lopressor Inj) 2.5 mg Q6H PRN IV PUSH 11/10/17 18:30 (Morphine Inj) 1 mg Q4H PRN IV 11/10/17 18:30 11/10/17 18:39 Family History Family history positive for DM Substance Use Tobacco: Quit smoking 20 years ago, 40+ pack year history. Alcohol: Occasional alcohol use. Prescription med abuse: None. Illicits: None. . Psychosocial History . Lives alone at [facility]. Has been there for 18 years. Has 3 adult daughters. . Spiritual/Cultural Factors Mandaeism oleg. [facility]. . Living Will: Copy in medical record Durable Power of Saw Runner: Copy in medical record Date completed: Completed 11/09/1986 . Health Care Surrogate(s): Designated healthcare surrogate reportedly, daughter Jessica Galvan who is also the DURABLE POWER OF DIRECTOR OF MOBILE MARKETING. . Documented care wishes: Declaration dated November 09, 1986 states that the patient willfully involuntarily made her wishes known that her dying not be artificially prolonged under any circumstances set forth below: "If at any time I should have a terminal condition and my attending physician is determined that there is no recovery from such condition and my is eminent, where the application of life prolonging procedures would serve only to artificially prolong the process of dying I directed that such procedures be withheld or withdrawn and that I be permitted to naturally with only the administration of medication for the performance of any medical procedure deemed necessary to provide me with comfort, care or to alleviate pain. In the absence of my ability to give directions regarding use of such life prolonging procedures, it is my intention at this declaration she will be honored by my family and physician as a final expression of my legal right to refuse medical or surgical treatment and accept the consequences of such refusal." . Family/friends goals: Family has a good understanding of current medical condition. Open to conversations about transition to comfort, not yet ready to make this decision. . Ethical and Legal Issues Difficult to determine patient's capacity given BiPAP and inability to understand most of what she is saying. Designated healthcare surrogate reportedly, daughter Jessica Galvan who is also the DURABLE POWER OF DIRECTOR OF MOBILE MARKETING. . Physical Exam Vital Signs Date Time Temp Pulse Resp B/P (MAP) Pulse Ox O2 Delivery O2 Flow Rate FiO2 11/10/17 18:00 114 11/10/17 16:00 109 11/10/17 14:00 111 11/10/17 12:00 107 11/10/17 12:00 99.4 107 145/66 (92) 96 11/10/17 11:21 94 35 11/10/17 10:00 109 11/10/17 08:28 99 Nasal Cannula 3.00 11/10/17 08:00 98.6 92 14 144/63 (90) 94 11/10/17 08:00 92 11/10/17 07:00 93 Bi-Pap 35 11/10/17 06:00 92 11/10/17 04:05 99 35 11/10/17 04:00 103 146/68 (94) 97 11/10/17 04:00 103 11/10/17 02:00 99 11/10/17 00:31 97 35 11/10/17 00:00 100 11/10/17 00:00 100 23 85/43 (57) 98 11/09/17 20:17 97 35 11/09/17 20:00 99.3 101 25 128/73 (91) 97 11/09/17 19:00 97 Bi-Pap 35 11/10/17 11/11/17 18:59 06:59 Intake Total 325 ml Output Total 525 ml Balance -200 ml Intake Oral 325 ml Output Urine Total 525 ml # Bowel Movements 0 Exam CONSTITUTIONAL/GENERAL: This is an elderly, pale patient, with labored respirations on BiPAP. TUBES/LINES/DRAINS: BiPAP, PIV, Ortiz, SCDs. SKIN: No jaundice, rashes, or lesions. Ecchymoses on upper extremities. Multiple skin tears with dressings upper and lower extremities. Skin temperature appropriate. Not diaphoretic. HEAD: Atraumatic. Normocephalic. EYES: Pupils equal and round and reactive. Extraocular motions intact. No scleral icterus. No injection or drainage. Fundi not examined. ENT: Hearing grossly normal. Nose without bleeding or purulent drainage. Throat difficult to visualize secondary to BiPAP. NECK: Trachea midline. CARDIOVASCULAR: Tachycardic. RESPIRATORY/CHEST: Labored respirations on BiPAP. Scattered rhonchi. Diminished breath sounds bilaterally. GASTROINTESTINAL: Abdomen soft, non-tender, nondistended. Bowel sounds present. GENITOURINARY: Without palpable bladder distension. Ortiz catheter in place. MUSCULOSKELETAL: Extremities without cyanosis, or edema. No mottling or clubbing. LYMPHATICS: No palpable cervical or supraclavicular adenopathy. NEUROLOGICAL: Awake and alert. Follows commands. Moves all extremities. PSYCHIATRIC: + anxiety. . Diagnostic Tests Laboratory Laboratory Tests Test 11/08/17 09:48 11/08/17 10:33 11/09/17 11:20 11/09/17 12:26 White Blood Count 10.3 TH/MM3 (4.0-11.0) 7.4 TH/MM3 (4.0-11.0) Red Blood Count 3.68 MIL/MM3 (4.00-5.30) 3.92 MIL/MM3 (4.00-5.30) Hemoglobin 10.5 GM/DL (11.6-15.3) 11.3 GM/DL (11.6-15.3) Hematocrit 33.3 % (35.0-46.0) 35.1 % (35.0-46.0) Mean Corpuscular Volume 90.3 FL (80.0-100.0) 89.6 FL (80.0-100.0) Mean Corpuscular Hemoglobin 28.5 PG (27.0-34.0) 28.9 PG (27.0-34.0) Mean Corpuscular Hemoglobin Concent 31.6 % (32.0-36.0) 32.2 % (32.0-36.0) Red Cell Distribution Width 14.5 % (11.6-17.2) 14.7 % (11.6-17.2) Platelet Count 274 TH/MM3 (150-450) 321 TH/MM3 (150-450) Mean Platelet Volume 8.0 FL (7.0-11.0) 7.3 FL (7.0-11.0) Neutrophils (%) (Auto) 85.9 % (16.0-70.0) 74.2 % (16.0-70.0) Lymphocytes (%) (Auto) 3.2 % (9.0-44.0) 6.2 % (9.0-44.0) Monocytes (%) (Auto) 9.9 % (0.0-8.0) 16.9 % (0.0-8.0) Eosinophils (%) (Auto) 0.7 % (0.0-4.0) 2.1 % (0.0-4.0) Basophils (%) (Auto) 0.3 % (0.0-2.0) 0.6 % (0.0-2.0) Neutrophils # (Auto) 8.9 TH/MM3 (1.8-7.7) 5.5 TH/MM3 (1.8-7.7) Lymphocytes # (Auto) 0.3 TH/MM3 (1.0-4.8) 0.5 TH/MM3 (1.0-4.8) Monocytes # (Auto) 1.0 TH/MM3 (0-0.9) 1.2 TH/MM3 (0-0.9) Eosinophils # (Auto) 0.1 TH/MM3 (0-0.4) 0.2 TH/MM3 (0-0.4) Basophils # (Auto) 0.0 TH/MM3 (0-0.2) 0.0 TH/MM3 (0-0.2) CBC Comment DIFF FINAL DIFF FINAL Differential Comment Blood Urea Nitrogen 14 MG/DL (7-18) Creatinine 0.77 MG/DL (0.50-1.00) Random Glucose 106 MG/DL (74-106) Calcium Level 8.2 MG/DL (8.5-10.1) Sodium Level 142 MEQ/L (136-145) Potassium Level 4.0 MEQ/L (3.5-5.1) Chloride Level 105 MEQ/L (98-107) Carbon Dioxide Level 30.4 MEQ/L (21.0-32.0) Anion Gap 7 MEQ/L (5-15) Estimat Glomerular Filtration Rate 71 ML/MIN (>89) Iron Level 43 MCG/DL (50-170) Total Iron Binding Capacity 263 MCG/DL (250-450) Percent Iron Saturation 16.3 % (20-50) Ferritin 145 NG/ML (8-252) Vitamin B12 Level GREATER THAN 2000 PG/ML Folate 20.0 NG/ML (3.1-17.5) Blood Gas Puncture Site RT RADIAL Blood Gas Patient Temperature 98.6 Blood Gas HCO3 32 mmol/L (22-26) Blood Gas Base Excess 5.7 mmol/L (-2-2) Blood Gas Oxygen Saturation 93 % (90-100) Arterial Blood pH 7.29 (7.380-7.420) Arterial Blood Partial Pressure CO2 69 mmHg (38-42) Arterial Blood Partial Pressure O2 73 mmHg (61-120) Arterial Blood Oxygen Content 14.2 Vol % (12.0-20.0) Arterial Blood Carboxyhemoglobin 1.1 % (0-4) Arterial Blood Methemoglobin 1.0 % (0-2) Blood Gas Hemoglobin 10.8 G/DL (12.0-16.0) Oxygen Delivery Device NASAL CANNULA Blood Gas Liter Flow 3.5 L/M Blood Gas Inspired Oxygen 34 % Test 11/09/17 16:25 11/10/17 02:31 11/10/17 06:15 11/10/17 12:37 Blood Gas Puncture Site RT RADIAL Blood Gas Patient Temperature 98.6 Blood Gas HCO3 33 mmol/L (22-26) Blood Gas Base Excess 8.5 mmol/L (-2-2) Blood Gas Oxygen Saturation 94 % (90-100) Arterial Blood pH 7.40 (7.380-7.420) Arterial Blood Partial Pressure CO2 56 mmHg (38-42) Arterial Blood Partial Pressure O2 76 mmHg (61-120) Arterial Blood Oxygen Content 16.1 Vol % (12.0-20.0) Arterial Blood Carboxyhemoglobin 0.8 % (0-4) Arterial Blood Methemoglobin 1.3 % (0-2) Blood Gas Hemoglobin 12.1 G/DL (12.0-16.0) Oxygen Delivery Device BIPAP Blood Gas Ventilator Setting IPAP+15/EPAP+5 Blood Gas Inspired Oxygen 35 % White Blood Count 6.7 TH/MM3 (4.0-11.0) 9.4 TH/MM3 (4.0-11.0) Red Blood Count 4.03 MIL/MM3 (4.00-5.30) 3.81 MIL/MM3 (4.00-5.30) Hemoglobin 11.7 GM/DL (11.6-15.3) 11.6 GM/DL (11.6-15.3) Hematocrit 35.6 % (35.0-46.0) 33.4 % (35.0-46.0) Mean Corpuscular Volume 88.3 FL (80.0-100.0) 87.6 FL (80.0-100.0) Mean Corpuscular Hemoglobin 28.9 PG (27.0-34.0) 30.3 PG (27.0-34.0) Mean Corpuscular Hemoglobin Concent 32.8 % (32.0-36.0) 34.6 % (32.0-36.0) Red Cell Distribution Width 14.6 % (11.6-17.2) 14.6 % (11.6-17.2) Platelet Count 337 TH/MM3 (150-450) 345 TH/MM3 (150-450) Mean Platelet Volume 7.8 FL (7.0-11.0) 8.0 FL (7.0-11.0) Blood Urea Nitrogen 13 MG/DL (7-18) Creatinine 0.68 MG/DL (0.50-1.00) Random Glucose 156 MG/DL (74-106) Calcium Level 8.4 MG/DL (8.5-10.1) Sodium Level 141 MEQ/L (136-145) Potassium Level 3.8 MEQ/L (3.5-5.1) Chloride Level 98 MEQ/L (98-107) Carbon Dioxide Level 35.0 MEQ/L (21.0-32.0) Anion Gap 8 MEQ/L (5-15) Estimat Glomerular Filtration Rate 82 ML/MIN (>89) Nasal Screen MRSA (PCR) MRSA DETECTED (NOT DETECT) CBC Comment AUTO DIFF Differential Total Cells Counted 100 Neutrophils % (Manual) 92 % (16-70) Band Neutrophils % 4 % (0-6) Lymphocytes % 2 % (9-44) Monocytes % 2 % (0-8) Neutrophils # (Manual) 9.0 TH/MM3 (1.8-7.7) Differential Comment FINAL DIFF MANUAL Toxic Granulation 1+ (NORMAL) Toxic Vacuolation PRESENT (NONE SEEN) Platelet Estimate NORMAL (NORMAL) Platelet Morphology Comment NORMAL (NORMAL) Ovalocytes 1+ (NORMAL) Result Diagram: 11/10/17 1237 11/10/17 0231 Imaging Last Impressions Chest X-Ray 11/10/17 0600 Signed Impressions: Service Date/Time: Friday, November 10, 2017 04:02 - CONCLUSION: No significant change mild bibasilar consolidation and small effusions. Raghu Rueda MD Abdomen/Pelvis CT 11/05/17 0000 Signed Impressions: Service Date/Time: Sunday, November 05, 2017 21:36 - CONCLUSION: 1. Atherosclerotic changes but mesenteric arteries appear patent. 2. There is colitis of the descending colon. Aditya Vazquez MD Head CT 11/03/17 1109 Signed Impressions: Service Date/Time: Friday, November 03, 2017 12:00 - CONCLUSION: 1. No evidence of acute intracranial pathology. No masses are identified. Sudhakar Cerda MD Procedures * 11/05/17 - upper endoscopy/colonoscopy Other 11/05/17 pathology: - Stomach biopsy: Focal mucosal congestion - Descending colon biopsy: Ischemic colitis . Patient/Family Conference Present at Family Conference: Met with norm Crowe in consult room and Jessica via phone. Family Conference Time (mins): 60 Family Conference Location: Consult Room, Telephone Issues Discussed: * Palliative care role, purpose, approach * Additional medical, psychosocial, and spiritual history * Patients general health, functional status, and cognitive changes in the months leading up to the current hospitalization * Patient/family understanding of the current medical problems * Patient/family understanding of prognosis * Patients goals of care as best understood from advance directives and/or conversations and/or values * Current medical treatment options and benefits/burdens of those options * Likely scenarios comparing ongoing aggressive care with a transition to comfort measures only * Questions answered to the best of my ability * Palliative care contact information provided Assessment and Plan Disease Oriented Problem List: (1) Myelodysplastic disease (2) COPD (chronic obstructive pulmonary disease) (3) HTN (hypertension) (4) DM (diabetes mellitus) (5) Ischemia, bowel (6) Hyperlipemia (7) GI bleed (8) Lung mass (9) Syncope Symptom Scale: (1) Pain 0-10 Scale: Unable to quantify (2) Dyspnea 0-10 Scale: Unable to quantify Comment: due to COPD. On BiPAP alternating with NC. (3) Anxiety 0-10 Scale: Unable to quantify Pertinent Non-Medical Issues Psychosocial: . Lives in independent living at [facility]. Supported by 3 daughters, 2 live local one in [place]. Spiritual: Mandaeism oleg. [facility]. Legal:Difficult to determine patient's capacity given BiPAP and inability to understand most of what she is saying. Designated healthcare surrogate reportedly, daughter Jessica Galvan who is also the DURABLE POWER OF DIRECTOR OF MOBILE MARKETING. Ethical issues impacting care: No known concerns at this time. . Important Contacts * Jessica Galvan, daughter: [phone] (works with Dr. Escobedo) * Dr. Jael Escobedo: [phone] * Amrita Penn, daughter * Meghna Templeton, daughter . Prognosis Ms. Gaitan is an 87-year-old female with multiple medical problems who has been living independently prior to this admission. She has had some trajectory of decline over the past few months including a few recent hospitalizations. She is currently on BiPAP in ICU. Hospice appropriate if goals are comfort oriented. . Code Status: No Code Plan * Difficult to determine patient's capacity given BiPAP and inability to understand most of what she is saying. Designated healthcare surrogate reportedly, daughter Jessica Galvan who is also the DURABLE POWER OF DIRECTOR OF MOBILE MARKETING. * NO CODE (DNR/DNI) * Met with Amrita montiel in consult room and Alondra present via phone: Family has a good understanding of current medical condition. Open to conversations about transition to comfort, not yet ready to make this decision. * Discussed with Dr. Bowers. Pulmonology consult pending. If medical team feels patient is hospice appropriate may be helpful to explain this to family (not in the presence of patient). * SYMPTOMS:Pain: due to debility, arthritis, chest pain etc. PRN Morphine available. Will monitor need and effect. Dyspnea: due to CHF, COPD. On BiPAP during my visit. Anxiety: due to shortness of breath. Xanax 0.25 ordered x1. No new medication recommendations at this time. * Palliative care number provided. * Palliative care will continue to follow to assist with symptom mangement and clarification of treatment goals. . Thank you for the opportunity to participate in the care of Ms. Prince. Attestation To help prompt me to consider important information that might be impacting today's encounter and assessment, information from prior notes written by myself or my colleagues may have been "brought forward" into today's note. My signature on this note, however, is an attestation that I personally performed the exam, history, and/or decision-making noted today, and, unless otherwise indicated, the interactions with patient, family, and staff as well as the review of records all occurred today. I also attest that the listed assessment and stated plan reflect my best clinical judgment today based on the combination of historical information, prior notes, and today's exam/ interactions. When time spent is documented, it refers only to time spent today by the signer, or if indicated, combined time spent today by collaborating physician/nurse practitioner. Iesha Paul Nov 10, 2017 19:35
--- NOTE | 2017-11-10 20:33 | MB ---
cc: Manolo Gutierrez MD DATE: 11/10/2017 REQUESTING PHYSICIAN: Amrita Bowers MD REASON FOR CONSULTATION: Pulmonary management for respiratory Failure. HISTORY OF PRESENT ILLNESS: Ms. Prince is a pleasant 87-year-old female who has history of COPD. She states that she uses oxygen 4-5 liters nasal cannula at home. The patient came to the emergency room. She had gone to the toilet and became passed out. The patient was brought by the [facility]. She was found to have a GI bleed. She became diaphoretic. The patient was stabilized in the hospital. She had a colonoscopy done, which shows ischemic changes. She has also history of non-Hodgkin lymphoma and ITP. [facility] was called because of her shortness of breath and high heart rate. The patient was admitted in the intensive care unit. She was found with respiratory acidosis. She used BiPAP with significant improvement. Currently, she is on nasal cannula, but she still has shortness of breath. PAST MEDICAL HISTORY: COPD, hypertension, diabetes mellitus, non-Hodgkin lymphoma, ITP, knee replacement and right hip replacement. MEDICATIONS: She is currently taking famotidine 20 mg a day, metoprolol 2.5 mg q. 6 hours p.r.n., morphine p.r.n., mirtazapine 15 mg a day, Diovan 160 mg a day, Solu-Medrol 40 mg q. 6 hours, Protonix 40 mg a day, amitriptyline 75 mg at nighttime, Lipitor 20 mg a day, albuterol, Atrovent nebulizer treatment. ALLERGIES: LOVENOX. SOCIAL HISTORY: She is a , lives alone. She has a history of smoking and history of alcohol use, which she continues. She has never worked in her life. FAMILY HISTORY: She has 3 daughters. REVIEW OF SYSTEMS: The patient says that she is independent, normally able to get up, walk around and do everything for herself. She was following with Dr. Bess and Dr. Anish Velazquez. PHYSICAL EXAMINATION: GENERAL: Elderly female, mild short of breath. VITAL SIGNS: Blood pressure 116/57, heart rate 114, respirations are 22, temperature 98.9. HEENT: Pupils are equal and reactive. She has bilateral cataract surgery done. Oral mucosa and nasal mucosa normal. NECK: Supple. JVD noted. CHEST: She has decreased chest excursion, has expiratory rhonchi. CARDIOVASCULAR: S1, S2 normal. ABDOMEN: Benign. EXTREMITIES: No edema. CENTRAL NERVOUS SYSTEM: She is alert, oriented x 3, no focal deficit. LABORATORY DATA: WBC count 9.4, hemoglobin 11.6, hematocrit 33.4, platelet count 345. Sodium 141, potassium 3.8, chloride 98, CO2 of 35, BUN 13, creatinine 0.68. Blood gas pH 7.40, pCO2 of 56, PO2 of 76 on 35% BiPAP. IMPRESSION: 1. Hypercapnic respiratory failure, improving. 2. Chronic obstructive pulmonary disease with mild exacerbation. 3. Gastrointestinal bleed. 4. History of non-Hodgkin lymphoma. 5. Idiopathic thrombocytopenic purpura. PLAN: We will give her aerosol albuterol, Atrovent, IV Solu-Medrol. I will also start her on Symbicort 160/4.5 two puffs twice a day. Supplement her oxygen to keep saturation between 88% and 92% Use BiPAP 10/5 at nighttime on an as-needed basis. Further treatment will depend on the course in the hospital. Thank you, Dr. Amrita Bowers, for this consult. MD AMINA Nielsen/OLAMIDE , 07:48 PM , 08:32 PM MTDRiddhi
[2017-11-10] MEDS: AMITRIPTYLINE HCL 75 MG TAB PO SCH (20:52)
[2017-11-10] MEDS: ATORVASTATIN 20 MG TAB PO SCH (20:52)
[2017-11-10] MEDS: FAMOTIDINE 20 MG/2 ML VIAL IV PUSH SCH (20:52)
[2017-11-11] VITALS (21 sets, daily range): BP systolic 102–168; BP diastolic 55–84; PULSE 79–114; RESP 18–35; TEMP 97.8–99; O2SAT 75–100
[2017-11-11] MEDS ORDERED: FREE WATER G-TUBE SCH
[2017-11-11] MEDS: CHLORHEXIDINE GLUCONATE 2 % 1 PACK (2 CLOTHS)(taper/protocol) TOPICAL SCH (04:00)
[2017-11-11] MEDS: methylPREDNISolone SOD SUCC 40 MG/1 ML VIAL IV PUSH SCH ×4 (05:36→23:53)
[2017-11-11 05:59] LABS: AUTOMATED NEUTROPHIL # 15.1 TH/MM3 (1.8-7.7); BASOPHIL % 0.1 % (0.0-2.0); HEMATOCRIT 32.5 % (35.0-46.0); HEMOGLOBIN 10.7 GM/DL (11.6-15.3); LYMPH % 1.9 % (9.0-44.0); LYMPHOCYTE # 0.3 TH/MM3 (1.0-4.8); MEAN CELL VOLUME 87.2 FL (80.0-100.0); MEAN CORPUSCULAR HEMOGLOBIN 28.6 PG (27.0-34.0); MEAN CORPUSCULAR HGB CONC 32.8 % (32.0-36.0); MEAN PLATELET VOLUME 7.5 FL (7.0-11.0); MONO % 4.9 % (0.0-8.0); MONOCYTE # 0.8 TH/MM3 (0-0.9); NEUT % 93.1 % (16.0-70.0); PLATELET COUNT 414 TH/MM3 (150-450); RED BLOOD COUNT 3.72 MIL/MM3 (4.00-5.30); RED CELL DISTRIBUTION WIDTH 14.5 % (11.6-17.2); WHITE BLOOD COUNT 16.2 TH/MM3 (4.0-11.0)
[2017-11-11 06:19] LABS: ALBUMIN 2.5 GM/DL (3.4-5.0); ALT (GPT) 15 U/L (10-53); AST (GOT) 16 U/L (15-37); BICARBONATE 41.2 MEQ/L (21.0-32.0); BLOOD UREA NITROGEN 17 MG/DL (7-18); CALCIUM 8.8 MG/DL (8.5-10.1); CHLORIDE 96 MEQ/L (98-107); CREATININE 0.88 MG/DL (0.50-1.00); GLOMERULAR FILTRATION RATE 61 ML/MIN (>89); GLUCOSE,RANDOM 145 MG/DL (74-106); SODIUM (NA) 143 MEQ/L (136-145)
[2017-11-11 06:21] LABS: ALKALINE PHOSPHATASE 65 U/L (45-117); TOTAL BILIRUBIN ADULT 0.2 MG/DL (0.2-1.0); TOTAL PROTEIN 5.6 GM/DL (6.4-8.2)
[2017-11-11] MEDS: RESP: ALBUTEROL 2.5 MG/IPRATROPIUM 0.5 MG NEB (SCH) NEB ×3 (07:40→20:14)
[2017-11-11] MEDS: MIRTAZAPINE 15 MG TAB PO SCH (08:52)
[2017-11-11] MEDS: FAMOTIDINE 20 MG/2 ML VIAL IV PUSH SCH ×2 (08:52→22:06)
[2017-11-11] MEDS: PANTOPRAZOLE SOD 40 MG DELAYED RELEASE TAB PO SCH (08:52)
[2017-11-11] MEDS: INSULIN ASPART SUPPLEMENTAL SCALE SQ SCH ×4 (08:53→22:07)
[2017-11-11] MEDS: SODIUM CHLORIDE 0.9% FLUSH 10 ML FLUSH IV FLUSH SCH ×2 (08:53→22:05)
--- NOTE | 2017-11-11 10:39 | HHI.PR ---
Subjective Remarks Patient markedly improved today. She is on a nasal cannula. She is alert and oriented. Objective Vitals Vital Signs Date Time Temp Pulse Resp B/P (MAP) Pulse Ox O2 Delivery O2 Flow Rate FiO2 11/11/17 09:00 99 Nasal Cannula 3.00 11/11/17 07:40 100 40 11/11/17 06:00 87 11/11/17 04:08 96 40 11/11/17 04:00 85 11/11/17 04:00 98.9 85 25 107/57 (74) 94 11/11/17 02:00 85 11/11/17 00:21 99 40 11/11/17 00:00 88 11/11/17 00:00 99.0 88 20 102/55 (71) 99 11/10/17 22:00 98 11/10/17 21:30 96 Bi-Pap 35 11/10/17 20:00 99.4 105 33 118/56 (76) 94 11/10/17 20:00 106 11/10/17 19:56 93 40 11/10/17 19:00 94 Nasal Cannula 4.00 11/10/17 18:00 114 11/10/17 16:00 109 11/10/17 16:00 98.9 114 36 116/57 (76) 93 11/10/17 14:00 111 11/10/17 12:00 107 11/10/17 12:00 99.4 107 145/66 (92) 96 11/10/17 11:21 94 35 I/O 11/10/17 11/10/17 11/10/17 11/11/17 11/11/17 11/11/17 06:59 14:59 22:59 06:59 14:59 22:59 Intake Total 325 ml 0 ml Output Total 725 ml 525 ml 300 ml Balance -725 ml -200 ml -300 ml Intake Oral 325 ml 0 ml Output Urine Total 725 ml 525 ml 300 ml # Bowel Movements 0 0 0 Result Diagram: 11/11/17 0500 11/11/17 0500 Objective Remarks GENERAL: Elderly and frail female in no apparent distress. CARDIOVASCULAR: Normal rate and regular rhythm without murmurs, gallops, or rubs. RESPIRATORY: Good respiratory efforts. Diminished breath sounds at the bases bilaterally, otherwise clear to auscultation. GASTROINTESTINAL: Abdomen soft, non-tender, non-distended. Normal active bowel sounds MUSCULOSKELETAL: Extremities without cyanosis, or edema. NEURO: Alert & Oriented x4 to person, place, time, situation. Moves all ext x4 PSYCH: Appropriate mood and affect. Procedures None A/P Problem List: (1) GI bleed ICD Code: K92.2 - Gastrointestinal hemorrhage, unspecified Status: Acute (2) Syncope ICD Code: R55 - Syncope and collapse Status: Acute (3) Ischemia, bowel ICD Code: K55.9 - Vascular disorder of intestine, unspecified Status: Acute Assessment and Plan 87-year-old female admitted with GI bleeding, ischemic bowel. Patient was due for discharge to [place] but her respiratory status worsened: Acute respiratory failure on 11/09/16. Likely COPD exacerbation: - Patient has been in the ICU on the Bipap. She has improved significantly - Continue Solu-Medrol, breathing treatments, supplemental oxygen. May need intermittent BiPAP or at night. Defer to pulmonology. - Appreciate pulmonology following GI bleed Gastroenterology has been consulted s/p Panendoscopy 11/05/17 pending biopsy report Colonoscopy on 11/05/17 showed severe ischemic changes with deep ulcerations in the sigmoid colon and descending colon no active bleeding but most likely this is the reason for the rectal bleed, patient also has scattered diverticular disease Serial H&H stable Patient to continue on PO PPI CT abdomen/pelvis noted HTN: Currently normal Continue to hold propranolol - Vasotec PRN Ischemia, Bowel Per CRS, continue with medical management ADAT Syncope Likely secondary to GI bleed Head CT noted without any intracranial abnormality 2D echo wnl Debility: Secondary to comorbid conditions above. Patient to continue physical therapy Hyperlipidemia Continue statin History of Myelodysplasia appreciate input from hematology. No new treatment indicated at this time. GI prophylaxis: PPI. Stool softener PRN constipation. DVT PPx: SCDs. Chemoprophylaxis contraindicated secondary to GI bleeding. Discharge Planning Patient is improving. OK to transfer to floor. Problem Qualifiers (1) GI bleed: Qualified Codes: K92.2 - Gastrointestinal hemorrhage, unspecified (2) Syncope: Qualified Codes: R55 - Syncope and collapse Brandi Pineda MD Nov 11, 2017 10:39
--- NOTE | 2017-11-11 16:24 | HHI.HCPN ---
Reason for visit a. To assist with evaluation and management of symptoms including: dyspnea, anxiety. b. To assist medical decision maker(s) with: better understanding of current medical conditions; weighing benefits/burdens of medical treatment options; making medical treatment decisions. . Subjective/Interval History 8:30am: Call from daughter, Jessica Galvan she indicates patient has remained on BiPAP alternating with nasal cannula oxygen. Requests that I call her after I am able to see the patient and review records. Advised I am in a meeting until 11am. Patient seen and examined in ICU. No family at bedside. Patient is awake and alert. Some confusion noted. She does not know where she is. She is asking for vegetable soup and a salad. Explained she remain on clear liquid diet. She does not seem to have understanding of current medical condition or that she is in the ICU. She indicates intermittent shortness of breath, but indicates it is not that bad right now because "I am not doing anything." She denies chest or abdominal pain, no nausea or vomiting. She reports back pain and confirms she has long history of back pain and has had prior surgeries. She states her back "hurts all the time, increased from lying in bed." She is unable to quantify pain. Nursing pain scales report "0" over the past 24 hours. On oxygen via NC during my visit, intermittent hypoxia on monitor, appears to be having difficulty with obtaining a good reading. Saturations range from 74- 94 during my visit. She does not appear to be in respiratory distress. Respirations are unlabored at rest. She becomes mildly dyspneic with prolonged conversation. Tachycardic. No new imaging. Labs reviewed: * WBC 16.2, hemoglobin 10.7, hematocrit 32.5, platelet count 414, neutrophil 93.1% * Sodium 143 potassium 3.4, carbon dioxide 41.2, creatinine 0.88, GFR 61. * Liver function studies within normal limits. * Total protein 5.6, albumin 2.5. * BNP 199 PT notes indicate patient was not motivated for activities, however agreed. Transfer with moderate assist 1, sat on edge of bed for 4 minutes then complained of dizziness, notes indicate she was able to progress sit to stand with two-person assist, complained that her right side was weak and some discomfort. Reviewed my role with patient, she gives me permission to call her daughter Alondra. She confirms she is the one who helps her make decisions. . Family/friend interactions Left message for daughter Alondra to return call. Later received return call, provided Alondra with medical update. Reviewed laboratory findings, oxygen needs and conversation with patient. Notified patient may be transferred to medical floor when bed available. Daughter verbalizes that patient was being considered for [facility], she verbalizes concern that patient will not want physical therapy as she has refused therapies in the past. Reviewed medical findings and that patient at her advanced age with recent hospitalizations, ICU stay, COPD requiring BiPAP alternating with nasal cannula and recent diagnosis of ischemic colitis would be hospice appropriate if goals are comfort oriented. She does not feel the patient will be able to or want to participate in extensive rehabilitation. Reviewed options of proceeding with rehabilitation versus transition to comfort focused care. Explained if patient wanted to try rehab that if she failed hospice services could be obtained. Hospice services reviewed at length including possible care center placement versus placement in long-term care. After lengthy conversation patient's daughter would like to speak with her siblings prior to making this decision, it seems that she may be leaning toward transition to comfort focused care in the coming days depending on hospital course. She is very appreciative for the time spent in conversation. She will speak with her siblings and notify palliative care if she has any additional questions or desires hospice consult. . Advance Directives Living Will: Copy in medical record Durable Power of Farm Tractor Operator: Copy in medical record Advance Directive Specifics Date completed: Completed 11/09/1986 . Health Care Surrogate(s): Designated healthcare surrogate reportedly, daughter Jessica Galvan who is also the DURABLE POWER OF STAFF GENETIC COUNSELOR. . Documented care wishes: Declaration dated November 09, 1986 states that the patient willfully involuntarily made her wishes known that her dying not be artificially prolonged under any circumstances set forth below: "If at any time I should have a terminal condition and my attending physician is determined that there is no recovery from such condition and my is eminent, where the application of life prolonging procedures would serve only to artificially prolong the process of dying I directed that such procedures be withheld or withdrawn and that I be permitted to naturally with only the administration of medication for the performance of any medical procedure deemed necessary to provide me with comfort, care or to alleviate pain. In the absence of my ability to give directions regarding use of such life prolonging procedures, it is my intention at this declaration she will be honored by my family and physician as a final expression of my legal right to refuse medical or surgical treatment and accept the consequences of such refusal." . Significant change in goals: NO CODE (DNR/DNI). Family considering options of rehab versus transition to comfort focused care with hospice support. Will notify palliative care if decision is made for transition to comfort or if they have additional questions or concerns. . Objective Vital Signs Date Time Temp Pulse Resp B/P (MAP) Pulse Ox O2 Delivery O2 Flow Rate FiO2 11/11/17 14:00 109 11/11/17 13:00 114 35 142/67 (92) 91 11/11/17 12:00 106 11/11/17 12:00 106 28 75 11/11/17 10:00 114 11/11/17 09:00 99 Nasal Cannula 3.00 11/11/17 08:00 98.7 91 18 156/84 (108) 92 11/11/17 08:00 98 Bi-Pap 35 11/11/17 08:00 79 11/11/17 07:40 100 40 11/11/17 06:00 87 11/11/17 04:08 96 40 11/11/17 04:00 85 11/11/17 04:00 98.9 85 25 107/57 (74) 94 11/11/17 02:00 85 11/11/17 00:21 99 40 11/11/17 00:00 88 11/11/17 00:00 99.0 88 20 102/55 (71) 99 11/10/17 22:00 98 11/10/17 21:30 96 Bi-Pap 35 11/10/17 20:00 99.4 105 33 118/56 (76) 94 11/10/17 20:00 106 11/10/17 19:56 93 40 11/10/17 19:00 94 Nasal Cannula 4.00 11/10/17 18:00 114 Intake & Output 11/11/17 11/11/17 07:00 19:00 Intake Total 0 ml Output Total 300 ml Balance -300 ml Intake Oral 0 ml Output Urine Total 300 ml # Bowel Movements 0 Physical Exam CONSTITUTIONAL/GENERAL: This is an elderly, pale patient, with labored respirations on BiPAP. TUBES/LINES/DRAINS: NC, PIV, Ortiz, SCDs. SKIN: Ecchymoses on upper extremities. Multiple skin tears with dressings upper and lower extremities. Skin temperature appropriate. Not diaphoretic. EYES: Pupils equal and round and reactive. CARDIOVASCULAR: Tachycardic. RESPIRATORY/CHEST: Mildly labored respirations on NC with prolonged conversation , improves with rest. Scattered rhonchi. Diminished breath sounds bilaterally. GASTROINTESTINAL: Abdomen soft, non-tender, nondistended. Bowel sounds present. GENITOURINARY: Without palpable bladder distension. Ortiz catheter in place. MUSCULOSKELETAL: Extremities without cyanosis, or edema. No mottling or clubbing. NEUROLOGICAL: Awake and alert, confused. Follows commands. Moves all extremities. PSYCHIATRIC: denies anxiety. . Diagnostic Tests Laboratory Laboratory Tests Test 11/09/17 11:20 11/09/17 12:26 11/09/17 16:25 11/10/17 02:31 White Blood Count 7.4 TH/MM3 (4.0-11.0) 6.7 TH/MM3 (4.0-11.0) Red Blood Count 3.92 MIL/MM3 (4.00-5.30) 4.03 MIL/MM3 (4.00-5.30) Hemoglobin 11.3 GM/DL (11.6-15.3) 11.7 GM/DL (11.6-15.3) Hematocrit 35.1 % (35.0-46.0) 35.6 % (35.0-46.0) Mean Corpuscular Volume 89.6 FL (80.0-100.0) 88.3 FL (80.0-100.0) Mean Corpuscular Hemoglobin 28.9 PG (27.0-34.0) 28.9 PG (27.0-34.0) Mean Corpuscular Hemoglobin Concent 32.2 % (32.0-36.0) 32.8 % (32.0-36.0) Red Cell Distribution Width 14.7 % (11.6-17.2) 14.6 % (11.6-17.2) Platelet Count 321 TH/MM3 (150-450) 337 TH/MM3 (150-450) Mean Platelet Volume 7.3 FL (7.0-11.0) 7.8 FL (7.0-11.0) Neutrophils (%) (Auto) 74.2 % (16.0-70.0) Lymphocytes (%) (Auto) 6.2 % (9.0-44.0) Monocytes (%) (Auto) 16.9 % (0.0-8.0) Eosinophils (%) (Auto) 2.1 % (0.0-4.0) Basophils (%) (Auto) 0.6 % (0.0-2.0) Neutrophils # (Auto) 5.5 TH/MM3 (1.8-7.7) Lymphocytes # (Auto) 0.5 TH/MM3 (1.0-4.8) Monocytes # (Auto) 1.2 TH/MM3 (0-0.9) Eosinophils # (Auto) 0.2 TH/MM3 (0-0.4) Basophils # (Auto) 0.0 TH/MM3 (0-0.2) CBC Comment DIFF FINAL Differential Comment Iron Level 43 MCG/DL (50-170) Total Iron Binding Capacity 263 MCG/DL (250-450) Percent Iron Saturation 16.3 % (20-50) Ferritin 145 NG/ML (8-252) Vitamin B12 Level GREATER THAN 2000 PG/ML Folate 20.0 NG/ML (3.1-17.5) Blood Gas Puncture Site RT RADIAL RT RADIAL Blood Gas Patient Temperature 98.6 98.6 Blood Gas HCO3 32 mmol/L (22-26) 33 mmol/L (22-26) Blood Gas Base Excess 5.7 mmol/L (-2-2) 8.5 mmol/L (-2-2) Blood Gas Oxygen Saturation 93 % (90-100) 94 % (90-100) Arterial Blood pH 7.29 (7.380-7.420) 7.40 (7.380-7.420) Arterial Blood Partial Pressure CO2 69 mmHg (38-42) 56 mmHg (38-42) Arterial Blood Partial Pressure O2 73 mmHg (61-120) 76 mmHg (61-120) Arterial Blood Oxygen Content 14.2 Vol % (12.0-20.0) 16.1 Vol % (12.0-20.0) Arterial Blood Carboxyhemoglobin 1.1 % (0-4) 0.8 % (0-4) Arterial Blood Methemoglobin 1.0 % (0-2) 1.3 % (0-2) Blood Gas Hemoglobin 10.8 G/DL (12.0-16.0) 12.1 G/DL (12.0-16.0) Oxygen Delivery Device NASAL CANNULA BIPAP Blood Gas Liter Flow 3.5 L/M Blood Gas Inspired Oxygen 34 % 35 % Blood Gas Ventilator Setting IPAP+15/EPAP+5 Blood Urea Nitrogen 13 MG/DL (7-18) Creatinine 0.68 MG/DL (0.50-1.00) Random Glucose 156 MG/DL (74-106) Calcium Level 8.4 MG/DL (8.5-10.1) Sodium Level 141 MEQ/L (136-145) Potassium Level 3.8 MEQ/L (3.5-5.1) Chloride Level 98 MEQ/L (98-107) Carbon Dioxide Level 35.0 MEQ/L (21.0-32.0) Anion Gap 8 MEQ/L (5-15) Estimat Glomerular Filtration Rate 82 ML/MIN (>89) Test 11/10/17 06:15 11/10/17 12:37 11/11/17 05:00 Nasal Screen MRSA (PCR) MRSA DETECTED (NOT DETECT) White Blood Count 9.4 TH/MM3 (4.0-11.0) 16.2 TH/MM3 (4.0-11.0) Red Blood Count 3.81 MIL/MM3 (4.00-5.30) 3.72 MIL/MM3 (4.00-5.30) Hemoglobin 11.6 GM/DL (11.6-15.3) 10.7 GM/DL (11.6-15.3) Hematocrit 33.4 % (35.0-46.0) 32.5 % (35.0-46.0) Mean Corpuscular Volume 87.6 FL (80.0-100.0) 87.2 FL (80.0-100.0) Mean Corpuscular Hemoglobin 30.3 PG (27.0-34.0) 28.6 PG (27.0-34.0) Mean Corpuscular Hemoglobin Concent 34.6 % (32.0-36.0) 32.8 % (32.0-36.0) Red Cell Distribution Width 14.6 % (11.6-17.2) 14.5 % (11.6-17.2) Platelet Count 345 TH/MM3 (150-450) 414 TH/MM3 (150-450) Mean Platelet Volume 8.0 FL (7.0-11.0) 7.5 FL (7.0-11.0) CBC Comment AUTO DIFF DIFF FINAL Differential Total Cells Counted 100 Neutrophils % (Manual) 92 % (16-70) Band Neutrophils % 4 % (0-6) Lymphocytes % 2 % (9-44) Monocytes % 2 % (0-8) Neutrophils # (Manual) 9.0 TH/MM3 (1.8-7.7) Differential Comment FINAL DIFF MANUAL Toxic Granulation 1+ (NORMAL) Toxic Vacuolation PRESENT (NONE SEEN) Platelet Estimate NORMAL (NORMAL) Platelet Morphology Comment NORMAL (NORMAL) Ovalocytes 1+ (NORMAL) Neutrophils (%) (Auto) 93.1 % (16.0-70.0) Lymphocytes (%) (Auto) 1.9 % (9.0-44.0) Monocytes (%) (Auto) 4.9 % (0.0-8.0) Eosinophils (%) (Auto) 0.0 % (0.0-4.0) Basophils (%) (Auto) 0.1 % (0.0-2.0) Neutrophils # (Auto) 15.1 TH/MM3 (1.8-7.7) Lymphocytes # (Auto) 0.3 TH/MM3 (1.0-4.8) Monocytes # (Auto) 0.8 TH/MM3 (0-0.9) Eosinophils # (Auto) 0.0 TH/MM3 (0-0.4) Basophils # (Auto) 0.0 TH/MM3 (0-0.2) Blood Urea Nitrogen 17 MG/DL (7-18) Creatinine 0.88 MG/DL (0.50-1.00) Random Glucose 145 MG/DL (74-106) Total Protein 5.6 GM/DL (6.4-8.2) Albumin 2.5 GM/DL (3.4-5.0) Calcium Level 8.8 MG/DL (8.5-10.1) Alkaline Phosphatase 65 U/L (45-117) Aspartate Amino Transf (AST/SGOT) 16 U/L (15-37) Alanine Aminotransferase (ALT/SGPT) 15 U/L (10-53) Total Bilirubin 0.2 MG/DL (0.2-1.0) Sodium Level 143 MEQ/L (136-145) Potassium Level 3.4 MEQ/L (3.5-5.1) Chloride Level 96 MEQ/L (98-107) Carbon Dioxide Level 41.2 MEQ/L (21.0-32.0) Anion Gap 6 MEQ/L (5-15) Estimat Glomerular Filtration Rate 61 ML/MIN (>89) B-Type Natriuretic Peptide 199 PG/ML (0-100) Result Diagram: 11/11/17 0500 11/11/17 0500 Imaging Last Impressions Chest X-Ray 11/10/17 0600 Signed Impressions: Service Date/Time: Friday, November 10, 2017 04:02 - CONCLUSION: No significant change mild bibasilar consolidation and small effusions. Raghu Rueda MD Abdomen/Pelvis CT 11/05/17 0000 Signed Impressions: Service Date/Time: Sunday, November 05, 2017 21:36 - CONCLUSION: 1. Atherosclerotic changes but mesenteric arteries appear patent. 2. There is colitis of the descending colon. Aditya Vazquez MD Head CT 11/03/17 1109 Signed Impressions: Service Date/Time: Friday, November 03, 2017 12:00 - CONCLUSION: 1. No evidence of acute intracranial pathology. No masses are identified. Sudhakar Cerda MD Procedures * 11/05/17 - upper endoscopy/colonoscopy Assessment and Plan Disease Oriented Problem List: (1) Myelodysplastic disease (2) COPD (chronic obstructive pulmonary disease) (3) HTN (hypertension) (4) DM (diabetes mellitus) (5) Ischemia, bowel (6) Hyperlipemia (7) GI bleed (8) Lung mass (9) Syncope Symptom Scale: (1) Pain 0-10 Scale: Unable to quantify Comment: due to debility, arthritis, chest pain etc. Has Morphine 1mg IV every 4 hours PRN pain, sparing use, last (and only) dose 11/10/17. (2) Dyspnea 0-10 Scale: Unable to quantify Comment: due to CHF, COPD. On BiPAP alternating with NC. On Solumedrol and DuoNeb ATC. (3) Anxiety 0-10 Scale: Unable to quantify Comment: Due to shortness of breath. No PRN Benzo available, had 1 dose on 11/10. Would consider Xanax 0.25mg PO every 8 hours ATC. Pertinent Non-Medical Issues Psychosocial: . Lives in independent living at [facility]. Supported by 3 daughters, 2 live local one in [place]. Spiritual: Worship oleg. Rabbi visits welcome. Legal:Difficult to determine patient's capacity given BiPAP and inability to understand most of what she is saying. Designated healthcare surrogate reportedly, daughter Jessica Galvan who is also the DURABLE POWER OF STAFF GENETIC COUNSELOR. Ethical issues impacting care: No known concerns at this time. . Important Contacts * Jessica Galvan, daughter: [phone] (works with Dr. Escobedo) * Dr. Jael Escobedo: [phone] * Amrita Penn, daughter * Meghna Templeton, daughter . Prognosis Ms. Gaitan is an 87-year-old female with multiple medical problems who has been living independently prior to this admission. She has had some trajectory of decline over the past few months including a few recent hospitalizations. She is currently on BiPAP in ICU. Hospice appropriate if goals are comfort oriented. . Code Status: No Code Plan * Difficult to determine patient's capacity given BiPAP and inability to understand most of what she is saying. Designated healthcare surrogate reportedly, daughter Jessica Galvan who is also the DURABLE POWER OF STAFF GENETIC COUNSELOR. * NO CODE (DNR/DNI) * Spoke with daughter/HCS Alondra via phone. Medical update provided. Family considering options of rehab versus transition to comfort focused care with hospice support. Will notify palliative care if decision is made for transition to comfort or if they have additional questions or concerns. * Discussed with nurse. * SYMPTOMS:Pain: due to debility, arthritis, chest pain etc. Has Morphine 1mg IV every 4 hours PRN pain, sparing use, last (and only) dose 11/10/17. Dyspnea: due to CHF, COPD. On BiPAP alternating with NC. On Solumedrol and DuoNeb ATC. Anxiety: due to shortness of breath. No PRN Benzo available, had 1 dose on . Would consider Xanax 0.25mg PO every 8 hours ATC. * Palliative care will continue to follow to assist with symptom management and clarification of medical treatment goals. . Attestation To help prompt me to consider important information that might be impacting today's encounter and assessment, information from prior notes written by myself or my colleagues may have been "brought forward" into today's note. My signature on this note, however, is an attestation that I personally performed the exam, history, and/or decision-making noted today, and, unless otherwise indicated, the interactions with patient, family, and staff as well as the review of records all occurred today. I also attest that the listed assessment and stated plan reflect my best clinical judgment today based on the combination of historical information, prior notes, and today's exam/ interactions. When time spent is documented, it refers only to time spent today by the signer, or if indicated, combined time spent today by collaborating physician/nurse practitioner. Iesha Paul Nov 11, 2017 16:24
--- NOTE | 2017-11-11 19:55 | HHI.PR ---
Subjective Remarks 87 YOWF with SOB, Resp insuff Feels much better Mental status improved Weaned to NC Objective Vital Signs Vital Signs Date Time Temp Pulse Resp B/P (MAP) Pulse Ox O2 Delivery O2 Flow Rate FiO2 11/11/17 18:30 98.7 104 20 165/82 (109) 88 11/11/17 17:35 102 33 157/73 (101) 11/11/17 17:00 103 33 11/11/17 16:00 108 29 11/11/17 16:00 101 11/11/17 15:00 103 31 94 11/11/17 14:00 109 11/11/17 14:00 112 34 96 11/11/17 13:00 114 35 142/67 (92) 91 11/11/17 12:00 106 11/11/17 12:00 106 28 75 11/11/17 10:00 114 11/11/17 09:00 99 Nasal Cannula 3.00 11/11/17 08:00 98.7 91 18 156/84 (108) 92 11/11/17 08:00 98 Bi-Pap 35 11/11/17 08:00 79 11/11/17 07:40 100 40 11/11/17 06:00 87 11/11/17 04:08 96 40 11/11/17 04:00 85 11/11/17 04:00 98.9 85 25 107/57 (74) 94 11/11/17 02:00 85 11/11/17 00:21 99 40 11/11/17 00:00 88 11/11/17 00:00 99.0 88 20 102/55 (71) 99 11/10/17 22:00 98 11/10/17 21:30 96 Bi-Pap 35 11/10/17 20:00 99.4 105 33 118/56 (76) 94 11/10/17 20:00 106 11/10/17 19:56 93 40 I/O 11/10/17 11/10/17 11/10/17 11/11/17 11/11/17 11/11/17 07:00 15:00 23:00 07:00 15:00 23:00 Intake Total 325 ml 0 ml Output Total 725 ml 525 ml 300 ml Balance -725 ml -200 ml -300 ml Intake Oral 325 ml 0 ml Output Urine Total 725 ml 525 ml 300 ml # Bowel Movements 0 0 0 Result Diagram: 11/11/17 0500 11/11/17 0500 Objective Remarks GENERAL: Frail elderly wf, NAD SKIN: Warm and dry. HEAD: Normocephalic. EYES: No scleral icterus. No injection or drainage. NECK: Supple, trachea midline. No JVD or lymphadenopathy. CARDIOVASCULAR: Regular rate and rhythm without murmurs, gallops, or rubs. RESPIRATORY: Breath sounds equal bilaterally. No accessory muscle use. GASTROINTESTINAL: Abdomen soft, non-tender, nondistended. MUSCULOSKELETAL: No cyanosis, or edema. BACK: Nontender without obvious deformity. No CVA tenderness. A/P Assessment and Plan IMPRESSION: 1. Hypercapnic respiratory failure, improving. 2. Chronic obstructive pulmonary disease with mild exacerbation. 3. Gastrointestinal bleed. 4. History of non-Hodgkin lymphoma. 5. Idiopathic thrombocytopenic purpura. PLAN: Aerosol nebs Supplement 02 Monitor H/H Manolo Gutierrez MD Nov 11, 2017 19:55
[2017-11-11] MEDS: AMITRIPTYLINE HCL 75 MG TAB PO SCH (22:05)
[2017-11-11] MEDS: ATORVASTATIN 20 MG TAB PO SCH (22:06)
[2017-11-12] VITALS (8 sets, daily range): BP systolic 140–181; BP diastolic 69–85; PULSE 88–106; RESP 18–20; TEMP 98–99.1; O2SAT 92–99
[2017-11-12] MEDS: CHLORHEXIDINE GLUCONATE 2 % 1 PACK (2 CLOTHS)(taper/protocol) TOPICAL SCH (04:00)
[2017-11-12] MEDS: methylPREDNISolone SOD SUCC 40 MG/1 ML VIAL IV PUSH SCH ×4 (05:38→23:13)
[2017-11-12] MEDS: INSULIN ASPART SUPPLEMENTAL SCALE SQ SCH ×4 (07:50→21:34)
[2017-11-12] MEDS: RESP: ALBUTEROL 2.5 MG/IPRATROPIUM 0.5 MG NEB (SCH) NEB ×3 (09:25→19:11)
[2017-11-12] MEDS: FAMOTIDINE 20 MG/2 ML VIAL IV PUSH SCH (09:39)
[2017-11-12] MEDS: PANTOPRAZOLE SOD 40 MG DELAYED RELEASE TAB PO SCH (09:40)
[2017-11-12] MEDS: MIRTAZAPINE 15 MG TAB PO SCH (09:40)
[2017-11-12] MEDS: SODIUM CHLORIDE 0.9% FLUSH 10 ML FLUSH IV FLUSH SCH ×2 (09:41→21:34)
--- NOTE | 2017-11-12 11:19 | HHI.HCPN ---
Reason for visit a. To assist with evaluation and management of symptoms including: dyspnea, anxiety, pain. b. To assist medical decision maker(s) with: better understanding of current medical conditions; weighing benefits/burdens of medical treatment options; making medical treatment decisions. . Subjective/Interval History Patient seen and examined on [facility] room. She is awake and alert, some confusion noted. Her daughter's mother in law is at bedside. Patient does not remember if she used BiPAP overnight. She has some shortness of breath at rest. She feels better when she isn't "doing anything." She indicates she is still coughing, but tells me "it doesn't look as dark." She reports anxiety when her breathing gets bad. She reports pain in her back that is "always there." She has not had any recent chest pain or tightness that she can remember since my last visit. Denies abdominal pain or nausea. Mild abdominal tenderness on deep palpation. Hypoactive BS. No new labs or imaging today. Vital signs and oxygen needs since my last visit reviewed. Long talk with patient regarding her condition. She has not been working with PT much and appears she intermittently refuses. When I ask her about it she says she will "take her time." She was living independently prior to admission, family feels she will not be able to return to independent living and that she will not want to participate in rehab. Patient is not sure she wants to do rehab. She tells me she will need to talk to her family. She asks me to speak with her daughter Alondra. I called Alondra via phone. She indicates she spoke with patient last night about not being able to return to independent living (Patient does not appear to remember this conversation). Alondra spoke with her siblings and they have elected to meet with hospice. They are interested in care center ([facility]) placement for management of shortness of breath and associated anxiety, understanding this is a short term facility and that they may still need to find placement. Patient is high risk for further sudden decline given her advanced age, COPD requiring BiPAP alternating with NC. They would like to focus on comfort measures, have elected NO CODE. We have discussed use of medication to control dyspnea instead of BiPAP. [facility] consulted per daughter's request for comfort. . Family/friend interactions see interval note. Advance Directives Living Will: Copy in medical record Durable Power of Oil Pumper: Copy in medical record Advance Directive Specifics Date completed: Completed 11/09/1986 . Health Care Surrogate(s): Designated healthcare surrogate reportedly, daughter Jessica Galvan who is also the DURABLE POWER OF FURNITURE REFINISHER. . Documented care wishes: Declaration dated November 09, 1986 states that the patient willfully involuntarily made her wishes known that her dying not be artificially prolonged under any circumstances set forth below: "If at any time I should have a terminal condition and my attending physician is determined that there is no recovery from such condition and my is eminent, where the application of life prolonging procedures would serve only to artificially prolong the process of dying I directed that such procedures be withheld or withdrawn and that I be permitted to naturally with only the administration of medication for the performance of any medical procedure deemed necessary to provide me with comfort, care or to alleviate pain. In the absence of my ability to give directions regarding use of such life prolonging procedures, it is my intention at this declaration she will be honored by my family and physician as a final expression of my legal right to refuse medical or surgical treatment and accept the consequences of such refusal." . Significant change in goals: NO CODE. Goals are comfort oriented. Hospice consulted. . Objective Vital Signs Date Time Temp Pulse Resp B/P (MAP) Pulse Ox O2 Delivery O2 Flow Rate FiO2 11/12/17 08:38 98.0 88 20 169/72 (104) 96 11/12/17 04:30 98.0 93 19 174/80 (111) 94 11/12/17 00:10 98.6 89 18 156/76 (102) 97 11/11/17 22:30 95 40 11/11/17 20:30 97.8 104 19 168/77 (107) 97 11/11/17 20:16 95 Nasal Cannula 4.00 11/11/17 20:00 Nasal Cannula 5.00 11/11/17 18:30 98.7 104 20 165/82 (109) 88 11/11/17 17:35 102 33 157/73 (101) 11/11/17 17:00 103 33 11/11/17 16:00 108 29 11/11/17 16:00 101 11/11/17 15:00 103 31 94 11/11/17 14:00 109 11/11/17 14:00 112 34 96 11/11/17 13:00 114 35 142/67 (92) 91 11/11/17 12:00 106 11/11/17 12:00 106 28 75 Intake & Output 11/12/17 11/12/17 07:00 19:00 Intake Total 1175 ml Output Total 1250 ml 900 ml Balance -75 ml -900 ml Intake Oral 1175 ml Output Urine Total 1250 ml 900 ml # Bowel Movements 0 Physical Exam CONSTITUTIONAL/GENERAL: This is an elderly, pale patient, with mildly labored respirations on NC. TUBES/LINES/DRAINS: NC, PIV, Ortiz, SCDs. SKIN: Ecchymoses on upper extremities. Multiple skin tears with dressings upper and lower extremities. Skin temperature appropriate. Not diaphoretic. CARDIOVASCULAR: RRR, no murmur. . RESPIRATORY/CHEST: Mildly labored respirations on NC with prolonged conversation , improves with rest. Scattered rhonchi. Diminished breath sounds bilaterally. GASTROINTESTINAL: Abdomen soft, non-tender, nondistended. Bowel sounds hypoactive. GENITOURINARY: Without palpable bladder distension. Ortiz catheter in place. MUSCULOSKELETAL: Extremities without cyanosis, or edema. No mottling or clubbing. NEUROLOGICAL: Awake and alert, confused. Follows commands. Moves all extremities. PSYCHIATRIC: denies anxiety during my visit. . Diagnostic Tests Laboratory Laboratory Tests Test 11/09/17 11:20 11/09/17 12:26 11/09/17 16:25 11/10/17 02:31 White Blood Count 7.4 TH/MM3 (4.0-11.0) 6.7 TH/MM3 (4.0-11.0) Red Blood Count 3.92 MIL/MM3 (4.00-5.30) 4.03 MIL/MM3 (4.00-5.30) Hemoglobin 11.3 GM/DL (11.6-15.3) 11.7 GM/DL (11.6-15.3) Hematocrit 35.1 % (35.0-46.0) 35.6 % (35.0-46.0) Mean Corpuscular Volume 89.6 FL (80.0-100.0) 88.3 FL (80.0-100.0) Mean Corpuscular Hemoglobin 28.9 PG (27.0-34.0) 28.9 PG (27.0-34.0) Mean Corpuscular Hemoglobin Concent 32.2 % (32.0-36.0) 32.8 % (32.0-36.0) Red Cell Distribution Width 14.7 % (11.6-17.2) 14.6 % (11.6-17.2) Platelet Count 321 TH/MM3 (150-450) 337 TH/MM3 (150-450) Mean Platelet Volume 7.3 FL (7.0-11.0) 7.8 FL (7.0-11.0) Neutrophils (%) (Auto) 74.2 % (16.0-70.0) Lymphocytes (%) (Auto) 6.2 % (9.0-44.0) Monocytes (%) (Auto) 16.9 % (0.0-8.0) Eosinophils (%) (Auto) 2.1 % (0.0-4.0) Basophils (%) (Auto) 0.6 % (0.0-2.0) Neutrophils # (Auto) 5.5 TH/MM3 (1.8-7.7) Lymphocytes # (Auto) 0.5 TH/MM3 (1.0-4.8) Monocytes # (Auto) 1.2 TH/MM3 (0-0.9) Eosinophils # (Auto) 0.2 TH/MM3 (0-0.4) Basophils # (Auto) 0.0 TH/MM3 (0-0.2) CBC Comment DIFF FINAL Differential Comment Iron Level 43 MCG/DL (50-170) Total Iron Binding Capacity 263 MCG/DL (250-450) Percent Iron Saturation 16.3 % (20-50) Ferritin 145 NG/ML (8-252) Vitamin B12 Level GREATER THAN 2000 PG/ML Folate 20.0 NG/ML (3.1-17.5) Blood Gas Puncture Site RT RADIAL RT RADIAL Blood Gas Patient Temperature 98.6 98.6 Blood Gas HCO3 32 mmol/L (22-26) 33 mmol/L (22-26) Blood Gas Base Excess 5.7 mmol/L (-2-2) 8.5 mmol/L (-2-2) Blood Gas Oxygen Saturation 93 % (90-100) 94 % (90-100) Arterial Blood pH 7.29 (7.380-7.420) 7.40 (7.380-7.420) Arterial Blood Partial Pressure CO2 69 mmHg (38-42) 56 mmHg (38-42) Arterial Blood Partial Pressure O2 73 mmHg (61-120) 76 mmHg (61-120) Arterial Blood Oxygen Content 14.2 Vol % (12.0-20.0) 16.1 Vol % (12.0-20.0) Arterial Blood Carboxyhemoglobin 1.1 % (0-4) 0.8 % (0-4) Arterial Blood Methemoglobin 1.0 % (0-2) 1.3 % (0-2) Blood Gas Hemoglobin 10.8 G/DL (12.0-16.0) 12.1 G/DL (12.0-16.0) Oxygen Delivery Device NASAL CANNULA BIPAP Blood Gas Liter Flow 3.5 L/M Blood Gas Inspired Oxygen 34 % 35 % Blood Gas Ventilator Setting IPAP+15/EPAP+5 Blood Urea Nitrogen 13 MG/DL (7-18) Creatinine 0.68 MG/DL (0.50-1.00) Random Glucose 156 MG/DL (74-106) Calcium Level 8.4 MG/DL (8.5-10.1) Sodium Level 141 MEQ/L (136-145) Potassium Level 3.8 MEQ/L (3.5-5.1) Chloride Level 98 MEQ/L (98-107) Carbon Dioxide Level 35.0 MEQ/L (21.0-32.0) Anion Gap 8 MEQ/L (5-15) Estimat Glomerular Filtration Rate 82 ML/MIN (>89) Test 11/10/17 06:15 11/10/17 12:37 11/11/17 05:00 Nasal Screen MRSA (PCR) MRSA DETECTED (NOT DETECT) White Blood Count 9.4 TH/MM3 (4.0-11.0) 16.2 TH/MM3 (4.0-11.0) Red Blood Count 3.81 MIL/MM3 (4.00-5.30) 3.72 MIL/MM3 (4.00-5.30) Hemoglobin 11.6 GM/DL (11.6-15.3) 10.7 GM/DL (11.6-15.3) Hematocrit 33.4 % (35.0-46.0) 32.5 % (35.0-46.0) Mean Corpuscular Volume 87.6 FL (80.0-100.0) 87.2 FL (80.0-100.0) Mean Corpuscular Hemoglobin 30.3 PG (27.0-34.0) 28.6 PG (27.0-34.0) Mean Corpuscular Hemoglobin Concent 34.6 % (32.0-36.0) 32.8 % (32.0-36.0) Red Cell Distribution Width 14.6 % (11.6-17.2) 14.5 % (11.6-17.2) Platelet Count 345 TH/MM3 (150-450) 414 TH/MM3 (150-450) Mean Platelet Volume 8.0 FL (7.0-11.0) 7.5 FL (7.0-11.0) CBC Comment AUTO DIFF DIFF FINAL Differential Total Cells Counted 100 Neutrophils % (Manual) 92 % (16-70) Band Neutrophils % 4 % (0-6) Lymphocytes % 2 % (9-44) Monocytes % 2 % (0-8) Neutrophils # (Manual) 9.0 TH/MM3 (1.8-7.7) Differential Comment FINAL DIFF MANUAL Toxic Granulation 1+ (NORMAL) Toxic Vacuolation PRESENT (NONE SEEN) Platelet Estimate NORMAL (NORMAL) Platelet Morphology Comment NORMAL (NORMAL) Ovalocytes 1+ (NORMAL) Neutrophils (%) (Auto) 93.1 % (16.0-70.0) Lymphocytes (%) (Auto) 1.9 % (9.0-44.0) Monocytes (%) (Auto) 4.9 % (0.0-8.0) Eosinophils (%) (Auto) 0.0 % (0.0-4.0) Basophils (%) (Auto) 0.1 % (0.0-2.0) Neutrophils # (Auto) 15.1 TH/MM3 (1.8-7.7) Lymphocytes # (Auto) 0.3 TH/MM3 (1.0-4.8) Monocytes # (Auto) 0.8 TH/MM3 (0-0.9) Eosinophils # (Auto) 0.0 TH/MM3 (0-0.4) Basophils # (Auto) 0.0 TH/MM3 (0-0.2) Blood Urea Nitrogen 17 MG/DL (7-18) Creatinine 0.88 MG/DL (0.50-1.00) Random Glucose 145 MG/DL (74-106) Total Protein 5.6 GM/DL (6.4-8.2) Albumin 2.5 GM/DL (3.4-5.0) Calcium Level 8.8 MG/DL (8.5-10.1) Alkaline Phosphatase 65 U/L (45-117) Aspartate Amino Transf (AST/SGOT) 16 U/L (15-37) Alanine Aminotransferase (ALT/SGPT) 15 U/L (10-53) Total Bilirubin 0.2 MG/DL (0.2-1.0) Sodium Level 143 MEQ/L (136-145) Potassium Level 3.4 MEQ/L (3.5-5.1) Chloride Level 96 MEQ/L (98-107) Carbon Dioxide Level 41.2 MEQ/L (21.0-32.0) Anion Gap 6 MEQ/L (5-15) Estimat Glomerular Filtration Rate 61 ML/MIN (>89) B-Type Natriuretic Peptide 199 PG/ML (0-100) Result Diagram: 11/11/17 0500 11/11/17 0500 Imaging Last Impressions Chest X-Ray 11/10/17 0600 Signed Impressions: Service Date/Time: Friday, November 10, 2017 04:02 - CONCLUSION: No significant change mild bibasilar consolidation and small effusions. Raghu Rueda MD Abdomen/Pelvis CT 11/05/17 0000 Signed Impressions: Service Date/Time: Sunday, November 05, 2017 21:36 - CONCLUSION: 1. Atherosclerotic changes but mesenteric arteries appear patent. 2. There is colitis of the descending colon. Aditya Vazquez MD Head CT 11/03/17 1109 Signed Impressions: Service Date/Time: Friday, November 03, 2017 12:00 - CONCLUSION: 1. No evidence of acute intracranial pathology. No masses are identified. Sudhakar Cerda MD Procedures * 11/05/17 - upper endoscopy/colonoscopy Assessment and Plan Disease Oriented Problem List: (1) Myelodysplastic disease (2) COPD (chronic obstructive pulmonary disease) (3) HTN (hypertension) (4) DM (diabetes mellitus) (5) Ischemia, bowel (6) Hyperlipemia (7) GI bleed (8) Lung mass (9) Syncope Symptom Scale: (1) Pain 0-10 Scale: Unable to quantify Comment: due to debility, arthritis, chest pain etc. Has Morphine 1mg IV every 4 hours PRN pain, sparing use, last (and only) dose 11/10/17. (2) Dyspnea 0-10 Scale: Unable to quantify Comment: due to CHF, COPD. On BiPAP alternating with NC. On Solumedrol and DuoNeb ATC. (3) Anxiety 0-10 Scale: Unable to quantify Comment: Due to shortness of breath. No PRN Benzo available, had 1 dose on 11/10. Would consider Xanax 0.25mg PO every 8 hours ATC. Pertinent Non-Medical Issues Psychosocial: . Lives in independent living at [facility]. Supported by 3 daughters, 2 live local one in [place]. Spiritual: [employer] oleg. Rabbi visits welcome. Legal:Difficult to determine patient's capacity given BiPAP and inability to understand most of what she is saying. Designated healthcare surrogate reportedly, daughter Jessica Galvan who is also the DURABLE POWER OF FURNITURE REFINISHER. Ethical issues impacting care: No known concerns at this time. . Important Contacts * Jessica Galvan, daughter: [phone] (works with Dr. Escobedo) * Dr. Jael Escobedo: [phone] * Amrita Penn, daughter * Meghna Templeton, daughter . Prognosis Ms. Gaitan is an 87-year-old female with multiple medical problems who has been living independently prior to this admission. She has had some trajectory of decline over the past few months including a few recent hospitalizations. She is currently on BiPAP in ICU. Hospice appropriate if goals are comfort oriented. . Code Status: No Code Plan * Difficult to determine patient's capacity given BiPAP and inability to understand most of what she is saying. Designated healthcare surrogate reportedly, daughter Jessica Galvan who is also the DURABLE POWER OF FURNITURE REFINISHER. * NO CODE (DNR/DNI) * Spoke with Alondra montiel via phone who is certain patient will not particpate in rehab, will not be able to return to independent living. Reviewed of hospice services and limitations. Desires to meet with [facility]. * Hospice consulted. Interested in [facility] placement if possible. * SYMPTOMS:Pain: due to debility, arthritis, chest pain etc. PRN Morphine available, none given since 11/10. Dyspnea: due to CHF, COPD. On BiPAP alternating with NC. On Solumedrol and Duoneb. Anxiety: due to shortness of breath. Xanax 0.25 ordered x1. Recommend Xanax 0.25 every 8 hours ATC and Roxanol 5-10mg every 4 hours PRN pain, dyspnea. If admitted to hospice, further orders per attending. * Palliative care will continue to follow to assist with symptom management and clarification of medical treatment goals. . Attestation To help prompt me to consider important information that might be impacting today's encounter and assessment, information from prior notes written by myself or my colleagues may have been "brought forward" into today's note. My signature on this note, however, is an attestation that I personally performed the exam, history, and/or decision-making noted today, and, unless otherwise indicated, the interactions with patient, family, and staff as well as the review of records all occurred today. I also attest that the listed assessment and stated plan reflect my best clinical judgment today based on the combination of historical information, prior notes, and today's exam/ interactions. When time spent is documented, it refers only to time spent today by the signer, or if indicated, combined time spent today by collaborating physician/nurse practitioner. Iesha Paul Nov 12, 2017 11:19
--- NOTE | 2017-11-12 15:20 | HHI.PR ---
Subjective Remarks Resting in bed, looks comfortable Discussed with the daughter, who is the POA she told me they are most likely leaning toward hospice, plan to meet with palliative care later today, Objective Vitals Vital Signs Date Time Temp Pulse Resp B/P (MAP) Pulse Ox O2 Delivery O2 Flow Rate FiO2 11/12/17 12:07 98.9 99 20 181/85 (117) 99 11/12/17 09:25 92 Nasal Cannula 3.00 11/12/17 08:38 98.0 88 20 169/72 (104) 96 11/12/17 07:00 Nasal Cannula 4.00 11/12/17 04:30 98.0 93 19 174/80 (111) 94 11/12/17 00:10 98.6 89 18 156/76 (102) 97 11/11/17 22:30 95 40 11/11/17 20:30 97.8 104 19 168/77 (107) 97 11/11/17 20:16 95 Nasal Cannula 4.00 11/11/17 20:00 Nasal Cannula 5.00 11/11/17 18:30 98.7 104 20 165/82 (109) 88 11/11/17 17:35 102 33 157/73 (101) 11/11/17 17:00 103 33 11/11/17 16:00 108 29 11/11/17 16:00 101 I/O 11/11/17 11/11/17 11/11/17 11/12/17 11/12/17 11/12/17 07:00 15:00 23:00 07:00 15:00 23:00 Intake Total 0 ml 400 ml 775 ml Output Total 300 ml 250 ml 1000 ml 900 ml Balance -300 ml 150 ml -225 ml -900 ml Intake Oral 0 ml 400 ml 775 ml Output Urine Total 300 ml 250 ml 1000 ml 900 ml # Bowel Movements 0 0 0 Result Diagram: 11/11/17 0500 11/11/17 0500 Objective Remarks GENERAL: This is a well-nourished, well-developed patient, in no apparent distress. CARDIOVASCULAR: RRR, positive systolic murmur RESPIRATORY: Fair air entry bilaterally. No W, R, or R GASTROINTESTINAL: Abdomen soft, non-tender, nondistended. Positive bowel sounds MUSCULOSKELETAL: Extremities without clubbing, cyanosis, or edema. Pedal pulses appreciated NEUROLOGICAL: Awake and alert. Moves all extremity. Normal speech.no focal neurological deficit Procedures None A/P Problem List: (1) GI bleed ICD Code: K92.2 - Gastrointestinal hemorrhage, unspecified Status: Acute (2) Syncope ICD Code: R55 - Syncope and collapse Status: Acute (3) Ischemia, bowel ICD Code: K55.9 - Vascular disorder of intestine, unspecified Status: Acute Assessment and Plan 87-year-old female admitted with GI bleeding, ischemic bowel. Patient was due for discharge to [place] but her respiratory status worsened: 11/12: Discussed with the family , plan to go possibly with hospice, palliative care following Blood pressure on the higher side, WBC 17 K with increased bicarb most likely compensating Acute respiratory failure on 11/09/16. Likely COPD exacerbation: - Patient has been in the ICU on the Bipap. She has improved significantly - Continue Solu-Medrol, breathing treatments, supplemental oxygen. May need intermittent BiPAP or at night. Defer to pulmonology. - Appreciate pulmonology following GI bleed Gastroenterology has been consulted s/p Panendoscopy 11/05/17 pending biopsy report Colonoscopy on 11/05/17 showed severe ischemic changes with deep ulcerations in the sigmoid colon and descending colon no active bleeding but most likely this is the reason for the rectal bleed, patient also has scattered diverticular disease Serial H&H stable Patient to continue on PO PPI CT abdomen/pelvis noted HTN: Currently normal Continue to hold propranolol - Vasotec PRN Ischemia, Bowel Per CRS, continue with medical management ADAT Syncope Likely secondary to GI bleed Head CT noted without any intracranial abnormality 2D echo wnl Debility: Secondary to comorbid conditions above. Patient to continue physical therapy Hyperlipidemia Continue statin History of Myelodysplasia appreciate input from hematology. No new treatment indicated at this time. GI prophylaxis: PPI. Stool softener PRN constipation. DVT PPx: SCDs. Chemoprophylaxis contraindicated secondary to GI bleeding. Problem Qualifiers (1) GI bleed: Qualified Codes: K92.2 - Gastrointestinal hemorrhage, unspecified (2) Syncope: Qualified Codes: R55 - Syncope and collapse Salomon Newman MD Nov 12, 2017 15:20
--- NOTE | 2017-11-12 17:45 | HHI.PR ---
Subjective . Having better day more alert and conversational understands not going home to independent living not ambulatory at this time Family coordinating with palliative care with [facility] understanding strong desiring more than clear liquids I ordered soft regular and family brining favorite foods . Kasandra Escobedo MD Nov 12, 2017 17:45
--- NOTE | 2017-11-12 19:48 | HHI.PR ---
Subjective Remarks 87 YOWF with SOB, Resp insuff Feels much better Mental status improved Weaned to [place] Anxious to go home. Objective Vital Signs Vital Signs Date Time Temp Pulse Resp B/P (MAP) Pulse Ox O2 Delivery O2 Flow Rate FiO2 11/12/17 19:11 96 Nasal Cannula 2.00 11/12/17 15:52 98.7 106 20 158/83 (108) 95 11/12/17 12:07 98.9 99 20 181/85 (117) 99 11/12/17 09:25 92 Nasal Cannula 3.00 11/12/17 08:38 98.0 88 20 169/72 (104) 96 11/12/17 07:00 Nasal Cannula 4.00 11/12/17 04:30 98.0 93 19 174/80 (111) 94 11/12/17 00:10 98.6 89 18 156/76 (102) 97 11/11/17 22:30 95 40 11/11/17 20:30 97.8 104 19 168/77 (107) 97 11/11/17 20:16 95 Nasal Cannula 4.00 11/11/17 20:00 Nasal Cannula 5.00 I/O 11/11/17 11/11/17 11/11/17 11/12/17 11/12/17 11/12/17 07:00 15:00 23:00 07:00 15:00 23:00 Intake Total 0 ml 400 ml 775 ml 600 ml Output Total 300 ml 250 ml 1000 ml 900 ml 600 ml Balance -300 ml 150 ml -225 ml -900 ml 0 ml Intake Oral 0 ml 400 ml 775 ml 600 ml Output Urine Total 300 ml 250 ml 1000 ml 900 ml 600 ml # Bowel Movements 0 0 0 0 Result Diagram: 11/11/17 0500 11/11/17 0500 Objective Remarks GENERAL: Frail elderly wf, NAD SKIN: Warm and dry. HEAD: Normocephalic. EYES: No scleral icterus. No injection or drainage. NECK: Supple, trachea midline. No JVD or lymphadenopathy. CARDIOVASCULAR: Regular rate and rhythm without murmurs, gallops, or rubs. RESPIRATORY: Breath sounds equal bilaterally. No accessory muscle use. GASTROINTESTINAL: Abdomen soft, non-tender, nondistended. MUSCULOSKELETAL: No cyanosis, or edema. BACK: Nontender without obvious deformity. No CVA tenderness. A/P Assessment and Plan IMPRESSION: 1. Hypercapnic respiratory failure, improving. 2. Chronic obstructive pulmonary disease with mild exacerbation. 3. Gastrointestinal bleed. 4. History of non-Hodgkin lymphoma. 5. Idiopathic thrombocytopenic purpura. PLAN: Aerosol nebs Supplement 02 Monitor H/H DC plans underway. Manolo Gutierrez MD Nov 12, 2017 19:48
[2017-11-12] MEDS: ATORVASTATIN 20 MG TAB PO SCH (21:34)
[2017-11-12] MEDS: AMITRIPTYLINE HCL 75 MG TAB PO SCH (21:34)
[2017-11-13] VITALS: BP 147/70; PULSE 89; RESP 19; TEMP 97.8; O2SAT 94
[2017-11-13] MEDS: CHLORHEXIDINE GLUCONATE 2 % 1 PACK (2 CLOTHS)(taper/protocol) TOPICAL SCH (03:46)
[2017-11-13 06:37] VITALS: BP 137/68; PULSE 89; RESP 17; TEMP 98.4; O2SAT 96
[2017-11-13] MEDS: methylPREDNISolone SOD SUCC 40 MG/1 ML VIAL IV PUSH SCH ×2 (06:45→12:00)
[2017-11-13] MEDS: INSULIN ASPART SUPPLEMENTAL SCALE SQ SCH ×2 (08:00→12:00)
[2017-11-13 08:07] VITALS: BP 110/72; PULSE 89; RESP 18; TEMP 98.1; O2SAT 95
[2017-11-13] MEDS: RESP: ALBUTEROL 2.5 MG/IPRATROPIUM 0.5 MG NEB (SCH) NEB (09:19)
[2017-11-13 09:22] VITALS: O2SAT 92
[2017-11-13] MEDS: MIRTAZAPINE 15 MG TAB PO SCH (09:53)
[2017-11-13] MEDS: PANTOPRAZOLE SOD 40 MG DELAYED RELEASE TAB PO SCH (09:53)
[2017-11-13] MEDS: SODIUM CHLORIDE 0.9% FLUSH 10 ML FLUSH IV FLUSH SCH (11:32)
[2017-11-13] MEDS: FAMOTIDINE 20 MG/2 ML VIAL IV PUSH SCH (11:32)
[2017-11-13 11:34] VITALS: BP 150/69; PULSE 104; RESP 18; TEMP 98.2; O2SAT 92
[2017-11-13 14:16] LABS: AUTOMATED NEUTROPHIL # 22.7 TH/MM3 (1.8-7.7); BASOPHIL % 0.2 % (0.0-2.0); HEMATOCRIT 36.7 % (35.0-46.0); HEMOGLOBIN 11.6 GM/DL (11.6-15.3); LYMPH % 1.2 % (9.0-44.0); LYMPHOCYTE # 0.3 TH/MM3 (1.0-4.8); MEAN CELL VOLUME 87.4 FL (80.0-100.0); MEAN CORPUSCULAR HEMOGLOBIN 27.6 PG (27.0-34.0); MEAN CORPUSCULAR HGB CONC 31.6 % (32.0-36.0); MEAN PLATELET VOLUME 7.6 FL (7.0-11.0); NEUT % 94.6 % (16.0-70.0); PLATELET COUNT 405 TH/MM3 (150-450); RED CELL DISTRIBUTION WIDTH 14.8 % (11.6-17.2)
--- NOTE | 2017-11-13 19:49 | HHI.DS ---
Discharge Summary Admission Date Nov 03, 2017 at 14:19 Discharge Date: Nov 13, 2017 Admitting Diagnosis GI bleed. Syncope. (1) GI bleed ICD Code: K92.2 - Gastrointestinal hemorrhage, unspecified Status: Acute (2) Syncope ICD Code: R55 - Syncope and collapse Status: Acute (3) Ischemia, bowel ICD Code: K55.9 - Vascular disorder of intestine, unspecified Status: Acute Procedures See below Brief History - From Admission HPI from the admitting physician. 87-year-old female with history of diabetes type 2, COPD was brought to the emergency department for evaluation of altered mental status change and syncope. Apparently, patient has gone to the toilet however passed out. She states she has no recollection of the events. She was brought to the emergency department she was hypotensive, diaphoretic. Although patient denies any episode of GI bleed however in the ED she was noted to have several BM with blood mixed in them. H&H was initially stable. Patient denies any current chest pain however reports some slight shortness of breath. She had colonoscopy about a year ago, however states now she would want to due to the prep. CBC/BMP: 11/13/17 1350 11/11/17 0500 Significant Findings Laboratory Tests Test 11/11/17 05:00 11/13/17 13:50 White Blood Count 16.2 TH/MM3 (4.0-11.0) 24.0 TH/MM3 (4.0-11.0) Red Blood Count 3.72 MIL/MM3 (4.00-5.30) Hemoglobin 10.7 GM/DL (11.6-15.3) Hematocrit 32.5 % (35.0-46.0) Neutrophils (%) (Auto) 93.1 % (16.0-70.0) 94.6 % (16.0-70.0) Lymphocytes (%) (Auto) 1.9 % (9.0-44.0) 1.2 % (9.0-44.0) Neutrophils # (Auto) 15.1 TH/MM3 (1.8-7.7) 22.7 TH/MM3 (1.8-7.7) Lymphocytes # (Auto) 0.3 TH/MM3 (1.0-4.8) 0.3 TH/MM3 (1.0-4.8) Random Glucose 145 MG/DL (74-106) Total Protein 5.6 GM/DL (6.4-8.2) Albumin 2.5 GM/DL (3.4-5.0) Potassium Level 3.4 MEQ/L (3.5-5.1) Chloride Level 96 MEQ/L (98-107) Carbon Dioxide Level 41.2 MEQ/L (21.0-32.0) Estimat Glomerular Filtration Rate 61 ML/MIN (>89) B-Type Natriuretic Peptide 199 PG/ML (0-100) Mean Corpuscular Hemoglobin Concent 31.6 % (32.0-36.0) Monocytes # (Auto) 1.0 TH/MM3 (0-0.9) PE at Discharge GENERAL: This is a well-nourished, well-developed patient, in no apparent distress. CARDIOVASCULAR: RRR, positive systolic murmur RESPIRATORY: Fair air entry bilaterally. No W, R, or R GASTROINTESTINAL: Abdomen soft, non-tender, nondistended. Positive bowel sounds MUSCULOSKELETAL: Extremities without clubbing, cyanosis, or edema. Pedal pulses appreciated NEUROLOGICAL: Awake and alert. Moves all extremity. 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 Fishman, and the family, they plan on hospice, I discussed with the hospice agent and patient and family agreed to be discharged to hospice center family Pt Condition on Discharge: Deteriorating Discharge Disposition: Hospice/Med Facility Discharge Time: > 30 minutes Discharge Instructions DIET: Follow Instructions for: Heart Healthy Diet Activities you can perform: See Additionl Instruction Other Activity Instructions: Per hospice protocol Salomon Newman MD Nov 13, 2017 19:49
== END 2017-11-13 15:20 | disposition hospice, inpatient (51) | DRG 393 ==
LOC: NEPE 10:39 → NEDA 14:19 → NEDH 19:17 → NEPGCP 21:39 → N03B 11-04 17:44 → N04B 11-07 18:04 → HIMN 11-09 14:20 → N05B 11-11 18:36
PROVIDERS: ADMIT Hospitalist; ATTEND Hospitalist
PROC: 0DB68ZX Excision of Stomach, Via Natural or Artificial Opening Endoscopic, Diagnostic (ICD-10-PCS; principal; 2017-11-05 09:40)
PROC: 0DBM8ZX Excision of Descending Colon, Via Natural or Artificial Opening Endoscopic, Diagnostic (ICD-10-PCS; 2017-11-05 09:40)
PROC: 5A09457 Assistance with Respiratory Ventilation, 24-96 Consecutive Hours, Continuous Positive Airway Pressure (ICD-10-PCS; 2017-11-09)
DX: K55.9 Vascular disorder of intestine, unspecified (principal); J96.01 Acute respiratory failure with hypoxia; D69.3 Immune thrombocytopenic purpura; I95.9 Hypotension, unspecified; E87.2 Acidosis; I11.0 Hypertensive heart disease with heart failure; J96.02 Acute respiratory failure with hypercapnia; K63.3 Ulcer of intestine; C88.4 Extranodal marginal zone B-cell lymphoma of mucosa-associated lymphoid tissue [MALT-lymphoma]; I50.9 Heart failure, unspecified; K57.31 Diverticulosis of large intestine without perforation or abscess with bleeding; J44.1 Chronic obstructive pulmonary disease with (acute) exacerbation; C93.10 Chronic myelomonocytic leukemia not having achieved remission; E11.51 Type 2 diabetes mellitus with diabetic peripheral angiopathy without gangrene; R55 Syncope and collapse; E78.5 Hyperlipidemia, unspecified; D50.0 Iron deficiency anemia secondary to blood loss (chronic); R91.1 Solitary pulmonary nodule; K44.9 Diaphragmatic hernia without obstruction or gangrene; R00.0 Tachycardia, unspecified; K29.70 Gastritis, unspecified, without bleeding; H91.90 Unspecified hearing loss, unspecified ear; M19.90 Unspecified osteoarthritis, unspecified site; F41.9 Anxiety disorder, unspecified; Z51.5 Encounter for palliative care; Z66 Do not resuscitate; Z83.3 Family history of diabetes mellitus; Z87.891 Personal history of nicotine dependence; Z96.641 Presence of right artificial hip joint; Z96.652 Presence of left artificial knee joint; Z99.81 Dependence on supplemental oxygen
CPT/HCPCS: 36600; 70450; 71045; 74174; 74176; 76937; 80048; 80053; 82550; 82607; 82728; 82746; 82805; 82948; 83540; 83550; 83880; 84443; 84484; 85007; 85014; 85018; 85025; 85027; 85610; 85730; 86850; 86900; 86901; 87641; 88305; 93005; 93306; 94002; 94003; 94640; 94664; 96361; 96365; 96368; 96375; C9113; J0330; J1610; J1815; J1940; J2270; J2370; J2405; J2543; J2920; J3480; J7030; J7050; J7613; Q9967